=== PATIENT | female | born 1935 | race Caucasian/White ===

== ENCOUNTER → 2017-05-15 | Outpatient (CLI) | payer MEDICARE ==
[~2017-05-15] MED LIST: ALBU8.5H2 IH; AMIT10TA6 PO; ASP325T PO; ATEN-147 PO; CLIN150C2 PO; CLON0.5T3 PO; DOCU100T7 PO; HYDR-3454 PO; IPRA3AMP IH; LOSA100T7 PO; MELO-195 PO; MONT4TAB36 PO; OMEP40CA36 PO; SIMV20TA3 PO; TRAM-21 PO; [UNRECOGNIZED DRUG - OTHER] PO
--- NOTE | 2017-05-15 12:24 | Diagnostic Imaging Report ---
PROCEDURE: US Bilateral lower extremity arterial. TECHNIQUE: Multiple real-time grayscale images are obtained through both lower extremity arterial systems with color Doppler imaging and color Doppler spectral analysis. INDICATION: Leg pain. There are no prior studies available for comparison. FINDINGS: There is fairly good arterial blood flow to both lower extremities. Biphasic waveforms are seen at all levels and there is no abrupt alteration of the velocities to suggest a hemodynamically significant stenosis. IMPRESSION: 1. There is no evidence for a hemodynamically significant stenosis of either arterial system. 2. If clinical concern regarding an underlying abnormality persists and further imaging is desired, then CTA of the aorta with bilateral runoffs will be recommended. Dictated by: Dictated on workstation # [id number]
--- NOTE | 2017-05-15 12:30 | Diagnostic Imaging Report ---
EXAMINATION: Bilateral lower extremity venous Doppler. INDICATION: Difficulty walking, leg pain. FINDINGS: Spectral and color flow imaging of the deep venous system was performed. There are no prior studies available for comparison. There is generally good blood flow and compressibility throughout the deep venous system. There is no evidence for a deep venous thrombosis. IMPRESSION: There is no evidence for a deep venous thrombosis of either lower extremity. Dictated by: Dictated on workstation # [id number]
== END ==
LOC: RAD 08:29
DX: F41.8 Other specified anxiety disorders (principal); G25.0 Essential tremor; J44.9 Chronic obstructive pulmonary disease, unspecified; G14 Postpolio syndrome; R20.8 Other disturbances of skin sensation; R29.6 Repeated falls
CPT/HCPCS: 93925; 93970

== ENCOUNTER → 2017-06-14 | Outpatient (CLI) | payer MEDICARE | LOC: CARD 13:10 | PROVIDERS: ATTEND Internal Medicine Cardiovascular Disease | DX: J44.9 Chronic obstructive pulmonary disease, unspecified (principal); I63.9 Cerebral infarction, unspecified; E78.2 Mixed hyperlipidemia; I10 Essential (primary) hypertension; Z72.0 Tobacco use | CPT/HCPCS: 93306 ==

== ENCOUNTER → 2017-06-18 | Outpatient (CLI) | payer MEDICARE ==
[~2017-06-18] VITALS: Ht 162.6 cm; Wt 71.2 kg
[~2017-06-18] MED LIST changes: +CATHETER FLUSH 10 ML SYR IV PRN; +REGADENOSON 0.4 MG/5 ML SYR (LEXISCAN) IV ONE
[2017-06-18 09:28] VITALS: BP 190/94
[2017-06-18 09:33] VITALS: BP 172/76
--- NOTE | 2017-06-19 08:07 | STRESS TEST ---
DATE OF SERVICE: 06/18/2017 REFERRING PHYSICIAN: Dr. Darien Swain. Baseline heart rate is 56. Baseline blood pressure 190/94. Baseline EKG sinus rhythm with left bundle branch block. In summary, patient was injected with 10.66 mCi of technetium-99 Myoview and the resting images were obtained. Then, the patient received 0.4 mg of Lexiscan followed by 31.7 mCi of technetium-99 Myoview. Throughout the test, there were no EKG changes. The resting and stress images were reviewed and compared in the short axis, horizontal long axis, and vertical long axis views. Review of the images showed breast attenuation, no significant ischemia or infarction was seen, mild apical thinning was noted. SSS is 3. SDS is 3. TID value 1.02. On the gated images, the left ventricle appeared to be normal size with mild hypokinesia at the anteroseptum and true septum, probably due to underlying left bundle branch block. Calculated ejection fraction 56%. CONCLUSION: 1. The patient tolerated Lexiscan well. 2. Baseline left bundle branch block persisted during test. 3. Apical thinning with no significant ischemia or infarction on SPECT images. 4. Normal left ventricular size with mild hypokinesia at the anteroseptum and true septum due to the underlying bundle branch block with calculated ejection fraction 56%. Job ID: [id number] DocumentID: [id number] Dictated Date: 06/19/2017 07:34:44 Human Resources Department Supervisor Date: 06/19/2017 08:06:36 Dictated By: ARASH CAI MD [facility]
== END ==
LOC: CARD 06:32
PROVIDERS: ATTEND Internal Medicine Cardiovascular Disease
DX: I10 Essential (primary) hypertension (principal); E78.2 Mixed hyperlipidemia; J44.9 Chronic obstructive pulmonary disease, unspecified; I63.9 Cerebral infarction, unspecified; Z72.0 Tobacco use
CPT/HCPCS: 78452; 93017

== ENCOUNTER 2018-02-25 05:37 | Outpatient (CLI) | payer MEDICARE ==
[~2018-02-25] VITALS: Ht 162.6 cm; Wt 71.2 kg
[~2018-02-25 05:37] MED LIST changes: -CATHETER FLUSH 10 ML SYR IV PRN; -REGADENOSON 0.4 MG/5 ML SYR (LEXISCAN) IV ONE
[2018-02-25] MEDS ORDERED: AMLO5TAB7 PO (13:55)
[2018-02-25] MEDS ORDERED: MIRT15TA6 PO (13:55)
[2018-02-25] MEDS ORDERED: ASPI-808 PO (13:55)
[2018-02-25] MEDS ORDERED: LOSA100T8 PO (13:55)
[2018-02-25] MEDS ORDERED: ATOR10TA66 PO (13:55)
[2018-02-25] MEDS ORDERED: MONT10TA24 PO (13:55)
[2018-02-25] MEDS ORDERED: PRIM50TA PO (13:55)
[2018-02-25] MEDS ORDERED: CLON0.5T25 PO (13:55)
[2018-02-25] MEDS ORDERED: MELO15TA39 PO (13:55)
[2018-02-25] MEDS ORDERED: OMEP40CA36 PO (13:55)
[2018-02-25] MEDS ORDERED: IPRA3AMP31 IH (13:55)
== END 2018-02-25 13:57 | disposition home or self-care (01) ==
LOC: PREOP 05:37
PROVIDERS: ATTEND Surgery
DX: Z01.818 Encounter for other preprocedural examination (principal)

== ENCOUNTER 2018-03-04 07:28 | Day surgery (SDC) | payer MEDICARE ==
[~2018-03-04] VITALS: Ht 162.6 cm; Wt 71.2 kg
[~2018-03-04 07:28] MED LIST changes: +AMLO5TAB7 PO; +ASPI-808 PO; +ATOR10TA66 PO; +CLON0.5T25 PO; +IPRA3AMP31 IH; +LOSA100T8 PO; +MELO15TA39 PO; +MIRT15TA6 PO; +MONT10TA24 PO; +PRIM50TA PO
[2018-03-04] MEDS ORDERED: NS IV 500 ML 500 ML IV PRN (07:38)
[2018-03-04] MEDS ORDERED: NS IV 500 ML 500 ML ONE (07:41)
[2018-03-04] MEDS ORDERED: fentaNYL INJECTION 100 MCG/2 ML AMP IVP ONE (07:45)
[2018-03-04] MEDS ORDERED: MIDAZOLAM 2 MG/2 ML (VERSED) VIAL IVP ONE (07:45)
[2018-03-04] MEDS ORDERED: HURRICAINE EXT TUBE (BENZOCAINE) XX PRN (07:45)
[2018-03-04 07:51] VITALS: BP 124/70
[2018-03-04] MEDS ORDERED: fentaNYL INJECTION 100 MCG/2 ML AMP ONE (09:50)
[2018-03-04] MEDS ORDERED: MIDAZOLAM 2 MG/2 ML (VERSED) VIAL ONE ×2 (09:50)
[2018-03-04] MEDS ORDERED: HURRICAINE EXT TUBE (BENZOCAINE) ONE (09:50)
--- NOTE | 2018-03-04 10:16 | Conscious Sedation/ASA ---
Conscious Sedation Pre-Proced Time 09:20 ASA Score 3 For ASA 3 and 4: Consider anesthesia and medical clearance. Also, for patients with a history of failed moderate sedation consider anesthesia. Airway Lungs Heart ASA score ASA 1: a normal healthy patient ASA 2: a patient with a mild systemic disease (mid diabetes, controlled hypertension, obesity ASA 3: a patient with a severe systemic disease that limits activity (angina , COPD, prior Myocardial infarction) ASA 4: a patient with an incapacitating disease that is a constant threat to life (CHF, renal failure) ASA 5: a moribund patient not expected to survive 24 hrs. (ruptured aneurysm) ASA 6: a declared brain patient whose organs are being harvested. For emergent operations, add the letter E after the classification Mallampati Classification Grade 2 Sedation Plan Discussed options with patient/fam The patient is an appropriate candidate to undergo the planned procedure, sedation, and anesthesia. The patient immediately re-assessed prior to indication. DONNA SIMMONS MD Mar 04, 2018 10:16
--- NOTE | 2018-03-04 10:19 | Endo Procedure Record ---
Endo Procedure Report Date of Procedure Last Colonoscopy: Yes (1999) Mar 04, 2018 Surgeon (s) DONNA SIMMONS MD Post Procedure/Op Diagnosis EGD: Hiatal hernia with mild esophagitis Colonoscopy: Sigmoid diverticulosis Procedure Performed EGD Colonoscopy to cecum Description of Procedure Anesthesia Type: Conscious Sedation Specimen(s) collected/removed None Description of the Procedure indication for the procedures: This lady came in for an upper endoscopy to evaluate weight loss and colonoscopy on the basis of a personal history of polyps, along with the family history of colon cancer. Informed consent was obtained after reviewing the procedures in detail. Description of the procedures: EGD: She was placed in left lateral decubitus position and her vital signs were monitored. Conscious sedation was achieved using Versed and fentanyl. The flexible gastroscope was introduced down the esophagus, past the stomach, into the proximal duodenum. Findings: Esophagus: A short hiatal hernia with mild esophagitis. Stomach and duodenum were normal. She tolerated the procedure well and was taken turned around in preparation for colonoscopy. Impression: Weight loss. No contributing lesions found in the stomach. Colonoscopy: Examination of the perianal area revealed a posterior skin tach. Digital examination was otherwise unremarkable. The colonoscope was then introduced in the rectum and advanced all the way up to the cecum. It was then withdrawn slowly and the mucosa examined in a systematic fashion. Findings: Sigmoidal diverticulosis. No recurrent polyps were found. She tolerated the procedures well and was taken back to the nursing area in a stable condition. Impression: Surveillance colonoscopy. No polyps found. Recommend repeating in 5 years. DONNA SIMMONS MD Mar 04, 2018 10:19
--- NOTE | 2018-03-04 10:20 | Discharge Inst-Simple/Standard ---
Discharge Inst-Standard Discharge Medications New, Converted or Re-Newed RX: Other Patient Instructions/Follow Up Plan of Care/Instructions/FU: repeat colonoscopy in 5 years Activity as Tolerated: Yes Discharge Diet: No Restrictions DONNA SIMMONS MD Mar 04, 2018 10:20
[2018-03-04 10:30] VITALS: BP 123/57
[2018-03-04 11:00] VITALS: BP 128/74
[2018-03-04 11:30] VITALS: BP 128/74
== END 2018-03-04 11:30 | disposition home or self-care (01) ==
LOC: ENDO 07:28
PROVIDERS: ATTEND Surgery
DX: Z09 Encounter for follow-up examination after completed treatment for conditions other than malignant neoplasm (principal); K57.30 Diverticulosis of large intestine without perforation or abscess without bleeding; K20.9 Esophagitis, unspecified; K44.9 Diaphragmatic hernia without obstruction or gangrene; Z86.010 Personal history of colon polyps; Z80.0 Family history of malignant neoplasm of digestive organs; K64.4 Residual hemorrhoidal skin tags; Z86.73 Personal history of transient ischemic attack (TIA), and cerebral infarction without residual deficits; Z79.82 Long term (current) use of aspirin; I10 Essential (primary) hypertension; E78.2 Mixed hyperlipidemia; M81.0 Age-related osteoporosis without current pathological fracture; J44.9 Chronic obstructive pulmonary disease, unspecified; F17.210 Nicotine dependence, cigarettes, uncomplicated

== ENCOUNTER → 2018-08-12 | Outpatient (CLI) | payer MEDICARE ==
[~2018-08-12] MED LIST changes: -AMLO5TAB7 PO; +AMLO5TAB9 PO; +LOSA100T57 PO; -LOSA100T8 PO
[2018-08-12 10:14] LABS: ALANINE AMINOTRANSFERASE 9 U/L (0-55); ALKALINE PHOSPHATASE 110 U/L (40-136); BILIRUBIN,TOTAL 0.4 MG/DL (0.1-1.0); BUN/CREATININE RATIO 8; CALCIUM 9.4 MG/DL (8.5-10.1); CARBON DIOXIDE 24 MMOL/L (21-32); CHLORIDE 110 MMOL/L (98-107); CHOLESTEROL 166 MG/DL (< 200); CREATININE SERUM 0.84 MG/DL (0.60-1.30); GFR ESTIMATED > 60; GLUCOSE 83 MG/DL (70-105); HDL CHOLESTEROL 46 MG/DL (40-60); POTASSIUM 4.3 MMOL/L (3.6-5.0); SODIUM 142 MMOL/L (135-145); TOTAL PROTEIN 6.3 GM/DL (6.4-8.2); TRIGLYCERIDES 166 MG/DL (<150); VLDL CHOLESTEROL 33 MG/DL (5-40)
== END ==
LOC: LAB 09:35
PROVIDERS: ATTEND Physician Assistant
DX: E78.2 Mixed hyperlipidemia (principal); I10 Essential (primary) hypertension
CPT/HCPCS: 36415; 80053; 80061

== ENCOUNTER → 2018-09-11 | Outpatient (CLI) | payer MEDICARE ==
[2018-09-11 14:03] LABS: BUN/CREATININE RATIO 6; CREATININE SERUM 0.86 MG/DL (0.60-1.30); GFR ESTIMATED > 60
--- NOTE | 2018-09-11 14:30 | Diagnostic Imaging Report ---
PROCEDURE: CT chest with contrast only. TECHNIQUE: Multiple contiguous axial images were obtained through the chest after administration of intravenous contrast. Auto Exposure Controls were utilized during the CT exam to meet ALARA standards for radiation dose reduction. INDICATION: Mid back pain and cough. No prior studies are available for comparison. No axillary lymphadenopathy is identified. There may be some prominent lymph nodes in the AP window. In aggregate these measure 2.7 x 1.9 cm and are indeterminate. No definite hilar lymphadenopathy is identified. No pericardial or pleural fluid is identified. Pulmonary parenchymal evaluation demonstrates interstitial fibrotic changes throughout both lungs. Minimal subpleural air cysts are identified in the right base posteriorly. No discrete mass is identified. Upper abdomen is without evidence of an adrenal or hepatic mass. The bony structures do show some mild hyperkyphotic curvature to the thoracic spine but no acute compression fracture is seen. There is right convexity thoracic scoliotic curvature. Impression: 1. Interstitial fibrotic changes. 2. Mildly enlarged lymph nodes in the mediastinum AP window, indeterminate. No discrete pulmonary parenchymal mass is identified. Followup to confirm stability could be performed. Dictated by: Dictated on workstation # [id number]
== END ==
LOC: RAD 13:24
PROVIDERS: ATTEND Nurse Practitioner Primary Care
DX: J44.9 Chronic obstructive pulmonary disease, unspecified (principal); J18.9 Pneumonia, unspecified organism; J84.10 Pulmonary fibrosis, unspecified; R59.0 Localized enlarged lymph nodes
CPT/HCPCS: 36415; 71260; 82565; 84520

== ENCOUNTER 2018-09-14 20:40 | Emergency (ER) | payer MEDICARE ==
[~2018-09-14] VITALS: Ht 165.1 cm; Wt 67.1 kg
--- NOTE | 2018-09-14 22:50 | NUR ---
Report recieved from SHEFALI Roper to assume care of pt @ this time.
--- NOTE | 2018-09-14 22:58 | ED Cough/URI ---
General Chief Complaint: Cough/Cold/Flu Symptoms Stated Complaint: COUGHING, FEVER, WEAK Nursing Triage Note: PT TO ED W/ C/O COUGH, ELEVATED TEMP ONSET LAST NOC. FAMILY REPORTS PT RECENTLY WAS TREATED FOR PNEUMONIA Sepsis Screen: No Definite Risk Source: patient, family () Exam Limitations: no limitations History of Present Illness Date Seen by Provider: Sep 14, 2018 Time Seen by Provider: 22:30 Initial Comments The patient presents to the ER by private conveyance with her daughter and chief complaint that she just got off Levaquin for pneumonia outpatient treatment 3 days ago and yesterday started coughing again and today she had a fever of 100.6. Patient had no nausea vomiting diarrhea but has had mild shortness of breath. She does not use oxygen. She doesn't history of COPD and uses her albuterol inhaler 4 times a day which is normal for her. She typically would smoke 1/2-2 packs of cigarettes per day for the past for 5 days she's not been smoking any. No chest pain the swelling or edema. She denies a history of CHF. The daughter reports the patient has been referred to see a junior net developer just has not made the appointment yet. Allergies and Home Medications Allergies Coded Allergies: Penicillins (Unverified Allergy, Unknown, 02/25/18) sulfamethoxazole (Unverified Allergy, Unknown, 02/25/18) trimethoprim (Unverified Allergy, Unknown, 02/25/18) Home Medications Amlodipine Besylate 5 Mg Tablet, 5 MG PO DAILY, (Reported) Aspirin 325 Mg Tablet, 325 MG PO DAILY, (Reported) Atorvastatin Calcium 10 Mg Tablet, 10 MG PO HS, (Reported) Clonazepam 0.5 Mg Tab.rapdis, 0.5 MG PO TID, (Reported) Ipratropium/Albuterol Sulfate 3 Ml Ampul.neb, 3 ML IH QID, (Reported) Losartan Potassium 100 Mg Tablet, 100 MG PO DAILY, (Reported) Meloxicam 15 Mg Tablet, 15 MG PO DAILY, (Reported) Mirtazapine 15 Mg Tablet, 15 MG PO HS, (Reported) Montelukast Sodium 10 Mg Tablet, 10 MG PO DAILY, (Reported) Omeprazole 40 Mg Capsule.dr, 40 MG PO DAILY, (Reported) Primidone 50 Mg Tablet, 50 MG PO BID, (Reported) Patient Home Medication List Home Medication List Reviewed: Yes Review of Systems Review of Systems Constitutional: No chills, No diaphoresis EENTM: No ear discharge, No ear pain Respiratory: cough, phlegm, short of breath; No wheezing Cardiovascular: No chest pain, No edema Gastrointestinal: No abdominal pain, No constipation, No diarrhea, No nausea Genitourinary: No discharge, No dysuria Musculoskeletal: back pain (thoracic); No joint pain Skin: No pruritus, No rash Past Lbkjfov-Tuxyzw-Htwwqc Hx Patient Social History Alcohol Use: Denies Use Recreational Drug Use: No Smoking Status: Current Everyday Smoker Type Used: Cigarettes Recent Foreign Travel: No Contact w/Someone Who Travel: No Recent Infectious Disease Expo: No Recent Hopitalizations: No Immunizations Up To Date Date of Pneumonia Vaccine: Feb 25, 2015 Date of Influenza Vaccine: Jan 14, 2018 Seasonal Allergies Seasonal Allergies: Yes Past Medical History Surgeries: Yes (SCREWS IN LEFT ANKLE, LENS SURGERY, LIPOMA REMOVAL, FOOT AKBAR RGERY) Respiratory: Yes (WEARS O2 AT NIGHT) COPD, Emphysema Cardiac: Yes High Cholesterol, Hypertension Neurological: Yes (BENIGN TREMORS) Stroke Reproductive Disorders: No Sexually Transmitted Disease: Yes HIV/AIDS: No Gastrointestinal: Yes Gastroesophageal Reflux, Chronic Constipation, Polyps Musculoskeletal: Yes (OSTEOPOROSIS, HX POLIO) Arthritis Endocrine: No Cataract Loss of Vision: Denies Hearing Impairment: Hard of Hearing Cancer: Yes (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) Skin Psychosocial: No Integumentary: Yes (MULTIPLE SKIN LESIONS, SOME CANCEROUS) Blood Disorders: No Adverse Reaction/Blood Tranf: No (N/A) Family Medical History Colon cancer Physical Exam Vital Signs - First Documented 09/14/18 20:46 Temp 99.9 Pulse 77 Resp 20 B/P (MAP) 174/91 (118) Pulse Ox 97 O2 Delivery Room Air Capillary Refill : Less Than 3 Seconds Height: 5'5.00" Weight: 148lbs. 0.0oz. 67.924909ny; 27.0 BMI Method:Stated General Appearance: WD/WN, no apparent distress Eyes: Bilateral Eye Normal Inspection, Bilateral Eye PERRL, Bilateral Eye EOMI HEENT: PERRL/EOMI, normal ENT inspection, TMs normal, pharynx normal Neck: non-tender, full range of motion, normal inspection Respiratory: chest non-tender, no respiratory distress, no accessory muscle use, decreased breath sounds, crackles (bilateral bases) Cardiovascular: normal peripheral pulses, regular rate, rhythm Gastrointestinal: normal bowel sounds, non tender, soft Neurologic/Psychiatric: alert, normal mood/affect, oriented x 3 Skin: normal color, warm/dry Focused Exam Lactate Level 09/14/18 23:00: Lactic Acid Level 0.88 Lactic Acid Level Laboratory Tests Test 09/14/18 23:00 Lactic Acid Level 0.88 MMOL/L (0.50-2.00) Progress/Results/Core Measures Suspected Sepsis Recent Fever Within 48 Hours: No Infection Criteria Present: None New/Unexplained Altered Menta: No Sepsis Screen: No Definite Risk SIRS Temperature:99.9 Pulse: 77 Respiratory Rate: 20 Laboratory Tests 09/14/18 23:00: White Blood Count 4.4 Blood Pressure 174 /91 Mean: 118 09/14/18 23:00: Lactic Acid Level 0.88 Laboratory Tests 09/14/18 23:00: Creatinine 0.93, Platelet Count 166, Total Bilirubin 0.3 Results/Orders Lab Results Laboratory Tests Test 09/14/18 23:00 Range/Units White Blood Count 4.4 4.3-11.0 10^3/uL Red Blood Count 4.51 4.35-5.85 10^6/uL Hemoglobin 13.6 11.5-16.0 G/DL Hematocrit 40 35-52 % Mean Corpuscular Volume 89 80-99 FL Mean Corpuscular Hemoglobin 30 25-34 PG Mean Corpuscular Hemoglobin Concent 34 32-36 G/DL Red Cell Distribution Width 14.4 10.0-14.5 % Platelet Count 166 130-400 10^3/uL Mean Platelet Volume 11.0 H 7.4-10.4 FL Neutrophils (%) (Auto) 67 42-75 % Lymphocytes (%) (Auto) 18 12-44 % Monocytes (%) (Auto) 11 0-12 % Eosinophils (%) (Auto) 3 0-10 % Basophils (%) (Auto) 1 0-10 % Neutrophils # (Auto) 2.9 1.8-7.8 X 10^3 Lymphocytes # (Auto) 0.8 L 1.0-4.0 X 10^3 Monocytes # (Auto) 0.5 0.0-1.0 X 10^3 Eosinophils # (Auto) 0.1 0.0-0.3 10^3/uL Basophils # (Auto) 0.0 0.0-0.1 10^3/uL Sodium Level 138 135-145 MMOL/L Potassium Level 3.4 L 3.6-5.0 MMOL/L Chloride Level 104 98-107 MMOL/L Carbon Dioxide Level 23 21-32 MMOL/L Anion Gap 11 5-14 MMOL/L Blood Urea Nitrogen 7 7-18 MG/DL Creatinine 0.93 0.60-1.30 MG/DL Estimat Glomerular Filtration Rate 58 BUN/Creatinine Ratio 8 Glucose Level 91 70-105 MG/DL Lactic Acid Level 0.88 0.50-2.00 MMOL/L Calcium Level 8.6 8.5-10.1 MG/DL Corrected Calcium 8.8 8.5-10.1 MG/DL Magnesium Level 2.1 1.8-2.4 MG/DL Total Bilirubin 0.3 0.1-1.0 MG/DL Aspartate Amino Transf (AST/SGOT) 16 5-34 U/L Alanine Aminotransferase (ALT/SGPT) 8 0-55 U/L Alkaline Phosphatase 96 40-136 U/L C-Reactive Protein High Sensitivity 1.94 H 0.00-0.50 MG/DL B-Type Natriuretic Peptide 57.5 <100.0 PG/ML Total Protein 6.2 L 6.4-8.2 GM/DL Albumin 3.7 3.2-4.5 GM/DL My Orders Orders - CHRISTYSHONDA J Chest Pa/Lat (2 View) (09/14/18 22:42) BNP (09/14/18 22:42) Cbc With Automated Diff (09/14/18 22:42) Comprehensive Metabolic Panel (09/14/18 22:42) Hs C Reactive Protein (09/14/18 22:42) Lactic Acid Analyzer (09/14/18 22:42) Magnesium (09/14/18 22:42) Blood Culture (09/14/18 22:42) Sputum Culture (09/14/18 22:42) Vital Signs/I&O 09/14/18 09/14/18 20:46 22:20 Temp 99.9 Pulse 77 Resp 20 B/P (MAP) 174/91 (118) Pulse Ox 97 O2 Delivery Room Air Room Air Capillary Refill : Less Than 3 Seconds Blood Pressure Mean: 118 Progress Note #1: Time: 22:58 Progress Note Blood culture lab work. She is not hypoxic. She is not wheezy. She does have some crackles so we'll obtain a 2 view chest x-ray. Is This the after effects of her pneumonia or is she failing outpatient therapy. We'll also check a BNP. Progress Note #2: Time: 23:45 Progress Note No evidence of infection on labs her chest x-ray. Crackles may be related to bronchitis related to her interstitial lung disease. Apparently these were the same crackles she said that her primary care provider heard when they put her on Levaquin. Patient has a fever so this is more likely to be viral and bacterial. Markers of inflammation are not elevated and she is not on steroid. She is not wheezy and using her baseline level of albuterol. She does not use any oxygen and her vital signs are otherwise normal. She is in no acute distress and we'll let her go and follow-up Sunday with her primary care doctor. Diagnostic Imaging Diagonstic Imaging: Xray Plain Films/CT/US/NM/MRI: chest (2v) Comments Interstitial fibrotic changes but no discrete infiltrate or cardiopulmonary process noted on the 2 view chest x-ray. When compared to the cutter and paster press clippings images from 3 days ago 09/11/18 there is no significant change. Reviewed: Reviewed by Me Departure Impression Primary Impression: Bronchitis Additional Impression: Upper respiratory infection Qualified Codes: J06.9 - Acute upper respiratory infection, unspecified Disposition: HOME, SELF-CARE Condition: Stable Departure-Patient Inst. Decision time for Depature: 23:54 Referrals: [facility] (PCP) Primary Care Physician ALETA CROSS APRN (Family) Primary Care Physician GOPAL SERRANO DO Patient Instructions: Acute Bronchitis, Adult (DC) Add. Discharge Instructions: Drink plenty of fluids and use your albuterol as necessary for wheezing or shortness of breath. Use vapor rubs such as Vicks or Mentholatum. Use Tylenol as necessary for fever or bodyaches such as your backache. Sunday morning call either your primary care doctor or the junior net developer and work on getting an appointment to follow-up. If you have worsening shortness of breath, fever above 102.5 or other worrisome symptoms you may return to the ER for further evaluation. All discharge instructions reviewed with patient and/or family. Voiced understanding. SHONDA HARRISON J Sep 14, 2018 22:57
[2018-09-14 23:11] LABS: BASOPHILS % (AUTO) 1 % (0-10); EOSINOPHILS # (AUTO) 0.1 10^3/uL (0.0-0.3); EOSINOPHILS % (AUTO) 3 % (0-10); HEMATOCRIT 40 % (35-52); HEMOGLOBIN 13.6 G/DL (11.5-16.0); LYMPHOCYTES # (AUTO) 0.8 X 10^3 (1.0-4.0); LYMPHOCYTES % (AUTO) 18 % (12-44); MEAN CORPUSCULAR HEMOGLOBIN 30 PG (25-34); MEAN CORPUSCULAR HGB CONC 34 G/DL (32-36); MEAN CORPUSCULAR VOLUME 89 FL (80-99); MONOCYTES # (AUTO) 0.5 X 10^3 (0.0-1.0); MONOCYTES % (AUTO) 11 % (0-12); NEUTROPHILS # (AUTO) 2.9 X 10^3 (1.8-7.8); NEUTROPHILS % (AUTO) 67 % (42-75); PLATELET COUNT 166 10^3/uL (130-400); RED CELL DISTRIBUTION WIDTH 14.4 % (10.0-14.5); WHITE BLOOD COUNT 4.4 10^3/uL (4.3-11.0)
[2018-09-14 23:38] LABS: ALBUMIN 3.7 GM/DL (3.2-4.5); BILIRUBIN,TOTAL 0.3 MG/DL (0.1-1.0); CALCIUM 8.6 MG/DL (8.5-10.1); CREATININE SERUM 0.93 MG/DL (0.60-1.30); MAGNESIUM 2.1 MG/DL (1.8-2.4); POTASSIUM 3.4 MMOL/L (3.6-5.0); TOTAL PROTEIN 6.2 GM/DL (6.4-8.2)
[2018-09-15 00:13] VITALS: BP 178/97
--- NOTE | 2018-09-15 07:09 | Diagnostic Imaging Report ---
INDICATION: Short of air EXAMINATION: PA and lateral chest are correlated with a prior CT study from 09/11/2018. FINDINGS: Chronic interstitial changes and pulmonary fibrosis are not appreciably changed. There is no new alveolar consolidation or infiltrate. There is some scarring in the mid right lung. There is no pneumothorax. Heart size and mediastinal contours appear appropriate without evidence of failure. IMPRESSION: 1. Chronic interstitial lung disease and pulmonary fibrosis with no perceptible interval change. There is no new consolidation or effusion and pulmonary vascularity appears appropriate. Dictated by: Dictated on workstation # [id number]
== END 2018-09-15 00:14 | disposition home or self-care (01) ==
LOC: EDUNIT# 20:40 → ER 20:42
DX: J06.9 Acute upper respiratory infection, unspecified (principal); J40 Bronchitis, not specified as acute or chronic; E78.00 Pure hypercholesterolemia, unspecified; K21.9 Gastro-esophageal reflux disease without esophagitis; M81.0 Age-related osteoporosis without current pathological fracture; I10 Essential (primary) hypertension; F17.210 Nicotine dependence, cigarettes, uncomplicated; Z88.0 Allergy status to penicillin; Z87.19 Personal history of other diseases of the digestive system; Z86.12 Personal history of poliomyelitis; Z85.828 Personal history of other malignant neoplasm of skin; Z86.010 Personal history of colon polyps; Z88.2 Allergy status to sulfonamides; Z86.73 Personal history of transient ischemic attack (TIA), and cerebral infarction without residual deficits; Z99.81 Dependence on supplemental oxygen; Z88.8 Allergy status to other drugs, medicaments and biological substances; Z79.52 Long term (current) use of systemic steroids
CPT/HCPCS: 36415; 71046; 80053; 83605; 83735; 83880; 85025; 86141; 87040

== ENCOUNTER → 2018-09-30 | Outpatient (CLI) | payer MEDICARE ==
[2018-09-30 09:59] LABS: ABG BASE EXCESS -1.2 MMOL/L (-2.5-2.5); ABG OXYGEN SATURATION 98 % (94-100); ABG PCO2 37 MMHG (35-45); ABG PO2 68 MMHG (79-93); ABG TCO2 24.5 MMOL/L (21.0-31.0); ALLENS TEST YES-POS; INSPIRED O2 ROOM AIR; PATIENT TEMP 95.5; VENTILATOR NO
== END ==
LOC: PULM 09:18
PROVIDERS: ATTEND Nurse Practitioner Family
DX: R05 Cough (principal); R06.00 Dyspnea, unspecified; J30.9 Allergic rhinitis, unspecified; R06.89 Other abnormalities of breathing; J98.4 Other disorders of lung; J44.9 Chronic obstructive pulmonary disease, unspecified; J84.10 Pulmonary fibrosis, unspecified; R91.8 Other nonspecific abnormal finding of lung field; Z72.0 Tobacco use
CPT/HCPCS: 36600; 82805

== ENCOUNTER → 2018-10-01 | Outpatient (CLI) | payer MEDICARE | LOC: PULM 10:16 | PROVIDERS: ATTEND Nurse Practitioner Family | DX: J84.10 Pulmonary fibrosis, unspecified (principal); R05 Cough; R06.00 Dyspnea, unspecified; J30.9 Allergic rhinitis, unspecified; R06.89 Other abnormalities of breathing; J44.9 Chronic obstructive pulmonary disease, unspecified; R91.8 Other nonspecific abnormal finding of lung field; Z72.0 Tobacco use ==

== ENCOUNTER → 2018-11-07 | Outpatient (CLI) | payer MEDICARE ==
[~2018-11-07] MED LIST changes: +RT-ALBUTEROL SULF 2.5 MG/3 ML PRE-MIX VIAL INH ONE
== END ==
LOC: RT 14:27
PROVIDERS: ATTEND Nurse Practitioner Family
DX: J30.9 Allergic rhinitis, unspecified (principal); J44.9 Chronic obstructive pulmonary disease, unspecified; J84.10 Pulmonary fibrosis, unspecified; J98.4 Other disorders of lung; Z72.0 Tobacco use
CPT/HCPCS: 94060; 94640; 94726; 94729

== ENCOUNTER → 2018-12-11 | Outpatient (CLI) | payer MEDICARE ==
[~2018-12-11] MED LIST changes: -RT-ALBUTEROL SULF 2.5 MG/3 ML PRE-MIX VIAL INH ONE
[2018-12-11 11:41] LABS: BUN/CREATININE RATIO 15; CREATININE SERUM 0.81 MG/DL (0.60-1.30); GFR ESTIMATED > 60
--- NOTE | 2018-12-11 12:44 | Diagnostic Imaging Report ---
PROCEDURE: CT chest with contrast only. TECHNIQUE: Multiple contiguous axial images were obtained through the chest after administration of intravenous contrast. Auto Exposure Controls were utilized during the CT exam to meet ALARA standards for radiation dose reduction. INDICATION: Cough, dyspnea, and COPD. COMPARISON: Correlation is made with prior CT chest from 09/11/2018. FINDINGS: No axillary lymphadenopathy is identified. AP window nodes are again noted, in aggregate measuring 2.5 x 1.7 cm compared with 2.6 x 1.9 cm. Paratracheal node demonstrates short axis measurement of 11 mm. Yara are unremarkable. The heart is enlarged. There is no pericardial or pleural fluid identified. Subpleural interstitial fibrotic changes are again noted and similar to prior exam. No discrete parenchymal mass is seen. Upper abdomen appears stable. IMPRESSION: Overall stable CT chest when compared with examination from 09/11/2018. Prominent mediastinal lymph nodes are stable. There are interstitial fibrotic changes in both lungs, stable. Dictated by: Dictated on workstation # [id number]
== END ==
LOC: RAD 09:24
PROVIDERS: ATTEND Nurse Practitioner Family
DX: J84.10 Pulmonary fibrosis, unspecified (principal); J98.4 Other disorders of lung; J44.9 Chronic obstructive pulmonary disease, unspecified; R91.8 Other nonspecific abnormal finding of lung field; Z72.0 Tobacco use
CPT/HCPCS: 36415; 71260; 82565; 84520

== ENCOUNTER 2019-01-07 09:30 | Outpatient (RCR) | payer MEDICARE ==
[2018-10-29 09:30] VITALS: BP 142/67
[2018-10-29 10:45] VITALS: BP 120/60
[2018-10-31 09:30] VITALS: BP 130/70
[2018-10-31 10:30] VITALS: BP 120/60
[2018-11-05 09:30] VITALS: BP 120/60
[2018-11-05 10:45] VITALS: BP 118/70
[2018-11-07 09:30] VITALS: BP 98/60
[2018-11-07 10:45] VITALS: BP 120/70
[2018-11-12 09:25] VITALS: BP 120/60
[2018-11-12 10:27] VITALS: BP 110/60
[2018-11-14 09:30] VITALS: BP 131/60
[2018-11-14 10:19] VITALS: BP 128/62
[2018-11-21 09:30] VITALS: BP 130/60
[2018-11-21 10:45] VITALS: BP 110/70
[2018-11-26 09:30] VITALS: BP 118/64
[2018-11-26 10:25] VITALS: BP 122/68
[2018-11-28 09:10] VITALS: BP 128/62
[2018-11-28 10:12] VITALS: BP 122/58
[2018-12-03 09:25] VITALS: BP 120/82
[2018-12-03 10:17] VITALS: BP 128/70
[2018-12-10 09:30] VITALS: BP 121/58
[2018-12-10 10:39] VITALS: BP 120/70
[2018-12-12 09:00] VITALS: BP 116/70
[2018-12-12 10:00] VITALS: BP 122/70
[2018-12-17 09:30] VITALS: BP 130/60
[2018-12-17 10:30] VITALS: BP 125/59
[2018-12-19 09:30] VITALS: BP 170/60
[2018-12-19 10:31] VITALS: BP 120/62
[2018-12-24 09:30] VITALS: BP 130/70
[2018-12-24 10:26] VITALS: BP 117/60
[2018-12-26 09:30] VITALS: BP 118/50
[2018-12-26 10:45] VITALS: BP 120/60
[2019-01-02 09:30] VITALS: BP 120/50
[2019-01-02 10:45] VITALS: BP 112/50
[2019-01-07 09:30] VITALS: BP 106/58
[2019-01-07 10:30] VITALS: BP 110/62
[2019-01-08] MEDS ORDERED: CEPH-507 PO (15:52)
[2019-01-14 08:03] VITALS: BP 102/70
[2019-01-14 09:02] VITALS: BP 100/70
[2019-01-14 10:30] VITALS: BP 120/80
[2019-01-14 11:00] VITALS: BP 140/60
[2019-01-21 09:30] VITALS: BP 130/64
[2019-01-21 10:08] VITALS: BP 120/60
== END 2019-01-19 | disposition home or self-care (01) ==
LOC: PULM 09:30
PROVIDERS: ATTEND Nurse Practitioner Family
DX: J84.10 Pulmonary fibrosis, unspecified (principal); J44.9 Chronic obstructive pulmonary disease, unspecified
CPT/HCPCS: 99211

== ENCOUNTER 2019-01-08 13:17 | Emergency (ER) | payer MEDICARE ==
[~2019-01-08] VITALS: Ht 162 cm; Wt 64.5 kg
[2019-01-08] MEDS ORDERED: NS IV 500 ML 500 ML IV ONE (14:02)
--- NOTE | 2019-01-08 14:08 | ED Fall/Injury ---
General Chief Complaint: Trauma-Non Activation Stated Complaint: FALL Nursing Triage Note: TO TRIAGE WITH COMPLAINTS OF FALLING AT APPX 1245 HITTING HER HEAD AND LANDING ON HER LEFT HIP AND SHOULDER. PT STATES SHE IS HAVING A HARD TIME STAYING AWAKE SINCE THE FALL AND HER HEAD IS "KILLING HER" PT TAKES A FULL STRENGTH ASA DAILY. Source: patient, family (2 daughters) Exam Limitations: no limitations History of Present Illness Date Seen by Provider: Jan 08, 2019 Time Seen by Provider: 13:52 Initial Comments The patient presents to the ER by private conveyance with chief complaint of a fall. She was leaning forward on some newspapers and they slid out from underneath her hands and so she fell forward striking the left eyebrow against the table and then landing on her left side left shoulder and left hip. She's solomon ving some pain in her hip was able to walk out to the car. She takes aspirin daily. Her daughter says she was acting sleepy. She's not having any nausea and denies loss of consciousness. She's not having any problems with memory. She denies coughing shortness of breath dysuria, nausea, diarrhea or constipation. Allergies and Home Medications Allergies Coded Allergies: Penicillins (Unverified Allergy, Unknown, 02/25/18) sulfamethoxazole (Unverified Allergy, Unknown, 02/25/18) trimethoprim (Unverified Allergy, Unknown, 02/25/18) Home Medications Amlodipine Besylate 5 Mg Tablet, 5 MG PO DAILY, (Reported) Aspirin 325 Mg Tablet, 325 MG PO DAILY, (Reported) Atorvastatin Calcium 10 Mg Tablet, 10 MG PO HS, (Reported) Clonazepam 0.5 Mg Tab.rapdis, 0.5 MG PO TID, (Reported) Ipratropium/Albuterol Sulfate 3 Ml Ampul.neb, 3 ML IH QID, (Reported) Losartan Potassium 100 Mg Tablet, 100 MG PO DAILY, (Reported) Meloxicam 15 Mg Tablet, 15 MG PO DAILY, (Reported) Mirtazapine 15 Mg Tablet, 15 MG PO HS, (Reported) Montelukast Sodium 10 Mg Tablet, 10 MG PO DAILY, (Reported) Omeprazole 40 Mg Capsule.dr, 40 MG PO DAILY, (Reported) Primidone 50 Mg Tablet, 50 MG PO BID, (Reported) Patient Home Medication List Home Medication List Reviewed: Yes Review of Systems Review of Systems Constitutional: No chills, No fever, No malaise Eyes: Denies Blurred Vision, Denies Drainage Ears, Nose, Mouth, Throat: denies ear pain, denies ear discharge Respiratory: No short of breath; other (chronic lung disease) Cardiovascular: No chest pain, No edema Gastrointestinal: No abdominal pain, No constipation, No diarrhea, No nausea Genitourinary: No discharge, No dysuria Past Jaomfbt-Jpndej-Kvzrvu Hx Patient Social History Alcohol Use: Denies Use Recreational Drug Use: No Smoking Status: Current Everyday Smoker Type Used: Cigarettes Recent Foreign Travel: No Contact w/Someone Who Travel: No Recent Infectious Disease Expo: No Recent Hopitalizations: No Immunizations Up To Date Date of Pneumonia Vaccine: Feb 25, 2015 Date of Influenza Vaccine: Jan 14, 2018 Seasonal Allergies Seasonal Allergies: Yes Past Medical History Surgeries: Yes (SCREWS IN LEFT ANKLE, LENS SURGERY, LIPOMA REMOVAL, FOOT SURGERY) Respiratory: Yes (WEARS O2 AT NIGHT) COPD, Emphysema Cardiac: Yes High Cholesterol, Hypertension Neurological: Yes (BENIGN TREMORS) Stroke Reproductive Disorders: No Sexually Transmitted Disease: Yes HIV/AIDS: No Gastrointestinal: Yes Gastroesophageal Reflux, Chronic Constipation, Polyps Musculoskeletal: Yes (OSTEOPOROSIS, HX POLIO) Arthritis Endocrine: No Cataract Loss of Vision: Denies Hearing Impairment: Hard of Hearing Cancer: Yes (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) Skin Psychosocial: No Integumentary: Yes (MULTIPLE SKIN LESIONS, SOME CANCEROUS) Blood Disorders: No Adverse Reaction/Blood Tranf: No (N/A) Family Medical History Colon cancer Physical Exam Vital Signs Vital Signs - First Documented 01/08/19 13:32 Temp 36.7 Pulse 77 Resp 16 B/P (MAP) 146/72 (96) Pulse Ox 97 O2 Delivery Room Air Capillary Refill : Less Than 3 Seconds Height, Weight, BMI Height: 5'5.00" Weight: 142lbs. 8.0oz. 67.936862ow; 24.00 BMI Method:Stated General Appearance: WD/WN, no apparent distress HEENT: PERRL/EOMI, normal ENT inspection, TMs normal, pharynx normal Neck: non-tender, full range of motion, supple, normal inspection Cardiovascular: normal peripheral pulses, regular rate, rhythm, no edema Respiratory: chest non-tender, no respiratory distress, no accessory muscle use, decreased breath sounds, crackles (faint, bilateral bases) Peripheral Pulses: 2+ Radial Pulses (R), 2+ Radial Pulses (L) Gastrointestinal: normal bowel sounds, non tender, soft Back: normal inspection, no vertebral tenderness Extremities: normal range of motion, normal capillary refill, other (tenderness over her left greater trochanter of the hip and left anterior shoulder to palpation. No deformity, ecchymoses, abrasion or loss of range of motion.) Neurologic/Psychiatric: no motor/sensory deficits, alert, normal mood/affect, oriented x 3 Skin: normal color, warm/dry Progress/Results/Core Measures Results/Orders Lab Results Laboratory Tests Test 01/08/19 14:11 01/08/19 14:17 Range/Units White Blood Count 5.7 4.3-11.0 10^3/uL Red Blood Count 4.25 L 4.35-5.85 10^6/uL Hemoglobin 13.3 11.5-16.0 G/DL Hematocrit 39 35-52 % Mean Corpuscular Volume 91 80-99 FL Mean Corpuscular Hemoglobin 31 25-34 PG Mean Corpuscular Hemoglobin Concent 35 32-36 G/DL Red Cell Distribution Width 14.9 H 10.0-14.5 % Platelet Count 222 130-400 10^3/uL Mean Platelet Volume 10.4 7.4-10.4 FL Neutrophils (%) (Auto) 73 42-75 % Lymphocytes (%) (Auto) 19 12-44 % Monocytes (%) (Auto) 6 0-12 % Eosinophils (%) (Auto) 2 0-10 % Basophils (%) (Auto) 0 0-10 % Neutrophils # (Auto) 4.2 1.8-7.8 X 10^3 Lymphocytes # (Auto) 1.1 1.0-4.0 X 10^3 Monocytes # (Auto) 0.4 0.0-1.0 X 10^3 Eosinophils # (Auto) 0.1 0.0-0.3 10^3/uL Basophils # (Auto) 0.0 0.0-0.1 10^3/uL Sodium Level 138 135-145 MMOL/L Potassium Level 3.8 3.6-5.0 MMOL/L Chloride Level 109 H 98-107 MMOL/L Carbon Dioxide Level 19 L 21-32 MMOL/L Anion Gap 10 5-14 MMOL/L Blood Urea Nitrogen 11 7-18 MG/DL Creatinine 0.93 0.60-1.30 MG/DL Estimat Glomerular Filtration Rate 58 BUN/Creatinine Ratio 12 Glucose Level 104 70-105 MG/DL Calcium Level 8.5 8.5-10.1 MG/DL Corrected Calcium 8.6 8.5-10.1 MG/DL Total Bilirubin 0.2 0.1-1.0 MG/DL Aspartate Amino Transf (AST/SGOT) 13 5-34 U/L Alanine Aminotransferase (ALT/SGPT) 10 0-55 U/L Alkaline Phosphatase 115 40-136 U/L C-Reactive Protein High Sensitivity 0.69 H 0.00-0.50 MG/DL B-Type Natriuretic Peptide 33.3 <100.0 PG/ML Total Protein 6.5 6.4-8.2 GM/DL Albumin 3.9 3.2-4.5 GM/DL Urine Color YELLOW Urine Clarity CLEAR Urine pH 6 5-9 Urine Specific [place] 1.010 L 1.016-1.022 Urine Protein NEGATIVE NEGATIVE Urine Glucose (UA) NEGATIVE NEGATIVE Urine Ketones NEGATIVE NEGATIVE Urine Nitrite NEGATIVE NEGATIVE Urine Bilirubin NEGATIVE NEGATIVE Urine Urobilinogen NORMAL NORMAL MG/DL Urine Leukocyte Esterase 2+ H NEGATIVE Urine RBC (Auto) 2+ H NEGATIVE Urine RBC 2-5 H /HPF Urine WBC 25-50 H /HPF Urine Squamous Epithelial Cells 2-5 /HPF Urine Crystals NONE /LPF Urine Bacteria FEW H /HPF Urine Casts NONE /LPF Urine Mucus NEGATIVE /LPF Urine Culture Indicated YES My Orders Orders - SHONDA HARRISON Ct Head/Face/Cervical Wo (01/08/19 14:02) Chest 1 View, Ap/Pa Only (01/08/19 14:02) Shoulder, Left, 3 Views (01/08/19 14:02) Hip, Left, 2 Views (01/08/19 14:02) BNP (01/08/19 14:02) Cbc With Automated Diff (01/08/19 14:02) Comprehensive Metabolic Panel (01/08/19 14:02) Hs C Reactive Protein (01/08/19 14:02) Ua Culture If Indicated (01/08/19 14:02) Ed Iv/Invasive Line Start (01/08/19 14:02) Ns Iv 500 Ml (Sodium Chloride 0.9%) (01/08/19 14:02) Urine Culture (01/08/19 14:17) Ceftriaxone For Iv Use (Rocephin For I (01/08/19 15:00) Medications Given in ED Current Medications Medications Dose Ordered Sig/Chapin Route Start Time Stop Time Status Last Admin Dose Admin Ceftriaxone Sodium 1000 mg/ Sterile Water 10 ml @ 200 mls/hr ONCE ONCE IV 01/08/19 15:00 01/08/19 15:02 DC 01/08/19 14:55 200 MLS/HR Sodium Chloride 500 ml @ 0 mls/hr Q0M ONCE IV 01/08/19 14:02 01/08/19 14:06 DC 01/08/19 14:17 0 MLS/HR Vital Signs/I&O 01/08/19 13:32 Temp 36.7 Pulse 77 Resp 16 B/P (MAP) 146/72 (96) Pulse Ox 97 O2 Delivery Room Air Blood Pressure Mean: 96 Progress Progress Note #1: Time: 15:00 Progress Note x-rays the chest and left shoulder and hip. CT of the head and C-spine. She declined anything for pain. Blood work and urinalysis. Progress Note #2: Time: 15:52 Progress Note History of allergy to penicillin is a rash not anaphylaxis or difficulty breathing. She has tolerated Rocephin in the past so we'll give her that today and put her on Keflex. Conservative management of her pain. She has not required anything from us since she's been here. Diagnostic Imaging Diagonstic Imaging: Xray Plain Films/CT/US/NM/MRI: chest Comments No changes compared to previous chest x-ray two-view. NAME: [facility] REC#: [id number] PT STATUS: REG ER : 1935 PHYSICIAN: SHONDA HARRISON MD ADMIT DATE: 01/08/19/ER Draft Date of Exam:01/08/19 CHEST 1 VIEW, AP/PA ONLY PATIENT HISTORY: Fall. TECHNIQUE: Single frontal view of the chest COMPARISON: Chest radiograph of 09/14/2018. FINDINGS: The lung volumes are low. Chronic fibrotic changes are seen throughout the lungs. No focal consolidation. Stable cardiac silhouette. There is calcified aortic atherosclerotic plaque. No acute osseous abnormalities. IMPRESSION: No focal consolidation or pulmonary mass. Chronic fibrotic changes are again seen throughout the lungs, similar to the prior exam. Dictated on workstation # [id number] Dict: 01/08/19 1508 Trans: 01/08/191510 [id number] Interpreted by: ELOY BURT DO Electronically signed by: Reviewed: Reviewed by Ma Diagonstic Imaging: Xray Plain Films/CT/US/NM/MRI: hip (left) Comments No acute osseous abnormality. NAME: [facility] REC#: [id number] PT STATUS: REG ER : 1935 PHYSICIAN: SHONDA HARRISON MD ADMIT DATE: 01/08/19/ER Draft Date of Exam:01/08/19 HIP, LEFT, 2 VIEWS CLINICAL HISTORY: Fall. COMPARISON: None. TECHNIQUE: Two views of the left hip. FINDINGS: There is no acute displaced fracture or dislocation of the left hip. The alignment is anatomic. The imaged joint spaces are preserved. No joint effusion is seen in the left hip. The surrounding soft tissues are unremarkable. IMPRESSION: No acute displaced fracture or dislocation in the left hip. Dictated on workstation # [id number] Dict: 01/08/19 1511 Trans: 01/08/19 1512 [id number] Interpreted by: ELOY BURT DO Electronically signed by: Reviewed: Reviewed by Ma Diagonstic Imaging: Xray Plain Films/CT/US/NM/MRI: other (left shoulder) Comments No acute osseous abnormality. NAME: [facility] REC#: [id number] PT STATUS: REG ER : 1935 PHYSICIAN: SHONDA HARRISON MD ADMIT DATE: 01/08/19/ER Draft Date of Exam:01/08/19 SHOULDER, LEFT, 3 VIEWS CLINICAL HISTORY: Fall. Left shoulder pain. COMPARISON: None. TECHNIQUE: Three views of the left shoulder. FINDINGS: There is no acute fracture or dislocation of the left shoulder. The alignment is anatomic. Degenerative changes are present in the left shoulder with marginal osteophytes and joint space narrowing. The surrounding soft tissues are unremarkable. IMPRESSION: No acute fracture or dislocation in the left shoulder. Dictated on workstation # [id number] Dict: 01/08/19 1509 Trans: 01/08/19 1511 [id number] Interpreted by: ELOY BURT DO Electronically signed by: Reviewed: Reviewed by Me Diagonstic Imaging: CT (without IV contrast) Plain Films/CT/US/NM/MRI: c-spine, head Comments No acute intracranial bleed, mass effect tumor. There is encephalomalacia noted that is stable. No calvarial, facial or cervical spine fracture. No subluxation or malalignment. NAME: [facility] REC#: [id number] PT STATUS: REG ER : 1935 PHYSICIAN: SHONDA HARRISON MD ADMIT DATE: 01/08/19/ER Signed Date of Exam:01/08/19 CT HEAD/FACE/CERVICAL WO PROCEDURE: CT head, face, and cervical spine without contrast. TECHNIQUE: Multiple contiguous axial images were obtained through the head, neck, and facial bones without the use of intravenous contrast. Sagittal and coronal reformations through the cervical spine and facial bones were also performed. Auto Exposure Controls were utilized during the CT exam to meet ALARA standards for radiation dose reduction. INDICATION: Trauma. Fall. Neck and face pain. Scalp contusion. COMPARISON: None. 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 There is ex vacuo dilation of the posterior horn of the left lateral ventricle. The cortical sulci are unremarkable. There is no midline shift or mass-effect. No acute intracranial hemorrhage is seen. There is no CT evidence of acute territorial ischemia. No focal masses or collections are present. The calvarium is intact. CT face: No acute facial fractures are visualized. The mandible, zygomatic arches, and pterygoid plates are intact. The bilateral TMJ demonstrate normal articulation. No nasal bone fractures. The bony nasal septum is slightly deviated to the right without fracture. The paranasal sinuses and mastoid air cells are well pneumatized. The globes and orbits are symmetric and unremarkable. No evidence of orbital rim fracture. CT cervical spine: No acute fracture or dislocation is seen in the cervical spine. No focal osseous lesions. Vertebral body heights are well-maintained. The craniocervical junction is well-maintained. Soft tissues of the neck are unremarkable. The included lung apices are clear. IMPRESSION: 1. No hemorrhage or focal intra-axial mass. No CT evidence of large acute territorial ischemia. 2. 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 3. No acute fracture or dislocation in the cervical spine. 4. No acute facial fractures. Dictated by: Dictated on workstation # [id number] Dict: 01/08/19 1458 Trans: 01/08/19 1507 PC1 [id number] Interpreted by: ELOY BURT DO Electronically signed by: ELOY BURT DO 01/08/19 1507 Reviewed: Reviewed by Me Departure Impression Primary Impression: Fall Qualified Codes: W19.XXXA - Unspecified fall, initial encounter Additional Impressions: UTI (urinary tract infection) Qualified Codes: N30.01 - Acute cystitis with hematuria Facial hematoma Qualified Codes: S00.83XA - Contusion of other part of head, initial encounter Disposition: HOME, SELF-CARE Condition: Stable Departure-Patient Inst. Decision time for Depature: 15:50 Referrals: [facility][1[facility] (PCP) Primary Care Physician ALETA CROSS APRN (Family) Primary Care Physician Patient Instructions: Urinary Tract Infections in Adults Add. Discharge Instructions: Apply an ice pack to the forehead every 4 hours for 20 minutes as necessary for swelling or pain for the first day or 2. Tylenol 1000 mg every 8 hours as needed for pain. Heating pads, icy hot, Biofreeze etc. for back pain if it occurs. supervisor hard candy the Keflex and take one capsule twice a day for the next 5 days for urinary tract infection. All discharge instructions reviewed with patient and/or family. Voiced understanding. Scripts Cephalexin (Keflex) 500 Mg Capsule 500 MG PO BID for 5 Days, #10 CAP 0 Refills Prov: SHONDA HARRISON 01/08/19 SHONDA HARRISON Jan 08, 2019 14:08
[2019-01-08 14:24] LABS: BILIRUBIN,URINE NEGATIVE (NEGATIVE); CLARITY,URINE CLEAR; COLOR,URINE YELLOW; GLUCOSE, URINE (UA) NEGATIVE (NEGATIVE); KETONES,URINE NEGATIVE (NEGATIVE); LEUKOCYTE ESTERASE ,URINE 2+ (NEGATIVE); NITRITE,URINE NEGATIVE (NEGATIVE); PH,URINE 6 (5-9); PROTEIN,URINE NEGATIVE (NEGATIVE); UROBILINOGEN,URINE NORMAL (NORMAL)
[2019-01-08 14:26] LABS: BASOPHILS % (AUTO) 0 % (0-10); EOSINOPHILS # (AUTO) 0.1 10^3/uL (0.0-0.3); EOSINOPHILS % (AUTO) 2 % (0-10); HEMATOCRIT 39 % (35-52); HEMOGLOBIN 13.3 G/DL (11.5-16.0); LYMPHOCYTES # (AUTO) 1.1 X 10^3 (1.0-4.0); LYMPHOCYTES % (AUTO) 19 % (12-44); MEAN CORPUSCULAR HEMOGLOBIN 31 PG (25-34); MEAN CORPUSCULAR HGB CONC 35 G/DL (32-36); MEAN CORPUSCULAR VOLUME 91 FL (80-99); MEAN PLATELET VOLUME 10.4 FL (7.4-10.4); MONOCYTES # (AUTO) 0.4 X 10^3 (0.0-1.0); MONOCYTES % (AUTO) 6 % (0-12); NEUTROPHILS # (AUTO) 4.2 X 10^3 (1.8-7.8); NEUTROPHILS % (AUTO) 73 % (42-75); PLATELET COUNT 222 10^3/uL (130-400); RED CELL DISTRIBUTION WIDTH 14.9 % (10.0-14.5); WHITE BLOOD COUNT 5.7 10^3/uL (4.3-11.0)
[2019-01-08 14:34] LABS: BACTERIA,URINE FEW /HPF; WBC,URINE 25-50 /HPF
[2019-01-08 14:40] LABS: ALBUMIN 3.9 GM/DL (3.2-4.5); BILIRUBIN,TOTAL 0.2 MG/DL (0.1-1.0); CALCIUM 8.5 MG/DL (8.5-10.1); CREATININE SERUM 0.93 MG/DL (0.60-1.30); POTASSIUM 3.8 MMOL/L (3.6-5.0); TOTAL PROTEIN 6.5 GM/DL (6.4-8.2)
[2019-01-08] MEDS ORDERED: cefTRIAXone FOR IV USE 1,000 MG in WATER (STERILE) FOR INJECTION 10 ML IV ONE (15:00)
--- NOTE | 2019-01-08 15:11 | Diagnostic Imaging Report ---
PROCEDURE: CT head, face, and cervical spine without contrast. TECHNIQUE: Multiple contiguous axial images were obtained through the head, neck, and facial bones without the use of intravenous contrast. Sagittal and coronal reformations through the cervical spine and facial bones were also performed. Auto Exposure Controls were utilized during the CT exam to meet ALARA standards for radiation dose reduction. INDICATION: Trauma. Fall. Neck and face pain. Scalp contusion. COMPARISON: None. 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 There is ex vacuo dilation of the posterior horn of the left lateral ventricle. The cortical sulci are unremarkable. There is no midline shift or mass-effect. No acute intracranial hemorrhage is seen. There is no CT evidence of acute territorial ischemia. No focal masses or collections are present. The calvarium is intact. CT face: No acute facial fractures are visualized. The mandible, zygomatic arches, and pterygoid plates are intact. The bilateral TMJ demonstrate normal articulation. No nasal bone fractures. The bony nasal septum is slightly deviated to the right without fracture. The paranasal sinuses and mastoid air cells are well pneumatized. The globes and orbits are symmetric and unremarkable. No evidence of orbital rim fracture. CT cervical spine: No acute fracture or dislocation is seen in the cervical spine. No focal osseous lesions. Vertebral body heights are well-maintained. The craniocervical junction is well-maintained. Soft tissues of the neck are unremarkable. The included lung apices are clear. IMPRESSION: 1. No hemorrhage or focal intra-axial mass. No CT evidence of large acute territorial ischemia. 2. 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 3. No acute fracture or dislocation in the cervical spine. 4. No acute facial fractures. Dictated by: Dictated on workstation # [id number]
--- NOTE | 2019-01-08 15:13 | Diagnostic Imaging Report ---
PATIENT HISTORY: Fall. TECHNIQUE: Single frontal view of the chest COMPARISON: Chest radiograph of 09/14/2018. FINDINGS: The lung volumes are low. Chronic fibrotic changes are seen throughout the lungs. No focal consolidation. Stable cardiac silhouette. There is calcified aortic atherosclerotic plaque. No acute osseous abnormalities. IMPRESSION: No focal consolidation or pulmonary mass. Chronic fibrotic changes are again seen throughout the lungs, similar to the prior exam. Dictated by: Dictated on workstation # [id number]
--- NOTE | 2019-01-08 15:13 | Diagnostic Imaging Report ---
CLINICAL HISTORY: Fall. Left shoulder pain. COMPARISON: None. TECHNIQUE: Three views of the left shoulder. FINDINGS: There is no acute fracture or dislocation of the left shoulder. The alignment is anatomic. Degenerative changes are present in the left shoulder with marginal osteophytes and joint space narrowing. The surrounding soft tissues are unremarkable. IMPRESSION: No acute fracture or dislocation in the left shoulder. Dictated by: Dictated on workstation # [id number]
--- NOTE | 2019-01-08 15:15 | Diagnostic Imaging Report ---
CLINICAL HISTORY: Fall. COMPARISON: None. TECHNIQUE: Two views of the left hip. FINDINGS: There is no acute displaced fracture or dislocation of the left hip. The alignment is anatomic. The imaged joint spaces are preserved. No joint effusion is seen in the left hip. The surrounding soft tissues are unremarkable. IMPRESSION: No acute displaced fracture or dislocation in the left hip. Dictated by: Dictated on workstation # [id number]
[2019-01-08] MEDS ORDERED: CEPH-507 PO (15:52)
[2019-01-08 16:01] VITALS: BP 140/76
== END 2019-01-08 16:01 | disposition home or self-care (01) ==
LOC: EDUNIT# 13:17 → ER 13:18
DX: S00.83XA Contusion of other part of head, initial encounter (principal); N39.0 Urinary tract infection, site not specified; J43.9 Emphysema, unspecified; K21.9 Gastro-esophageal reflux disease without esophagitis; F17.210 Nicotine dependence, cigarettes, uncomplicated; Z85.828 Personal history of other malignant neoplasm of skin; Z86.73 Personal history of transient ischemic attack (TIA), and cerebral infarction without residual deficits; Z99.81 Dependence on supplemental oxygen; Z79.82 Long term (current) use of aspirin; Z88.0 Allergy status to penicillin; Z88.2 Allergy status to sulfonamides; Z88.1 Allergy status to other antibiotic agents; Z80.0 Family history of malignant neoplasm of digestive organs; W01.190A Fall on same level from slipping, tripping and stumbling with subsequent striking against furniture, initial encounter
CPT/HCPCS: 36415; 70450; 70486; 71045; 72125; 73030; 73502; 80053; 81000; 83880; 85025; 86141; 87077; 87088; 87186

== ENCOUNTER 2019-01-21 08:32 | Outpatient (RCR) | payer MEDICARE ==
[~2019-01-21 08:32] MED LIST changes: +CEPH-507 PO; +OMEP40CA27 PO
== END 2019-04-21 | disposition home or self-care (01) ==
LOC: PULM 08:32
PROVIDERS: ATTEND Nurse Practitioner Family
DX: J44.9 Chronic obstructive pulmonary disease, unspecified (principal); J84.10 Pulmonary fibrosis, unspecified

== ENCOUNTER 2019-05-09 10:11 | Inpatient (IN) | payer MEDICARE ==
[~2019-05-09] VITALS: Ht 165.1 cm; Wt 59.8 kg
[~2019-05-09 10:11] MED LIST changes: -IPRA3AMP31 IH; +IPRA3AMP31 NEB
[2019-05-09] MEDS ORDERED: LACTATED RINGERS 1,000 ML IV ONE (10:43)
[2019-05-09 10:55] LABS: BASOPHILS % (AUTO) 0 % (0-10); EOSINOPHILS # (AUTO) 0.2 10^3/uL (0.0-0.3); EOSINOPHILS % (AUTO) 3 % (0-10); HEMATOCRIT 38 % (35-52); HEMOGLOBIN 12.5 G/DL (11.5-16.0); LYMPHOCYTES # (AUTO) 0.5 X 10^3 (1.0-4.0); LYMPHOCYTES % (AUTO) 6 % (12-44); MEAN CORPUSCULAR HEMOGLOBIN 30 PG (25-34); MEAN CORPUSCULAR HGB CONC 33 G/DL (32-36); MEAN CORPUSCULAR VOLUME 90 FL (80-99); MEAN PLATELET VOLUME 10.6 FL (7.4-10.4); MONOCYTES % (AUTO) 13 % (0-12); NEUTROPHILS # (AUTO) 6.4 X 10^3 (1.8-7.8); NEUTROPHILS % (AUTO) 79 % (42-75); PLATELET COUNT 337 10^3/uL (130-400); RED CELL DISTRIBUTION WIDTH 13.7 % (10.0-14.5); WHITE BLOOD COUNT 8.1 10^3/uL (4.3-11.0)
[2019-05-09 11:06] LABS: INR 1.1 (0.8-1.4); PROTHROMBIN TIME PATIENT 14.6 SEC (12.2-14.7)
--- NOTE | 2019-05-09 11:09 | ED General ---
General Chief Complaint: General Problems/Pain Stated Complaint: LOW BP, FEVER, COUGH, POSS PNEUMONIA Source of Information: Patient Exam Limitations: No Limitations History of Present Illness Date Seen by Provider: May 09, 2019 Time Seen by Provider: 10:37 Initial Comments Here with report of fevers and chills over the last 3-4 days with fever as high as 102. She did take Tylenol this morning for fever that 7 days ago. Question of pneumonia. She's had cough and congestion. Does have history of pneumonia. Complains of low back pain but denies dysuria. She has had urinary tract infections in the past. Denies nausea, vomiting or diarrhea. Timing/Duration: 3-4 Days, Getting Worse Severity: Moderate Associated Systoms: Cough, Fever/Chills; No Headaches; Shortness of Air, Weak ness Allergies and Home Medications Allergies Coded Allergies: Penicillins (Unverified Allergy, Unknown, 02/25/18) sulfamethoxazole (Unverified Allergy, Unknown, 02/25/18) trimethoprim (Unverified Allergy, Unknown, 02/25/18) Home Medications Amlodipine Besylate 5 Mg Tablet, 5 MG PO DAILY, (Reported) Aspirin 325 Mg Tablet, 325 MG PO DAILY, (Reported) Atorvastatin Calcium 10 Mg Tablet, 10 MG PO HS, (Reported) Cephalexin 500 Mg Capsule, 500 MG PO BID Prescribed by: SHONDA HARRISON on 01/08/19 1552 Clonazepam 0.5 Mg Tab.rapdis, 0.5 MG PO TID, (Reported) Ipratropium/Albuterol Sulfate 3 Ml Ampul.neb, 3 ML IH QID, (Reported) Losartan Potassium 100 Mg Tablet, 100 MG PO DAILY, (Reported) Meloxicam 15 Mg Tablet, 15 MG PO DAILY, (Reported) Mirtazapine 15 Mg Tablet, 15 MG PO HS, (Reported) Montelukast Sodium 10 Mg Tablet, 10 MG PO DAILY, (Reported) Omeprazole 40 Mg Capsule.dr, 40 MG PO DAILY, (Reported) Primidone 50 Mg Tablet, 50 MG PO BID, (Reported) Patient Home Medication List Home Medication List Reviewed: Yes Review of Systems Review of Systems Constitutional: see HPI, chills, fever, malaise, weakness EENTM: nose congestion, nose pain, throat pain Respiratory: cough, short of breath Cardiovascular: No chest pain, No edema Gastrointestinal: No abdominal pain, No nausea, No vomiting Genitourinary: see HPI; No dysuria, No frequency Musculoskeletal: back pain, muscle pain Skin: no symptoms reported Psychiatric/Neurological: No Symptoms Reported All Other Systems Reviewed Negative Unless Noted: Yes Past Oqsyzeo-Eyicrp-Khdzyt Hx Past Med/Social Hx: Reviewed Nursing Past Med/Soc Hx Patient Social History Alcohol Use: Denies Use Recreational Drug Use: Yes Smoking Status: Current Everyday Smoker Type Used: Cigarettes Recent Foreign Travel: No Contact w/Someone Who Travel: No Recent Hopitalizations: No Immunizations Up To Date Date of Pneumonia Vaccine: Feb 25, 2015 Date of Influenza Vaccine: Jan 14, 2018 Seasonal Allergies Seasonal Allergies: Yes Past Medical History Surgeries: Yes (SCREWS IN LEFT ANKLE, LENS SURGERY, LIPOMA REMOVAL, FOOT SURGERY) Respiratory: Yes (WEARS O2 AT NIGHT) COPD, Emphysema Cardiac: Yes High Cholesterol, Hypertension Neurological: Yes (BENIGN TREMORS) Stroke Reproductive Disorders: No Sexually Transmitted Disease: Yes HIV/AIDS: No Gastrointestinal: Yes Gastroesophageal Reflux, Chronic Constipation, Polyps Musculoskeletal: Yes (OSTEOPOROSIS, HX POLIO) Arthritis Endocrine: No Cataract Loss of Vision: Denies Hearing Impairment: Hard of Hearing Cancer: Yes (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) Skin Psychosocial: No Integumentary: Yes (MULTIPLE SKIN LESIONS, SOME CANCEROUS) Blood Disorders: No Adverse Reaction/Blood Tranf: No (N/A) Family Medical History Reviewed Nursing Family Hx Colon cancer Physical Exam-Suspected Sepsis Physical Exam Vital Signs Vital Signs - First Documented 05/09/19 10:37 Temp 36.1 Pulse 74 Resp 21 B/P (MAP) 102/60 (74) Pulse Ox 96 O2 Delivery Room Air Capillary Refill : Height, Weight, BMI Height: 5'5.00" Weight: 142lbs. 8.0oz. 67.408785li; 24.00 BMI Method:Stated General Appearance: WD/WN, Other (ill appearing) HEENT: PERRL/EOMI, Pharynx Normal Neck: Non Tender, Supple Respiratory: No Respiratory Distress, Crackles (bilateral bases); No Stridor, No Wheezing Cardiovascular: Regular Rate, Rhythm, No Murmur Gastrointestinal: Non Tender, Soft Back: Normal Inspection, No CVA Tenderness, No Vertebral Tenderness Extremity: Normal Range of Motion, Non Tender Neurologic/Psychiatric: Alert, Oriented x3 Skin: normal color, warm/dry Focused Exam Lactate Level 05/09/19 10:45: Lactic Acid Level 1.42 Lactic Acid Level Laboratory Tests Test 05/09/19 10:45 Lactic Acid Level 1.42 MMOL/L (0.50-2.00) Progress/Results/Core Measures Suspected Sepsis SIRS Temperature: Pulse: Respiratory Rate: Laboratory Tests 05/09/19 10:45: White Blood Count 8.1 Blood Pressure / Mean: 05/09/19 10:45: Lactic Acid Level 1.42 Laboratory Tests 05/09/19 10:45: Creatinine 0.85, INR Comment 1.1, Platelet Count 337, Total Bilirubin 0.3 Results/Orders Lab Results Laboratory Tests Test 05/09/19 10:45 05/09/19 11:37 Range/Units White Blood Count 8.1 4.3-11.0 10^3/uL Red Blood Count 4.18 L 4.35-5.85 10^6/uL Hemoglobin 12.5 11.5-16.0 G/DL Hematocrit 38 35-52 % Mean Corpuscular Volume 90 80-99 FL Mean Corpuscular Hemoglobin 30 25-34 PG Mean Corpuscular Hemoglobin Concent 33 32-36 G/DL Red Cell Distribution Width 13.7 10.0-14.5 % Platelet Count 337 130-400 10^3/uL Mean Platelet Volume 10.6 H 7.4-10.4 FL Neutrophils (%) (Auto) 79 H 42-75 % Lymphocytes (%) (Auto) 6 L 12-44 % Monocytes (%) (Auto) 13 H 0-12 % Eosinophils (%) (Auto) 3 0-10 % Basophils (%) (Auto) 0 0-10 % Neutrophils # (Auto) 6.4 1.8-7.8 X 10^3 Lymphocytes # (Auto) 0.5 L 1.0-4.0 X 10^3 Monocytes # (Auto) 1.0 0.0-1.0 X 10^3 Eosinophils # (Auto) 0.2 0.0-0.3 10^3/uL Basophils # (Auto) 0.0 0.0-0.1 10^3/uL Neutrophils % (Manual) 82 % Lymphocytes % (Manual) 6 % Monocytes % (Manual) 11 % Eosinophils % (Manual) 1 % Blood Morphology Comment NORMAL Prothrombin Time 14.6 12.2-14.7 SEC INR Comment 1.1 0.8-1.4 Activated Partial Thromboplast Time 31 24-35 SEC Sodium Level 140 135-145 MMOL/L Potassium Level 3.5 L 3.6-5.0 MMOL/L Chloride Level 106 98-107 MMOL/L Carbon Dioxide Level 24 21-32 MMOL/L Anion Gap 10 5-14 MMOL/L Blood Urea Nitrogen 10 7-18 MG/DL Creatinine 0.85 0.60-1.30 MG/DL Estimat Glomerular Filtration Rate > 60 BUN/Creatinine Ratio 12 Glucose Level 105 70-105 MG/DL Lactic Acid Level 1.42 0.50-2.00 MMOL/L Calcium Level 8.8 8.5-10.1 MG/DL Corrected Calcium 9.2 8.5-10.1 MG/DL Total Bilirubin 0.3 0.1-1.0 MG/DL Aspartate Amino Transf (AST/SGOT) 17 5-34 U/L Alanine Aminotransferase (ALT/SGPT) 22 0-55 U/L Alkaline Phosphatase 79 40-136 U/L Total Protein 6.2 L 6.4-8.2 GM/DL Albumin 3.5 3.2-4.5 GM/DL Urine Color YELLOW Urine Clarity SL CLOUDY Urine pH 5.5 5-9 Urine Specific [place] 1.020 1.016-1.022 Urine Protein NEGATIVE NEGATIVE Urine Glucose (UA) NEGATIVE NEGATIVE Urine Ketones TRACE H NEGATIVE Urine Nitrite NEGATIVE NEGATIVE Urine Bilirubin 1+ H NEGATIVE Urine Urobilinogen 1.0 < = 1.0 MG/DL Urine Leukocyte Esterase NEGATIVE NEGATIVE Urine RBC (Auto) 1+ H NEGATIVE Urine RBC 2-5 H /HPF Urine WBC 2-5 /HPF Urine Squamous Epithelial Cells 0-2 /HPF Urine Crystals PRESENT H /LPF Urine Amorphous Sediment RARE MATHEUS URATES H /LPF Urine Bacteria TRACE /HPF Urine Casts PRESENT /LPF Urine Hyaline Casts 5-10 H /LPF Urine Mucus NEGATIVE /LPF Urine Culture Indicated CULTURE PENDING My Orders Orders - JOHNATHAN OLSON MD Cbc With Automated Diff (05/09/19 10:43) Comprehensive Metabolic Panel (05/09/19 10:43) Blood Culture (05/09/19 10:43) Sputum Culture (05/09/19 10:43) Urinalysis (05/09/19 10:43) Urine Culture (05/09/19 10:43) Protime With Inr (05/09/19 10:43) Partial Thromboplastin Time (05/09/19 10:43) Chest 1 View, Ap/Pa Only (05/09/19 10:43) Ed Iv/Invasive Line Start (05/09/19 10:43) Ed Iv/Invasive Line Start (05/09/19 10:43) Vital Signs Adult Sepsis Patie Q15M (05/09/19 10:43) O2 (05/09/19 10:43) Remove Rings In Anticipation O (05/09/19 10:43) Lactic Acid Analyzer (05/09/19 10:43) Lactated Ringers (Lr 1000 Ml Iv Solution (05/09/19 10:43) Manual Differential (05/09/19 10:45) Influenza A And B Antigens (05/09/19 12:06) Cefepime 2gm Iv (1x Dose) (05/09/19 12:30) Medications Given in ED Current Medications Medications Dose Ordered Sig/Chapin Route Start Time Stop Time Status Last Admin Dose Admin Lactated Ringer's 1,000 ml @ 0 mls/hr Q0M ONCE IV 05/09/19 10:43 05/09/19 10:46 DC 05/09/19 11:15 1,000 MLS/HR Vital Signs/I&O 05/09/19 10:37 Temp 36.1 Pulse 74 Resp 21 B/P (MAP) 102/60 (74) Pulse Ox 96 O2 Delivery Room Air Capillary Refill : Progress Note : Progress Note Seen and evaluated. IV, labs, UA, blood cultures and lactic acid ordered. LR 1 L bolus. Monitor patient. 1220: Pneumonia noted. I did discuss the case with Dr. Rasheed, on-call for [facility]. He accepts patient for admission, inpatient status for failed outpatient antibiotic therapy. I did discuss the case with Dr. Gallardo, her territory account executive. We will initiate cefepime as well as vancomycin and admit. This was all discussed with the patient and family who agree with the plan. Diagnostic Imaging Diagonstic Imaging: Xray Plain Films/CT/US/NM/MRI: chest Comments [facility], [place] NAME: KY ORTIZ [facility] REC#: [id number] PT STATUS: REG ER : 1935 PHYSICIAN: JOHNATHAN OLSON MD ADMIT DATE: 05/09/19/ER Signed Date of Exam:05/09/19 CHEST 1 VIEW, AP/PA ONLY INDICATION: Feeling sick, pain. FINDINGS: Exam compared to 01/08/2019. While there is a chronic lung disease present, interstitial and septal thickening has substantially increased in the interim; unclear if this is worsened fibrosis or if there is an acute component such as edema superimposed. Heart size is upper limits but stable from prior. No pleural fluid. No pneumothorax. IMPRESSION: Worsened five-lobe largely interstitial disease; unclear if this is progressive chronic fibrosis or an acute abnormality superimposed. Dictated by: Dictated on workstation # [id number] Dict: 05/09/19 1140 Trans: 05/09/19 1154 [id number] Interpreted by: ALESSIO ASCNECIO Electronically signed by: ALESSIO ASCENCIO 05/09/19 1154 Reviewed: Reviewed by Me Departure Communication (Admissions) Time/Spoke to Admitting Phy: 12:17 Impression Primary Impression: Bilateral pneumonia Qualified Codes: J18.9 - Pneumonia, unspecified organism Disposition: ADMITTED INPATIENT Condition: Stable Admissions Decision to Admit Reason: Admit from ER (General) Decision to Admit/Date: May 09, 2019 Time/Decision to Admit Time: 12:20 Departure-Patient Inst. Referrals: [facility] (PCP) Primary Care Physician ALETA CROSS APRN (Family) Primary Care Physician JOHNATHAN OLSON MD May 09, 2019 11:09
[2019-05-09 11:13] LABS: ALANINE AMINOTRANSFERASE 22 U/L (0-55); ALBUMIN 3.5 GM/DL (3.2-4.5); ALKALINE PHOSPHATASE 79 U/L (40-136); BILIRUBIN,TOTAL 0.3 MG/DL (0.1-1.0); BUN/CREATININE RATIO 12; CALCIUM 8.8 MG/DL (8.5-10.1); CARBON DIOXIDE 24 MMOL/L (21-32); CHLORIDE 106 MMOL/L (98-107); CREATININE SERUM 0.85 MG/DL (0.60-1.30); GFR ESTIMATED > 60; GLUCOSE 105 MG/DL (70-105); POTASSIUM 3.5 MMOL/L (3.6-5.0); SODIUM 140 MMOL/L (135-145); TOTAL PROTEIN 6.2 GM/DL (6.4-8.2)
[2019-05-09 11:22] LABS: EOSINOPHILS % (MANUAL) 1 %; LYMPHOCYTES % (MANUAL) 6 %; MONOCYTES % (MANUAL) 11 %; NEUTROPHILS % (MANUAL) 82 %; RBC MORPH NORMAL
[2019-05-09 11:43] LABS: CLARITY,URINE SL CLOUDY; COLOR,URINE YELLOW; GLUCOSE, URINE (UA) NEGATIVE (NEGATIVE); KETONES,URINE TRACE (NEGATIVE); LEUKOCYTE ESTERASE ,URINE NEGATIVE (NEGATIVE); NITRITE,URINE NEGATIVE (NEGATIVE); PH,URINE 5.5 (5-9); PROTEIN,URINE NEGATIVE (NEGATIVE)
--- NOTE | 2019-05-09 11:49 | Diagnostic Imaging Report ---
INDICATION: Feeling sick, pain. FINDINGS: Exam compared to 01/08/2019. While there is a chronic lung disease present, interstitial and septal thickening has substantially increased in the interim; unclear if this is worsened fibrosis or if there is an acute component such as edema superimposed. Heart size is upper limits but stable from prior. No pleural fluid. No pneumothorax. IMPRESSION: Worsened five-lobe largely interstitial disease; unclear if this is progressive chronic fibrosis or an acute abnormality superimposed. Dictated by: Dictated on workstation # [id number]
[2019-05-09 11:50] LABS: BILIRUBIN,URINE 1+ (NEGATIVE)
[2019-05-09 11:51] LABS: BACTERIA,URINE TRACE /HPF; SQUAMOUS EPITHELIAL CELL,UR 0-2 /HPF
[2019-05-09 11:52] LABS: AMORPHOUS SEDIMENT,UR RARE AMOR URATES /LPF
[2019-05-09] MEDS ORDERED: CEFEPIME INJECTION 2,000 MG in WATER (STERILE) FOR INJECTION 20 ML IV ONE (12:30)
[2019-05-09] MEDS ORDERED: ONDANSETRON 4 MG/2 ML (SDV) Z0FRAN IVP PRN (13:30)
[2019-05-09] MEDS ORDERED: ACETAMINOPHEN 325 MG TABLET PO PRN ×2 (13:30→18:00)
[2019-05-09] MEDS ORDERED: MONT4TAB10 PO (13:36)
[2019-05-09] MEDS ORDERED: CEFD300C3 PO (13:36)
[2019-05-09] MEDS ORDERED: PRIM50TA33 PO ×2 (13:36→15:20)
--- NOTE | 2019-05-09 13:48 | NUR ---
CR 0.85; CR CL ~37; WT 60.3 KG; VANCO 1250 MG IV BOLUS THEN 1000 MG IV Q24H X 3 DAYS
[2019-05-09] MEDS ORDERED: VANCOMYCIN 1250 MG/NS 250 ML IVPB IV NR ×2 (14:00)
[2019-05-09] MEDS ORDERED: RT-ALBUTEROL/IPRATROPIUM 3 ML (DUONEB) VIAL INH PRN (14:00)
[2019-05-09 14:01] VITALS: BP 102/60
[2019-05-09 14:32] VITALS: BP 124/77
[2019-05-09] MEDS ORDERED: RT-ALBUINH INH (15:22)
--- NOTE | 2019-05-09 15:22 | NUR ---
PATIENT STATES HER DAUGHTERS HELP HER WITH HER MEDICATIONS AND SHE DOES NOT KNOW THE NAMES OF WHAT SHE TAKES. I CALLED AND SPOKE WITH SONIA HER DAUGHTER, SHE READ TO ME THE LIST OF MEDICATION THE PATIENT TAKES AND I COMPARED IT WITH THE EXT MED HX. HER PRIMIDONE WAS FILLED 50MG #240 FOR A 30 DAY SUPPLY HOWEVER SHE STATES THE PATIENT ONLY TAKES 3AM AND 4 HS. SHE GETS HER NEBULIZER MEDICATION AND EQUIPMENT THROUGH [facility] - THEY VERIFIED SHE USES DUONEB QID AND HAS AN ALBUTEROL INHALER NEEDED. THEY RECENTLY RAN OUT OF THE INHALER BUT PLAN TO GET A REFILL. THEY ALSO REPORT SHE TAKES CLONAZEPAM 0.5MG TID, THIS IS NOT SOMETHING [facility] HAS FILLED RECENTLY AND THERE IS NO RECORD OF IT ON [facility] SINCE APRIL 2018. I HAVE TRIED TO CALL SONIA BACK AND THE NUMBER IS BUSY. I WILL CONTINUE TO TRY AND CONTACT HER FOR CLARIFICATION AND UPDATE LATER. SHE TAKES ASPIRIN 325MG DAILY OTC. Addendum: 05/09/19 at 1536 by MARNI JACK [facility] I GOT A HOLD OF SONIA AGAIN AT THIS TIME AND EXPLAINED [facility] HAD NOT FILLED THE CLONAZEPAM SINCE APRIL 2018 AND SHE SAID "HAS SHE QUIT TAKING THAT AGAIN" SHE SAYS HER LIST MAY BE OUT OF DATE AND IF [facility] HAS NOT FILLED IT THE PATIENT IS NOT TAKING IT BECAUSE THEY DO NOT GO ANYWHERE ELSE. I REMOVED IT FROM THE MED REC AT THIS TIME.
[2019-05-09 16:00] VITALS: BP 123/71
--- NOTE | 2019-05-09 17:58 | History & Physical-Hospitalist ---
History of Present Illness HPI/Chief Complaint Here with report of fevers and chills over the last 3-4 days with fever as high as 102. She did take Tylenol this morning for fever that 7 days ago. Question of pneumonia. She's had cough and congestion. Does have history of pneumonia. Complains of low back pain but denies dysuria. She has had urinary tract infections in the past. Denies nausea, vomiting or diarrhea. She is an extremely poor historian but denies contact with anybody who has been ill. She thinks she's been coughing up some sputum but can't tell me whether or not there is any color or blood associated with it. Date Seen 05/09/19 Time Seen by a Provider: 05:30 Attending Physician James Elizondo MD [facility] Referring Physician Date of Admission May 09, 2019 at 12:20 Home Medications & Allergies Home Medications Reviewed patient Home Medication Reconciliation performed by pharmacy medication reconciliations electromedical equipment technician and/or nursing. Patients Allergies have been reviewed. Allergies Allergies Coded Allergies Penicillins (Unverified Allergy, Unknown, 02/25/18) sulfamethoxazole (Unverified Allergy, Unknown, 02/25/18) trimethoprim (Unverified Allergy, Unknown, 02/25/18) Past Hioauzf-Ucvsnf-Dhqvuo Hx Past Med/Social Hx: Reviewed Nursing Past Med/Soc Hx, Reviewed and Corrections made Patient Social History Alcohol Use: Denies Use Recreational Drug Use: Yes Smoking Status: Current Everyday Smoker Type Used: Cigarettes Physical Abuse Screen: No Sexual Abuse: No Recent Foreign Travel: No Contact w/other who traveled: No Recent Hopitalizations: No Recent Infectious Disease Expo: No Immunizations Up To Date Date of Pneumonia Vaccine: Feb 25, 2015 Date of Influenza Vaccine: Jan 14, 2019 Seasonal Allergies Seasonal Allergies: Yes Past Medical History Cardiac: High Cholesterol, Hypertension Neurological: Stroke Reproductive: No Sexually Transmitted Disease: Yes HIV/AIDS: No Gastrointestinal: Gastroesophageal Reflux, Chronic Constipation, Polyps Musculoskeletal: Arthritis HEENT: Cataract Loss of Vision: Denies Hearing Impairment: Hard of Hearing Cancer: Skin History of Blood Disorders: No Adverse Reaction to Blood Hunter: No (N/A) Family History Reviewed Nursing Family Hx Colon cancer Review of Systems Constitutional: chills, fever Respiratory: cough, dyspnea on exertion Cardiovascular: No no symptoms reported, No see HPI, No chest pain, No edema, No Hx of Intervention, No palpitations, No syncope, No vascular heart diseas Physical Exam Physical Exam Vital Signs Vital Signs - First Documented 05/09/19 05/09/19 10:37 14:01 Temp 36.1 Pulse 74 Resp 21 B/P (MAP) 102/60 (74) Pulse Ox 96 O2 Delivery Room Air FiO2 21 Capillary Refill : Less Than 3 Seconds Height, Weight, BMI Height: 5'5.00" Weight: 142lbs. 8.0oz. 67.583887yq; 21.93 BMI Method:Stated General Appearance: Chronically ill, Mild Distress (Due to loose sounding nonproductive cough), Thin Neck: Full Range of Motion, Normal Inspection, Non Tender Respiratory: Other (Course rales with scattered rhonchi worse in the bases but also present in the upper lung bojorquez and anteriorly no wheezing appreciated) Cardiovascular: Regular Rate, Rhythm, No Edema, No Gallop, No JVD, Other (Soft systolic left lower sternal border murmur noted no diastolic murmurs appreciated) Gastrointestinal: Normal Bowel Sounds, No Organomegaly, No Pulsatile Mass, Non Tender, Soft Extremity: Normal Capillary Refill, Normal Inspection, Normal Range of Motion, Non Tender, No Calf Tenderness, No Pedal Edema Neurologic/Psychiatric: Alert, Normal Mood/Affect Results Results/Procedures Labs Laboratory Tests 05/09/19 10:45 Patient resulted labs reviewed. Assessment/Plan Admission Diagnosis A/P 1. Bibasilar pneumonia possibly viral in etiology in an individual who appears to have interstitial lung disease. Despite heavy smoking history surprisingly pulmonary function tests done as I recall in January of last year r evealed normal spirometry without evidence for restriction or COPD but she did have significant decrease in DLCO 60 percent predicted of normal. Continue broad-spectrum antibiotics pulmonary consultation. 2. Hypertension blood pressures have been well within normal limits will hold amlodipine and continue Cozaar for now. 3. Patient is on meloxicam and aspirin she is at high risk for stress-related ulceration will hold this and continue her chronic proton pump inhibitor therapy. Admission Status: Inpatient Order (span 2 midnights) Reason for Inpatient Admission: See admission diagnosis Clinical Quality Measures DVT/VTE Risk/Contraindication: Risk Factor Score Per Nursin RFS Level Per Nursing on Admit: 4+=Very High JAMES ELIZONDO MD May 09, 2019 17:58
[2019-05-09] MEDS ORDERED: guaiFENesin/DM (ROBITUSSIN DM) 10 ML UDC PO PRN (18:00)
[2019-05-09] MEDS: RT-ALBUTEROL/IPRATROPIUM 3 ML (DUONEB) VIAL INH SCH ×2 (19:58→23:38)
[2019-05-09 20:00] VITALS: BP 152/76
[2019-05-09] MEDS: MIRTAZAPINE 15 MG (REMERON) TAB PO SCH (20:15)
[2019-05-09] MEDS: PRIMIDONE 50 MG TAB (MYSOLINE) PO SCH (20:15)
[2019-05-09] MEDS ORDERED: NON-FORMULARY MEDICATION 1 EA EA (Mirtazapine 15 MG) PO SCH (21:00)
[2019-05-09] MEDS ORDERED: BENZONATATE 100 MG (TESSALON) CAPSULE PO ONE (22:00)
[2019-05-09] MEDS: BENZONATATE 100 MG (TESSALON) CAPSULE PO SCH (22:06)
[2019-05-10] VITALS (7 sets, daily range): BP systolic 100–165; BP diastolic 58–76
[2019-05-10] MEDS: RT-ALBUTEROL/IPRATROPIUM 3 ML (DUONEB) VIAL INH SCH ×6 (02:56→22:25)
[2019-05-10] MEDS: BENZONATATE 100 MG (TESSALON) CAPSULE PO SCH ×3 (06:14→21:10)
[2019-05-10 06:27] LABS: BASOPHILS % (AUTO) 0 % (0-10); EOSINOPHILS # (AUTO) 0.2 10^3/uL (0.0-0.3); EOSINOPHILS % (AUTO) 3 % (0-10); HEMATOCRIT 33 % (35-52); LYMPHOCYTES # (AUTO) 0.4 X 10^3 (1.0-4.0); LYMPHOCYTES % (AUTO) 8 % (12-44); MEAN CORPUSCULAR HEMOGLOBIN 30 PG (25-34); MEAN CORPUSCULAR HGB CONC 33 G/DL (32-36); MEAN CORPUSCULAR VOLUME 91 FL (80-99); MEAN PLATELET VOLUME 10.9 FL (7.4-10.4); MONOCYTES # (AUTO) 0.6 X 10^3 (0.0-1.0); MONOCYTES % (AUTO) 12 % (0-12); NEUTROPHILS # (AUTO) 3.9 X 10^3 (1.8-7.8); NEUTROPHILS % (AUTO) 77 % (42-75); PLATELET COUNT 288 10^3/uL (130-400); RED CELL DISTRIBUTION WIDTH 13.5 % (10.0-14.5); WHITE BLOOD COUNT 5.1 10^3/uL (4.3-11.0)
[2019-05-10 06:47] LABS: ALANINE AMINOTRANSFERASE 21 U/L (0-55); ALBUMIN 3.1 GM/DL (3.2-4.5); ALKALINE PHOSPHATASE 75 U/L (40-136); BILIRUBIN,TOTAL 0.2 MG/DL (0.1-1.0); BUN/CREATININE RATIO 12; CALCIUM 8.3 MG/DL (8.5-10.1); CARBON DIOXIDE 20 MMOL/L (21-32); CHLORIDE 108 MMOL/L (98-107); CREATININE SERUM 0.76 MG/DL (0.60-1.30); GFR ESTIMATED > 60; GLUCOSE 91 MG/DL (70-105); POTASSIUM 3.7 MMOL/L (3.6-5.0); SODIUM 139 MMOL/L (135-145); TOTAL PROTEIN 5.5 GM/DL (6.4-8.2)
--- NOTE | 2019-05-10 07:06 | Pulmonary Consultation ---
History of Present Illness History of Present Illness Date Seen by Provider: May 10, 2019 Time Seen by Provider: 07:01 Date of Admission Allergies and Home Medications Allergies Coded Allergies: Penicillins (Unverified Allergy, Unknown, 02/25/18) sulfamethoxazole (Unverified Allergy, Unknown, 02/25/18) trimethoprim (Unverified Allergy, Unknown, 02/25/18) Home Medications Albuterol Sulfate 1 Puff Puff, 2 PUFF INH QID PRN for SHORTNESS OF BREATH, (Reported) 1 PUFF = 90 MCG Amlodipine Besylate 5 Mg Tablet, 5 MG PO DAILY, (Reported) Aspirin 325 Mg Tablet, 325 MG PO DAILY, (Reported) Atorvastatin Calcium 10 Mg Tablet, 10 MG PO HS, (Reported) Cefdinir 300 Mg Capsule, 300 MG PO BID, (Reported) 10 DAY SUPPLY FILLED 05-07-19 Ipratropium/Albuterol Sulfate 3 Ml Ampul.neb, 3 ML NEB QID, (Reported) Losartan Potassium 100 Mg Tablet, 100 MG PO DAILY, (Reported) Meloxicam 15 Mg Tablet, 15 MG PO DAILY, (Reported) Mirtazapine 15 Mg Tablet, 15 MG PO HS, (Reported) Montelukast Sodium 4 Mg Tab.chew, 4 MG PO HS, (Reported) Omeprazole 40 Mg Capsule.dr, 40 MG PO DAILY, (Reported) Primidone 50 Mg Tablet, 150 MG PO DAILY, (Reported) TAKES 3 (50MG) TABLETS IN AM AND 4 (50MG) TABLETS AT BEDTIME Primidone 50 Mg Tablet, 200 MG PO HS, (Reported) TAKES 3 (50MG) TABLETS IN AM AND 4 (50MG) TABLETS AT BEDTIME Past Joxjpdb-Vvpwjv-Urlcsf Hx Past Med/Social Hx: Reviewed Nursing Past Med/Soc Hx, Reviewed and Corrections made Patient Social History Alcohol Use: Denies Use Recreational Drug Use: Yes Smoking Status: Current Everyday Smoker Type Used: Cigarettes Recent Foreign Travel: No Contact w/Someone Who Travel: No Recent Infectious Disease Expo: No Recent Hopitalizations: No Immunizations Up To Date Date of Pneumonia Vaccine: Feb 25, 2015 Date of Influenza Vaccine: Jan 14, 2019 Seasonal Allergies Seasonal Allergies: Yes Past Medical History Surgeries: Yes (SCREWS IN LEFT ANKLE, LENS SURGERY, LIPOMA REMOVAL, FOOT SURGERY) Respiratory: Yes (WEARS O2 AT NIGHT) COPD, Emphysema Cardiac: Yes High Cholesterol, Hypertension Neurological: Yes (BENIGN TREMORS) Stroke Reproductive Disorders: No Sexually Transmitted Disease: Yes HIV/AIDS: No Gastrointestinal: Yes Gastroesophageal Reflux, Chronic Constipation, Polyps Musculoskeletal: Yes (OSTEOPOROSIS, HX POLIO) Arthritis Endocrine: No Cataract Loss of Vision: Denies Hearing Impairment: Hard of Hearing Cancer: Yes (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) Skin Psychosocial: No Integumentary: Yes (MULTIPLE SKIN LESIONS, SOME CANCEROUS) Blood Disorders: No Adverse Reaction/Blood Tranf: No (N/A) Family Medical History Reviewed Nursing Family Hx Colon cancer Review of Systems Time Seen by Provider: 07:05 Constitutional: Fever, Chills, Sweats, Weakness, Malaise, Other Eyes: No: Pain, Vision change, Conjunctivae inflammation, Eyelid inflammation, Other, Redness ENT: Nose congestion; No: Ear pain, Ear discharge, Nose pain, Nose discharge, Mouth pain, Mouth swelling, Throat pain, Throat swelling, Other Respiratory: Cough, Dry, Shortness of breath, SOB with excertion, Wheezing Cardiovascular: No: Chest Pain, Palpitations, Orthopnea, Paroxysmal Noc. Dyspnea, Edema, Lt Headedness, Other Sepsis Event Evaluation Height, Weight, BMI Height: 5'5.00" Weight: 142lbs. 8.0oz. 67.817227dj; 21.93 BMI Method:Stated Exam Exam Vital Signs Date Time Temp Pulse Resp B/P (MAP) Pulse Ox O2 Delivery O2 Flow Rate FiO2 05/10/19 06:32 36.4 05/10/19 04:24 38.4 96 20 165/70 (101) 97 Room Air 05/10/19 01:15 37.7 05/10/19 00:18 38.4 05/10/19 00:06 38.4 96 20 165/70 (101) 97 Room Air 05/09/19 20:15 Room Air 05/09/19 20:00 37.7 83 20 152/76 (101) 99 Room Air 05/09/19 19:57 94 Room Air 05/09/19 16:00 37.0 74 18 123/71 (88) 94 Room Air 05/09/19 15:01 98 Room Air 05/09/19 15:01 96 Room Air 05/09/19 14:35 96 Room Air 05/09/19 14:32 36.0 69 16 124/77 98 Room Air 05/09/19 14:01 36.1 74 96 21 05/09/19 12:58 66 14 122/62 95 Room Air 05/09/19 10:37 36.1 74 21 102/60 (74) 96 Room Air I & O 05/10/19 07:00 Intake Total 1540 ml Balance 1540 ml Height & Weight Height: 5'5.00" Weight: 142lbs. 8.0oz. 67.277267cm; 21.93 BMI Method:Stated General Appearance: Chronically ill, Mild Distress (Due to loose sounding nonproductive cough), Thin HEENT: PERRL/EOMI, Pharynx Normal Neck: Full Range of Motion, Normal Inspection, Non Tender Respiratory: Other (Course rales with scattered rhonchi worse in the bases but also present in the upper lung bojorquez and anteriorly no wheezing appreciated) Cardiovascular: Regular Rate, Rhythm, No Edema, No Gallop, No JVD, Other (Soft systolic left lower sternal border murmur noted no diastolic murmurs appreciated) Capillary Refill: Less Than 3 Seconds Extremity: Normal Capillary Refill, Normal Inspection, Normal Range of Motion, Non Tender, No Calf Tenderness, No Pedal Edema Neurologic/Psychiatric: Alert, Normal Mood/Affect Results Lab Laboratory Tests 05/09/19 10:45 05/10/19 05:15 05/10/19 05:55 Assessment/Plan Assessment/Plan Pneumonia bilaterally -currently on cefepime and vanco -Check BNP HX of ILD -duoneb -oxygen Hx of tobacco use GOPAL SERRANO DO May 10, 2019 07:06
[2019-05-10] MEDS: PANTOPRAZOLE 40 MG (PROTONIX) TAB PO SCH (08:30)
[2019-05-10] MEDS: PRIMIDONE 50 MG TAB (MYSOLINE) PO SCH ×2 (08:30→19:39)
[2019-05-10] MEDS: LOSARTAN 100 MG (COZAAR) TABLET PO SCH (08:31)
[2019-05-10] MEDS ORDERED: NON-FORMULARY MEDICATION 1 EA EA (Omeprazole 40 MG) PO SCH (09:00)
[2019-05-10] MEDS: CEFEPIME 2,000 MG/SWFI 20 ML IV PUSH IV SCH ×2 (11:05)
--- NOTE | 2019-05-10 11:23 | Progress Note - Hospitalist ---
Subjective HPI/CC On Admission Date Seen by Provider: May 10, 2019 Time Seen by Provider: 11:19 Here with report of fevers and chills over the last 3-4 days with fever as high as 102. She did take Tylenol this morning for fever that 7 days ago. Question of pneumonia. She's had cough and congestion. Does have history of pneumonia. Co mplains of low back pain but denies dysuria. She has had urinary tract infections in the past. Denies nausea, vomiting or diarrhea. She is an extremely poor historian but denies contact with anybody who has been ill. She thinks she's been coughing up some sputum but can't tell me whether or not there is any color or blood associated with it. Subjective/Events-last exam Patient reports feeling fatigued and did not sleep well last night. She denies shortness of breath at rest or chest pain. Cough is nonproductive appetite is been poor and she denies nausea or abdominal pain. She also denies diarrhea. Focused Exam Lactate Level 05/09/19 10:45: Lactic Acid Level 1.42 Objective Exam Vital Signs Vital Signs Date Time Temp Pulse Resp B/P (MAP) Pulse Ox O2 Delivery O2 Flow Rate FiO2 05/10/19 10:43 94 Room Air 05/10/19 08:00 36.7 69 18 100/58 (72) 05/09/19 14:01 21 Capillary Refill : Less Than 3 Seconds General Appearance: No Apparent Distress, Chronically ill Respiratory: Chest Non Tender, Lungs Clear, Normal Breath Sounds, No Accessory Muscle Use, No Respiratory Distress Cardiovascular: No Edema, No Gallop, Normal Peripheral Pulses, Systolic Murmur (1 to 2/6 systolic ejection murmur heard best second intercostal space unchanged no evidence for pulsus parvus or tardus.) Results/Procedures Lab Laboratory Tests 05/10/19 05:15 05/10/19 05:55 Patient resulted labs reviewed. Assessment/Plan Assessment and Plan Assess & Plan/Chief Complaint A/P 1. Bibasilar pneumonia possibly viral in etiology in an individual who appears to have interstitial lung disease. Despite heavy smoking history surprisingly pulmonary function tests done as I recall in January of last year revealed normal spirometry without evidence for restriction or COPD but she did have significant decrease in DLCO 60 percent predicted of normal. Continue broad-spectrum antibiotics pulmonary consultation. Oxygenation status stable prognosis remains guarded 2. Hypertension blood pressure was little low this morning and 100/60 heart rate was also down from little over 100 to the 70 range we will hold antihypertensive medication tomorrow morning until after a chance to evaluate her. She had received medications morning.. 3. Patient is on meloxicam and aspirin she is at high risk for stress-related ulceration will hold this and continue her chronic proton pump inhibitor therapy. Clinical Quality Measures DVT/VTE Risk/Contraindication: Risk Factor Score Per Nursin RFS Level Per Nursing on Admit: 4+=Very High JAMES ELIZONDO MD May 10, 2019 11:23
[2019-05-10] MEDS: ENOXAPARIN 40 MG/0.4 ML (LOVENOX) SYR SC SCH (11:29)
[2019-05-10] MEDS: VANCOMYCIN 1 GM/NS 250 ML IVPB IV SCH ×2 (13:38)
--- NOTE | 2019-05-10 16:09 | NUR ---
Report received from Liliane MEEHAN
[2019-05-10] MEDS: MIRTAZAPINE 15 MG (REMERON) TAB PO SCH (19:39)
[2019-05-11] MEDS: RT-ALBUTEROL/IPRATROPIUM 3 ML (DUONEB) VIAL INH SCH ×6 (02:58→22:43)
[2019-05-11] MEDS: BENZONATATE 100 MG (TESSALON) CAPSULE PO SCH ×4 (05:35→22:29)
[2019-05-11 08:00] VITALS: BP 163/71
[2019-05-11] MEDS: PRIMIDONE 50 MG TAB (MYSOLINE) PO SCH ×2 (09:07→19:19)
[2019-05-11] MEDS: PANTOPRAZOLE 40 MG (PROTONIX) TAB PO SCH (09:07)
[2019-05-11] MEDS: LOSARTAN 100 MG (COZAAR) TABLET PO SCH (09:08)
[2019-05-11] MEDS: CEFEPIME 2,000 MG/SWFI 20 ML IV PUSH IV SCH ×2 (10:19)
[2019-05-11] MEDS: ENOXAPARIN 40 MG/0.4 ML (LOVENOX) SYR SC SCH (10:19)
--- NOTE | 2019-05-11 14:26 | NUR ---
Vanc requested from pharmacy
--- NOTE | 2019-05-11 14:39 | Progress Note - Hospitalist ---
Subjective HPI/CC On Admission Date Seen by Provider: May 11, 2019 Time Seen by Provider: 14:35 Here with report of fevers and chills over the last 3-4 days with fever as high as 102. She did take Tylenol this morning for fever that 7 days ago. Question of pneumonia. She's had cough and congestion. Does have history of pneumonia. Complains of low back pain but denies dysuria. She has had urinary tract infections in the past. Denies nausea, vomiting or diarrhea. She is an extremely poor historian but denies contact with anybody who has been ill. She thinks she's been coughing up some sputum but can't tell me whether or not there is any color or blood associated with it. Subjective/Events-last exam patient feeling better mild nonproductive cough with shortness of breath no chest pain tolerating solids. Focused Exam Lactate Level 05/09/19 10:45: Lactic Acid Level 1.42 Objective Exam Vital Signs Vital Signs Date Time Temp Pulse Resp B/P (MAP) Pulse Ox O2 Delivery O2 Flow Rate FiO2 05/11/19 08:00 Room Air 05/11/19 08:00 37.0 72 18 163/71 (101) 93 05/09/19 14:01 21 Capillary Refill : Less Than 3 SecondsLess Than 3 Seconds General Appearance: No Apparent Distress, Chronically ill Respiratory: No Accessory Muscle Use, No Respiratory Distress, Other (by basilar coarse rales unchanged no wheezing noted anteriorly chest is clear) Cardiovascular: Regular Rate, Rhythm, No Edema, No Gallop, No JVD, No Murmur, Normal Peripheral Pulses Results/Procedures Lab Patient resulted labs reviewed. Assessment/Plan Assessment and Plan Assess & Plan/Chief Complaint A/P 1. Bibasilar pneumonia possibly viral in etiology in an individual who appears to have interstitial lung disease. Despite heavy smoking history surprisingly pulmonary function tests done as I recall in January of last year revealed normal spirometry without evidence for restriction or COPD but she did have significant decrease in DLCO 60 percent predicted of normal. Continue bro ad-spectrum antibiotics pulmonary consultation. overall status improving. 2. Hypertension blood pressure was little low yesterday but is, patient has received losartin today.. 3. Patient is on meloxicam and aspirin she is at high risk for stress-related ulceration will hold this and continue her chronic proton pump inhibitor therapy. Clinical Quality Measures DVT/VTE Risk/Contraindication: Risk Factor Score Per Nursin RFS Level Per Nursing on Admit: 4+=Very High JAMES ELIZONDO MD May 11, 2019 14:39
[2019-05-11] MEDS: VANCOMYCIN 1 GM/NS 250 ML IVPB IV SCH ×2 (15:09)
[2019-05-11 15:41] VITALS: BP 129/65
[2019-05-11] MEDS: MIRTAZAPINE 15 MG (REMERON) TAB PO SCH (19:19)
[2019-05-12] VITALS: BP 160/73
[2019-05-12] MEDS: RT-ALBUTEROL/IPRATROPIUM 3 ML (DUONEB) VIAL INH SCH ×3 (02:16→11:26)
[2019-05-12] MEDS: BENZONATATE 100 MG (TESSALON) CAPSULE PO SCH ×2 (06:09→14:01)
[2019-05-12 08:00] VITALS: BP 128/70
[2019-05-12] MEDS: LOSARTAN 100 MG (COZAAR) TABLET PO SCH (08:38)
[2019-05-12] MEDS: PANTOPRAZOLE 40 MG (PROTONIX) TAB PO SCH (08:38)
[2019-05-12] MEDS: ENOXAPARIN 40 MG/0.4 ML (LOVENOX) SYR SC SCH (08:38)
[2019-05-12] MEDS: PRIMIDONE 50 MG TAB (MYSOLINE) PO SCH (08:44)
[2019-05-12] MEDS: CEFEPIME 2,000 MG/SWFI 20 ML IV PUSH IV SCH ×2 (12:08)
--- NOTE | 2019-05-12 13:44 | Physical Therapy Evaluation ---
PT Evaluation-General Medical Diagnosis Admission Date May 09, 2019 at 12:20 Medical Diagnosis: Pneumonia Onset Date: May 09, 2019 Therapy Diagnosis Therapy Diagnosis: Deconditioning Height/Weight Height (Feet): 5 Height (Inches): 5.00 Weight (Pounds): 142 Weight (Ounces): 8.0 Precautions Precautions/Isolations: Fall Prevention, Standard Precautions Weight Bear Status Right Lower Extremity: Right Weight Bearing/Tolerated Left Lower Extremity: Left Weight Bearing/Tolerated Referral Physician: Hany Reason for Referral: Evaluation/Treatment Medical History Pertinent Medical History: Arthritis, COPD, CVA, GERD, HTN, Smoking Additional Medical History Cataracts, osteoporosis, Emphysema, skin cancer, history of polio. Current History Patient presented to ER with low BP, fever, cough Reviewed History: Yes Social History Home: Single Level Current Living Status: Children Entry Into Home: Ramp Patient lives with two daughters who was present for evaluation and they state they never leave here alone, someone is always with her. Prior Prior Level of Function SCALE: Activities may be completed with or without assistive devices. 0-Rtairyllaq-rdkczyu completes the activity by him/herself with no assistance from a helper. 5-Set-up or Clean-up Assistance-helper sets up or cleans up; patient completes activity. Benedict assists only prior to or following the activity. 4-Supervision or Touching Assistance-helper provides verbal cues and/or touchin g/steadying and/or contact guard assistance as patient completes activity. Assistance may be provided throughout the activity or intermittently. 3-Partial/Moderate Assistance-helper does LESS THAN HALF the effort. Benedict lifts, holds or supports trunk or limbs, but provides less than half the effort. 2-Substantial/Maximal Assistance-helper does MORE THAN HALF the effort. Benedict lifts or holds trunk or limbs and provides more than half the effort. 0-Wgpdulaam-lwiwxf does ALL the effort. Patient does none of the effort to complete the activity. Or, the assistance of 2 or more helpers is required for the patient to complete the activity. If activity was not attempted, code reason: 7-Patient Refused. 9-Not Applicable-not attempted and the patient did not perform the activity before the current illness, exacerbation or injury. 10-Not Attempted due to Environmental Limitations-(lack of equipment, weather restraints, etc.). 88-Not Attempted due to Medical Conditions or Safety Concerns. Bed Mobility: 6 Transfers (B,C,W/C): 6 Gait: 4 Wheelchair Mobility: 4 Indoor Mobility (Ambulation): Needed Some Help (Family walks with her) Prior Devices Use: Manual wheelchair (Patient uses wheelchair in evening), Walker (Family walks with patient using gait belt. ) PT Evaluation-Current Subjective Patient agreeable to therapy at this time. Pain Numeric Pain Scale: 0-No Pain Objective Patient Orientation: Normal For Age ROM/Strength ROM Lower Extremities WFL BLE except L ankle due to being fused. Strength Lower Extremities WFL BLE, LLE weaker than RLE Integumentary/Posture Integumentary See nursing notes. Bowel Incontinence: No Bladder Incontinence: No Sensory Vision: Wears Glasses Hearing: Impaired Sensation Right Lower Extremit: Impaired Sensation Left Lower Extremity: Impaired Transfers Roll Left to Right (QC): 6 Sit to Lying (QC): 6 Lying to Sitting/Side of Bed(Q: 6 Sit to Stand (QC): 6 Chair/Fcz-tu-Fcdmo Xfer(QC): 4 (CGA for safety) Gait Does the Patient Walk?: Yes Mode of Locomotion: Both Anticipated Mode of Locomotion: Both Walk 10 feet (QC): 4 Distance: 30' Gait Assistive Device: FWW Balance Sitting Static: Good Sitting Dynamic: Good Standing Static: Fair Standing Dynamic: Fair Treatment BLE exercises. Assessment/Needs During ambulation patient fatigues quickly but is steady. Patient has a fused L ankle causing patient to not have a normal gait sequence, patient is slow but steady during ambulation. Family reports they walk with her at home because her left leg can cause her problems at times due to the polio that she has that affects that leg. Rehab Potential: Fair PT Electrical Engineering Draftsperson Goals Electrical Engineering Draftsperson Goals PT Retirement Goals Time Frame: May 19, 2019 Roll Left & Right (QC): 6 Sit to Lying (QC): 6 Lying-Sitting on Side/Bed(QC): 6 Sit to Stand (QC): 6 Chair/Pnb-iw-Fqzug Xfer(QC): 6 Does the Patient Walk: Yes Walk 10 feet (QC): 4 Walk 50ft with 2 Turns (QC): 4 Walk 150 ft (QC): 4 PT Plan Problem List Problem List: Activity Tolerance, Balance, Gait, Transfer Treatment/Plan Treatment Plan: Continue Plan of Care Treatment Plan: Education, Functional Activity Norman, Gait, Safety, Therapeutic Exercise, Transfers Treatment Duration: May 19, 2019 Frequency: 6 times per week Estimated Hrs Per Day: .25 hour per day Patient and/or Family Agrees t: Yes Safety Risks/Education Patient Education: Gait Training, Transfer Techniques Teaching Recipient: Patient, Family Teaching Methods: Discussion Discharge Recommendations Therapy Discharge Recommendati: Home & Family Time/GCodes Time In: 1320 Time Out: 1335 Total Billed Treatment Time: 15 Total Billed Treatment 1 visit EVL 15 MARTHA VICKERS PT May 12, 2019 13:44
--- NOTE | 2019-05-12 13:51 | NUR ---
"RD ASSESSMENT PMHx: HTN; hypercholesterolemia; GERD; chronic constipation; CA(skin) PT INTERACTION: Pt was awake and pleasant during nutrition assessment. Note pt is a poor historian per chart review, and that family was present at bedside during assessment. Pt states current appetite is so-so, but family states it is pretty poor. Note avg PO intake of 30% x2d, per chart review. Pt states following a regular diet at home and has no issues with chewing/swallowing food d/t dentures. Pt states no recent issues with n/v/c/d at this time. Note last BM was 2/2 and pt not currently on bowel regimen per chart review. Family states pt has recent 5-10# wt loss x6mon. Note 10# wt loss x4mon, per chart review. ABNORMAL NUTRITION-RELATED LAB VALUES LOW: Ca 8.3; Pro 5.5; alb 3.1 HIGH: Cl 108 Est. kcal needs: 3383-1884 kcal | 25-30 kcal/kg Est. Pro needs: 60-72 g Pro | 1.0-1.2 g Pro/kg PES STATEMENT: Inadequate oral intake (NI-2.1) related to loss of appetite as evidenced by pt (family) interview | avg PO intake 30% x2d INTERVENTION: Continue with current diet order of Regular diet. Add Ensure Enlive (sabas) to meals TID for increased kcal intake. Provides 350 kcal and 13 g Pro per serving. Will continue to follow and reassess as pt needs and status change. MONITOR/EVALUATE: PO Intake; Plan of Care; Hydration Status; Weight Status; Lab Values Adelaide Diop, MS, RD, LD"
[2019-05-12] MEDS ORDERED: LEVO750T39 PO (13:57)
--- NOTE | 2019-05-12 14:00 | Discharge Summary ---
Discharge [facility] Discharge Medications New, Converted or Re-Newed RX: Transmitted to Pharmacy New Medications: Levofloxacin (Levofloxacin) 750 Mg Tablet 750 MG PO DAILY, #4 TAB 0 Refills Continued Medications: Albuterol Sulfate (Ventolin Hfa) 1 Puff Puff 2 PUFF INH QID PRN for SHORTNESS OF BREATH, INHALER 1 PUFF = 90 MCG Amlodipine Besylate (Amlodipine Besylate) 5 Mg Tablet 5 MG PO DAILY, TAB Aspirin (Aspirin) 325 Mg Tablet 325 MG PO DAILY, TAB Atorvastatin Calcium (Atorvastatin Calcium) 10 Mg Tablet 10 MG PO HS, TAB Ipratropium/Albuterol Sulfate (Iprat-Albut 0.5-3(2.5) mg/3 ml) 3 Ml Ampul.neb 3 ML NEB QID, EACH Losartan Potassium (Losartan Potassium) 100 Mg Tablet 100 MG PO DAILY, TAB Meloxicam (Meloxicam) 15 Mg Tablet 15 MG PO DAILY, TAB Mirtazapine (Mirtazapine) 15 Mg Tablet 15 MG PO HS, TAB Montelukast Sodium (Montelukast Sodium) 4 Mg Tab.chew 4 MG PO HS, TAB.CHEW Omeprazole (Omeprazole) 40 Mg Capsule.dr 40 MG PO DAILY, CAP Primidone (Mysoline) 50 Mg Tablet 150 MG PO DAILY, TAB TAKES 3 (50MG) TABLETS IN AM AND 4 (50MG) TABLETS AT BEDTIME Primidone (Mysoline) 50 Mg Tablet 200 MG PO HS, TAB TAKES 3 (50MG) TABLETS IN AM AND 4 (50MG) TABLETS AT BEDTIME Discontinued Medications: Cefdinir (Cefdinir) 300 Mg Capsule 300 MG PO BID for 10 Days, CAP 10 DAY SUPPLY FILLED 05-07-19 Patient Instructions Goal/Follow Up Appt: Follow up with Dr. Gallardo as directed. Follow up with Arti Barriga APRN on 05/15 at 11:40 am. Return to The [facility] For: Fever, inability to keep down medications Activity & Diet Discharge Diet: Regular Diet Activity as Tolerated: Yes LILIANA MAXWELL MD May 12, 2019 14:00
[2019-05-12 14:26] VITALS: BP 128/70
--- NOTE | 2019-05-13 19:23 | Discharge Summary ---
Discharge Summary Hospital Course Hospital Course Date of Admission: May 09, 2019 at 12:20 Admission Diagnosis : Family Physician/Provider: Sandra Barriga Aprn Date of Discharge: 05/13/19 Discharge Diagnosis: 1. Bibasilar pneumonia possibly viral in etiology in an individual who appears to have interstitial lung disease. Pulmonary function tests in last year revealed normal spirometry without evidence for restriction or COPD but she did have significant decrease in DLCO 60 percent predicted of normal. Treated with broad spectrum antibiotics and script to complete course sent on d/c Hospital Course: See discharge diagnosis, patient was afebrile and had no hypoxia, was discharged with oral antibiotic course. Needs to follow up with Pulm for her interstitial disease. Labs and Pending Lab Test: Microbiology 05/09/19 Urine Culture - Final, Complete NO GROWTH 05/09/19 Blood Culture - Preliminary, Resulted No growth 05/09/19 Influenza Types A,B Antigen (LAILA) - Final, Complete Home Meds Active Levofloxacin 750 Mg Tablet 750 Mg PO DAILY Reported Mysoline (Primidone) 50 Mg Tablet 200 Mg PO HS TAKES 3 (50MG) TABLETS IN AM AND 4 (50MG) TABLETS AT BEDTIME Mysoline (Primidone) 50 Mg Tablet 150 Mg PO DAILY TAKES 3 (50MG) TABLETS IN AM AND 4 (50MG) TABLETS AT BEDTIME Montelukast Sodium 4 Mg Tab.chew 4 Mg PO HS Mirtazapine 15 Mg Tablet 15 Mg PO HS Amlodipine Besylate 5 Mg Tablet 5 Mg PO DAILY Omeprazole 40 Mg Capsule.dr 40 Mg PO DAILY Aspirin 325 Mg Tablet 325 Mg PO DAILY Meloxicam 15 Mg Tablet 15 Mg PO DAILY Iprat-Albut 0.5-3(2.5) mg/3 ml (Ipratropium/Albuterol Sulfate) 3 Ml Ampul.neb 3 Ml NEB QID Atorvastatin Calcium 10 Mg Tablet 10 Mg PO HS Losartan Potassium 100 Mg Tablet 100 Mg PO DAILY Assessment/Pt DC Instructions See above Discharge Physical Examination Allergies: Coded Allergies: Penicillins (Unverified Allergy, Unknown, 02/25/18) sulfamethoxazole (Unverified Allergy, Unknown, 02/25/18) trimethoprim (Unverified Allergy, Unknown, 02/25/18) General Appearance: No Apparent Distress, WD/WN Respiratory: Lungs Clear, Normal Breath Sounds Cardiovascular: Regular Rate, Rhythm, No Murmur Skin: Normal Color, Warm/Dry Neurologic/Psychiatric: Alert Copy Copies To 1: Arti Barriga APRN Clinical Quality Measures DVT/VTE Risk/Contraindication: Risk Factor Score Per Nursin RFS Level Per Nursing on Admit: 4+=Very High LILIANA MAXWELL MD May 13, 2019 19:23
--- NOTE | 2019-05-14 13:16 | Physician Query Clarification ---
PQ-Further Specificity Admission/Discharge Admission Date: May 09, 2019 at 12:20 Discharge Date: May 12, 2019 at 14:28 The medical record reflects the following clinical scenario: History/Risk Factors: Emphsema, HTN, smoker, interstitial lung disease Clinical Findings: T102, chills, loose nonproductive cough, course rales, scattered rhonchi, con gestion, CXR - IMPRESSION: Worsened five-lobe largely interstitial disease; unclear if this is progressive chronic fibrosis or an acute abnormality superimposed. Treatment: IV Cefepime, IV Vancomycin, Albuterol Question: Can you further specify if the viral pneumonia and the interstitial lung disease are related or not per the clinical indicators above? Please document a response in the Progress Notes or Discharge Summary. 1. No, the viral pneumonia is not related to the interstitial lung disease 2. Yes, the viral pneumonia is related to the interstitial lung disease 3. Other, with explanation of the clinical findings. 4. Clinically undetermined, no explanation for the clinical findings. PHYSICIAN RESPONSE Can you specify per above: Other, explanation/clinical finding Explanation/Clinical Findings Underlying fibrosis increases susceptibility to viral infection Please remember a lack of response to the above will prompt a phone page by CDI/Coding staff. In responding to this query, please exercise your independent professional judgment. The purpose of this communication is to more accurately reflect the complexity of your patients condition. The fact that a question is asked does not imply that any particular answer is desired or expected. Thank you for your timely response to this clarification. Requestors name: Nahomi THIS PHYSICIAN QUERY FORM IS A PERMANENT PART OF THE MEDICAL RECORD NAHOMI DOBSON May 14, 2019 13:16 LILIANA MAXWELL MD May 15, 2019 13:11
--- NOTE | 2019-05-14 13:30 | Physician Query Clarification ---
PQ-Further Specificity Admission/Discharge Admission Date: May 09, 2019 at 12:20 Discharge Date: May 12, 2019 at 14:28 The medical record reflects the following clinical scenario: History/Risk Factors: Emphysema, HTN, smoker Clinical Findings: CXR - IMPRESSION: Worsened five-lobe largely interstitial disease; unclear if this is progressive chronic fibrosis or an acute abnormality superimposed. Treatment: IV Cefepime, IV Vancomycin, Albuterol Question: Can you further specify the interstitial lung disease per the clinical indicators above? Please document a response in the Progress Notes or Discharge Summary. 1. interstitial lung disease with fibrosis 2. interstitial lung disease not further specified 3. Other, with explanation of the clinical findings. 4. Clinically undetermined, no explanation for the clinical findings. PHYSICIAN RESPONSE Can you specify per above: 2 Please remember a lack of response to the above will prompt a phone page by CDI/Coding staff. In responding to this query, please exercise your independent professional judgment. The purpose of this communication is to more accurately reflect the complexity of your patients condition. The fact that a question is asked does not imply that any particular answer is desired or expected. Thank you for your timely response to this clarification. Requestors name: Nahomi THIS PHYSICIAN QUERY FORM IS A PERMANENT PART OF THE MEDICAL RECORD NAHOMI DOBSON May 14, 2019 13:30 LILIANA MAXWELL MD May 15, 2019 13:12
== END 2019-05-12 14:28 | disposition home or self-care (01) | DRG 194 ==
LOC: EDUNIT# 10:11 → ER 10:13 → 4TH 12:20
PROVIDERS: ADMIT Internal Medicine; ATTEND Family Medicine
DX: J12.9 Viral pneumonia, unspecified (principal); J43.9 Emphysema, unspecified; J84.9 Interstitial pulmonary disease, unspecified; I10 Essential (primary) hypertension; E78.00 Pure hypercholesterolemia, unspecified; F17.210 Nicotine dependence, cigarettes, uncomplicated; K21.9 Gastro-esophageal reflux disease without esophagitis; K59.09 Other constipation; J30.2 Other seasonal allergic rhinitis; M81.0 Age-related osteoporosis without current pathological fracture; M19.91 Primary osteoarthritis, unspecified site; Z86.010 Personal history of colon polyps; Z86.73 Personal history of transient ischemic attack (TIA), and cerebral infarction without residual deficits; Z79.82 Long term (current) use of aspirin; Z79.1 Long term (current) use of non-steroidal anti-inflammatories (NSAID); Z99.81 Dependence on supplemental oxygen; Z85.828 Personal history of other malignant neoplasm of skin; Z86.69 Personal history of other diseases of the nervous system and sense organs
CPT/HCPCS: 36415; 51701; 71045; 80053; 81000; 83605; 83880; 85007; 85025; 85027; 85610; 85730; 87040; 87088; 87804; 94640; 94664; 94760; 96361; 96374

== ENCOUNTER 2019-05-28 17:53 | Inpatient (IN) | payer MEDICARE ==
[~2019-05-28] VITALS: Ht 165.1 cm; Wt 59.0 kg
[~2019-05-28 17:53] MED LIST changes: +CEFD300C3 PO; +LEVO750T39 PO; -MONT10TA24 PO; +MONT10TA26 PO; +MONT4TAB10 PO; +PRIM50TA33 PO; +RT-ALBUINH INH
[2019-05-28] MEDS ORDERED: LACTATED RINGERS 1,000 ML IV ONE (18:26)
[2019-05-28] MEDS ORDERED: VANCOMYCIN INJECTION 1,000 MG in NS (IVPB) 250 ML IV ONE (18:30)
[2019-05-28] MEDS ORDERED: CEFEPIME INJECTION 1,000 MG in WATER (STERILE) FOR INJECTION 10 ML IV ONE ×2 (18:30→20:00)
[2019-05-28] MEDS ORDERED: methylPREDNISolone 125 MG (Solu-MEDROL) VIAL IVP ONE (18:30)
--- NOTE | 2019-05-28 18:36 | ED Respiratory ---
General Chief Complaint: General Problems/Pain Stated Complaint: SOB,CONGESTED Nursing Triage Note: Pt sent to ED from [facility]. Pt c/o constipation, dysuria, and decreased urination, SOB, cough, and fever of 101-102 at night. Pt reports symptoms have persisted since the beginning of May. Source: patient (VERY LIMITED/VERY POOR HISTORIAN), family (2 DAUGHTERS--BOTH LIVE WITH PT) History of Present Illness Date Seen by Provider: May 28, 2019 Time Seen by Provider: 18:20 Initial Comments PT ARRIVES VIA POV FROM HOME, WITH 2 DAUGHTERS, AMBULATING IN ON HER OWN WITH A WALKER PT HAS BEEN SICK FOR A FEW WEEKS--SINCE THE LAST WEEK OF APRIL WAS HOSPITALIZED 05/09/19-05/12/19 FOR PNEUMONIA AND "A TOUCH OF THE FLU" PER DAUGHTERS PT HAS CONTINUED TO HAVE A NON-PRODUCTIVE COUGH AND FEVER UP TO 102, SWEATS AND CHILLS C/O GENERALIZED WEAKNESS, SLEEPING ALOT DURING THE DAY, BUT NOT SLEEPING AT NIGHT--FEVER/SWEATS/CHILLS ARE MOSTLY AT NIGHT HAS HAD DECREASED APPETITE PT HAS BEEN USING ALBUTEROL NEBULIZER TREATMENTS 4 TIMES A DAY--LAST TIME WAS 1600 TODAY HAS ALSO BEEN USING ALBUTEROL INHALER PT HAS HOME O2 AT 2L/NC AT HS, DOES NOT USE IT DURING THE DAY PT CONTINUES TO SMOKE 2 PPD WENT TO [facility], AND WAS SENT HERE. SAW CHRISTIANO CROSS LAST WEEK FOR FOLLOW UP ADDITIONALLY, PT HAS ALSO BEEN CONSTIPATED FOR A WEEK, AND HAS HAD DYSURIA AND DECREASED URINE OUTPUT FOR THE LAST WEEK NO ONE ELSE IN THE HOUSEHOLD IS ILL PCP: [facility] [place], CHRISTIANO CROSS Allergies and Home Medications Allergies Coded Allergies: Penicillins (Unverified Allergy, Unknown, 02/25/18) sulfamethoxazole (Unverified Allergy, Unknown, 02/25/18) trimethoprim (Unverified Allergy, Unknown, 02/25/18) Home Medications Albuterol Sulfate 1 Puff Puff, 2 PUFF INH QID PRN for SHORTNESS OF BREATH, (Reported) 1 PUFF = 90 MCG Amlodipine Besylate 5 Mg Tablet, 5 MG PO DAILY, (Reported) Aspirin 325 Mg Tablet, 325 MG PO DAILY, (Reported) Atorvastatin Calcium 10 Mg Tablet, 10 MG PO HS, (Reported) Ipratropium/Albuterol Sulfate 3 Ml Ampul.neb, 3 ML NEB QID, (Reported) Levofloxacin 750 Mg Tablet, 750 MG PO DAILY Prescribed by: LILIANA MAXWELL on 05/12/19 1357 Losartan Potassium 100 Mg Tablet, 100 MG PO DAILY, (Reported) Meloxicam 15 Mg Tablet, 15 MG PO DAILY, (Reported) Mirtazapine 15 Mg Tablet, 15 MG PO HS, (Reported) Montelukast Sodium 4 Mg Tab.chew, 4 MG PO HS, (Reported) Omeprazole 40 Mg Capsule.dr, 40 MG PO DAILY, (Reported) Primidone 50 Mg Tablet, 150 MG PO DAILY, (Reported) TAKES 3 (50MG) TABLETS IN AM AND 4 (50MG) TABLETS AT BEDTIME Primidone 50 Mg Tablet, 200 MG PO HS, (Reported) TAKES 3 (50MG) TABLETS IN AM AND 4 (50MG) TABLETS AT BEDTIME Patient Home Medication List Home Medication List Reviewed: Yes Review of Systems Review of Systems Constitutional: see HPI, chills, diaphoresis, fever, malaise, weakness EENTM: nose congestion Respiratory: see HPI, cough; No phlegm; short of breath Cardiovascular: no symptoms reported Gastrointestinal: see HPI, constipation, loss of appetite; No nausea, No vomiting Genitourinary: see HPI, decreased output, dysuria Musculoskeletal: no symptoms reported Skin: no symptoms reported Psychiatric/Neurological: No Symptoms Reported Hematologic/Lymphatic: No Symptoms Reported Immunological/Allergic: no symptoms reported Past Hqctswy-Rwozxm-Mlxsvq Hx Past Med/Social Hx: Reviewed and Corrections made Patient Social History Alcohol Use: Denies Use Recreational Drug Use: No Smoking Status: Current Everyday Smoker (2 PPD) Type Used: Cigarettes (2 PPD) 2nd Hand Smoke Exposure: Yes Recent Foreign Travel: No Contact w/Someone Who Travel: No Recent Infectious Disease Expo: No Recent Hopitalizations: No Immunizations Up To Date Date of Pneumonia Vaccine: Feb 25, 2015 Date of Influenza Vaccine: Jan 14, 2019 Seasonal Allergies Seasonal Allergies: Yes Past Medical History Surgeries: Yes (SCREWS IN LEFT ANKLE; CATARACTS; LIPOMA REMOVAL; FOOT SURGERY;EGD/C 02/2018) Eye Surgery, Orthopedic Respiratory: Yes (WEARS O2 AT NIGHT; CONTINUES TO SMOKE) Pneumonia, COPD, Emphysema Cardiac: Yes (LBBB, 1ST DEGREE AV BLOCK) High Cholesterol, Hypertension Neurological: Yes (BENIGN TREMORS; POLIO) Stroke Reproductive Disorders: No Sexually Transmitted Disease: Yes HIV/AIDS: No Gastrointestinal: Yes (EGD/COLONOSCOPY 02/2018--GERD/HIATAL HERNIA/DIVERTICULAR DISEASE) Gastroesophageal Reflux, Chronic Constipation, Diverticulosis, Polyps, Hiatal Hernia Musculoskeletal: Yes (OSTEOPOROSIS, HX POLIO; ORTHOPEDIC SURGERIES) Arthritis Endocrine: No HEENT: Yes Cataract Loss of Vision: Denies Hearing Impairment: Hard of Hearing Cancer: Yes (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) Skin Did You Recieve Any Treatments: Yes What Type of Treatment Did You: Surgical Intervention Psychosocial: No Integumentary: Yes (MULTIPLE SKIN LESIONS, SOME CANCEROUS) Blood Disorders: No Adverse Reaction/Blood Tranf: No (N/A) Family Medical History Colon cancer PSH; -EGD/COLONOSCOPIES--POLYPECTOMIES--LAST SCOPES 02/2018--GERD/HIATAL HERNIA, DIVERTICULAR DISEASE -MULTIPLE SKIN LESIONS REMOVED, SOME CANCEROUS' -FOOT SURGERY -ANKLE SURGERY -TOENAIL SURGERY -LIPOMAS REMOVED -CATARACTS Physical Exam Vital Signs - First Documented 05/28/19 18:05 Temp 36.5 Pulse 95 Resp 18 B/P (MAP) 128/78 (95) Pulse Ox 91 O2 Delivery Room Air Capillary Refill : Less Than 3 Seconds Height: 5'5.00" Weight: 142lbs. 8.0oz. 67.507899vd; 22.00 BMI Method:Stated General Appearance: WD/WN, no apparent distress HEENT: PERRL/EOMI Neck: normal inspection Respiratory: no respiratory distress, no accessory muscle use; No respiratory distress, No accessory muscle use, No wheezing; other (DECREASED AERATION LEFT BASE, WITH COARSE RALES IN LEFT BASE. 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 as tested, no motor/sensory deficits, alert, normal mood/affect, oriented x 3 Skin: normal color, warm/dry Focused Exam Lactate Level 05/28/19 18:26: Lactic Acid Level 2.36*H Lactic Acid Level Laboratory Tests Test 05/28/19 18:26 Lactic Acid Level 2.36 MMOL/L (0.50-2.00) *H Progress/Results/Core Measures Suspected Sepsis Recent Fever Within 48 Hours: Yes Infection Criteria Present: Suspected New Infection New/Unexplained Altered Menta: No Sepsis Screen: Possible Severe Sepsis Risk SIRS Temperature: Pulse: 95 Respiratory Rate: 18 Laboratory Tests 05/28/19 18:26: White Blood Count 9.2 Blood Pressure 128 /78 Mean: 95 05/28/19 18:26: Lactic Acid Level 2.36*H Laboratory Tests 05/28/19 18:26: Creatinine 0.95, INR Comment 1.2, Platelet Count 412H, Total Bilirubin 0.2 Results/Orders Lab Results Laboratory Tests Test 05/28/19 18:26 Range/Units White Blood Count 9.2 4.3-11.0 10^3/uL Red Blood Count 3.79 L 4.35-5.85 10^6/uL Hemoglobin 11.3 L 11.5-16.0 G/DL Hematocrit 34 L 35-52 % Mean Corpuscular Volume 89 80-99 FL Mean Corpuscular Hemoglobin 30 25-34 PG Mean Corpuscular Hemoglobin Concent 33 32-36 G/DL Red Cell Distribution Width 13.8 10.0-14.5 % Platelet Count 412 H 130-400 10^3/uL Mean Platelet Volume 10.3 7.4-10.4 FL Neutrophils (%) (Auto) 79 H 42-75 % Lymphocytes (%) (Auto) 6 L 12-44 % Monocytes (%) (Auto) 11 0-12 % Eosinophils (%) (Auto) 3 0-10 % Basophils (%) (Auto) 0 0-10 % Neutrophils # (Auto) 7.3 1.8-7.8 X 10^3 Lymphocytes # (Auto) 0.6 L 1.0-4.0 X 10^3 Monocytes # (Auto) 1.0 0.0-1.0 X 10^3 Eosinophils # (Auto) 0.3 0.0-0.3 10^3/uL Basophils # (Auto) 0.0 0.0-0.1 10^3/uL Neutrophils % (Manual) 83 % Lymphocytes % (Manual) 6 % Monocytes % (Manual) 10 % Eosinophils % (Manual) 1 % Blood Morphology Comment NORMAL Prothrombin Time 15.3 H 12.2-14.7 SEC INR Comment 1.2 0.8-1.4 Activated Partial Thromboplast Time 40 H 24-35 SEC Sodium Level 140 135-145 MMOL/L Potassium Level 3.5 L 3.6-5.0 MMOL/L Chloride Level 106 98-107 MMOL/L Carbon Dioxide Level 21 21-32 MMOL/L Anion Gap 13 5-14 MMOL/L Blood Urea Nitrogen 17 7-18 MG/DL Creatinine 0.95 0.60-1.30 MG/DL Estimat Glomerular Filtration Rate 56 BUN/Creatinine Ratio 18 Glucose Level 121 H 70-105 MG/DL Lactic Acid Level 2.36 *H 0.50-2.00 MMOL/L Calcium Level 8.5 8.5-10.1 MG/DL Corrected Calcium 9.2 8.5-10.1 MG/DL Magnesium Level 1.7 1.6-2.4 MG/DL Total Bilirubin 0.2 0.1-1.0 MG/DL Aspartate Amino Transf (AST/SGOT) 58 H 5-34 U/L Alanine Aminotransferase (ALT/SGPT) 49 0-55 U/L Alkaline Phosphatase 187 H 40-136 U/L Troponin I < 0.028 <0.028 NG/ML B-Type Natriuretic Peptide 33.1 <100.0 PG/ML Total Protein 5.8 L 6.4-8.2 GM/DL Albumin 3.1 L 3.2-4.5 GM/DL Micro Results Microbiology 05/28/19 Influenza Types A,B Antigen (LAILA) - Final, Complete My Orders Orders - FLORINA BENTLEY DO Cbc With Automated Diff (05/28/19 18:) Comprehensive Metabolic Panel (05/28/19 18:26) Blood Culture (05/28/19 18:) Sputum Culture (05/28/19 18:) Urinalysis (05/28/19 18:) Urine Culture (05/28/19 18:26) Protime With Inr (05/28/19 18:) Partial Thromboplastin Time (05/28/19 18:26) Chest 1 View, Ap/Pa Only (05/28/19 18:) Ed Iv/Invasive Line Start (05/28/19 18:26) Ed Iv/Invasive Line Start (05/28/19 18:26) Ekg Tracing (05/28/19 18:) Troponin I (05/28/19 18:26) Vital Signs Adult Sepsis Patie Q15M (05/28/19 18:26) O2 (05/28/19 18:26) Remove Rings In Anticipation O (05/28/19 18:26) Lactic Acid Analyzer (05/28/19 18:) Influenza A And B Antigens (05/28/19 18:26) Vancomycin Injection (Vancomycin Injecti (05/28/19 18:30) Cefepime Injection (Maxipime Injection) (05/28/19 18:30) Ed Iv/Invasive Line Start (05/28/19 18:26) Ed Iv/Invasive Line Start (05/28/19 18:26) Lactated Ringers (Lr 1000 Ml Iv Solution (05/28/19 18:26) BNP (05/28/19 18:) Magnesium (05/28/19 18:) Methylprednisolone Sod Succ (Solu-Medrol (05/28/19 18:30) Manual Differential (05/28/19 18:26) Ct Angio Chest W (05/28/19 19:43) Medications Given in ED Current Medications Medications Dose Ordered Sig/Chapin Route Start Time Stop Time Status Last Admin Dose Admin Cefepime HCl 1000 mg/Sterile Water 10 ml @ 200 mls/hr ONCE ONCE IV 05/28/19 18:30 05/28/19 18:32 DC 05/28/19 19:31 200 MLS/HR Lactated Ringer's 1,000 ml @ 0 mls/hr Q0M ONCE IV 05/28/19 18:26 05/28/19 18:30 DC 05/28/19 18:36 1,000 MLS/HR Methylprednisolone Sodium Succinate 125 mg ONCE ONCE IVP 05/28/19 18:30 05/28/19 18:31 DC 05/28/19 18:36 125 MG Vancomycin HCl 1000 mg/Sodium Chloride 250 ml @ 250 mls/hr ONCE ONCE IV 05/28/19 18:30 05/28/19 19:29 DC 05/28/19 19:40 250 MLS/HR Vital Signs/I&O 05/28/19 18:05 Temp 36.5 Pulse 95 Resp 18 B/P (MAP) 128/78 (95) Pulse Ox 91 O2 Delivery Room Air 05/29/19 00:00 Intake Total 10 ml Balance 10 ml Capillary Refill : Less Than 3 Seconds Blood Pressure Mean: 95 Progress Note : Progress Note SATS DROP TO 88-92%--UP TO 97-98% ON O2 AT 2L/NC NO DETERIORATION IN PT'S CONDITION DURING ER STAY ECG Initial ECG Impression Date: May 28, 2019 Initial ECG Impression Time: 18:47 Initial ECG Rate: 83 Initial ECG Rhythm: Normal Sinus (LBBB) Initial ECG Comparisson: Unchanged Diagnostic Imaging Comments CXR--EXTENSIVE INTERSTITIAL CHANGES, WORSENING. POSSIBLE SUPERIMPOSED EDEMA OR INFILTRATE. INCREASED INFILTRATE LEFT PERIHILAR REGION. PER RADIOLOGIST REPORT AT 1934 CT CHEST ANGIOGRAM--NO P.E. OR AORTIC DISSECTION OR ANEURYSM. SOME UNDERLYING INTERSTITIAL FIBROTIC CHANGES, BUT HAS BEEN A MARKED PROGRESSION OF INTERSTITIAL INFILTRATE AND AIRSPACE DISEASE COMPARED TO PREVIOUS STUDY--SUPERIMPOSED EDEMA OR PNEUMONIA--PER RADIOLOGIST REPORT AT 2043 Reviewed: Reviewed by Me Departure Communication (Admissions) 1941--SPOKE WITH DR. FOUNTAIN, ACCEPTS PT FOR ADMIT. WILL OBTAIN CT CHEST ANGIOGRAM Impression Primary Impression: PERSISTENT AND WORSENING PNEUMONIA Additional Impressions: Sepsis COPD with hypoxia Disposition: ADMITTED INPATIENT Condition: Stable Admissions Decision to Admit Reason: Admit from ER (General) Decision to Admit/Date: May 28, 2019 Time/Decision to Admit Time: 19:45 Departure-Patient Inst. Referrals: [facility] (PCP) Primary Care Physician ALETA CROSS APRN (Family) Primary Care Physician FLORINA BENTLEY DO May 28, 2019 18:36
[2019-05-28 18:38] LABS: BASOPHILS % (AUTO) 0 % (0-10); EOSINOPHILS # (AUTO) 0.3 10^3/uL (0.0-0.3); EOSINOPHILS % (AUTO) 3 % (0-10); HEMATOCRIT 34 % (35-52); HEMOGLOBIN 11.3 G/DL (11.5-16.0); LYMPHOCYTES # (AUTO) 0.6 X 10^3 (1.0-4.0); LYMPHOCYTES % (AUTO) 6 % (12-44); MEAN CORPUSCULAR HEMOGLOBIN 30 PG (25-34); MEAN CORPUSCULAR HGB CONC 33 G/DL (32-36); MEAN CORPUSCULAR VOLUME 89 FL (80-99); MEAN PLATELET VOLUME 10.3 FL (7.4-10.4); MONOCYTES % (AUTO) 11 % (0-12); NEUTROPHILS # (AUTO) 7.3 X 10^3 (1.8-7.8); NEUTROPHILS % (AUTO) 79 % (42-75); PLATELET COUNT 412 10^3/uL (130-400); RED CELL DISTRIBUTION WIDTH 13.8 % (10.0-14.5); WHITE BLOOD COUNT 9.2 10^3/uL (4.3-11.0)
[2019-05-28 18:50] LABS: INR 1.2 (0.8-1.4); PROTHROMBIN TIME PATIENT 15.3 SEC (12.2-14.7)
--- NOTE | 2019-05-28 18:56 | NUR ---
Received report from SHEFALI Hernandez to assume care of pt.
[2019-05-28 19:03] LABS: ALANINE AMINOTRANSFERASE 49 U/L (0-55); ALBUMIN 3.1 GM/DL (3.2-4.5); ALKALINE PHOSPHATASE 187 U/L (40-136); BILIRUBIN,TOTAL 0.2 MG/DL (0.1-1.0); BUN/CREATININE RATIO 18; CALCIUM 8.5 MG/DL (8.5-10.1); CARBON DIOXIDE 21 MMOL/L (21-32); CHLORIDE 106 MMOL/L (98-107); CREATININE SERUM 0.95 MG/DL (0.60-1.30); GFR ESTIMATED 56; GLUCOSE 121 MG/DL (70-105); MAGNESIUM 1.7 MG/DL (1.6-2.4); POTASSIUM 3.5 MMOL/L (3.6-5.0); SODIUM 140 MMOL/L (135-145); TOTAL PROTEIN 5.8 GM/DL (6.4-8.2)
[2019-05-28 19:07] LABS: EOSINOPHILS % (MANUAL) 1 %; LYMPHOCYTES % (MANUAL) 6 %; MONOCYTES % (MANUAL) 10 %; NEUTROPHILS % (MANUAL) 83 %; RBC MORPH NORMAL
--- NOTE | 2019-05-28 19:11 | Diagnostic Imaging Report ---
INDICATION: Shortness of breath. PA chest obtained at 07:02 p.m. and compared to 05/09/2019. FINDINGS: There is cardiomegaly and central vascular congestion. There is worsening diffuse interstitial infiltrate versus edema when compared to the previous study, especially in the left perihilar region. There is no pneumothorax or pleural fluid. IMPRESSION: Cardiomegaly. Extensive underlying chronic interstitial disease is present, which appears worsened, this may represent superimposed edema or infiltrate. There appears to be increased alveolar infiltrate in the left perihilar region compared to the prior study. There is no pneumothorax or pleural fluid. Dictated by: Dictated on workstation # [id number]
--- NOTE | 2019-05-28 19:30 | NUR ---
Pt O2 sat ranging between 89%-93% on room air at this time. PT states she wears O2 at night, family states pt is supposed to wear O2 throughout the day but usually doesn't. This RN applied 2L O2 via NC. O2 sat now 98%.
[2019-05-28] MEDS ORDERED: NS 100 ML (IVPB) BAG IV ONE (20:00)
[2019-05-28] MEDS ORDERED: IOHEXOL 350 MG/ML 100 ML (OMNIPAQUE 350) VIAL IV ONE (20:00)
[2019-05-28] MEDS ORDERED: HOLD METFORMIN - RECEIVED CONTRAST 20 ML VIAL IV SCH (20:00)
--- NOTE | 2019-05-28 20:35 | Diagnostic Imaging Report ---
INDICATION: Shortness of breath and cough. TECHNIQUE: Multiple contiguous axial images were obtained through the chest after uneventful bolus administration of intravenous contrast. 3D reconstructed CTA MIP acquisitions were also performed. Auto Exposure Controls were utilized during the CT exam to meet ALARA standards for radiation dose reduction. Comparison made to prior study of 12/11/2018. The thoracic aorta shows no evidence of aneurysm or dissection. There is cardiomegaly. There are mild atherosclerotic calcifications of the thoracic aorta. There are mitral valvular calcifications. The pulmonary parenchymal vessels appear well opacified with no CT evidence of pulmonary emboli. There is no pleural or pericardial fluid. Lung windows demonstrate underlying interstitial fibrotic changes with subpleural blebs and bronchiectasis. There is significant worsening in the interstitial infiltrates, however, which may represent superimposed edema or pneumonia, or marked progression of interstitial disease compared to the previous study. Visualized portions of the upper abdomen demonstrate no acute findings. IMPRESSION: No CT evidence of pulmonary emboli or aortic dissection or aneurysm. There is cardiomegaly. There is no significant pleural fluid. While there are some underlying interstitial fibrotic changes and subpleural blebs, there has been marked progression of interstitial infiltrate and airspace disease compared to the previous study, raising the possibility of superimposed edema or pneumonia. Correlate with clinical findings. Dictated by: Dictated on workstation # [id number]
[2019-05-28 21:26] LABS: BILIRUBIN,URINE NEGATIVE (NEGATIVE); CLARITY,URINE SL CLOUDY; COLOR,URINE DARK YELLOW; GLUCOSE, URINE (UA) NEGATIVE (NEGATIVE); KETONES,URINE NEGATIVE (NEGATIVE); LEUKOCYTE ESTERASE ,URINE NEGATIVE (NEGATIVE); NITRITE,URINE NEGATIVE (NEGATIVE); PROTEIN,URINE TRACE (NEGATIVE)
--- NOTE | 2019-05-28 21:30 | NUR ---
KY ORTIZ admitted to room 418-1, with an admitting diagnosis of Persistent Pneumonia with Hypoxia; Sepsis; and COPD on 05/28/19 from ED via wheelchair, accompanied by staff and daughters.KY ORTIZ introduced to surroundings, call light, bed controls, phone, TV, temperature control, lights, meal times, smoking policy, visitor policy, side rail policy, bathrooms and showers. Patient Rights given to patient in the handbook. KY ORTIZ verbalizes understanding that [facility] is not responsible for the loss or damage to any personal effects or valuables that are kept in the patients posession during their hospitalization.
[2019-05-28 21:32] LABS: RBC,URINE 0-2 /HPF
[2019-05-28 21:33] LABS: AMORPHOUS SEDIMENT,UR FEW AMOR URATES /LPF; BACTERIA,URINE TRACE /HPF; HYALINE CASTS, URINE 0-2 /LPF
[2019-05-28 22:01] VITALS: BP 155/80
[2019-05-28] MEDS: D5 1/2 NS W/KCL 20 MEQ/L 1,000 ML IV SCH (22:52)
--- NOTE | 2019-05-28 23:58 | NUR ---
Spoke with family and they told this RN that they want the code status to be DNR / DNI. Family presented DPOA papers. Notified Dr. White. Received approval from Dr. White. Changed code status to DNR / DNI.
[2019-05-29] VITALS (8 sets, daily range): BP systolic 105–148; BP diastolic 64–78
[2019-05-29] MEDS: methylPREDNISolone 125 MG (Solu-MEDROL) VIAL IV SCH ×3 (00:48→13:27)
[2019-05-29 06:10] LABS: BASOPHILS % (AUTO) 0 % (0-10); EOSINOPHILS % (AUTO) 0 % (0-10); HEMATOCRIT 33 % (35-52); HEMOGLOBIN 10.7 G/DL (11.5-16.0); LYMPHOCYTES # (AUTO) 0.3 X 10^3 (1.0-4.0); LYMPHOCYTES % (AUTO) 6 % (12-44); MEAN CORPUSCULAR HEMOGLOBIN 29 PG (25-34); MEAN CORPUSCULAR HGB CONC 33 G/DL (32-36); MEAN CORPUSCULAR VOLUME 90 FL (80-99); MEAN PLATELET VOLUME 10.6 FL (7.4-10.4); MONOCYTES # (AUTO) 0.1 X 10^3 (0.0-1.0); MONOCYTES % (AUTO) 2 % (0-12); NEUTROPHILS # (AUTO) 4.8 X 10^3 (1.8-7.8); NEUTROPHILS % (AUTO) 92 % (42-75); PLATELET COUNT 343 10^3/uL (130-400); RED CELL DISTRIBUTION WIDTH 13.8 % (10.0-14.5); WHITE BLOOD COUNT 5.2 10^3/uL (4.3-11.0)
[2019-05-29 06:48] LABS: BUN/CREATININE RATIO 19; CALCIUM 8.1 MG/DL (8.5-10.1); CARBON DIOXIDE 20 MMOL/L (21-32); CHLORIDE 108 MMOL/L (98-107); CREATININE SERUM 0.79 MG/DL (0.60-1.30); GFR ESTIMATED > 60; GLUCOSE 172 MG/DL (70-105); POTASSIUM 4.6 MMOL/L (3.6-5.0); SODIUM 138 MMOL/L (135-145)
[2019-05-29 06:49] LABS: ALANINE AMINOTRANSFERASE 40 U/L (0-55); ALBUMIN 2.8 GM/DL (3.2-4.5); ALKALINE PHOSPHATASE 157 U/L (40-136); BILIRUBIN,TOTAL 0.2 MG/DL (0.1-1.0); TOTAL PROTEIN 5.2 GM/DL (6.4-8.2)
[2019-05-29] MEDS: D5 1/2 NS W/KCL 20 MEQ/L 1,000 ML IV SCH (07:20)
[2019-05-29] MEDS: RT-ALBUTEROL/IPRATROPIUM 3 ML (DUONEB) VIAL INH SCH ×5 (07:23→22:07)
--- NOTE | 2019-05-29 07:55 | Diagnostic Imaging Report ---
INDICATION: Pneumonia and hypoxia. Comparison is made with prior examination from 05/28/2019. FINDINGS: There is persistent diffuse bilateral airspace disease. There is cardiomegaly. There is no pleural effusion or pneumothorax. Mediastinum is unremarkable. IMPRESSION: Cardiomegaly and unchanged diffuse bilateral airspace disease. Dictated by: Dictated on workstation # [id number]
[2019-05-29] MEDS: ENOXAPARIN 40 MG/0.4 ML (LOVENOX) SYR SC SCH (09:02)
[2019-05-29] MEDS: NICOTINE 21 MG (NICODERM) PATCH TD SCH (09:03)
--- NOTE | 2019-05-29 10:46 | History & Physical ---
MARNI VERGARA MED STUDENT 05/29/19 1046: HPI History of Present Illness: CC: persistent pneumonia symptoms Ms Chavez was previously hospitalized 05/09/19-05/12/19 for PNA. She has continued to have a non-productive cough, fevers, sweats, and chills. She has also continued to be weak and has not been sleeping well at night. Her daugthers felt she was worsening and took her to urgent care where they were advised to bring her to the ED yesterday. Ms. Chavez also says that she has had decreased urine output, but was unable to say for how long. Review of symptoms was positive for weakness and fatigue. ROS negative for shortness of breath, cough, chest pain, palpitations. Subjective Update: Pt reports that her breathing feels about the same to her as it did when she came in. Her only current complaint is that breakfast was very bland; she did r eally enjoy her chocolate Ensure though. She had a BM this morning; it had been several days since her last BM. 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 Patients Allergies have been reviewed. Allergies Coded Allergies: Penicillins (Unverified Allergy, Unknown, 02/25/18) sulfamethoxazole (Unverified Allergy, Unknown, 02/25/18) trimethoprim (Unverified Allergy, Unknown, 02/25/18) [id number]-Vorgvx Hx Patient Social History Alcohol Use: Denies Use Recreational Drug Use: No Smoking Status: Current Everyday Smoker (2 PPD) Type Used: Cigarettes (2 PPD) 2nd Hand Smoke Exposure: Yes Recent Foreign Travel: No Contact w/other who traveled: No Recent Hopitalizations: No Recent Infectious Disease Expo: No Immunizations Up To Date Date of Pneumonia Vaccine: Feb 03, 2019 Date of Influenza Vaccine: Feb 03, 2019 Family Medical History Other Significan Family Hx: PSH; -EGD/COLONOSCOPIES--POLYPECTOMIES--LAST SCOPES 02/2018--GERD/HIATAL HERNIA, DIVERTICULAR DISEASE -MULTIPLE SKIN LESIONS REMOVED, SOME CANCEROUS' -FOOT SURGERY -ANKLE SURGERY -TOENAIL SURGERY -LIPOMAS REMOVED -CATARACTS Family History: Colon cancer Review of Systems (CHC) Constitutional: see HPI Respiratory: No cough; dyspnea on exertion; No short of breath Cardiovascular: No chest pain, No palpitations Gastrointestinal: loss of appetite (Doesn't like the food here) Genitourinary: decreased output Musculoskeletal: no symptoms reported Skin: no symptoms reported Psychiatric/Neurological: Other (Has thoughts that she may soon; denies SI/HI) Physical Exam-([facility]) Physical Exam Vital Signs VS - Last 72 Hours, by Label 05/28/19 05/28/19 05/28/19 05/28/19 18:05 21:22 22:01 22:30 Temp 36.5 36.5 37.0 Pulse 95 98 79 Resp 18 18 20 B/P (MAP) 128/78 (95) 132/72 (95) 155/80 Pulse Ox 91 91 98 98 O2 Delivery Room Air Nasal Cannula Nasal Cannula Nasal Cannula O2 Flow Rate 2.00 2.00 2.00 05/29/19 05/29/19 05/29/19 05/29/19 00:15 00:25 04:05 07:23 Temp 36.4 36.5 36.0 Pulse 68 95 65 Resp 24 20 B/P (MAP) 138/64 (88) 148/70 (96) Pulse Ox 96 91 97 94 O2 Delivery Nasal Cannula Nasal Cannula O2 Flow Rate 2.00 2.00 FiO2 21 05/29/19 08:00 Temp 35.4 Pulse 97 Resp 18 B/P (MAP) 124/72 (89) Pulse Ox 98 Capillary Refill : Less Than 3 Seconds General Appearance: no apparent distress Eyes: Bilateral Eye Normal Inspection HEENT: other (Dentures not in place; some tremor of mouth while conversing) Neck: normal inspection Respiratory: wheezing Cardiovascular: regular rate, rhythm Gastrointestinal: non tender, soft Rectal: deferred Neurologic/Psychiatric: alert, normal mood/affect Skin: warm/dry Assessment/Plan Assessment/Plan Admission Dx Ms Chavez is an 83yo F with PMH of likely COPD, currently smoking, who has had a recent hospitalization for PNA; she has continued to have respiratory symptoms, fevers, chills, weakness, fatigue, and decreased urine output. #Possible Sepsis - Vitals stable this morning - Lactic acid trending down (1.31 from 2.36) - WBC trending down (5.2 from 9.2) - UA completed; follow up pending culture Trace protein, + for crystals, + hyaline casts - Was started on IVF; will decrease rate as patient is tolerating PO fluids - Was started on vancomycin, cefepime #Concern for Pneumonia vs COPD Exacerbation vs Worsening of Underlying Lung Disease - CXR upon arrival: Cardiomegaly. Extensive underlying chronic interstitial disease is present, which appears worsened, this may represent superimposed edema or infiltrate. There appears to be increased alveolar infiltrate in the left perihilar region compared to the prior study. There is no pneumothorax or pleural fluid. - Repeated CXR this morning: Cardiomegaly and unchanged diffuse bilateral airspace disease. - CTA chest completed yesterday: Lung windows demonstrate underlying interstitial fibrotic changes with subpleural blebs and bronchiectasis. There is significant worsening in the interstitial infiltrates, however, which may represent superimposed edema or pneumonia, or marked progression of interstitial disease compared to the previous study. - On broad spectrum antibiotics - Started Duonebs QID - Started methylprednisolone - Started guaifenesin - On 2L oxygen via NC; continue to monitor O2 saturation with goal of 90-93% #Hypokalemia - Replaced; normalized (4.6) this morning - Continue to monitor; replace as needed #Weakness #Fatigue - PT to increase strength #Normocytic Anemia - Most recent Hgb 10.7; previous value 11.3 - Continue to monitor Clinical Quality Measures DVT/VTE Risk/Contraindication: Risk Factor Score Per Nursin RFS Level Per Nursing on Admit: 4+=Very High GISELE WHITE MD 05/29/19 2006: HPI History of Present Illness: Patient is unsure why she is here. Daughter states that she continued to have fevers but could not tell me how high they have been so they may be subjective fevers. Source: patient, family Exam Limitations: clinical condition Home Medications Allergies Coded Allergies: Penicillins (Unverified Allergy, Unknown, 02/25/18) sulfamethoxazole (Unverified Allergy, Unknown, 02/25/18) trimethoprim (Unverified Allergy, Unknown, 02/25/18) VCP-Ygnfmb-Qmxkov Hx Patient Social History Living Status: Lives with daughter as primary caregiver Past Medical History COPD HTN Tobacco Abuse Family Medical History Significant Family History: No Pertinent Family Hx Family History: Colon cancer Review of Systems (CHC) Constitutional: chills, fever EENTM: no symptoms reported Respiratory: cough, dyspnea on exertion; No short of breath Cardiovascular: no symptoms reported; No chest pain, No palpitations Gastrointestinal: No constipation, No diarrhea; loss of appetite (Doesn't like the food here); No nausea, No vomiting Genitourinary: decreased output; No dysuria; frequency; No hematuria Musculoskeletal: no symptoms reported; No back pain, No joint pain, No muscle pain Skin: no symptoms reported; No lesions, No rash Psychiatric/Neurological: Other (Has thoughts that she may soon; denies SI/HI) Reviewed Test Results Reviewed Test Results Lab Laboratory Tests Test 05/28/19 20:20 05/28/19 20:44 05/29/19 00:24 05/29/19 05:20 Range/Units Urine Color DARK YELLOW Urine Clarity SL CLOUDY Urine pH 5.0 5-9 Urine Specific [place] 1.020 1.016-1.022 Urine Protein TRACE H NEGATIVE Urine Glucose (UA) NEGATIVE NEGATIVE Urine Ketones NEGATIVE NEGATIVE Urine Nitrite NEGATIVE NEGATIVE Urine Bilirubin NEGATIVE NEGATIVE Urine Urobilinogen 0.2 < = 1.0 MG/DL Urine Leukocyte Esterase NEGATIVE NEGATIVE Urine RBC (Auto) TRACE-L NEGATIVE Urine RBC 0-2 /HPF Urine WBC 2-5 /HPF Urine Crystals PRESENT H /LPF Urine Amorphous Sediment FEW MATHEUS URATES H /LPF Urine Bacteria TRACE /HPF Urine Casts PRESENT /LPF Urine Hyaline Casts 0-2 H /LPF Urine Mucus SMALL H /LPF Urine Culture Indicated CULTURE PENDING Lactic Acid Level 1.31 0.50-2.00 MMOL/L Glucometer 159 H 70-110 MG/DL White Blood Count 5.2 4.3-11.0 10^3/uL Red Blood Count 3.64 L 4.35-5.85 10^6/uL Hemoglobin 10.7 L 11.5-16.0 G/DL Hematocrit 33 L 35-52 % Mean Corpuscular Volume 90 80-99 FL Mean Corpuscular Hemoglobin 29 25-34 PG Mean Corpuscular Hemoglobin Concent 33 32-36 G/DL Red Cell Distribution Width 13.8 10.0-14.5 % Platelet Count 343 130-400 10^3/uL Mean Platelet Volume 10.6 H 7.4-10.4 FL Neutrophils (%) (Auto) 92 H 42-75 % Lymphocytes (%) (Auto) 6 L 12-44 % Monocytes (%) (Auto) 2 0-12 % Eosinophils (%) (Auto) 0 0-10 % Basophils (%) (Auto) 0 0-10 % Neutrophils # (Auto) 4.8 1.8-7.8 X 10^3 Lymphocytes # (Auto) 0.3 L 1.0-4.0 X 10^3 Monocytes # (Auto) 0.1 0.0-1.0 X 10^3 Eosinophils # (Auto) 0.0 0.0-0.3 10^3/uL Basophils # (Auto) 0.0 0.0-0.1 10^3/uL Sodium Level 138 135-145 MMOL/L Potassium Level 4.6 3.6-5.0 MMOL/L Chloride Level 108 H 98-107 MMOL/L Carbon Dioxide Level 20 L 21-32 MMOL/L Anion Gap 10 5-14 MMOL/L Blood Urea Nitrogen 15 7-18 MG/DL Creatinine 0.79 0.60-1.30 MG/DL Estimat Glomerular Filtration Rate > 60 BUN/Creatinine Ratio 19 Glucose Level 172 H 70-105 MG/DL Calcium Level 8.1 L 8.5-10.1 MG/DL Corrected Calcium 9.1 8.5-10.1 MG/DL Total Bilirubin 0.2 0.1-1.0 MG/DL Aspartate Amino Transf (AST/SGOT) 34 5-34 U/L Alanine Aminotransferase (ALT/SGPT) 40 0-55 U/L Alkaline Phosphatase 157 H 40-136 U/L Total Protein 5.2 L 6.4-8.2 GM/DL Albumin 2.8 L 3.2-4.5 GM/DL Physical Exam-([facility]) Physical Exam General Appearance: WD/WN, no apparent distress HEENT: PERRL/EOMI Neck: non-tender, full range of motion, supple, normal inspection Respiratory: chest non-tender, lungs clear, no accessory muscle use, wheezing Cardiovascular: normal peripheral pulses, regular rate, rhythm, no murmur Gastrointestinal: normal bowel sounds, non tender, soft Back: no CVA tenderness, no vertebral tenderness Extremities: normal range of motion, non-tender, normal inspection, no pedal edema, no calf tenderness, normal capillary refill Neurologic/Psychiatric: calender roll operator II-XII nml as tested, alert, normal mood/affect, oriented x 3 Skin: normal color, warm/dry Lymphatic: no adenopathy Assessment/Plan Assessment/Plan Admission Status: Inpatient Order (span 2 midnights) Reason for Inpatient Admission: New oxygen requirement and needing IV antibioitics (1) Persistent Pneumonia w Hypoxia Status: Acute Assessment & Plan: - IV antibiotics, MAT protocol, steroids (2) COPD with hypoxia Status: Acute (3) HTN (hypertension) Status: Chronic Assessment & Plan: - continue home meds Qualifiers: Qualified Codes: I10 - Essential (primary) hypertension (4) Normocytic anemia Status: Chronic Assessment & Plan: - Stable, no signs of acute bleeding (5) DVT prophylaxis Status: Acute Assessment & Plan: - Lovenox Supervisory-Addendum Brief Verification & Attestation Participated in pt care: history Personally performed: exam Care discussed with: Medical Student Procedures: n/a Verification and Attestation of Medical Student E/M Service A medical student performed and documented this service in my presence. I reviewed and verified all information documented by the medical student and made modifications to such information, when appropriate. I personally performed the physical exam and medical decision making. Gisele White, May 29, 2019,20:20 MARNI VERGARA MED STUDENT May 29, 2019 10:46 GISELE WHITE MD May 29, 2019 20:06
--- NOTE | 2019-05-29 13:49 | NUR ---
"RD ASSESSMENT PMHx: COPD; hypercholesterolemia; HTN; GERD; diverticulosis; chronic constipation; CA(skin) PT INTERACTION: Pt was awake and pleasant during consult for MST score. Pt states current appetite is poor and has been for the past week. Note PO intake of 25% x1meal, per chart review. Pt states following a regular diet at home and has no issues with chewing/swallowing food. Pt states no recent issues with n/v at this time. Pt states issues with constipation for the past week, and that her last BM was 05/29. Note pt not currently on bowel regimen per chart review. Pt states recent 15# wt loss x2mon. Note 8# wt loss x4mon, per chart review. Upon visual exam, pt appears to be adequately nourished with no visible signs of muscle/fat wasting, and a BMI of 22.4 While pt PO intake is poor, given wt hx and visual exam, pt does not meet criteria for malnutrition per ASPEN guidelines. ABNORMAL NUTRITION-RELATED LAB VALUES LOW: Ca 8.1; Pro 5.2; alb 2.8 HIGH: Cl 108; glu 172; alkphos 157 Est. kcal needs: 7093-5712 kcal | 25-30 kcal/kg Est. Pro needs: 61-73 g Pro | 1.0-1.2 g Pro/kg PES STATEMENT: Inadequate oral intake (NI-2.1) related to loss of appetite | constipation x1w as evidenced by pt interview | PO intake 25% x1meal INTERVENTION: Continue with current diet order of 2000mg Na diet. Continue with current supplementation order of Ensure Enlive (vary) with meals TID, for increased kcal intake. Provides 350 kcal and 13 g Pro per serving. Will continue to follow and reassess as pt needs, intake and status change. MONITOR/EVALUATE: PO Intake; Plan of Care; Hydration Status; Weight Status; Lab Values Adelaide Diop, MS, RD, LD"
[2019-05-29] MEDS: CEFEPIME 2,000 MG/SWFI 20 ML IV PUSH IV SCH ×2 (17:30)
[2019-05-29] MEDS: ACETAMINOPHEN 500 MG TAB (TYLENOL) PO PRN (20:12)
[2019-05-29] MEDS: VANCOMYCIN 1 GM/NS 250 ML IVPB IV SCH ×2 (20:14)
[2019-05-29] MEDS: MONTELUKAST CHEW 4 MG (SINGULAIR) TAB PO SCH (21:00)
[2019-05-29] MEDS ORDERED: LORazepam 0.5 MG (ATIVAN) TABLET ONE (22:38)
[2019-05-30 00:09] VITALS: BP 125/59
[2019-05-30] MEDS: RT-ALBUTEROL/IPRATROPIUM 3 ML (DUONEB) VIAL INH SCH ×6 (02:32→21:50)
[2019-05-30 03:38] VITALS: BP 118/58
[2019-05-30 05:03] LABS: BASOPHILS % (AUTO) 0 % (0-10); EOSINOPHILS # (AUTO) 0.1 10^3/uL (0.0-0.3); EOSINOPHILS % (AUTO) 1 % (0-10); HEMATOCRIT 29 % (35-52); HEMOGLOBIN 9.5 G/DL (11.5-16.0); LYMPHOCYTES # (AUTO) 0.6 X 10^3 (1.0-4.0); LYMPHOCYTES % (AUTO) 7 % (12-44); MEAN CORPUSCULAR HEMOGLOBIN 30 PG (25-34); MEAN CORPUSCULAR HGB CONC 33 G/DL (32-36); MEAN CORPUSCULAR VOLUME 91 FL (80-99); MEAN PLATELET VOLUME 10.7 FL (7.4-10.4); MONOCYTES # (AUTO) 0.7 X 10^3 (0.0-1.0); MONOCYTES % (AUTO) 9 % (0-12); NEUTROPHILS % (AUTO) 84 % (42-75); PLATELET COUNT 311 10^3/uL (130-400); RED CELL DISTRIBUTION WIDTH 13.7 % (10.0-14.5); WHITE BLOOD COUNT 8.4 10^3/uL (4.3-11.0)
[2019-05-30 05:24] LABS: ALANINE AMINOTRANSFERASE 48 U/L (0-55); ALBUMIN 2.7 GM/DL (3.2-4.5); ALKALINE PHOSPHATASE 128 U/L (40-136); BILIRUBIN,TOTAL 0.1 MG/DL (0.1-1.0); BUN/CREATININE RATIO 28; CALCIUM 8.6 MG/DL (8.5-10.1); CARBON DIOXIDE 22 MMOL/L (21-32); CHLORIDE 108 MMOL/L (98-107); CREATININE SERUM 0.76 MG/DL (0.60-1.30); GFR ESTIMATED > 60; GLUCOSE 85 MG/DL (70-105); POTASSIUM 3.7 MMOL/L (3.6-5.0); SODIUM 140 MMOL/L (135-145); TOTAL PROTEIN 4.8 GM/DL (6.4-8.2)
[2019-05-30 08:00] VITALS: BP 123/70
[2019-05-30] MEDS: ASPIRIN 325 MG (5 GR) TABLET PO SCH (09:40)
[2019-05-30] MEDS: ENOXAPARIN 40 MG/0.4 ML (LOVENOX) SYR SC SCH (09:40)
[2019-05-30] MEDS: NICOTINE 21 MG (NICODERM) PATCH TD SCH (09:40)
[2019-05-30] MEDS: NICOTINE PATCH REMOVAL TP SCH (09:41)
[2019-05-30] MEDS: LORazepam 0.5 MG (ATIVAN) TABLET PO PRN (11:34)
[2019-05-30 12:00] VITALS: BP 100/61
--- NOTE | 2019-05-30 14:01 | NUR ---
Initial visit with pt and two daughters present. One daughter said the pt was depressed and her physician was going to prescribe antidepressants. They excused themselves and encouraged the pt to visit. She engaged in life review and shared about the deaths of her parents, and her concerns for the decline of her town ([place]) and her sadness at witnessing the self destructive decisions of her family members. She concluded that all she can do is pray from them, and mentioned her life has been filled with enjoyments of fishing, hunting, and working. She states her activities are limited to the house and doctor's visits, and she does not feel any quality in her life. The pt said she shared this with her family and they "did not take it real well. I don't think they knew what to do with that. They aren't ready, I guess." She shared about her years as a member of the [employer] in [place] which is now an [employer] store. She welcomed prayer and expressed deep appreciation for the opportunity to talk. I welcomed her to request a public address announcer at anytime through her nurse.
[2019-05-30] MEDS ORDERED: FLUC150T2 PO (14:32)
--- NOTE | 2019-05-30 14:33 | NUR ---
UNABLE TO SPEAK WITH THE PT BUT WENT THRU THE EXT MED HISTORY TO COMPLETE THE MED REC. THE PT WAS RECENTLY HERE AND MARNI HAD DONE THE MED REC AND READ THRU HER NOTES FOR POSSIBLE DISCREPANCIES WITH THE EXT MED HISTORY. IF NEED BE REFER TO THE NOTE FROM EARLIER ON IN THE MONTH. OTC MEDS: ASPIRIN
--- NOTE | 2019-05-30 15:04 | Physical Therapy Evaluation ---
PT Evaluation-General Medical Diagnosis Admission Date May 28, 2019 at 19:45 Medical Diagnosis: pneumonia, COPD Onset Date: May 28, 2019 Therapy Diagnosis Therapy Diagnosis: impaired moblility, strength, endurance Height/Weight Height (Feet): 5 Height (Inches): 5.00 Weight (Pounds): 142 Weight (Ounces): 8.0 Precautions Precautions/Isolations: Fall Prevention, Standard Precautions Weight Bear Status Right Lower Extremity: Right Weight Bearing/Tolerated Left Lower Extremity: Left Weight Bearing/Tolerated Referral Physician: Adrianne White MD Reason for Referral: Evaluation/Treatment Medical History Pertinent Medical History: Arthritis, COPD, CVA, GERD, HTN, Smoking Additional Medical History PSH; -EGD/COLONOSCOPIES--POLYPECTOMIES--LAST SCOPES 02/2018--GERD/HIATAL HERNIA, DIVERTICULAR DISEASE -MULTIPLE SKIN LESIONS REMOVED, SOME CANCEROUS' -FOOT SURGERY -ANKLE SURGERY -TOENAIL SURGERY -LIPOMAS REMOVED -CATARACTS Reviewed History: Yes Social History Patient is confused and cannot give this info. Prior Prior Level of Function SCALE: Activities may be completed with or without assistive devices. 4-Qevtuyzaow-acdphxy completes the activity by him/herself with no assistance from a helper. 5-Set-up or Clean-up Assistance-helper sets up or cleans up; patient completes a ctivity. [place] assists only prior to or following the activity. 4-Supervision or Touching Assistance-helper provides verbal cues and/or touching/steadying and/or contact guard assistance as patient completes activity. Assistance may be provided throughout the activity or intermittently. 3-Partial/Moderate Assistance-helper does LESS THAN HALF the effort. [place] lifts, holds or supports trunk or limbs, but provides less than half the effort. 2-Substantial/Maximal Assistance-helper does MORE THAN HALF the effort. [place] lifts or holds trunk or limbs and provides more than half the effort. 8-Fnevczzso-rafjlv does ALL the effort. Patient does none of the effort to complete the activity. Or, the assistance of 2 or more helpers is required for the patient to complete the activity. If activity was not attempted, code reason: 7-Patient Refused. 9-Not Applicable-not attempted and the patient did not perform the activity before the current illness, exacerbation or injury. 10-Not Attempted due to Environmental Limitations-(lack of equipment, weather restraints, etc.). 88-Not Attempted due to Medical Conditions or Safety Concerns. unknown, patient at one point did say she had a rolling walker PT Evaluation-Current Subjective Patient in bed pre tx, agrees to PT, has no complaints of pain. Pt/Family Goals none stated Objective Patient Orientation: Person, Confused Attachments: Oxygen ROM/Strength ROM Lower Extremities WNL except for left ankle, has plantarflexion contracture Strength Lower Extremities 4/5 gross BLE except for left ankle 1/5 Sensory Hearing: Functional Sensation Right Lower Extremit: Intact Sensation Left Lower Extremity: Intact Transfers Roll Left to Right (QC): 6 Sit to Lying (QC): 6 Lying to Sitting/Side of Bed(Q: 6 Sit to Stand (QC): 4 Chair/Ega-lc-Jwchk Xfer(QC): 4 Gait Does the Patient Walk?: Yes Mode of Locomotion: Walk Anticipated Mode of Locomotion: Walk Walk 10 feet (QC): 4 Distance: 20' Gait Assistive Device: FWW Comments/Gait Description CGA, SOB, recovers fairly quickly after sitting back down on the bed, uses an AFO in shoe on the left side Balance Sitting Static: Normal Sitting Dynamic: Normal Standing Static: Fair Standing Dynamic: Fair Assessment/Needs Patient has impaired mobility, strength, endurance. Patient is confused but can follow commands but cannot tell therapist about her home or how she was getting around. Rehab Potential: Fair PT Welfare Case Worker Goals Mcc Goals PT Mcc Goals Time Frame: Jun 06, 2019 Roll Left & Right (QC): 6 Sit to Lying (QC): 6 Lying-Sitting on Side/Bed(QC): 6 Sit to Stand (QC): 6 Chair/Hkl-xy-Spqzq Xfer(QC): 6 Walk 10 feet (QC): 6 Walk 50ft with 2 Turns (QC): 6 PT Plan Problem List Problem List: Activity Tolerance, Functional Strength, Safety, Balance, Gait, Transfer Treatment/Plan Treatment Plan: Continue Plan of Care Treatment Plan: Education, Functional Activity [place], Functional Strength, Gait, Safety, Therapeutic Exercise, Transfers Treatment Duration: Jun 06, 2019 Frequency: 6 times per week Estimated Hrs Per Day: .25 hour per day Patient and/or Family Agrees t: Yes Safety Risks/Education Patient Education: Gait Training, Transfer Techniques, Correct Positioning, Safety Issues Teaching Recipient: Patient Teaching Methods: Demonstration, Discussion Response to Teaching: Reinforcement Needed Discharge Recommendations Plan Patient will perform bed mobility and transfer training, balance and endurance training, functional strengthening, stair training, gait training, and education, to improve functional mobility and independence at home. Therapy Discharge Recommendati: Home & Family Time/GCodes Time In: 1440 Time Out: 1452 Total Billed Treatment Time: 12 Total Billed Treatment 1 visit JAYDE 12' KAREEM KEITH PT May 30, 2019 15:04
--- NOTE | 2019-05-30 15:05 | Occupational Therapy Eval ---
OT Evaluation-General/PLF Medical Diagnosis Admission Date May 28, 2019 at 19:45 Medical Diagnosis: Persistent pneumonia with hypoxia, sepsis, COPD Onset Date: May 28, 2019 Therapy Diagnosis Therapy Diagnosis: impaired ADLs/functional mobility Height/Weight Height (Feet): 5 Height (Inches): 5.00 Weight (Pounds): 142 Weight (Ounces): 8.0 Precautions Precautions/Isolations: Fall Prevention, Standard Precautions Safety Interventions: Bed Exit Alarm Referral Physician: Cindy Referral Reason: Evaluation/Treatment Medical History Pertinent Medical History: Arthritis, COPD, CVA, GERD, HTN, Smoking Current History Per H&P: "Ms Chavez was previously hospitalized 05/09/19-05/12/19 for PNA. She has continued to have a non-productive cough, fevers, sweats, and chills. She has also continued to be weak and has not been sleeping well at night. Her daugthers felt she was worsening and took her to urgent care where they were advised to bring her to the ED yesterday. Ms. Chavez also says that she has had decreased urine output, but was unable to say for how long. Review of symptoms was positive for weakness and fatigue. ROS negative for shortness of breath, cough, chest pain, palpitations." Social History Home: Single Level Current Living Status: Children (2 daughters) Entry Into Home: Ramp ADL-Prior Level of Function SCALE: Activities may be completed with or without assistive devices. 4-Qobyejlbhj-qqgvfva completes the activity by him/herself with no assistance from a helper. 5-Set-up or Clean-up Assistance-helper sets up or cleans up; patient completes activity. [place] assists only prior to or following the activity. 4-Supervision or Touching Assistance-helper provides verbal cues and/or touching/steadying and/or contact guard assistance as patient completes activity. Assistance may be provided throughout the activity or intermittently. 3-Partial/Moderate Assistance-helper does LESS THAN HALF the effort. [place] lifts, holds or supports trunk or limbs, but provides less than half the effort. 2-Substantial/Maximal Assistance-helper does MORE THAN HALF the effort. [place] lifts or holds trunk or limbs and provides more than half the effort. 2-Kqzqauagb-lyghrl does ALL the effort. Patient does none of the effort to complete the activity. Or, the assistance of 2 or more helpers is required for the patient to complete the activity. If activity was not attempted, code reason: 7-Patient Refused. 9-Not Applicable-not attempted and the patient did not perform the activity before the current illness, exacerbation or injury. 10-Not Attempted due to Environmental Limitations-(lack of equipment, weather restraints, etc.). 88-Not Attempted due to Medical Conditions or Safety Concerns. ADL PLOF Comments When asked about PLOF, pt reports requiring assistance with ADLs including bathing, dressing, cooking, and cleaning. Later in session, she states she is able to do everything herself and her daughters help as needed. It is unclear how much assistance her daughters provide her. When asked if she uses a cane or walker, pt reported a cane, then said no a walker, then continued to contradict herself. She saw the walker in her room and said she had something like this but a little different. She also indicated her girls help if she needs it, when discussing walking. Pt unable to state if she has a walker or tub/shower. Self Care: Needed Some Help Functional Cognition: Needed Some Help OT Current Status Subjective Pt laying in bed at start of session sleeping, she was easily awoken. She agreed to OT evaluation on this date, denied having any pain. Mental Status/Objective Patient Orientation: Person, Confused, Place When asked what year it was, pt replied "2000" Attachments: Oxygen (2L) Current Glasses/Contacts: Yes Hearing Aids: No Dentures/Partials: Yes Hand Dominance: Right Upper Extremity ROM WFL BUE shoulder flexion to approx 150 degrees, she can reach behind her head Upper Extremity Coordination slight tremor noted during donning/doffing socks. Upper Extremity Sensation pt denied tingling/numbness Upper Extremity Strength grossly 3/5 MMT ADL-Treatment On/Off Footwear (QC): 2 (Pt able to bring left foot over her right leg in figure 4 method in order to don/doff left sock. Pt required assistance with right foot and donning/doffing shoes & left AFO) Other Treatments Pt laying in bed at start of session, provided information about PLOF and home set up. She completed ROM screening. OT educated pt on the purpose and benefits of OT, then pt sat EOB with SBA in order to don/doff BLE socks/shoes. She then returned to supine with SBA. Post OT session, pt laying in bed, call light in reach and all needs met . Education OT Patient Education: Correct positioning, Energy conservation, Modified ADL techniques, Progress toward Goal/Update tx plan, Purpose of tx/functional activities Teaching Recipient: Patient Teaching Methods: Discussion Response to Teaching: Verbalize Understanding, Reinforcement Needed OT Automobile Repossessor Goals Penitentiary Goals Time Frame: Jun 11, 2019 Eating (QC): 6 Oral Hygiene (QC): 5 Toileting Hygiene (QC): 4 Shower/Bathe Self (QC): 3 Upper Body Dressing (QC): 4 Lower Body Dressing (QC): 3 On/Off Footwear (QC): 3 1=Demonstrate adherence to instructed precautions during ADL tasks. 2=Patient will verbalize/demonstrate understanding of assistive de vices/modifications for ADL. 3=Patient will improve strength/tolerance for activity to enable patient to perform ADL's. OT Education/Plan Problem List/Assessment Assessment: Decreased Activ Tolerance, Decreased UE Strength, Impaired I ADL's, Impaired Self-Care Skills Discharge Recommendations Plan/Recommendations: Continue POC Therapy Discharge Recommendati: Home & Family Treatment Plan/Plan of Care Treatment,Training & Education: Yes Patient would benefit from OT for education, treatment and training to promote independence in ADL's, mobility, safety and/or upper extremity function for ADL's. Plan of Care: ADL Retraining, Functional Mobility, UE Funct Exercise/Act Treatment Duration: Jun 11, 2019 Frequency: 5 times per week Estimated Hrs Per Day: .25 hour per day Agreement: Yes Rehab Potential: Fair Time/GCodes Start Time: 14:32 Stop Time: 14:40 Total Time Billed (hr/min): 8 Billed Treatment Time 1, QUINTIN PENA OT May 30, 2019 15:05
[2019-05-30 15:29] VITALS: BP 103/66
--- NOTE | 2019-05-30 15:43 | Progress Note ---
Subjective Subjective/Events-last exam Patient very tearful today. States that she is wanting to just go on. She is having alot of feeling of wanting to but denies thoughts of hurting herself. States that she has lost alot of people close to her recently. Tolerating PO diet. Has not had the energy to get up but did get to the chair. Review of Systems Pulmonary: Dyspnea Cardiovascular: No: Chest Pain, Palpitations Gastrointestinal: No: Nausea, Vomiting, Abdominal Pain Neurological: Other (depressed mood) Focused Exam Lactate Level 05/28/19 18:26: Lactic Acid Level 2.36*H 05/28/19 20:44: Lactic Acid Level 1.31 Objective Exam Last Set of Vital Signs Vital Signs Date Time Temp Pulse Resp B/P (MAP) Pulse Ox O2 Delivery O2 Flow Rate FiO2 05/30/19 15:29 37.0 83 20 103/66 (78) 97 Nasal Cannula 2.00 05/29/19 11:19 28 Capillary Refill : Less Than 3 SecondsLess Than 3 Seconds I&O Intake and Output 05/30/19 00:00 Intake Total 1125 ml Output Total 500 ml Balance 625 ml Intake Oral 1125 ml Output Urine Total 500 ml # Voids 5 # Bowel Movements 3 General: Alert, Oriented X3, Cooperative, No Acute Distress Lungs: Clear to Auscultation, Normal Air Movement Heart: Regular Rate, No Murmurs Abdomen: Normal Bowel Sounds, Soft, No Tenderness, No Masses Extremities: No Edema, No Tenderness/Swelling Skin: No Rashes, No Breakdown Psych/Mental Status: Other (depressed mood, tearful) Results/Procedures Lab Laboratory Tests 05/30/19 04:33: White Blood Count 8.4, Red Blood Count 3.16L, Hemoglobin 9.5L, Hematocrit 29L, Mean Corpuscular Volume 91, Mean Corpuscular Hemoglobin 30, Mean Corpuscular Hemoglobin Concent 33, Red Cell Distribution Width 13.7, Platelet Count 311, Mean Platelet Volume 10.7H, Neutrophils (%) (Auto) 84H, Lymphocytes (%) (Auto) 7L, Monocytes (%) (Auto) 9, Eosinophils (%) (Auto) 1, Basophils (%) (Auto) 0, Neutrophils # (Auto) 7.0, Lymphocytes # (Auto) 0.6L, Monocytes # (Auto) 0.7, Eosinophils # (Auto) 0.1, Basophils # (Auto) 0.0, Sodium Level 140, Potassium Level 3.7, Chloride Level 108H, Carbon Dioxide Level 22, Anion Gap 10, Blood Urea Nitrogen 21H, Creatinine 0.76, Estimat Glomerular Filtration Rate > 60, BUN/Creatinine Ratio 28, Glucose Level 85, Calcium Level 8.6, Corrected Calcium 9.6, Total Bilirubin 0.1, Aspartate Amino Transf (AST/SGOT) 38H, Alanine Aminotransferase (ALT/SGPT) 48, Alkaline Phosphatase 128, Total Protein 4.8L, Albumin 2.7L Microbiology 05/28/19 Urine Culture - Final, Complete NO GROWTH 05/28/19 Blood Culture - Preliminary, Resulted No growth 05/28/19 Influenza Types A,B Antigen (LAILA) - Final, Complete Assessment/Plan Assessment/Plan (1) Persistent Pneumonia w Hypoxia Status: Acute Assessment & Plan: - IV antibiotics, MAT protocol, steroids (2) COPD with hypoxia Status: Acute (3) Depression Assessment & Plan: 05/30: Started Celexa today, discussed with patient and family that it takes 4-6 weeks, encouraged patient to see in clinic upon discharge Qualifiers: Qualified Codes: F32.1 - Major depressive disorder, single episode, moderate (4) HTN (hypertension) Status: Chronic Assessment & Plan: - continue home meds Qualifiers: Qualified Codes: I10 - Essential (primary) hypertension (5) Normocytic anemia Status: Chronic Assessment & Plan: - Stable, no signs of acute bleeding (6) DVT prophylaxis Status: Acute Assessment & Plan: - Lovenox, patient may benefit from SNF vs Home health at discharge Clinical Quality Measures DVT/VTE Risk/Contraindication: Risk Factor Score Per Nursin RFS Level Per Nursing on Admit: 4+=Very High GISELE FOUNTAIN MD May 30, 2019 15:43
[2019-05-30] MEDS: CEFEPIME 2,000 MG/SWFI 20 ML IV PUSH IV SCH ×2 (16:56)
[2019-05-30 19:40] VITALS: BP 128/58
[2019-05-30] MEDS: VANCOMYCIN 1 GM/NS 250 ML IVPB IV SCH ×2 (20:37)
[2019-05-30] MEDS: MONTELUKAST CHEW 4 MG (SINGULAIR) TAB PO SCH (20:37)
[2019-05-31] VITALS: BP 133/72
[2019-05-31] MEDS: RT-ALBUTEROL/IPRATROPIUM 3 ML (DUONEB) VIAL INH SCH ×6 (02:55→22:15)
[2019-05-31 04:00] VITALS: BP 144/61
[2019-05-31] MEDS: LORazepam 0.5 MG (ATIVAN) TABLET PO PRN ×2 (04:27→20:45)
[2019-05-31 05:24] LABS: BASOPHILS % (AUTO) 0 % (0-10); EOSINOPHILS # (AUTO) 0.5 10^3/uL (0.0-0.3); EOSINOPHILS % (AUTO) 5 % (0-10); HEMATOCRIT 30 % (35-52); HEMOGLOBIN 9.9 G/DL (11.5-16.0); LYMPHOCYTES # (AUTO) 0.4 X 10^3 (1.0-4.0); LYMPHOCYTES % (AUTO) 5 % (12-44); MEAN CORPUSCULAR HEMOGLOBIN 30 PG (25-34); MEAN CORPUSCULAR HGB CONC 33 G/DL (32-36); MEAN CORPUSCULAR VOLUME 91 FL (80-99); MEAN PLATELET VOLUME 10.6 FL (7.4-10.4); MONOCYTES # (AUTO) 0.8 X 10^3 (0.0-1.0); MONOCYTES % (AUTO) 10 % (0-12); NEUTROPHILS # (AUTO) 6.9 X 10^3 (1.8-7.8); NEUTROPHILS % (AUTO) 80 % (42-75); PLATELET COUNT 323 10^3/uL (130-400); RED CELL DISTRIBUTION WIDTH 14.2 % (10.0-14.5); WHITE BLOOD COUNT 8.6 10^3/uL (4.3-11.0)
[2019-05-31 05:42] LABS: BUN/CREATININE RATIO 25; CALCIUM 8.4 MG/DL (8.5-10.1); CARBON DIOXIDE 23 MMOL/L (21-32); CHLORIDE 105 MMOL/L (98-107); CREATININE SERUM 0.69 MG/DL (0.60-1.30); GFR ESTIMATED > 60; GLUCOSE 84 MG/DL (70-105); SODIUM 139 MMOL/L (135-145)
--- NOTE | 2019-05-31 08:19 | Physical Therapy Daily Note ---
PT Daily Note-Current Subjective Pt reports she did not sleep well last night. She reports her eyes hurt and she just could not sleep. Agrees to try a short walk. Mental Status Patient Orientation: Confused Attachments: Oxygen Transfers SCALE: Activities may be completed with or without assistive devices. 6-Anezjzpnpe-ugiunug completes the activity by him/herself with no assistance from a helper. 5-Set-up or Clean-up Assistance-helper sets up or cleans up; patient completes activity. [place] assists only prior to or following the activity. 4-Supervision or Touching Assistance-helper provides verbal cues and/or touching/steadying and/or contact guard assistance as patient completes activity. Assistance may be provided throughout the activity or intermittently. 3-Partial/Moderate Assistance-helper does LESS THAN HALF the effort. [place] lifts, holds or supports trunk or limbs, but provides less than half the effort. 2-Substantial/Maximal Assistance-helper does MORE THAN HALF the effort. [place] lifts or holds trunk or limbs and provides more than half the effort. 8-Phptdmqou-easqtl does ALL the effort. Patient does none of the effort to complete the activity. Or, the assistance of 2 or more helpers is required for the patient to complete the activity. If activity was not attempted, code reason: 7-Patient Refused. 9-Not Applicable-not attempted and the patient did not perform the activity before the current illness, exacerbation or injury. 10-Not Attempted due to Environmental Limitations-(lack of equipment, weather restraints, etc.). 88-Not Attempted due to Medical Conditions or Safety Concerns. Weight Bearing Right Lower Extremity: Right Weight Bearing/Tolerated Left Lower Extremity: Left Weight Bearing/Tolerated Gait Training Distance: 50 Gait Persons Needed: 1 Gait Assistive Device: FWW Donned shoes including AFO with Min A. Pt ambulates 50ft with FWW and CGA. Ambulation limited by SOB and generalized fatigue. Treatments Sat EOB x 10 minutes to discuss safety and also practice don/doff Shoes/AFO. PT Director Of Retail Merchandising Goals Retirement Goals PT Retirement Goals Time Frame: Jun 06, 2019 Roll Left & Right (QC): 6 Sit to Lying (QC): 6 Lying-Sitting on Side/Bed(QC): 6 Sit to Stand (QC): 6 Chair/Azh-aj-Lfcop Xfer(QC): 6 Walk 10 feet (QC): 6 Walk 50ft with 2 Turns (QC): 6 PT Plan Problem List Problem List: Activity Tolerance, Gait Treatment/Plan Treatment Plan: Continue Plan of Care Treatment Plan: Education, Functional Activity [place], Functional Strength, Gait, Safety, Therapeutic Exercise, Transfers Treatment Duration: Jun 06, 2019 Frequency: 6 times per week Estimated Hrs Per Day: .25 hour per day Patient and/or Family Agrees t: Yes Time/GCodes Time In: 750 Time Out: 815 Total Billed Treatment Time: 25 Total Billed Treatment visit, FA 10 min, Gait 15 min BEBETO RANKIN PT May 31, 2019 08:19
[2019-05-31] MEDS: NICOTINE 21 MG (NICODERM) PATCH TD SCH (08:31)
[2019-05-31] MEDS: ASPIRIN 325 MG (5 GR) TABLET PO SCH (08:31)
[2019-05-31] MEDS: NICOTINE PATCH REMOVAL TP SCH (08:31)
[2019-05-31] MEDS: ENOXAPARIN 40 MG/0.4 ML (LOVENOX) SYR SC SCH (08:32)
[2019-05-31] MEDS: guaiFENesin (MUCINEX) 600 MG TAB PO PRN ×2 (09:50→20:45)
--- NOTE | 2019-05-31 11:11 | Progress Note - Hospitalist ---
Subjective HPI/CC On Admission Date Seen by Provider: May 31, 2019 Time Seen by Provider: 10:00 Subjective/Events-last exam Patient doesn't think she is doing as well today as yesterday Daughter at bedside who she lives with PT OT ordered Nebs and O2 maintained Uses O2 at home Tremors are at baseline BM today Crackles persist No pain is reported Review of Systems General: Fatigue Pulmonary: Dyspnea, Cough Focused Exam Lactate Level 05/28/19 18:26: Lactic Acid Level 2.36*H 05/28/19 20:44: Lactic Acid Level 1.31 Objective Exam Vital Signs Vital Signs Date Time Temp Pulse Resp B/P (MAP) Pulse Ox O2 Delivery O2 Flow Rate FiO2 05/31/19 14:46 97 Nasal Cannula 2.00 05/31/19 12:00 36.9 86 22 129/52 (77) 05/29/19 11:19 28 Capillary Refill : Less Than 3 SecondsLess Than 3 Seconds General Appearance: No Apparent Distress, WD/WN, Anxious, Chronically ill, Thin Respiratory: No Accessory Muscle Use, No Respiratory Distress, Crackles, Decreased Breath Sounds Cardiovascular: Regular Rate, Rhythm Neurologic/Psychiatric: Alert, Oriented x3, No Motor/Sensory Deficits, Normal Mood/Affect, plastic surgery coordinator II-XII Norm as Tested, Disoriented Results/Procedures Lab Laboratory Tests 05/31/19 05:01 Patient resulted labs reviewed. Assessment/Plan Assessment and Plan Assess & Plan/Chief Complaint Assessment: Persistent PNA RLL Hypoxia Chronic O2 dependence Dementia? Anemia HTN Weakness Plan: O2 Nebs Fall risk Abx Diagnosis/Problems Diagnosis/Problems (1) Persistent Pneumonia w Hypoxia Status: Acute (2) HTN (hypertension) Status: Chronic Qualifiers: Hypertension type: essential hypertension Qualified Codes: I10 - Essential (primary) hypertension (3) Normocytic anemia Status: Chronic (4) COPD with hypoxia Status: Acute Clinical Quality Measures DVT/VTE Risk/Contraindication: Risk Factor Score Per Nursin RFS Level Per Nursing on Admit: 4+=Very High VIANEY BREWSTER DO May 31, 2019 11:11
[2019-05-31 12:00] VITALS: BP 129/52
[2019-05-31] MEDS: BENZONATATE 100 MG (TESSALON) CAPSULE PO SCH ×2 (15:25→20:45)
[2019-05-31 16:00] VITALS: BP 124/65
[2019-05-31 19:25] VITALS: BP 145/76
[2019-05-31] MEDS: MONTELUKAST CHEW 4 MG (SINGULAIR) TAB PO SCH (20:45)
[2019-05-31] MEDS: CEFEPIME 2,000 MG/SWFI 20 ML IV PUSH IV SCH ×2 (20:45)
[2019-05-31] MEDS: ACETAMINOPHEN 500 MG TAB (TYLENOL) PO PRN (20:45)
[2019-05-31 23:55] VITALS: BP 135/55
[2019-06-01] MEDS: RT-ALBUTEROL/IPRATROPIUM 3 ML (DUONEB) VIAL INH SCH ×4 (04:16→19:51)
[2019-06-01 04:20] VITALS: BP 166/76
[2019-06-01 04:48] LABS: BASOPHILS % (AUTO) 0 % (0-10); EOSINOPHILS # (AUTO) 0.7 10^3/uL (0.0-0.3); EOSINOPHILS % (AUTO) 8 % (0-10); HEMATOCRIT 32 % (35-52); HEMOGLOBIN 10.4 G/DL (11.5-16.0); LYMPHOCYTES # (AUTO) 0.4 X 10^3 (1.0-4.0); LYMPHOCYTES % (AUTO) 5 % (12-44); MEAN CORPUSCULAR HEMOGLOBIN 30 PG (25-34); MEAN CORPUSCULAR HGB CONC 33 G/DL (32-36); MEAN CORPUSCULAR VOLUME 91 FL (80-99); MEAN PLATELET VOLUME 10.9 FL (7.4-10.4); MONOCYTES # (AUTO) 0.9 X 10^3 (0.0-1.0); MONOCYTES % (AUTO) 11 % (0-12); NEUTROPHILS # (AUTO) 6.3 X 10^3 (1.8-7.8); NEUTROPHILS % (AUTO) 76 % (42-75); PLATELET COUNT 308 10^3/uL (130-400); RED CELL DISTRIBUTION WIDTH 13.8 % (10.0-14.5); WHITE BLOOD COUNT 8.3 10^3/uL (4.3-11.0)
[2019-06-01 05:06] LABS: ALANINE AMINOTRANSFERASE 38 U/L (0-55); ALBUMIN 2.8 GM/DL (3.2-4.5); ALKALINE PHOSPHATASE 144 U/L (40-136); BILIRUBIN,TOTAL 0.3 MG/DL (0.1-1.0); BUN/CREATININE RATIO 21; CALCIUM 8.3 MG/DL (8.5-10.1); CARBON DIOXIDE 26 MMOL/L (21-32); CHLORIDE 104 MMOL/L (98-107); GFR ESTIMATED > 60; GLUCOSE 83 MG/DL (70-105); POTASSIUM 4.1 MMOL/L (3.6-5.0); SODIUM 139 MMOL/L (135-145); TOTAL PROTEIN 5.1 GM/DL (6.4-8.2)
[2019-06-01] MEDS: LORazepam 0.5 MG (ATIVAN) TABLET PO PRN (06:55)
[2019-06-01] MEDS: ACETAMINOPHEN 500 MG TAB (TYLENOL) PO PRN (06:55)
[2019-06-01] MEDS: RT-ALBUTEROL/IPRATROPIUM 3 ML (DUONEB) VIAL INH PRN ×2 (07:31→15:32)
[2019-06-01 08:00] VITALS: BP 148/63
[2019-06-01] MEDS: NICOTINE PATCH REMOVAL TP SCH (08:39)
[2019-06-01] MEDS: NICOTINE 21 MG (NICODERM) PATCH TD SCH (08:39)
[2019-06-01] MEDS: ENOXAPARIN 40 MG/0.4 ML (LOVENOX) SYR SC SCH (08:39)
[2019-06-01] MEDS: BENZONATATE 100 MG (TESSALON) CAPSULE PO SCH ×3 (08:40→20:02)
[2019-06-01] MEDS: ASPIRIN 325 MG (5 GR) TABLET PO SCH (08:40)
--- NOTE | 2019-06-01 11:44 | Progress Note - Hospitalist ---
Subjective HPI/CC On Admission Date Seen by Provider: Jun 01, 2019 Time Seen by Provider: 10:30 Subjective/Events-last exam Patient doing well Weakness is profound Daughter at bedside Patient always reports she's not feeling well Labs stable Lungs are much improved Checked meds and labs No pain is reported Review of Systems General: Fatigue Pulmonary: Dyspnea, Cough Neurological: Weakness, Confusion Objective Exam Vital Signs Vital Signs Date Time Temp Pulse Resp B/P (MAP) Pulse Ox O2 Delivery O2 Flow Rate FiO2 06/01/19 15:32 96 Nasal Cannula 2.00 06/01/19 11:53 36.5 55 16 175/55 (95) 05/29/19 11:19 28 Capillary Refill : Less Than 3 SecondsLess Than 3 Seconds General Appearance: No Apparent Distress, WD/WN, Chronically ill, Thin Respiratory: Chest Non Tender, No Accessory Muscle Use, No Respiratory Distress, Crackles, Decreased Breath Sounds Cardiovascular: Regular Rate, Rhythm, No Edema, No Gallop, No JVD, No Murmur, Normal Peripheral Pulses Neurologic/Psychiatric: Alert, Oriented x3, No Motor/Sensory Deficits, Normal Mood/Affect Results/Procedures Lab Laboratory Tests 06/01/19 04:32 Patient resulted labs reviewed. Assessment/Plan Assessment and Plan Assess & Plan/Chief Complaint Assessment: Persistent PNA RLL Hypoxia Chronic O2 dependence Dementia? Anemia HTN Weakness Tremor Plan: O2 Nebs Fall risk Abx PT OT IRF? Diagnosis/Problems Diagnosis/Problems (1) Persistent Pneumonia w Hypoxia Status: Acute (2) HTN (hypertension) Status: Chronic Qualifiers: Hypertension type: essential hypertension Qualified Codes: I10 - Essential (primary) hypertension (3) Normocytic anemia Status: Chronic (4) COPD with hypoxia Status: Acute Clinical Quality Measures DVT/VTE Risk/Contraindication: Risk Factor Score Per Nursin RFS Level Per Nursing on Admit: 4+=Very High VIANEY BREWSTER DO Jun 01, 2019 11:44
[2019-06-01 11:53] VITALS: BP 175/55
[2019-06-01 16:00] VITALS: BP 145/56
[2019-06-01] MEDS: CEFEPIME 2,000 MG/SWFI 20 ML IV PUSH IV SCH ×2 (18:47)
[2019-06-01 20:00] VITALS: BP 161/73
[2019-06-01] MEDS: MONTELUKAST CHEW 4 MG (SINGULAIR) TAB PO SCH (20:01)
[2019-06-02] VITALS (7 sets, daily range): BP systolic 120–178; BP diastolic 60–76
[2019-06-02] MEDS: LORazepam 0.5 MG (ATIVAN) TABLET PO PRN ×3 (00:05→20:10)
--- NOTE | 2019-06-02 00:08 | NUR ---
0005-PT SITTING UP IN BED, PT STATES SHE VERY NERVOUS & CAN'T REST. PT STATES "I WANT TO SLEEP" PRN LORAZEPAM GIVEN.
[2019-06-02 06:35] LABS: BASOPHILS % (AUTO) 0 % (0-10); EOSINOPHILS # (AUTO) 0.4 10^3/uL (0.0-0.3); EOSINOPHILS % (AUTO) 6 % (0-10); HEMATOCRIT 31 % (35-52); HEMOGLOBIN 10.1 G/DL (11.5-16.0); LYMPHOCYTES # (AUTO) 0.5 X 10^3 (1.0-4.0); LYMPHOCYTES % (AUTO) 6 % (12-44); MEAN CORPUSCULAR HEMOGLOBIN 30 PG (25-34); MEAN CORPUSCULAR HGB CONC 33 G/DL (32-36); MEAN CORPUSCULAR VOLUME 91 FL (80-99); MEAN PLATELET VOLUME 10.9 FL (7.4-10.4); MONOCYTES # (AUTO) 0.7 X 10^3 (0.0-1.0); MONOCYTES % (AUTO) 9 % (0-12); NEUTROPHILS # (AUTO) 6.1 X 10^3 (1.8-7.8); NEUTROPHILS % (AUTO) 79 % (42-75); PLATELET COUNT 297 10^3/uL (130-400); RED CELL DISTRIBUTION WIDTH 13.8 % (10.0-14.5); WHITE BLOOD COUNT 7.7 10^3/uL (4.3-11.0)
[2019-06-02] MEDS: RT-ALBUTEROL/IPRATROPIUM 3 ML (DUONEB) VIAL INH SCH ×4 (06:49→18:28)
[2019-06-02 06:51] LABS: ALANINE AMINOTRANSFERASE 48 U/L (0-55); ALBUMIN 2.8 GM/DL (3.2-4.5); ALKALINE PHOSPHATASE 152 U/L (40-136); BILIRUBIN,TOTAL 0.3 MG/DL (0.1-1.0); BUN/CREATININE RATIO 17; CALCIUM 8.5 MG/DL (8.5-10.1); CARBON DIOXIDE 26 MMOL/L (21-32); CHLORIDE 103 MMOL/L (98-107); GFR ESTIMATED > 60; GLUCOSE 84 MG/DL (70-105); POTASSIUM 3.8 MMOL/L (3.6-5.0); SODIUM 139 MMOL/L (135-145); TOTAL PROTEIN 5.1 GM/DL (6.4-8.2)
[2019-06-02] MEDS: BENZONATATE 100 MG (TESSALON) CAPSULE PO SCH ×3 (08:33→20:09)
[2019-06-02] MEDS: NICOTINE PATCH REMOVAL TP SCH (08:33)
[2019-06-02] MEDS: NICOTINE 21 MG (NICODERM) PATCH TD SCH (08:33)
[2019-06-02] MEDS: ENOXAPARIN 40 MG/0.4 ML (LOVENOX) SYR SC SCH (08:33)
[2019-06-02] MEDS: ASPIRIN 325 MG (5 GR) TABLET PO SCH (08:33)
--- NOTE | 2019-06-02 10:29 | NUR ---
PALLIATIVE CARE RN in to see patient after discussion with Dr. Quiroz and patient's declaration of being tired. Education to the patient and two daughters on Home Health and Hospice differences. In my visit with the patient she does not appear to be hospice appropriate at this time as I do not see an ES disease process. She seems to be more depressed/anxious/upset about loss of loved ones and her functional ability due to her benign tremors. Gave pamphlets to them regarding the hospice choices. I have spoken with Dr. Quiroz.
--- NOTE | 2019-06-02 11:03 | Progress Note ---
GRAYSON HIGUERA, MEDICAL STUDENT 06/02/19 1103: Subjective Date Seen by a Provider: Jun 02, 2019 Time Seen by a Provider: 10:00 Subjective/Events-last exam Patient appears concerned and anxious Complaining of Nausea Unable to provide adequate history Cough still present Objective Exam Last Set of Vital Signs Vital Signs Date Time Temp Pulse Resp B/P (MAP) Pulse Ox O2 Delivery O2 Flow Rate FiO2 06/02/19 10:00 96 Nasal Cannula 2.00 06/02/19 08:00 36.4 69 20 178/72 (107) 05/29/19 11:19 28 Capillary Refill : Less Than 3 SecondsLess Than 3 Seconds I&O Intake and Output 06/02/19 00:00 Intake Total 570 ml Output Total 550 ml Balance 20 ml Intake Oral 570 ml Output Urine Total 550 ml # Voids 6 # Bowel Movements 1 General: Alert, Mild Distress Neck: Supple, No JVD Lungs: Other Heart: Regular Rate, Normal S1, Normal S2 Abdomen: Normal Bowel Sounds Results Lab Laboratory Tests 06/02/19 05:25: White Blood Count 7.7, Red Blood Count 3.38L, Hemoglobin 10.1L, Hematocrit 31L, Mean Corpuscular Volume 91, Mean Corpuscular Hemoglobin 30, Mean Corpuscular Hemoglobin Concent 33, Red Cell Distribution Width 13.8, Platelet Count 297, Mean Platelet Volume 10.9H, Neutrophils (%) (Auto) 79H, Lymphocytes (%) (Auto) 6L, Monocytes (%) (Auto) 9, Eosinophils (%) (Auto) 6, Basophils (%) (Auto) 0, Neutrophils # (Auto) 6.1, Lymphocytes # (Auto) 0.5L, Monocytes # (Auto) 0.7, Eosinophils # (Auto) 0.4H, Basophils # (Auto) 0.0, Sodium Level 139, Potassium Level 3.8, Chloride Level 103, Carbon Dioxide Level 26, Anion Gap 10, Blood Urea Nitrogen 12, Creatinine 0.70, Estimat Glomerular Filtration Rate > 60, BUN/Creatinine Ratio 17, Glucose Level 84, Calcium Level 8.5, Corrected Calcium 9.5, Total Bilirubin 0.3, Aspartate Amino Transf (AST/SGOT) 37H, Alanine Aminotransferase (ALT/SGPT) 48, Alkaline Phosphatase 152H, Total Protein 5.1L, Albumin 2.8L Microbiology 05/29/19 MRSA Screen - Final, Complete MRSA not isolated 05/28/19 Urine Culture - Final, Complete NO GROWTH 05/28/19 Blood Culture - Preliminary, Resulted No growth Assessment/Plan Assessment/Plan Assess & Plan/Chief Complaint Assess & Plan/Chief Complaint Assessment: Persistent PNA RLL Hypoxia Chronic O2 dependence Dementia? Anemia HTN Weakness Tremor Plan: O2 Nebs Fall risk Abx - completed Start Propanolol 10 mg BID for Essential Tremor Consult Dr. Gallardo Appreciate Recs PT OT Daughter agreeable to plan for hospice Clinical Quality Measures DVT/VTE Risk/Contraindication: Risk Factor Score Per Nursin RFS Level Per Nursing on Admit: 4+=Very High KEYLA QUIROZ DO 06/02/19 1555: Subjective Subjective/Events-last exam Pt wants to go on Hospice. Palliative care nurse thinks that she is just depressed. Dr. Gallardo consult initiated. Essential tremor diagnosed, placed on Propranolol 10 Mg BID. WBC remains stable. Nausea and vomiting today. Overall not feeling well. No pain is reported. Declined psych evaluation for depression Review of Systems Pulmonary: Dyspnea, Cough Gastrointestinal: Nausea, Vomiting Objective Exam General: Alert, Oriented X3, Cooperative, Mild Distress HEENT: Atraumatic, PERRLA Neck: Supple, No JVD, No Thyromegaly Lungs: Clear to Auscultation, Normal Air Movement, Other (Decresed Breath Sounds) Heart: Regular Rate, Normal S1, Normal S2, No Murmurs Abdomen: Normal Bowel Sounds, Soft, No Tenderness, No Hepatosplenomegaly, No Masses Extremities: No Clubbing, No Cyanosis, No Edema, Normal Pulses, No Tenderness/Swelling Skin: No Rashes, No Breakdown, No Significant Lesion Neuro: Normal Speech, Strength at 5/5 X4 Ext, Normal Tone Psych/Mental Status: Mood NL, Other (poor recall) Assessment/Plan Assessment/Plan Assess & Plan/Chief Complaint Propanolol Swing bed Diagnosis/Problems Diagnosis/Problems (1) Persistent Pneumonia w Hypoxia Status: Acute (2) COPD (chronic obstructive pulmonary disease) (3) Sepsis Status: Acute (4) COPD with hypoxia Status: Acute (5) DVT prophylaxis Status: Acute (6) Depression Qualifiers: Qualified Codes: F32.1 - Major depressive disorder, single episode, moderate (7) Normocytic anemia Status: Chronic (8) HTN (hypertension) Status: Chronic Qualifiers: Qualified Codes: I10 - Essential (primary) hypertension (9) Essential tremor Supervisory-Addendum Brief Verification & Attestation Participated in pt care: history, MDM, physical Personally performed: exam, history, MDM, supervision of care Care discussed with: Medical Student Procedures: n/a Results interpretation: Verified all documentation Verification and Attestation of Medical Student E/M Service A medical student performed and documented this service in my presence. I reviewed and verified all information documented by the medical student and made modifications to such information, when appropriate. I personally performed the physical exam and medical decision making. Keyla Quiroz, Jun 02, 2019,20:51 GRAYSON HIGUERA, MEDICAL STUDENT Jun 02, 2019 11:03 KEYLA QUIROZ DO Jun 02, 2019 15:55
--- NOTE | 2019-06-02 12:03 | Pulmonary Consultation ---
History of Present Illness History of Present Illness Date Seen by Provider: Jun 02, 2019 Time Seen by Provider: 11:59 Date of Admission Allergies and Home Medications Allergies Coded Allergies: Penicillins (Unverified Allergy, Unknown, 02/25/18) sulfamethoxazole (Unverified Allergy, Unknown, 02/25/18) trimethoprim (Unverified Allergy, Unknown, 02/25/18) Home Medications Albuterol Sulfate 1 Puff Puff, 2 PUFF INH QID PRN for SHORTNESS OF BREATH, (Reported) 1 PUFF = 90 MCG Amlodipine Besylate 5 Mg Tablet, 5 MG PO DAILY, (Reported) Aspirin 325 Mg Tablet, 325 MG PO DAILY, (Reported) Atorvastatin Calcium 10 Mg Tablet, 10 MG PO HS, (Reported) Benzonatate 100 Mg Capsule, 100 MG PO TID Prescribed by: VIANEY BREWSTER on 06/03/19 1011 Citalopram Hydrobromide 10 Mg Tablet, 10 MG PO DAILY Prescribed by: VIANEY BREWSTER on 06/03/19 1011 Fluconazole 150 Mg Tablet, 150 MG PO Q72H, (Reported) Guaifenesin 600 Mg Tab.er.12h, 600 MG PO BID PRN for COUGH Prescribed by: VIANEY BREWSTER on 06/03/19 1011 Ipratropium/Albuterol Sulfate 3 Ml Ampul.neb, 3 ML NEB QID, (Reported) Losartan Potassium 100 Mg Tablet, 100 MG PO DAILY, (Reported) Meloxicam 15 Mg Tablet, 15 MG PO DAILY, (Reported) Mirtazapine 15 Mg Tablet, 15 MG PO HS, (Reported) Montelukast Sodium 4 Mg Tab.chew, 4 MG PO HS, (Reported) Nicotine 1 Each Patch.td24, 21 MG TD DAILY Prescribed by: VIANEY BREWSTER on 06/03/19 1023 Omeprazole 40 Mg Capsule.dr, 40 MG PO DAILY, (Reported) Primidone 50 Mg Tablet, 150 MG PO DAILY, (Reported) TAKES 3 (50MG) TABLETS IN AM AND 4 (50MG) TABLETS AT BEDTIME Primidone 50 Mg Tablet, 200 MG PO HS, (Reported) TAKES 3 (50MG) TABLETS IN AM AND 4 (50MG) TABLETS AT BEDTIME Propranolol HCl 20 Mg Tablet, 10 MG PO BID Prescribed by: VIANEY BREWSTER on 06/03/19 1011 Past Xvkijqx-Frtnnl-Rgfspl Hx Past Med/Social Hx: Reviewed and Corrections made Patient Social History Alcohol Use: Denies Use Recreational Drug Use: No Smoking Status: Current Everyday Smoker (2 PPD) Type Used: Cigarettes (2 PPD) 2nd Hand Smoke Exposure: Yes Recent Foreign Travel: No Contact w/Someone Who Travel: No Recent Infectious Disease Expo: No Recent Hopitalizations: No Immunizations Up To Date Date of Pneumonia Vaccine: Feb 03, 2019 Date of Influenza Vaccine: Feb 03, 2019 Seasonal Allergies Seasonal Allergies: Yes Past Medical History Surgeries: Yes (SCREWS IN LEFT ANKLE; CATARACTS; LIPOMA REMOVAL; FOOT AKBAR RGERY;EGD/C 02/2018) Eye Surgery, Orthopedic Respiratory: Yes (WEARS O2 AT NIGHT; CONTINUES TO SMOKE) Pneumonia, COPD, Emphysema Cardiac: Yes (LBBB, 1ST DEGREE AV BLOCK) High Cholesterol, Hypertension Neurological: Yes (BENIGN TREMORS; POLIO) Stroke : No Reproductive Disorders: No Sexually Transmitted Disease: Yes HIV/AIDS: No Gastrointestinal: Yes (EGD/COLONOSCOPY 02/2018--GERD/HIATAL HERNIA/DIVERTICULAR DISEASE) Gastroesophageal Reflux, Chronic Constipation, Diverticulosis, Polyps, Hiatal Hernia Musculoskeletal: Yes (OSTEOPOROSIS, HX POLIO; ORTHOPEDIC SURGERIES) Arthritis Endocrine: No HEENT: Yes Cataract Loss of Vision: Denies Hearing Impairment: Hard of Hearing Cancer: Yes (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) Skin Did You Recieve Any Treatments: Yes What Type of Treatment Did You: Surgical Intervention Psychosocial: No Integumentary: Yes (MULTIPLE SKIN LESIONS, SOME CANCEROUS) Blood Disorders: No Adverse Reaction/Blood Tranf: No (N/A) Family Medical History Colon cancer No Pertinent Family Hx PSH; -EGD/COLONOSCOPIES--POLYPECTOMIES--LAST SCOPES 02/2018--GERD/HIATAL HERNIA, DIVERTICULAR DISEASE -MULTIPLE SKIN LESIONS REMOVED, SOME CANCEROUS' -FOOT SURGERY -ANKLE SURGERY -TOENAIL SURGERY -LIPOMAS REMOVED -CATARACTS Sepsis Event Evaluation Height, Weight, BMI Height: 5'5.00" Weight: 142lbs. 8.0oz. 67.928849by; 21.49 BMI Method:Stated Exam Exam Vital Signs Date Time Temp Pulse Resp B/P (MAP) Pulse Ox O2 Delivery O2 Flow Rate FiO2 06/02/19 10:54 36.4 83 96 28 06/02/19 10:00 96 Nasal Cannula 2.00 06/02/19 08:00 36.4 69 20 178/72 (107) 96 Nasal Cannula 2.00 06/02/19 08:00 96 Nasal Cannula 2.00 06/02/19 06:49 96 Nasal Cannula 2.00 06/02/19 04:00 36.4 69 18 152/75 (100) 97 Nasal Cannula 2.00 06/02/19 00:00 36.3 71 18 150/76 (100) 96 Nasal Cannula 2.00 06/01/19 20:00 Nasal Cannula 2.00 06/01/19 20:00 36.3 74 18 161/73 (102) 100 Nasal Cannula 2.00 06/01/19 19:51 96 Nasal Cannula 2.00 06/01/19 16:00 36.9 62 20 145/56 (85) 98 Nasal Cannula 2.00 06/01/19 15:32 96 Nasal Cannula 2.00 I & O 06/02/19 07:00 Intake Total 520 ml Output Total 1050 ml Balance -530 ml Height & Weight Height: 5'5.00" Weight: 142lbs. 8.0oz. 67.755707lq; 21.49 BMI Method:Stated General Appearance: No Apparent Distress, WD/WN, Chronically ill, Thin Respiratory: Chest Non Tender, No Accessory Muscle Use, No Respiratory Distress, Crackles, Decreased Breath Sounds Cardiovascular: Regular Rate, Rhythm, No Edema, No Gallop, No JVD, No Murmur, Normal Peripheral Pulses Capillary Refill: Less Than 3 Seconds Gastrointestinal: normal bowel sounds, non tender, soft Neurologic/Psychiatric: Alert, Oriented x3, No Motor/Sensory Deficits, Normal Mood/Affect Results Lab Laboratory Tests 06/01/19 04:32 06/02/19 05:25 Assessment/Plan Assessment/Plan Bilateral pulmonary infiltrates -Check BNP -Give lasix 40mg daily -Check echo PNA -S/p Abx Chronic lung disease hx GOPAL SERRANO DO Jun 02, 2019 12:03
--- NOTE | 2019-06-02 12:16 | NUR ---
Follow up visit with the pt and two daughters. The pt engaged talking about her dad and their close relationship. She said she does not feel good and does not feel she can enjoy anything. Offered prayer and compassionate presence. The pt states she has been estranged from her zenobia for years but now finds comfort in sharing prayer together. The pt's daughter Mayelin visited with me 1:1. She plans at this time to care for the patient at home with home health. She said her father in a alf home soon after moving there, and she promised her mother she would not do that to her. Mayelin said she is the eldest child and also cares for her sister who cannot drive and has behavioral health needs. Offered empathic listening and non-judgmental presence for processing her grief ; she shared that she does not want to see her mom suffer but also struggles with letting her go.
--- NOTE | 2019-06-02 13:00 | NUR ---
PALLIATIVE CARE RN went in to talk to patient and daughters about the possibility of a placement at [facility] related to her verbalization of "being tired" and ready to go. They will discuss and let me know. Addendum: 06/02/19 at 1522 by TAO OLSON RN Patient is not wanting to got to [facility]. Doctor aware.
--- NOTE | 2019-06-02 13:32 | Physical Therapy Daily Note ---
PT Daily Note-Current Subjective Pt agreeable to PT session with OT Pain Numeric Pain Scale: 0-No Pain Appearance PT in bed upon arrival with 2 visitors/family members present during tx session. At end of session, pt sitting up in recliner with call light, phone and bedside table within reach. Mental Status Patient Orientation: Person, Place, Time, Eyes Open, Situation Attachments: Oxygen LLE AFO Transfers SCALE: Activities may be completed with or without assistive devices. 0-Xzpvtazoje-piiccfz completes the activity by him/herself with no assistance from a helper. 5-Set-up or Clean-up Assistance-helper sets up or cleans up; patient completes activity. [place] assists only prior to or following the activity. 4-Supervision or Touching Assistance-helper provides verbal cues and/or touching/steadying and/or contact guard assistance as patient completes activity. Assistance may be provided throughout the activity or intermittently. 3-Partial/Moderate Assistance-helper does LESS THAN HALF the effort. [place] lifts, holds or supports trunk or limbs, but provides less than half the effort. 2-Substantial/Maximal Assistance-helper does MORE THAN HALF the effort. [place] lifts or holds trunk or limbs and provides more than half the effort. 4-Xigalqnkp-fypcey does ALL the effort. Patient does none of the effort to complete the activity. Or, the assistance of 2 or more helpers is required for the patient to complete the activity. If activity was not attempted, code reason: 7-Patient Refused. 9-Not Applicable-not attempted and the patient did not perform the activity b efore the current illness, exacerbation or injury. 10-Not Attempted due to Environmental Limitations-(lack of equipment, weather restraints, etc.). 88-Not Attempted due to Medical Conditions or Safety Concerns. Roll Left & Right (QC): 3 Lying to Sitting/Side of Bed(Q: 3 Sit to Stand (QC): 4 min skilled verb inst for safety and hand placement Weight Bearing Right Lower Extremity: Right Weight Bearing/Tolerated Left Lower Extremity: Left Weight Bearing/Tolerated Gait Training Does the Patient Walk?: Yes Distance: 25 Walk 10 feet (QC): 4 Gait Persons Needed: 2 (for safety) Gait Assistive Device: FWW unsteady decreased balance but able to maintain, decreased stance time, decreased step length and height, polio affected LLE and pt requiring AFO and shoes to amb Exercises Supine Ex: Heel Slides (5), Straight leg raise (5) Supine Reps: 5 (each LE with fatigue, increased difficulty with LLE but able to complete as AROM with inst) Seated Therapy Exercises: Sit to stand (2) Treatments education, safety, bed mobility, transfers, donning LLE AFO and shoes, gait, functional mobility, activity tolerance, ex Assessment Current Status: Fair Progress PT Alf Goals Provider Network Analyst Goals PT Provider Network Analyst Goals Time Frame: Jun 06, 2019 Roll Left & Right (QC): 6 Sit to Lying (QC): 6 Lying-Sitting on Side/Bed(QC): 6 Sit to Stand (QC): 6 Chair/Gwp-zd-Dvlsa Xfer(QC): 6 Walk 10 feet (QC): 6 Walk 50ft with 2 Turns (QC): 6 PT Plan Treatment/Plan Treatment Plan: Continue Plan of Care Treatment Plan: Education, Functional Activity [place], Functional Strength, Gait, Safety, Therapeutic Exercise, Transfers Treatment Duration: Jun 06, 2019 Frequency: 6 times per week Estimated Hrs Per Day: .25 hour per day Patient and/or Family Agrees t: Yes Safety Risks/Education Patient Education: Gait Training, Transfer Techniques, Safety Issues Teaching Recipient: Patient, Family Teaching Methods: Discussion Response to Teaching: Verbalize Understanding Time/GCodes Time In: 1123 Time Out: 1139 Total Billed Treatment Time: 16 Total Billed Treatment 1 visit, GT x1 unit MIGUEL SHAW PTA Jun 02, 2019 13:32
[2019-06-02] MEDS: guaiFENesin (MUCINEX) 600 MG TAB PO PRN (13:48)
--- NOTE | 2019-06-02 16:00 | Occupational Ther Daily Note ---
OT Current Status-Daily Note Subjective No pain reported. Tremors noted with movement. Appearance Pt. in bed. Agrees to work with therapy with encouragement. Mental Status/Objective Patient Orientation: Person ADL-Treatment Therapy Code Descriptions/Definitions Functional [place] Measure: 0=Not Assessed/NA 4=Minimal Assistance 1=Total Assistance 5=Supervision or Setup 2=Maximal Assistance 6=Modified [place] 3=Moderate Assistance 7=Complete IndependenceSCALE: Activities may be completed with or without assistive devices. 0-Mgljvwuesd-zetinuw completes the activity by him/herself with no assistance from a helper. 5-Set-up or Clean-up Assistance-helper sets up or cleans up; patient completes activity. [place] assists only prior to or following the activity. 4-Supervision or Touching Assistance-helper provides verbal cues and/or touching/steadying and/or contact guard assistance as patient completes activity. Assistance may be provided throughout the activity or intermittently. 3-Partial/Moderate Assistance-helper does LESS THAN HALF the effort. [place] lifts, holds or supports trunk or limbs, but provides less than half the effort. 2-Substantial/Maximal Assistance-helper does MORE THAN HALF the effort. [place] lifts or holds trunk or limbs and provides more than half the effort. 8-Vbreqxhmk-rtnaai does ALL the effort. Patient does none of the effort to complete the activity. Or, the assistance of 2 or more helpers is required for the patient to complete the activity. If activity was not attempted, code reason: 7-Patient Refused. 9-Not Applicable-not attempted and the patient did not perform the activity before the current illness, exacerbation or injury. 10-Not Attempted due to Environmental Limitations-(lack of equipment, weather restraints, etc.). 88-Not Attempted due to Medical Conditions or Safety Concerns. On/Off Footwear: 1 Other Treatment Pt. requires encouragement from therapy and family to participate. Pt. transferred supine-sit with mod assist. Noted tremors and pt. stating that she is unsure that she can participate. PT came in to assist at this time. Required dependent assist to don socks, shoes, and left AFO brace. Mod assist sit-stand, and min assist x 2 for mobility, approximately 20 feet. OT assisted with hand placement on walker while PT focused on weight shifts and foot placement. Pt. ambulated to chair in room. Family in room and states that they do most things for her. They have been feeding her due to her tremors. OT obtained feeding equipment for pt. to try. OT brought in plate guard, sanjeev cup, weighted utensils, foam handles, and hand sponge for strengthening. Family in room and is educated on using equipment. Pt. completed 10 bilateral UE shoulder exercises for shoulder flexion. Pt. encouraged to brush her hair, but family does this for her. All needs met up in chair. Education OT Patient Education: Correct positioning, Modified ADL techniques, Progress toward Goal/Update tx plan, Purpose of tx/functional activities, Reviewed pr ecautions, Rehab process, Transfer techniques Teaching Recipient: Patient, Family Teaching Methods: Demonstration, Discussion Response to Teaching: Verbalize Understanding, Return Demonstration OT Features Reporter Goals Features Reporter Goals Time Frame: Jun 11, 2019 Eating (QC): 6 Oral Hygiene (QC): 5 Toileting Hygiene (QC): 4 Shower/Bathe Self (QC): 3 Upper Body Dressing (QC): 4 Lower Body Dressing (QC): 3 On/Off Footwear (QC): 3 1=Demonstrate adherence to instructed precautions during ADL tasks. 2=Patient will verbalize/demonstrate understanding of assistive devices/modifications for ADL. 3=Patient will improve strength/tolerance for activity to enable patient to perform ADL's. OT Education/Plan Problem List/Assessment Assessment: Decreased Activ Tolerance, Decreased UE Strength, Dependent Transfers, Impaired Bed Mobility, Impaired Cognition, Impaired Coordination, Impaired Funct Balance, Impaired I ADL's, Impaired Self-Care Skills, Restricted Funct UE ROM Discharge Recommendations Plan/Recommendations: Continue POC Therapy Discharge Recommendati: 24 Hour Supervision Treatment Plan/Plan of Care Treatment,Training & Education: Yes Patient would benefit from OT for education, treatment and training to promote independence in ADL's, mobility, safety and/or upper extremity function for ADL's. Plan of Care: ADL Retraining, Functional Mobility, UE Funct Exercise/Act Treatment Duration: Jun 11, 2019 Frequency: 5 times per week Estimated Hrs Per Day: .25 hour per day Agreement: Yes Rehab Potential: Fair Time/GCodes Start Time: 11:25 Stop Time: 11:45 Total Time Billed (hr/min): 20 Billed Treatment Time 1, ADL ALMA ORTA OT Jun 02, 2019 16:00
[2019-06-02] MEDS: MONTELUKAST CHEW 4 MG (SINGULAIR) TAB PO SCH (20:09)
[2019-06-02] MEDS: PROPRANOLOL 20 MG (INDERAL) TABLET PO SCH (20:09)
[2019-06-02] MEDS: ACETAMINOPHEN 500 MG TAB (TYLENOL) PO PRN (20:10)
[2019-06-03 00:23] VITALS: BP 149/66
[2019-06-03 05:39] LABS: BASOPHILS % (AUTO) 0 % (0-10); EOSINOPHILS # (AUTO) 0.4 10^3/uL (0.0-0.3); EOSINOPHILS % (AUTO) 5 % (0-10); HEMATOCRIT 32 % (35-52); HEMOGLOBIN 10.6 G/DL (11.5-16.0); LYMPHOCYTES # (AUTO) 0.6 X 10^3 (1.0-4.0); LYMPHOCYTES % (AUTO) 8 % (12-44); MEAN CORPUSCULAR HEMOGLOBIN 30 PG (25-34); MEAN CORPUSCULAR HGB CONC 33 G/DL (32-36); MEAN CORPUSCULAR VOLUME 91 FL (80-99); MEAN PLATELET VOLUME 10.7 FL (7.4-10.4); MONOCYTES # (AUTO) 0.7 X 10^3 (0.0-1.0); MONOCYTES % (AUTO) 9 % (0-12); NEUTROPHILS # (AUTO) 5.7 X 10^3 (1.8-7.8); NEUTROPHILS % (AUTO) 78 % (42-75); PLATELET COUNT 306 10^3/uL (130-400); RED CELL DISTRIBUTION WIDTH 13.8 % (10.0-14.5); WHITE BLOOD COUNT 7.3 10^3/uL (4.3-11.0)
[2019-06-03 06:00] LABS: ALANINE AMINOTRANSFERASE 44 U/L (0-55); ALKALINE PHOSPHATASE 145 U/L (40-136); BILIRUBIN,TOTAL 0.2 MG/DL (0.1-1.0); BUN/CREATININE RATIO 18; CALCIUM 8.6 MG/DL (8.5-10.1); CARBON DIOXIDE 28 MMOL/L (21-32); CHLORIDE 103 MMOL/L (98-107); CREATININE SERUM 0.72 MG/DL (0.60-1.30); GFR ESTIMATED > 60; GLUCOSE 90 MG/DL (70-105); POTASSIUM 3.8 MMOL/L (3.6-5.0); SODIUM 139 MMOL/L (135-145); TOTAL PROTEIN 5.3 GM/DL (6.4-8.2)
[2019-06-03] MEDS ORDERED: KCL 20 MEQ TAB (K-DUR) PO SCH (07:00)
[2019-06-03] MEDS: RT-ALBUTEROL/IPRATROPIUM 3 ML (DUONEB) VIAL INH SCH ×2 (07:11→11:12)
[2019-06-03 08:00] VITALS: BP 161/62
[2019-06-03] MEDS ORDERED: FUROSEMIDE 40 MG/4 ML INJ (LASIX) IVP SCH (09:00)
--- NOTE | 2019-06-03 09:06 | Occupational Ther Daily Note ---
OT Current Status-Daily Note Subjective Pt laying in bed at start of session, stating she needed to go to the restroom. Mental Status/Objective Attachments: Oxygen ADL-Treatment Therapy Code Descriptions/Definitions Functional [place] Measure: 0=Not Assessed/NA 4=Minimal Assistance 1=Total Assistance 5=Supervision or Setup 2=Maximal Assistance 6=Modified [place] 3=Moderate Assistance 7=Complete IndependenceSCALE: Activities may be completed with or without assistive devices. 9-Fydlfrlmju-snneooz completes the activity by him/herself with no assistance from a helper. 5-Set-up or Clean-up Assistance-helper sets up or cleans up; patient completes activity. [place] assists only prior to or following the activity. 4-Supervision or Touching Assistance-helper provides verbal cues and/or touching/steadying and/or contact guard assistance as patient completes activity. Assistance may be provided throughout the activity or intermittently. 3-Partial/Moderate Assistance-helper does LESS THAN HALF the effort. [place] lifts, holds or supports trunk or limbs, but provides less than half the effort. 2-Substantial/Maximal Assistance-helper does MORE THAN HALF the effort. [place] lifts or holds trunk or limbs and provides more than half the effort. 2-Rvhxgxvog-xlvnyy does ALL the effort. Patient does none of the effort to complete the activity. Or, the assistance of 2 or more helpers is required for the patient to complete the activity. If activity was not attempted, code reason: 7-Patient Refused. 9-Not Applicable-not attempted and the patient did not perform the activity before the current illness, exacerbation or injury. 10-Not Attempted due to Environmental Limitations-(lack of equipment, weather restraints, etc.). 88-Not Attempted due to Medical Conditions or Safety Concerns. Toileting Hygiene (QC): 3 (Min A - Pt able to manage clothing down, complete hygiene with Min A standing balance at FWW, then she managed he clothing up with slight assistance pulling brief all the way over her hips.) Toilet Transfer (QC): 3 (Min A transfer on/off of [facility].) Other Treatment Pt laying in bed at start of session, stating she needed to use the bathroom. Pt transferred supine to sit EOB with SBA, then sit to stand wtih CGA. She transferred from bed to [facility] using FWW with min A. Pt completed toileting (noted tremors with task), then transferred back to EOB using FWW. She transferred sit to supine with SBA, then OT assisted pt with blankets due to pt stating she was very cold multiple times. Post OT session, pt laying in bed, call light in reach and all needs met. Bed alarm on. Education OT Patient Education: Correct positioning, Energy conservation, Modified ADL techniques, Progress toward Goal/Update tx plan, Purpose of tx/functional activities Teaching Recipient: Patient Teaching Methods: Discussion Response to Teaching: Verbalize Understanding OT Retirement Goals Retirement Goals Time Frame: Jun 11, 2019 Eating (QC): 6 Oral Hygiene (QC): 5 Toileting Hygiene (QC): 4 Shower/Bathe Self (QC): 3 Upper Body Dressing (QC): 4 Lower Body Dressing (QC): 3 On/Off Footwear (QC): 3 1=Demonstrate adherence to instructed precautions during ADL tasks. 2=Patient will verbalize/demonstrate understanding of assistive devices/modifications for ADL. 3=Patient will improve strength/tolerance for activity to enable patient to perform ADL's. OT Education/Plan Problem List/Assessment Assessment: Decreased Activ Tolerance, Impaired I ADL's, Impaired Self-Care Skills Discharge Recommendations Plan/Recommendations: Continue POC Treatment Plan/Plan of Care Patient would benefit from OT for education, treatment and training to promote independence in ADL's, mobility, safety and/or upper extremity function for ADL's. Plan of Care: ADL Retraining, Functional Mobility, UE Funct Exercise/Act Treatment Duration: Jun 11, 2019 Frequency: 5 times per week Estimated Hrs Per Day: .25 hour per day Agreement: Yes Rehab Potential: Fair Time/GCodes Start Time: 08:15 Stop Time: 08:27 Total Time Billed (hr/min): 12 Billed Treatment Time 1, ADL QUINTIN LOPES OT Jun 03, 2019 09:06
[2019-06-03] MEDS ORDERED: GUAI600T43 PO (10:11)
[2019-06-03] MEDS ORDERED: BENZ100C18 PO (10:11)
[2019-06-03] MEDS ORDERED: PROP20TA5 PO (10:11)
[2019-06-03] MEDS ORDERED: CITA10TA7 PO (10:11)
--- NOTE | 2019-06-03 10:13 | D/C HH Face to Face Order ---
D/C Face to Face Orders Reconcile Patient Problems Problems Reviewed?: Yes Instructions for Patient Via [facility], Patient Instructions/FollowUp: [facility] 1 week Physician to follow Patient: [facility] Discharge Diet for Home: No Restrictions Patient Problems: Recurrent pneumonia Smoker Essential tremor Patient Data-Allergies,Ht & Wt Patient Allergies: Coded Allergies: Penicillins (Unverified Allergy, Unknown, 02/25/18) sulfamethoxazole (Unverified Allergy, Unknown, 02/25/18) trimethoprim (Unverified Allergy, Unknown, 02/25/18) Height (Feet): 5 Height (Inches): 5.00 Weight (Pounds): 142 Weight (Ounces): 8.0 Home Health Need/Face to Face Date of Face to Face: Jun 03, 2019 Clinical Findings: Generalized weakness and fatigue, Muscle weakness, Shortness of breath, Unsteady gait I have seen Pt stje-vr-[id number]: Yes Discharged To: Home Diagnosis/Conditions: Recurrent pneumonia Smoker Essential tremor Patient is Homebound due to: CognItive deficits, Alexi fall risk due to instabilty, Muscle weakness, Shortness of breath/distress Homebound Status Due to the above stated illness, injury or surgical procedure (medical condition or diagnosis) and associated clinical findings, the patient is homebound because of his/her inability to leave home except with aid of a supportive device and/or person AND leaving the home requires a considerable and taxing effort or is medically contraindicated. Pt req the following assistanc: Walker Home Health Nursing Orders Home Health Services Order: Nursing Services, It Service Continuity Supervisor-Evaluate & Treat, Physical Therapy-Evaluate & Treat Certify Stmt I certify that this patient is under my care and that I, a nurse practitioner or a physician; a physical therapy assistant instructor working with me, had a face to face encounter that - meets the physician face to face encounter requirements with this patient as dated. VIANEY BREWSTER DO Jun 03, 2019 10:13
[2019-06-03] MEDS: PROPRANOLOL 20 MG (INDERAL) TABLET PO SCH (10:18)
[2019-06-03] MEDS: ASPIRIN 325 MG (5 GR) TABLET PO SCH (10:19)
[2019-06-03] MEDS: ENOXAPARIN 40 MG/0.4 ML (LOVENOX) SYR SC SCH (10:19)
[2019-06-03] MEDS: BENZONATATE 100 MG (TESSALON) CAPSULE PO SCH ×2 (10:20→13:36)
[2019-06-03] MEDS: NICOTINE 21 MG (NICODERM) PATCH TD SCH (10:21)
[2019-06-03] MEDS ORDERED: NICO1PAT34 TD (10:23)
--- NOTE | 2019-06-03 10:23 | NUR ---
CM DISCHARGE PLANNING: Patient will likely be discharged to home today. Several discharge options were discussed with the patient et both daughters at bedside (SNF, C, OP PT) Patient has indicated that she would like to do outpatient Physical Therapy at [facility]. Daughter Mayelin reports that her mom follows with Arti Barriga at [facility] under the supervision of Dr. White. She currently has oxygen on continuous but daughter reports that she has only worn this at night at home. Dr. Quiroz has put in for home o2 study. Patient uses [facility] out of [place] for her oxygen needs. Daughter Mayelin has requested a nicoderm patch to continue for her mom at discharge to hopefully help her quit smoking. The above information was relayed to Dr. Quiroz.
[2019-06-03] MEDS: NICOTINE PATCH REMOVAL TP SCH (11:02)
--- NOTE | 2019-06-03 11:11 | Discharge Summary ---
GRAYSON HIGUERA, MEDICAL STUDENT 06/03/19 1111: Diagnosis/Chief Complaint Date of Admission May 28, 2019 at 19:45 Date of Discharge 06/03/19 Discharge Date: Jun 03, 2019 Primary Care Sandra Barriga Aprn Discharge Diagnosis (1) Persistent Pneumonia w Hypoxia Status: Resolved (2) COPD (chronic obstructive pulmonary disease) (3) Sepsis Status: Acute (4) COPD with hypoxia Status: Acute (5) DVT prophylaxis Status: Acute (6) Depression (7) Normocytic anemia Status: Chronic (8) HTN (hypertension) Status: Chronic (9) Essential tremor Discharge Summary Discharge Physical Exam Allergies: Coded Allergies: Penicillins (Unverified Allergy, Unknown, 02/25/18) sulfamethoxazole (Unverified Allergy, Unknown, 02/25/18) trimethoprim (Unverified Allergy, Unknown, 02/25/18) Vitals & I&Os Vital Signs Date Time Temp Pulse Resp B/P (MAP) Pulse Ox O2 Delivery O2 Flow Rate FiO2 06/03/19 08:01 Nasal Cannula 2.00 06/03/19 08:00 36.0 60 22 161/62 (95) 97 06/02/19 10:54 28 General Appearance: Anxious, Chronically ill HEENT: Normal ENT Inspection, Pharynx Normal Respiratory: Normal Breath Sounds, No Accessory Muscle Use Cardiovascular: Regular Rate, Rhythm, No Edema, No Gallop, No JVD, No Murmur Gastrointestinal: Normal Bowel Sounds, No Organomegaly, No Pulsatile Mass, Non Tender Extremity: Normal Capillary Refill, Normal Inspection, Normal Range of Motion, Non Tender Skin: Normal Color, Warm/Dry Neurologic/Psychiatric: Alert, Oriented x3, No Motor/Sensory Deficits, Depressed Affect, Disoriented Hospital Course 83 YO F who was initially admitted for persistent pneumonia following a prior hospitalization from 05/09 - 05/12. She has a PMH of COPD, weakness and O2 dependence. She was treated on a full antibiotic course and is stabilized. Of note after the treatment she continues to remain anxious and is unable to describe her complaints. She is no longer coughing, and not in any pain. Her lungs are clear to auscultation. Labs (last 24 hrs) Laboratory Tests 06/03/19 05:15: White Blood Count 7.3, Red Blood Count 3.53L, Hemoglobin 10.6L, Hematocrit 32L, Mean Corpuscular Volume 91, Mean Corpuscular Hemoglobin 30, Mean Corpuscular Hemoglobin Concent 33, Red Cell Distribution Width 13.8, Platelet Count 306, Mean Platelet Volume 10.7H, Neutrophils (%) (Auto) 78H, Lymphocytes (%) (Auto) 8L, Monocytes (%) (Auto) 9, Eosinophils (%) (Auto) 5, Basophils (%) (Auto) 0, Neutrophils # (Auto) 5.7, Lymphocytes # (Auto) 0.6L, Monocytes # (Auto) 0.7, Eosinophils # (Auto) 0.4H, Basophils # (Auto) 0.0, Sodium Level 139, Potassium Level 3.8, Chloride Level 103, Carbon Dioxide Level 28, Anion Gap 8, Blood Urea Nitrogen 13, Creatinine 0.72, Estimat Glomerular Filtration Rate > 60, BUN/Creatinine Ratio 18, Glucose Level 90, Calcium Level 8.6, Corrected Calcium 9.4, Total Bilirubin 0.2, Aspartate Amino Transf (AST/SGOT) 32, Alanine Aminotransferase (ALT/SGPT) 44, Alkaline Phosphatase 145H, Total Protein 5.3L, Albumin 3.0L Microbiology 05/29/19 MRSA Screen - Final, Complete MRSA not isolated 05/28/19 Urine Culture - Final, Complete NO GROWTH 05/28/19 Blood Culture - Preliminary, Resulted No growth Patient resulted labs reviewed. Pending Labs Laboratory Tests 06/03/19 05:15: White Blood Count 7.3, Red Blood Count 3.53, Hemoglobin 10.6, Hematocrit 32, Mean Corpuscular Volume 91, Mean Corpuscular Hemoglobin 30, Mean Corpuscular Hemoglobin Concent 33, Red Cell Distribution Width 13.8, Platelet Count 306, Mean Platelet Volume 10.7, Neutrophils (%) (Auto) 78, Lymphocytes (%) (Auto) 8, Monocytes (%) (Auto) 9, Eosinophils (%) (Auto) 5, Basophils (%) (Auto) 0, Neutrophils # (Auto) 5.7, Lymphocytes # (Auto) 0.6, Monocytes # (Auto) 0.7, Eosinophils # (Auto) 0.4, Basophils # (Auto) 0.0, Sodium Level 139, Potassium Level 3.8, Chloride Level 103, Carbon Dioxide Level 28, Anion Gap 8, Blood Urea Nitrogen 13, Creatinine 0.72, Estimat Glomerular Filtration Rate > 60, BUN/Creatinine Ratio 18, Glucose Level 90, Calcium Level 8.6, Corrected Calcium 9.4, Total Bilirubin 0.2, Aspartate Amino Transf (AST/SGOT) 32, Alanine Aminotransferase (ALT/SGPT) 44, Alkaline Phosphatase 145, Total Protein 5.3, Albumin 3.0 Discharge Home Medications: Active Scripts Active Nicoderm Cq (Nicotine) 1 Each Patch.td24 21 Mg TD DAILY Mucinex (Guaifenesin) 600 Mg Tab.er.12h 600 Mg PO BID PRN Tessalon Perles (Benzonatate) 100 Mg Capsule 100 Mg PO TID Citalopram HBr (Citalopram Hydrobromide) 10 Mg Tablet 10 Mg PO DAILY Propranolol HCl 20 Mg Tablet 10 Mg PO BID Reported Fluconazole 150 Mg Tablet 150 Mg PO Q72H Ventolin Hfa (Albuterol Sulfate) 1 Puff Puff 2 Puff INH QID PRN 1 PUFF = 90 MCG Mysoline (Primidone) 50 Mg Tablet 200 Mg PO HS TAKES 3 (50MG) TABLETS IN AM AND 4 (50MG) TABLETS AT BEDTIME Mysoline (Primidone) 50 Mg Tablet 150 Mg PO DAILY TAKES 3 (50MG) TABLETS IN AM AND 4 (50MG) TABLETS AT BEDTIME Montelukast Sodium 4 Mg Tab.chew 4 Mg PO HS Mirtazapine 15 Mg Tablet 15 Mg PO HS Amlodipine Besylate 5 Mg Tablet 5 Mg PO DAILY Omeprazole 40 Mg Capsule.dr 40 Mg PO DAILY Aspirin 325 Mg Tablet 325 Mg PO DAILY Meloxicam 15 Mg Tablet 15 Mg PO DAILY Iprat-Albut 0.5-3(2.5) mg/3 ml (Ipratropium/Albuterol Sulfate) 3 Ml Ampul.neb 3 Ml NEB QID Atorvastatin Calcium 10 Mg Tablet 10 Mg PO HS Losartan Potassium 100 Mg Tablet 100 Mg PO DAILY Instructions to patient/family Please see electronic discharge instructions given to patient. Clinical Quality Measures DVT/VTE Risk/Contraindication: Risk Factor Score Per Nursin RFS Level Per Nursing on Admit: 4+=Very High KEYLA BREWSTER DO 06/04/19 0711: Discharge Summary Discharge Physical Exam Allergies: Coded Allergies: Penicillins (Unverified Allergy, Unknown, 02/25/18) sulfamethoxazole (Unverified Allergy, Unknown, 02/25/18) trimethoprim (Unverified Allergy, Unknown, 02/25/18) General Appearance: No Apparent Distress, Chronically ill Respiratory: Lungs Clear, No Accessory Muscle Use, No Respiratory Distress, Decreased Breath Sounds Hospital Course Was the Problem List Reviewed?: Yes Hospital Course: Pt had a lengthy hospital course for 7 days after admitted for pneumonia with hypoxia and sepsis all treatments were maintained in an aggressive manner. Dr. Gallardo was consulted and overall lpt did well although she reports that he didn't feel any better from the time she was admitted to the time he was discharged but dementia does cloud her assessment. Home O2 e valuation was initiated two liters of O2 was placed on discharge and home health was initiated but she declined and wanted outpatient PT with a Nicotine Patch also. Essential tremor was maintained on Primidone in addition to Propranolol 10mg twice daily and her tremor was improved at time of DC. Discussion & Recommendations Discharge Planning: <30 minutes discharge planning Supervisory-Addendum Brief Verification & Attestation Participated in pt care: history, MDM, physical Personally performed: exam, history, MDM, supervision of care Care discussed with: Medical Student Procedures: n/a Results interpretation: Verified all documentation Verification and Attestation of Medical Student E/M Service A medical student performed and documented this service in my presence. I reviewed and verified all information documented by the medical student and made modifications to such information, when appropriate. I personally performed the physical exam and medical decision making. Keyla Brewster, Jun 04, 2019,07:10 Problem Qualifiers (1) Depression: Depression Type: major depressive disorder Major depression recurrence: single episode Active/Remission status: currently active Major depression episode severity: moderate Qualified Codes: F32.1 - Major depressive disorder, single episode, moderate (2) HTN (hypertension): Hypertension type: essential hypertension Qualified Codes: I10 - Essential (primary) hypertension GRAYSON HIGUERA, MEDICAL STUDENT Jun 03, 2019 11:11 KEYLA BREWSTER DO Jun 04, 2019 07:11
--- NOTE | 2019-06-03 12:08 | Physical Therapy Daily Note ---
PT Daily Note-Current Subjective Pt agreeable to PT session with min encouragement. Dtr states Dr said pt can go home today. Pain Numeric Pain Scale: 0-No Pain Appearance Pt in bed before and after PT session, dtrs present at bedside, call light, phone and bedside table within reach. PT demo ability to don and doff shoes and LLE AFO sitting EOB without LOB Mental Status Patient Orientation: Person, Place, Time, Eyes Open, Situation Transfers SCALE: Activities may be completed with or without assistive devices. 8-Urbebocjou-skelems completes the activity by him/herself with no assistance from a helper. 5-Set-up or Clean-up Assistance-helper sets up or cleans up; patient completes activity. Sterling assists only prior to or following the activity. 4-Supervision or Touching Assistance-helper provides verbal cues and/or touching/steadying and/or contact guard assistance as patient completes activity. Assistance may be provided throughout the activity or intermittently. 3-Partial/Moderate Assistance-helper does LESS THAN HALF the effort. Sterling lifts, holds or supports trunk or limbs, but provides less than half the effort. 2-Substantial/Maximal Assistance-helper does MORE THAN HALF the effort. Sterling lifts or holds trunk or limbs and provides more than half the effort. 2-Kvuoxahig-hlnkfu does ALL the effort. Patient does none of the effort to complete the activity. Or, the assistance of 2 or more helpers is required for the patient to complete the activity. If activity was not attempted, code reason: 7-Patient Refused. 9-Not Applicable-not attempted and the patient did not perform the activity before the current illness, exacerbation or injury. 10-Not Attempted due to Environmental Limitations-(lack of equipment, weather restraints, etc.). 88-Not Attempted due to Medical Conditions or Safety Concerns. Roll Left & Right (QC): 4 (use of bedrail) Sit to Lying (QC): 4 Lying to Sitting/Side of Bed(Q: 4 Sit to Stand (QC): 4 Weight Bearing Right Lower Extremity: Right Weight Bearing/Tolerated Left Lower Extremity: Left Weight Bearing/Tolerated Gait Training Does the Patient Walk?: Yes Distance: 90 Walk 10 feet (QC): 4 Walk 50 ft with 2 Turns(QC): 4 Gait Persons Needed: 1 Gait Assistive Device: FWW slow pace, slight path deviation, decreased step length and olesya, AFO LLE occasionally hitting on L leg of walker, no LOB, fatigue with gait distance Treatments education, safety, bed mobility, transfers, gait, balance, functional mobility, activity tolerance Assessment Current Status: Good Progress PT [facility] Goals Construction Equipment Technician Goals PT Construction Equipment Technician Goals Time Frame: Jun 06, 2019 Roll Left & Right (QC): 6 Sit to Lying (QC): 6 Lying-Sitting on Side/Bed(QC): 6 Sit to Stand (QC): 6 Chair/Nea-sp-Yljel Xfer(QC): 6 Walk 10 feet (QC): 6 Walk 50ft with 2 Turns (QC): 6 PT Plan Treatment/Plan Treatment Plan: Continue Plan of Care Treatment Plan: Education, Functional Activity Norman, Functional Strength, Gait, Safety, Therapeutic Exercise, Transfers Treatment Duration: Jun 06, 2019 Frequency: 6 times per week Estimated Hrs Per Day: .25 hour per day Patient and/or Family Agrees t: Yes Safety Risks/Education Patient Education: Gait Training, Transfer Techniques, Safety Issues Teaching Recipient: Patient, Family Teaching Methods: Demonstration, Discussion Response to Teaching: Verbalize Understanding, Return Demonstration Time/GCodes Time In: 1125 Time Out: 1139 Total Billed Treatment Time: 14 Total Billed Treatment 1 visit, GT x14 min MIGUEL SHAW PTA Jun 03, 2019 12:08
--- NOTE | 2019-06-03 12:21 | NUR ---
CM FINALIZED DISCHARGE PLAN: Patient is dismissing to home today with both of her daughters whom she lives with. She will be receiving out patient Physical therapy at [facility]. I spoke with her daughter Mayelin and she will call to make that appointment with them so that she can coordinate appointments for both her mom and her sister. RT has completed the home o2 study et the patient is only requiring room air sating 96% at this time. No further interventions noted.
--- NOTE | 2019-06-03 13:43 | NUR ---
patient oxygen sat on room air was 93% Addendum: 06/03/19 at 1343 by ISABELLA JUAREZ RT Amended: Links added.
[2019-06-03 13:54] VITALS: BP 161/62
== END 2019-06-03 13:54 | disposition home or self-care (01) | DRG 871 ==
LOC: EDUNIT# 17:53 → ER 17:54 → 4TH 19:45
PROVIDERS: ADMIT Family Medicine; ATTEND Family Medicine
DX: A41.9 Sepsis, unspecified organism (principal); J18.9 Pneumonia, unspecified organism; J43.9 Emphysema, unspecified; E87.6 Hypokalemia; D64.9 Anemia, unspecified; R09.02 Hypoxemia; K59.09 Other constipation; Z66 Do not resuscitate; F32.9 Major depressive disorder, single episode, unspecified; F17.210 Nicotine dependence, cigarettes, uncomplicated; J30.2 Other seasonal allergic rhinitis; I10 Essential (primary) hypertension; I44.0 Atrioventricular block, first degree; E78.00 Pure hypercholesterolemia, unspecified; G25.0 Essential tremor; R74.0 Nonspecific elevation of levels of transaminase and lactic acid dehydrogenase [LDH]; K21.9 Gastro-esophageal reflux disease without esophagitis; K44.9 Diaphragmatic hernia without obstruction or gangrene; K57.90 Diverticulosis of intestine, part unspecified, without perforation or abscess without bleeding; M81.0 Age-related osteoporosis without current pathological fracture; M19.91 Primary osteoarthritis, unspecified site; Z99.81 Dependence on supplemental oxygen; Z85.828 Personal history of other malignant neoplasm of skin; Z86.73 Personal history of transient ischemic attack (TIA), and cerebral infarction without residual deficits; Z86.69 Personal history of other diseases of the nervous system and sense organs
CPT/HCPCS: 36415; 71045; 71275; 80048; 80053; 81000; 82962; 83605; 83735; 83880; 84484; 85007; 85025; 85027; 85610; 85730; 87040; 87081; 87088; 87804; 93005; 93306; 94640; 94760; 94761; 96361; 96365; 96375

== ENCOUNTER 2019-07-14 11:36 | Observation (INO) | payer MEDICARE ==
[~2019-07-14] VITALS: Ht 155 cm; Wt 72.6 kg
[~2019-07-14 11:36] MED LIST changes: +BENZ100C18 PO; +CITA10TA7 PO; +FLUC150T2 PO; +GUAI600T43 PO; +NICO1PAT34 TD; +PROP20TA5 PO
[2019-07-14] MEDS ORDERED: ASPIRIN 81 MG CHEW (CHILDREN'S ASA) PO ONE (12:00)
--- NOTE | 2019-07-14 12:02 | ED Cardiac General ---
History of Present Illness General Chief Complaint: Chest Pain Stated Complaint: CHEST PAIN History of Present Illness Date Seen by Provider: Jul 14, 2019 Time Seen by Provider: 11:40 Initial Comments 83 year old Cacasian female, with some cognitive decline and poor historian. Reports chest pain that began this am, no present at time of admission to ED. NO history of recent cardiac problems. Was hospitalized in late May 2019 for Pneumonia and had echo. No risk of exposure to COVID, has not been out of her home in 2 weeks, no travel. Her daughters take care of her. History of COPD and CHF, on multiple MDIs. No SOA, nausea, diarrhea, vomiting or diarrhea. She takes ASA 81 mg daily. Timing/Duration: 1-3 hours Prior CP/Workup: echocardiography (May 2019) NTG SL DIRECTOR OF ARCHIVES: No ASA po DIRECTOR OF ARCHIVES: No Associated Systoms: Chest Pain, Cough (non productive), Malaise (chronic); No Nausea/Vomiting, No Shortness of Air Allergies and Home Medications Allergies Coded Allergies: Penicillins (Unverified Allergy, Unknown, 02/25/18) sulfamethoxazole (Unverified Allergy, Unknown, 02/25/18) trimethoprim (Unverified Allergy, Unknown, 02/25/18) Home Medications Albuterol Sulfate 1 Puff Puff, 2 PUFF INH QID PRN for SHORTNESS OF BREATH, (Reported) Amlodipine Besylate 5 Mg Tablet, 5 MG PO DAILY, (Reported) Aspirin 325 Mg Tablet, 325 MG PO DAILY, (Reported) Atorvastatin Calcium 10 Mg Tablet, 10 MG PO HS, (Reported) Bisacodyl 5 Mg Tablet.dr, 10 MG PO DAILY, (Reported) Clonazepam 0.5 Mg Tablet, 0.5 MG PO TID PRN for ANXIETY, (Reported) Ipratropium/Albuterol Sulfate 3 Ml Ampul.neb, 3 ML NEB QID, (Reported) Losartan Potassium 100 Mg Tablet, 100 MG PO DAILY, (Reported) Meloxicam 15 Mg Tablet, 15 MG PO DAILY PRN for INFLAMMATION, (Reported) Mirtazapine 15 Mg Tablet, 15 MG PO HS, (Reported) Montelukast Sodium 4 Mg Tab.chew, 4 MG PO HS, (Reported) Omeprazole 40 Mg Capsule.dr, 40 MG PO DAILY, (Reported) Primidone 50 Mg Tablet, 200 MG PO BID, (Reported) TAKES 4 (50MG) TABS TWICE DAILY Propranolol HCl 20 Mg Tablet, 10 MG PO BID, (Reported) TAKES OF A 20MG TWICE DAILY Patient Home Medication List Home Medication List Reviewed: Yes Review of Systems Review of Systems Constitutional: no symptoms reported, see HPI; No fever; malaise EENTM: No Symptoms Reported, See HPI Respiratory: No Symptoms Reported, Cough (chronic), SOA With Exertion (chronic); Denies SOA at Rest, Denies Wheezing Cardiovascular: See HPI, Chest Pain (this am, not present at this time) Gastrointestinal: No Symptoms Reported, See HPI Genitourinary: No Symptoms Reported, See HPI Musculoskeletal: no symptoms reported, see HPI Skin: no symptoms reported, see HPI All Other Systems Reviewed Negative Unless Noted: Yes Past Wipxiub-Truheh-Ktmzgx Hx Past Med/Social Hx: Reviewed Nursing Past Med/Soc Hx Patient Social History Alcohol Use: Denies Use Recreational Drug Use: No Type Used: Cigarettes 2nd Hand Smoke Exposure: Yes Recent Hopitalizations: No Immunizations Up To Date Date of Pneumonia Vaccine: Feb 03, 2019 Date of Influenza Vaccine: Feb 03, 2019 Seasonal Allergies Seasonal Allergies: Yes Past Medical History Surgeries: Yes (SCREWS IN LEFT ANKLE; CATARACTS; LIPOMA REMOVAL; FOOT SURGERY;EGD/C 02/2018) Eye Surgery, Orthopedic Respiratory: Yes (WEARS O2 AT NIGHT; CONTINUES TO SMOKE) Pneumonia, COPD, Emphysema Cardiac: Yes (LBBB, 1ST DEGREE AV BLOCK) High Cholesterol, Hypertension Neurological: Yes (BENIGN TREMORS; POLIO) Stroke Reproductive Disorders: No Sexually Transmitted Disease: Yes HIV/AIDS: No Gastrointestinal: Yes (EGD/COLONOSCOPY 02/2018--GERD/HIATAL HERNIA/DIVERTICULAR DISEASE) Gastroesophageal Reflux, Chronic Constipation, Diverticulosis, Polyps, Hiatal Hernia Musculoskeletal: Yes (OSTEOPOROSIS, HX POLIO; ORTHOPEDIC SURGERIES) Arthritis Endocrine: No HEENT: Yes Cataract Loss of Vision: Denies Hearing Impairment: Hard of Hearing Cancer: Yes (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) Skin Did You Recieve Any Treatments: Yes What Type of Treatment Did You: Surgical Intervention Psychosocial: No Integumentary: Yes (MULTIPLE SKIN LESIONS, SOME CANCEROUS) Blood Disorders: No Adverse Reaction/Blood Tranf: No (N/A) Family Medical History Colon cancer No Pertinent Family Hx PSH; -EGD/COLONOSCOPIES--POLYPECTOMIES--LAST SCOPES 02/2018--GERD/HIATAL HERNIA, DIVERTICULAR DISEASE -MULTIPLE SKIN LESIONS REMOVED, SOME CANCEROUS' -FOOT SURGERY -ANKLE SURGERY -TOENAIL SURGERY -LIPOMAS REMOVED -CATARACTS Physical Exam Vital Signs Vital Signs - First Documented Capillary Refill : Height, Weight, BMI Height: 5'5.00" Weight: 142lbs. 8.0oz. 67.972374ps; 21.49 BMI Method:Stated General Appearance: No Apparent Distress, WD/WN HEENT: PERRL/EOMI, TMs Normal, Normal ENT Inspection, Pharynx Normal Neck: Full Range of Motion, Normal Inspection, Non Tender, Supple Respiratory: Chest Non Tender, Lungs Clear, No Accessory Muscle Use, No Respiratory Distress; No Crackles; Decreased Breath Sounds; No Rales, No Rhonci, No Wheezing Cardiovascular: No Edema, No Murmur, Normal Peripheral Pulses, Irregularly Irregular Gastrointestinal: Normal Bowel Sounds, Non Tender, Soft Extremity: Normal Capillary Refill, Normal Inspection, Normal Range of Motion, Non Tender, No Calf Tenderness, No Pedal Edema Neurologic/Psychiatric: Alert (Oriented to person and year, knows her ), No Motor/Sensory Deficits, Normal Mood/Affect Skin: Warm/Dry, Pallor Focused Exam Lactate Level 07/14/19 12:00: Lactic Acid Level 2.03*H 07/14/19 14:20: Lactic Acid Level 1.17 Lactic Acid Level Laboratory Tests Test 07/14/19 12:00 07/14/19 14:20 Lactic Acid Level 2.03 MMOL/L (0.50-2.00) *H 1.17 MMOL/L (0.50-2.00) Progress/Results/Core Measures Results/Orders Lab Results Laboratory Tests Test 07/14/19 12:00 07/14/19 13:12 07/14/19 14:20 Range/Units White Blood Count 8.3 4.3-11.0 10^3/uL Red Blood Count 3.66 L 4.35-5.85 10^6/uL Hemoglobin 11.2 L 11.5-16.0 G/DL Hematocrit 33 L 35-52 % Mean Corpuscular Volume 89 80-99 FL Mean Corpuscular Hemoglobin 31 25-34 PG Mean Corpuscular Hemoglobin Concent 34 32-36 G/DL Red Cell Distribution Width 15.6 H 10.0-14.5 % Platelet Count 315 130-400 10^3/uL Mean Platelet Volume 10.5 H 7.4-10.4 FL Neutrophils (%) (Auto) 75 42-75 % Lymphocytes (%) (Auto) 9 L 12-44 % Monocytes (%) (Auto) 8 0-12 % Eosinophils (%) (Auto) 8 0-10 % Basophils (%) (Auto) 1 0-10 % Neutrophils # (Auto) 6.2 1.8-7.8 X 10^3 Lymphocytes # (Auto) 0.8 L 1.0-4.0 X 10^3 Monocytes # (Auto) 0.6 0.0-1.0 X 10^3 Eosinophils # (Auto) 0.6 H 0.0-0.3 10^3/uL Basophils # (Auto) 0.0 0.0-0.1 10^3/uL Erythrocyte Sedimentation Rate 33 H 0-30 MM/HR Prothrombin Time 14.1 12.2-14.7 SEC INR Comment 1.1 0.8-1.4 Activated Partial Thromboplast Time 35 24-35 SEC D-Dimer 0.52 H 0.00-0.49 UG/ML Sodium Level 140 135-145 MMOL/L Potassium Level 3.2 L 3.6-5.0 MMOL/L Chloride Level 107 98-107 MMOL/L Carbon Dioxide Level 20 L 21-32 MMOL/L Anion Gap 13 5-14 MMOL/L Blood Urea Nitrogen 15 7-18 MG/DL Creatinine 1.45 H 0.60-1.30 MG/DL Estimat Glomerular Filtration Rate 35 BUN/Creatinine Ratio 10 Glucose Level 99 70-105 MG/DL Lactic Acid Level 2.03 *H 1.17 0.50-2.00 MMOL/L Calcium Level 8.6 8.5-10.1 MG/DL Corrected Calcium 9.0 8.5-10.1 MG/DL Total Bilirubin 0.3 0.1-1.0 MG/DL Aspartate Amino Transf (AST/SGOT) 17 5-34 U/L Alanine Aminotransferase (ALT/SGPT) 11 0-55 U/L Alkaline Phosphatase 125 40-136 U/L Lactate Dehydrogenase 297 H 125-220 U/L Myoglobin 139.3 H 10.0-92.0 NG/ML Troponin I 0.109 H <0.028 NG/ML C-Reactive Protein High Sensitivity 2.54 H 0.00-0.50 MG/DL B-Type Natriuretic Peptide 177.0 H <100.0 PG/ML Total Protein 5.9 L 6.4-8.2 GM/DL Albumin 3.5 3.2-4.5 GM/DL Procalcitonin 0.12 H <0.10 NG/ML Group A Streptococcus Screen NEGATIVE NEGATIVE Micro Results Microbiology 07/14/19 Influenza Types A,B Antigen (LAILA) - Final, Complete My Orders Orders - GLENIS AGUIRRE Cbc With Automated Diff (07/14/19 11:43) Comprehensive Metabolic Panel (07/14/19 11:43) Ferritin (07/14/19 11:43) Fibrin Degradation Products (07/14/19 11:43) Procalcitonin (Pct) (07/14/19 11:43) Hs C Reactive Protein (07/14/19 11:43) Erythrocyte Sedimentation Rate (07/14/19 11:43) LDH (07/14/19 11:43) Blood Culture (07/14/19 11:43) Ekg Tracing (07/14/19 11:43) Rapid Strep A Screen (07/14/19 11:43) Troponin I (07/14/19 11:43) Lactic Acid Analyzer (07/14/19 11:43) Chest 1 View, Ap/Pa Only (07/14/19 11:45) Protime With Inr (07/14/19 11:53) Partial Thromboplastin Time (07/14/19 11:53) Monitor-Rhythm Ecg Trace Only (07/14/19 11:53) BNP (07/14/19 11:53) Aspirin Chewable Tablet (Baby Aspirin Ch (07/14/19 12:00) Myoglobin Serum (07/14/19 12:00) Influenza A And B Antigens (07/14/19 13:02) Ed Iv/Invasive Line Start (07/14/19 13:19) Ns Iv 1000 Ml (Sodium Chloride 0.9%) (07/14/19 13:19) Azithromycin Injection (Zithromax Inject (07/14/19 13:45) 2019 Coronavirus Sars-Cov-2 So (07/14/19 13:12) Apixaban Tablet (Eliquis Tablet) (07/14/19 14:15) Metoprolol Succinate (Xl) Tab (Toprol Xl (07/14/19 14:15) Potassium Chloride (Tablet) (Klor Con Ta (07/14/19 14:05) Ondansetron Injection (Zofran Injectio (07/14/19 14:15) Ondansetron Injection (Zofran Injectio (07/14/19 14:09) Medications Given in ED Current Medications Medications Dose Ordered Sig/Chapin Route Start Time Stop Time Status Last Admin Dose Admin Apixaban 2.5 mg ONCE ONCE PO 07/14/19 14:15 07/14/19 14:16 DC 07/14/19 14:35 2.5 MG Aspirin 324 mg ONCE ONCE PO 07/14/19 12:00 07/14/19 12:01 DC 07/14/19 12:10 324 MG Azithromycin 500 mg/Sodium Chloride 250 ml @ 250 mls/hr ONCE ONCE IV 07/14/19 13:45 07/14/19 14:44 DC 07/14/19 14:11 250 MLS/HR Metoprolol Succinate 25 mg ONCE ONCE PO 07/14/19 14:15 07/14/19 14:16 DC 07/14/19 14:35 25 MG Vital Signs/I&O 07/14/19 07/14/19 11:40 11:40 Temp 37.0 Pulse 94 Resp 15 B/P (MAP) 153/88 (109) Pulse Ox 94 O2 Delivery Room Air Room Air Progress Progress Note : Time: 11:40 Progress Note Patient seen and evaluated, no SOA, SaO2 97% or >. Not requiring O2. Will obtain labs, chest x-ray, EKG and influenza/strep swabs. ASA 324 mg orally. 1230 Will give NS 250ml/hour. 1300 Covid Swab to be completed. Azithromycin 500 mg IV. 1330 Daughter's updated on plan to admit. [address] Quiroz, agreed with plan to admit. Patient had Nausa, will give Zofran 8 mg IV. [address] Santos regarding EKG, Labs and assessment. Will start Eliquis 2.5 mg, K+ 40 mEq and Toprol-XL 25 mg orally. [address] Gallardo by phone, agreed with plan for consultation. We'll start cefepime 1 gm IV. 1430 Patient has remained stable. No need for O2, no further Chest Pain. Daughters have been updated by phone and number for nurse's desk have been given. Initial ECG Impression Date: Jul 14, 2019 Initial ECG Impression Time: 11:43 Initial ECG Rate: 107 Initial ECG Rhythm: A Fib/Flutter Initial ECG Intervals QRS D 150, QT 420, QTC 561. [place] QRS -41, T 112. Initial ECG Comparisson: Changed Comment Reviewed EKG from May 2019 which did not show atrial fibrillation that did show the left bundle branch block. Diagnostic Imaging Diagonstic Imaging: Xray Plain Films/CT/US/NM/MRI: chest Comments NAME: [facility] REC#: [id number] PT STATUS: REG ER : 1935 PHYSICIAN: GLENIS AGUIRRE ADMIT DATE: 07/14/19/ER Draft Date of Exam:07/14/19 CHEST 1 VIEW, AP/PA ONLY INDICATION: Chest pain. TIME OF EXAM: 12:09 p.m. COMPARISON: Correlation is made with prior chest from 05/29/2019. FINDINGS: Heart size is stable. There are interstitial changes throughout both lungs which is likely largely chronic. Some mild superimposed airspace infiltrate in the lung bases cannot be entirely excluded. There is no effusion or pneumothorax. IMPRESSION: Interstitial lung disease. There also may be some mild superimposed airspace infiltrate in both lung bases consistent with pneumonia. Dictated on workstation # [id number] Dict: 07/14/19 1232 Trans: 07/14/19 1245 [facility] [id number] Interpreted by: JOSE JHA MD Electronically signed by: Reviewed: Reviewed by Me, Reviewed/Discussed Departure Impression Primary Impression: COPD (chronic obstructive pulmonary disease) Qualified Codes: J44.1 - Chronic obstructive pulmonary disease with (acute) exacerbation Additional Impressions: Pneumonia Qualified Codes: J18.1 - Lobar pneumonia, unspecified organism Chest pain Qualified Codes: R07.9 - Chest pain, unspecified Disposition: ADMITTED INPATIENT Condition: Stable Admissions Decision to Admit Reason: Admit from ER (General) Decision to Admit/Date: Jul 14, 2019 Time/Decision to Admit Time: 13:30 Departure-Patient Inst. Referrals: [facility] [place] (PCP) Primary Care Physician ALETA CROSS APRN (Family) Primary Care Physician GLENIS AGUIRRE Jul 14, 2019 12:02
[2019-07-14 12:22] LABS: BASOPHILS % (AUTO) 1 % (0-10); EOSINOPHILS # (AUTO) 0.6 10^3/uL (0.0-0.3); EOSINOPHILS % (AUTO) 8 % (0-10); HEMATOCRIT 33 % (35-52); HEMOGLOBIN 11.2 G/DL (11.5-16.0); LYMPHOCYTES # (AUTO) 0.8 X 10^3 (1.0-4.0); LYMPHOCYTES % (AUTO) 9 % (12-44); MEAN CORPUSCULAR HEMOGLOBIN 31 PG (25-34); MEAN CORPUSCULAR HGB CONC 34 G/DL (32-36); MEAN CORPUSCULAR VOLUME 89 FL (80-99); MEAN PLATELET VOLUME 10.5 FL (7.4-10.4); MONOCYTES # (AUTO) 0.6 X 10^3 (0.0-1.0); MONOCYTES % (AUTO) 8 % (0-12); NEUTROPHILS # (AUTO) 6.2 X 10^3 (1.8-7.8); NEUTROPHILS % (AUTO) 75 % (42-75); PLATELET COUNT 315 10^3/uL (130-400); RED CELL DISTRIBUTION WIDTH 15.6 % (10.0-14.5); WHITE BLOOD COUNT 8.3 10^3/uL (4.3-11.0)
[2019-07-14 12:35] LABS: INR 1.1 (0.8-1.4); PROTHROMBIN TIME PATIENT 14.1 SEC (12.2-14.7)
[2019-07-14 12:42] LABS: ERYTHROCYTE SEDIMENTATION RATE 33 MM/HR (0-30)
[2019-07-14 12:46] LABS: ALBUMIN 3.5 GM/DL (3.2-4.5); BILIRUBIN,TOTAL 0.3 MG/DL (0.1-1.0); CALCIUM 8.6 MG/DL (8.5-10.1); CREATININE SERUM 1.45 MG/DL (0.60-1.30); POTASSIUM 3.2 MMOL/L (3.6-5.0); TOTAL PROTEIN 5.9 GM/DL (6.4-8.2)
--- NOTE | 2019-07-14 12:46 | Diagnostic Imaging Report ---
INDICATION: Chest pain. TIME OF EXAM: 12:09 p.m. COMPARISON: Correlation is made with prior chest from 05/29/2019. FINDINGS: Heart size is stable. There are interstitial changes throughout both lungs which is likely largely chronic. Some mild superimposed airspace infiltrate in the lung bases cannot be entirely excluded. There is no effusion or pneumothorax. IMPRESSION: Interstitial lung disease. There also may be some mild superimposed airspace infiltrate in both lung bases consistent with pneumonia. Dictated by: Dictated on workstation # [id number]
[2019-07-14] MEDS ORDERED: NS IV 1000 ML 1,000 ML IV STA (13:19)
[2019-07-14] MEDS ORDERED: AZITHROMYCIN INJECTION 500 MG in NS (IVPB) 250 ML IV ONE (13:45)
[2019-07-14] MEDS ORDERED: KCL 10 MEQ TAB (MICRO K) PO STA (14:05)
[2019-07-14] MEDS ORDERED: ONDANSETRON 4 MG/2 ML (SDV) Z0FRAN ONE (14:09)
[2019-07-14] MEDS ORDERED: APIXABAN 2.5 MG (ELIQUIS) TABLET PO ONE (14:15)
[2019-07-14] MEDS ORDERED: ONDANSETRON 4 MG/2 ML (SDV) Z0FRAN IVP STA (14:15)
[2019-07-14] MEDS ORDERED: APIXABAN 5 MG (ELIQUIS) TABLET ONE (14:20)
[2019-07-14] MEDS ORDERED: CEFEPIME INJECTION 1,000 MG in WATER (STERILE) FOR INJECTION 10 ML IV ONE (14:30)
[2019-07-14] MEDS ORDERED: ONDANSETRON 4 MG/2 ML (SDV) Z0FRAN IV PRN (15:30)
[2019-07-14] MEDS ORDERED: CATHETER FLUSH 10 ML SYR IV PRN (15:30)
[2019-07-14] MEDS ORDERED: PRIM50TA33 PO (15:34)
[2019-07-14] MEDS ORDERED: BISA5TAB8 PO (15:34)
[2019-07-14] MEDS ORDERED: PROP20TA5 PO (15:34)
--- OUTSIDE RECORDS SUMMARY | 2019-07-14 15:34 | XMS REPORT ---
Author Author Rachel MEDEROS [facility] Address [address] [place] [address] Care Team Providers Care Manugrapher Name Role Phone JOSE MEDEROS Unavailable PROBLEMS Unknown Problems ALLERGIES No Information ENCOUNTERS Encounter Location Date Diagnosis [facility] [address] [facility] [id number] [place] [address] Feb, IMMUNIZATIONS No Known Immunizations SOCIAL HISTORY Never Assessed REASON FOR VISIT Eye Exam PLAN OF CARE VITAL SIGNS MEDICATIONS Unknown Medications RESULTS No Results PROCEDURES No Known procedures INSTRUCTIONS MEDICATIONS ADMINISTERED No Known Medications
--- OUTSIDE RECORDS SUMMARY | 2019-07-14 15:35 | XMS REPORT | Continuity of Care Document ---
Author Organization Unknown Address Unknown Phone Unavailable Allergies Active Description Code Type Severity Reaction Onset Reported/Identified Relationship to Patient Clinical Status Yes BACTRIM BACTRIM MODERATE Yes PENICILLIN V POTASSIUM PENICILLIN V POTASSI UNKNOWN Yes BACTRIM MODERATE MODERATE Yes BACTRIM MODERATE UNKNOWN Yes PENICILLIN V POTASSIUM UNKNOWN UNKNOWN Yes Penicillins [id number] Drug Aller gy Unknown N/A 02/25/2018 Yes sulfamethoxazole [id number] Drug Allergy Unknown N/A 02/25/2018 Yes trimethoprim [id number] Drug Allergy Unknown N/A 02/25/2018 Medications Medication Packaging Start Date St op Date Route Dosage Sig KETOROLAC VIAL INJ 60 MG/2CC (TORADOL VIAL ) MG 09/06/2017 09/06/2017 ONCE&2009 ALBUTEROL INHALER MDI 8 GM (VENTOLIN HFA) PUFF(S) 09/07/2017 09/17/2017 PRN QID CLONAZEPAM TAB 0.5 MG (KLONOPIN) MG 09/07/2017 09/13/2017 TID&0800,1400,2000 AMLODIPINE TAB 5 MG (NORVASC) MG 09/07/2017 09/13/2017 Daily&0900 MELOXICAM TAB 7.5 MG (MOBIC) MG 09/07/2017 09/14/2017 PRN Daily Docusate sodium 100mg oral capsule (COLACE ) MG 09/07/2017 10/06/2017 Daily&0900 ASPIRIN TAB 325 MG (CHRIS) M G 09/07/2017 09/13/2017 Daily&0900 LOSARTAN TAB 100 MG (COZAAR) MG 09/07/2017 09/13/2017 Daily&0900 PRIMIDONE TAB 250 MG (MYSOLINE) MG 09/07/2017 09/13/2017 Daily&0900 MONTELUKAST TAB 5 MG (SINGULAIR) MG 09/07/2017 09/13/2017 Daily&0900 MIRTAZAPINE TAB 15 MG (REMERON) MG 09/07/2017 09/13/2017 QHS&2100 CEFTRIAXONE INJ 1 GM (ROCEPHIN) GM 05/31/2018 05/31/2018 ONCE&1030 Problems Date Dx Coded Attending Type Code Diagnosis Diagnosed By 12/31/2013 TROY SPENCER, DONNA Rivas Ot 214.1 LIPOMA SKIN NEC 12/31/2013 TROY SPENCER, DONNA Rivas Ot 401.9 HYPERTENSION NOS 12/31/2013 TROY SPENCER, DONNA Rivas Ot 530.81 ESOPHAGEAL REFLUX 06/26/2014 Ot 702.11 INF LAMED SEBORRHEIC KERATOSIS 06/26/2014 Ot 702.19 OTH ER SEBORRHEIC KERATOSIS 06/26/2014 Ot 709.9 09/07/2014 TROY SPENCER, DONNA Rivas Ot 719.41 09/07/2014 TROY SPENCER, DONNA Rivas Ot 780.79 09/07/2014 DONNA SIMMONS MD Ot 782.2 09/07/2014 TROY SPENCER, DONNA Rivas Ot 214.1 09/07/2014 TROY SPENCER, DONNA Rivas Ot V72.83 09/07/2014 TROY SPENCER, DONNA Rivas Ot V74.8 09/07/2014 Ot 709.9 09/07/2014 Ot V72.83 09/07/2014 Ot V74.8 09/14/2014 TIEN DPM, COOPER Q Ot 735. 4 OTHER HAMMER TOE 09/14/2014 TIEN DPM, COOPER Q Ot V58. 68 [facility] (CURRENT) USE OF BISPHOSPHONAT 09/14/2014 TIEN DPM, COOPER Q Ot V74. 8 SCREEN-BACTERIAL DIS NEC 03/19/2015 TROY SPENCER, DONNA Rivas Ot L82.1 OTHER SEBORRHEIC KERATOSIS 05/09/2017 MUMTAZ SPENCER, CYNTHIA Mckeon Ot R20.8 OTHER DISTURBANCES OF SKIN SENSATION 05/09/2017 CYNTHIA PANDYA MD Ot R20.8 OTHER DISTURBANCES OF SKIN SENSATION 05/15/2017 CYNTHIA PANDYA MD Ot R20.8 OTHER DISTURBANCES OF SKIN SENSATION 05/15/2017 DONNA SIMMONS MD Ot 719.41 JOINT PAIN-SHLDER 05/15/2017 DONNA SIMMONS MD Ot 780.79 OT MALAISE FATIGUE 05/15/2017 DONNA SIMMONS MD Ot 782.2 LOCAL SUPRFICIAL SWELLNG 05/15/2017 TROY SPENCER, DONNA Rivas Ot 214.1 LIPOMA SKIN NEC 05/15/2017 TROY SPENCER, DONNA Rivas Ot V72.83 EXAM PRE-OPERATIVE NEC 05/15/2017 TROY SPENCER, DONNA Rivas Ot V74.8 SCREEN-BACTERIAL DIS NEC 05/15/2017 Ot 709.9 SKIN DISORDER NOS 05/15/2017 Ot V72.83 EXA M PRE- OPERATIVE NEC 05/15/2017 Ot V74.8 SCRE EN-BACTERIAL DIS NEC 05/15/2017 TIEN DPM, COOPER Q Ot 735. 4 OTHER HAMMER TOE 05/15/2017 TIEN DPM, COOPER Q Ot V72. 83 EXAM PRE-OPERATIVE NEC 05/15/2017 TIEN DPM, COOPER Q Ot V74. 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 05/16/2017 CYNTHIA PANDYA MD Ot J44.9 CHRONIC OBSTRUCTIVE PULMONARY DISEASE, U 05/16/2017 CYNTHIA PANDYA MD Ot R20.8 OTHER DISTURBANCES OF SKIN SENSATION 05/16/2017 CYNTHIA PANDYA MD Ot R29.6 REPEATED FALLS 05/31/2017 CYNTHIA PANDYA MD Ot F41.8 OTHER SPECIFIED ANXIETY DISORDERS 05/31/2017 CYNTHIA PANDYA MD Ot 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 05/31/2017 CYNTHIA PANDYA MD Ot 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 05/31/2017 CYNTHIA PANDYA MD Ot J44.9 CHRONIC OBSTRUCTIVE PULMONARY DISEASE, U 05/31/2017 CYNTHIA PANDYA MD Ot R20.8 OTHER DISTURBANCES OF SKIN SENSATION 05/31/2017 CYNTHIA PANDYA MD Ot R29.6 REPEATED FALLS 06/05/2017 CYNTHIA PANDYA MD Ot F41.8 OTHER SPECIFIED ANXIETY DISORDERS 06/05/2017 CYNTHIA PANDYA MD Ot 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 06/05/2017 CYNTHIA PANDYA MD Ot 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 06/05/2017 CYNTHIA PANDYA MD Ot J44.9 CHRONIC OBSTRUCTIVE PULMONARY DISEASE, U 06/05/2017 CYNTHIA PANDYA MD Ot M79.605 PAIN IN LEFT LEG 06/05/2017 CYNTHIA PANDYA MD Ot R20.8 OTHER DISTURBANCES OF SKIN SENSATION 06/05/2017 CYNTHIA PANDYA MD Ot R29.6 REPEATED FALLS 06/07/2017 CYNTHIA PANDYA MD Ot F41.8 OTHER SPECIFIED ANXIETY DISORDERS 06/07/2017 CYNTHIA PANDYA MD Ot 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 2 MIXED HYPERLIPIDEMIA 06/15/2017 ARASH CAI MD Ot I10 ESSENTIAL (PRIMARY) HYPERTENSION 06/15/2017 ARASH CAI MD Ot I63. 9 CEREBRAL INFARCTION, UNSPECIFIED 06/15/2017 ARASH CAI MD Ot J44. 9 CHRONIC OBSTRUCTIVE PULMONARY DISEASE, U 06/15/2017 ARASH CAI MD Ot Z72. 0 TOBACCO USE 06/16/2017 TROY SPENCER, DONNA Rivas Ot 719.41 JOINT PAIN-SHLDER 06/16/2017 TROY SPENCER, DONNA Rivas Ot 780.79 OTH MALAISE FATIGUE 06/16/2017 TROY SPENCER, DONNA Rivas Ot 782.2 LOCAL SUPRFICIAL SWELLNG 06/16/2017 TROY SPENCER, DONNA Rivas Ot 214.1 LIPOMA SKIN NEC 06/16/2017 TROY SPENCER, DONNA Rivas Ot V72.83 EXAM PRE-OPERATIVE NEC 06/16/2017 TROY SPENCER, DONNA Rivas Ot V74.8 SCREEN-BACTERIAL DIS NEC 06/16/2017 Ot 709.9 SKIN DISORDER NOS 06/16/2017 Ot V72.83 EXA M PRE- OPERATIVE NEC 06/16/2017 Ot V74.8 SCRE EN-BACTERIAL DIS NEC 06/16/2017 TIEN DPM, COOPER Q Ot 735. 4 OTHER HAMMER TOE 06/16/2017 TIEN DPM, COOPER Q Ot V72. 83 EXAM PRE-OPERATIVE NEC 06/16/2017 TIEN DPM, COOPER Q Ot V74. 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 2 MIXED HYPERLIPIDEMIA 06/16/2017 ARASH CAI MD Ot I10 ESSENTIAL (PRIMARY) HYPERTENSION 06/16/2017 ARASH CAI MD Ot I63. 9 CEREBRAL INFARCTION, UNSPECIFIED 06/16/2017 ARASH CAI MD Ot J44. 9 CHRONIC OBSTRUCTIVE PULMONARY DISEASE, U 06/16/2017 ARASH CAI MD Ot Z72. 0 TOBACCO USE 06/18/2017 TROY SPENCER, DONNA Rivas Ot 719.41 JOINT PAIN-SHLDER 06/18/2017 TROY SPENCER, DONNA Rivas Ot 780.79 OTH MALAISE FATIGUE 06/18/2017 TROY SPENCER, DONNA Rivas Ot 782.2 LOCAL SUPRFICIAL SWELLNG 06/18/2017 TROY SPENCER, DONNA Rivas Ot 214.1 LIPOMA SKIN NEC 06/18/2017 TROY SPENCER, DONNA Rivas Ot V72.83 EXAM PRE-OPERATIVE NEC 06/18/2017 TROY SPENCER, DONNA Rivas Ot V74.8 SCREEN-BACTERIAL DIS NEC 06/18/2017 Ot 709.9 SKIN DISORDER NOS 06/18/2017 Ot V72.83 EXA M PRE- OPERATIVE NEC 06/18/2017 Ot V74.8 SCRE EN-BACTERIAL DIS NEC 06/18/2017 TIEN DPM, COOPER Q Ot 735. 4 OTHER HAMMER TOE 06/18/2017 TIEN DPM, COOPER Q Ot V72. 83 EXAM PRE-OPERATIVE NEC 06/18/2017 TIEN DPM, COOPER Q Ot V74. 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 2 MIXED HYPERLIPIDEMIA 06/18/2017 ARASH CAI MD Ot I10 ESSENTIAL (PRIMARY) HYPERTENSION 06/18/2017 ARASH CAI MD J Ot I63. 9 CEREBRAL INFARCTION, UNSPECIFIED 06/18/2017 ARASH CAI MD Ot J44. 9 CHRONIC OBSTRUCTIVE PULMONARY DISEASE, U 06/18/2017 ARASH CAI MD J Ot Z72. 0 TOBACCO USE 06/19/2017 ARASH CAI MD J Ot E78. 2 MIXED HYPERLIPIDEMIA 06/19/2017 ARASH CAI MD J Ot I10 ESSENTIAL (PRIMARY) HYPERTENSION 06/19/2017 ARASH CAI MD J Ot I63. 9 CEREBRAL INFARCTION, UNSPECIFIED 06/19/2017 ARASH CAI MD J Ot J44. 9 CHRONIC OBSTRUCTIVE PULMONARY DISEASE, U 06/19/2017 ARASH CAI MD J Ot Z72. 0 TOBACCO USE 06/24/2017 ARASH CAI MD Ot E78. 2 MIXED HYPERLIPIDEMIA 06/24/2017 ARASH CAI MD J Ot I10 ESSENTIAL (PRIMARY) HYPERTENSION 06/24/2017 ARASH CAI MD Ot I63. 9 CEREBRAL INFARCTION, UNSPECIFIED 06/24/2017 ARASH CAI MD J Ot J44. 9 CHRONIC OBSTRUCTIVE PULMONARY DISEASE, U 06/24/2017 ARASH CAI MD J Ot Z72. 0 TOBACCO USE 07/10/2017 ARASH CAI MD Ot E78. 2 MIXED HYPERLIPIDEMIA 07/10/2017 ARASH CAI MD J Ot I10 ESSENTIAL (PRIMARY) HYPERTENSION 07/10/2017 ARASH CAI MD Ot I63. 9 CEREBRAL INFARCTION, UNSPECIFIED 07/10/2017 ARASH CAI MD Ot J44. 9 CHRONIC OBSTRUCTIVE PULMONARY DISEASE, U 07/10/2017 ARASH CAI MD J Ot Z72. 0 TOBACCO USE 07/10/2017 ARASH CAI MD Ot E78. 2 MIXED HYPERLIPIDEMIA 07/10/2017 ARASH CAI MD J Ot I10 ESSENTIAL (PRIMARY) HYPERTENSION 07/10/2017 ARASH CAI MD J Ot I63. 9 CEREBRAL INFARCTION, UNSPECIFIED 07/10/2017 ARASH CAI MD J Ot J44. 9 CHRONIC OBSTRUCTIVE PULMONARY DISEASE, U 07/10/2017 ARASH CAI MD J Ot Z72. 0 TOBACCO USE 07/12/2017 ARASH CAI MD J Ot E78. 2 MIXED HYPERLIPIDEMIA 07/12/2017 ARASH CAI MD Ot I10 ESSENTIAL (PRIMARY) HYPERTENSION 07/12/2017 ARASH CAI MD Ot I63. 9 CEREBRAL INFARCTION, UNSPECIFIED 07/12/2017 ARASH CAI MD Ot J44. 9 CHRONIC OBSTRUCTIVE PULMONARY DISEASE, U 07/12/2017 ARASH CAI MD Ot Z72. 0 TOBACCO USE 07/13/2017 ARASH CAI MD Ot E78. 2 MIXED HYPERLIPIDEMIA 07/13/2017 ARASH CAI MD Ot I10 ESSENTIAL (PRIMARY) HYPERTENSION 07/13/2017 ARASH CAI MD Ot I63. 9 CEREBRAL INFARCTION, UNSPECIFIED 07/13/2017 ARASH CAI MD Ot J44. 9 CHRONIC OBSTRUCTIVE PULMONARY DISEASE, U 07/13/2017 ARASH CAI MD Ot Z72. 0 TOBACCO USE 09/06/2017 Zackary Govea 920 CONTUSION OF FACE, SCALP, AND NECK EXCEPT EYE(S) 09/06/2017 Zackary Govea 923.00 CONTUSION OF SHOULDER REGION 09/06/2017 Zackary Govea E885.9 FALL FROM OTHER SLIPPING, TRIPPING, OR STUMBLING 09/06/2017 Zackary Govea S00.432A CONTUSION OF LEFT EAR, INITIAL ENCOUNTER 09/06/2017 Zackary Govea S00.83XA CONTUSION OF OTHER PART OF HEAD, INITIAL ENCOUNTER 09/06/2017 Zackary Govea S40.012A CONTUSION OF LEFT SHOULDER, INITIAL ENCOUNTER 09/06/2017 Zackary Govea W01.0XXA FALL SAME LEV FROM SLIP/TRIP W/O STRIKE AGAINST OBJECT, INIT 12/24/2017 Zackary Govea 496 CHRONIC AIRWAY OBSTRUCTION, NOT ELSEWHERE CLASSIFIED 12/24/2017 Zackary Govea 786.59 OTHER CHEST PAIN 12/24/2017 Zackary Govea J44.9 CHRONIC OBSTRUCTIVE PULMONARY DISEASE, UNSPECIFIED 12/24/2017 Zackary Govea R07.89 OTHER CHEST PAIN 02/25/2018 TROY SPENCER, DONNA Rivas Ot Z01.818 ENCOUNTER FOR OTHER PREPROCEDURAL EXAMIN 02/26/2018 DONNA SIMMONS MD Ot Z01.818 ENCOUNTER FOR OTHER PREPROCEDURAL EXAMIN 02/26/2018 TROY SPENCER, DONNA Rivas Ot Z01.818 ENCOUNTER FOR OTHER PREPROCEDURAL EXAMIN 03/04/2018 TROY SPENCER, DONNA Rivas Ot 719.41 JOINT PAIN-SHLDER 03/04/2018 TORY SPENCER, DONNA Rivas Ot 780.79 OTH MALAISE FATIGUE 03/04/2018 TROY SPENCER, DONNA Rivas Ot 782.2 LOCAL SUPRFICIAL SWELLNG 03/04/2018 TROY SPENCER, DONNA Rivas Ot 214.1 LIPOMA SKIN NEC 03/04/2018 TROY SPENCER, DONNA Rivas Ot V72.83 EXAM PRE-OPERATIVE NEC 03/04/2018 TROY SPENCER, DONNA Rivas Ot V74.8 SCREEN-BACTERIAL DIS NEC 03/04/2018 Ot 709.9 SKIN DISORDER NOS 03/04/2018 Ot V72.83 EXA M PRE- OPERATIVE NEC 03/04/2018 Ot V74.8 SCRE EN-BACTERIAL DIS NEC 03/04/2018 TIEN DPM, COOPER Q Ot 735. 4 OTHER HAMMER TOE 03/04/2018 TIEN DPM, COOPER Q Ot V72. 83 EXAM PRE-OPERATIVE NEC 03/04/2018 TIEN DPM, COOPER Q Ot V74. 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 2 MIXED HYPERLIPIDEMIA 03/04/2018 TRELL SPENCER, ARASH Pettit Ot I10 ESSENTIAL (PRIMARY) HYPERTENSION 03/04/2018 ARASH CAI MD Ot I63. 9 CEREBRAL INFARCTION, UNSPECIFIED 03/04/2018 ARASH CAI MD Ot J44. 9 CHRONIC OBSTRUCTIVE PULMONARY DISEASE, U 03/04/2018 ARASH CAI MD Ot Z72. 0 TOBACCO USE 03/04/2018 ARASH CAI MD Ot E78. 2 MIXED HYPERLIPIDEMIA 03/04/2018 ARASH CAI MD Ot I10 ESSENTIAL (PRIMARY) HYPERTENSION 03/04/2018 ARASH CAI MD Ot I63. 9 CEREBRAL INFARCTION, UNSPECIFIED 03/04/2018 ARASH CAI MD Ot J44. 9 CHRONIC OBSTRUCTIVE PULMONARY DISEASE, U 03/04/2018 ARASH CAI MD Ot Z72. 0 TOBACCO USE 03/04/2018 DONNA SIMMONS MD Ot E78.2 MIXED HYPERLIPIDEMIA 03/04/2018 DONNA SIMMONS MD Ot F17.210 NICOTINE DEPENDENCE, CIGARETTES, UNCOMPL 03/04/2018 DONNA SIMMONS MD Ot I1 0 ESSENTIAL (PRIMARY) HYPERTENSION 03/04/2018 DONNA SIMMONS MD Ot J44.9 CHRONIC OBSTRUCTIVE PULMONARY DISEASE, U 03/04/2018 DONNA SIMMONS MD Ot K20.9 ESOPHAGITIS, UNSPECIFIED 03/04/2018 DONNA SIMMONS MD Ot K44.9 DIAPHRAGMATIC HERNIA WITHOUT OBSTRUCTION 03/04/2018 DONNA SIMMONS MD Ot K57.30 DVRTCLOS OF LG INT W/O PERFORATION OR AB 03/04/2018 DONNA SIMMONS MD Ot K64.4 RESIDUAL HEMORRHOIDAL SKIN TAGS 03/04/2018 DONNA SIMMONS MD Ot M81.0 AGE-RELATED OSTEOPOROSIS W/O CURRENT PAT 03/04/2018 DONNA SIMMONS MD Ot Z0 9 ENCNTR FOR F/U EXAM AFT TRTMT FOR COND O 03/04/2018 DONNA SIMMONS MD Ot Z79.82 [employer] (CURRENT) USE OF ASPIRIN 03/04/2018 DONNA SIMMONS MD Ot Z80.0 FAMILY HISTORY OF MALIGNANT NEOPLASM OF 03/04/2018 DONNA SIMMONS MD, Ot Z86.010 PERSONAL HISTORY OF COLONIC POLYPS 03/04/2018 DONNA SIMMONS MD Ot Z86.73 PRSNL HX OF TIA (TIA), AND CEREB INFRC W 03/06/2018 DONNA SIMMONS MD Ot E78.2 MIXED HYPERLIPIDEMIA 03/06/2018 DONNA SIMMONS MD Ot F17.210 NICOTINE DEPENDENCE, CIGARETTES, UNCOMPL 03/06/2018 DONNA SIMMONS MD Ot I1 0 ESSENTIAL (PRIMARY) HYPERTENSION 03/06/2018 DONNA SIMMONS MD, Ot J44.9 CHRONIC OBSTRUCTIVE PULMONARY DISEASE, U 03/06/2018 DONNA SIMMONS MD, Ot K20.9 ESOPHAGITIS, UNSPECIFIED 03/06/2018 DONNA SIMMONS MD, Ot K44.9 DIAPHRAGMATIC HERNIA WITHOUT OBSTRUCTION 03/06/2018 DONNA SIMMONS MD, Ot K57.30 DVRTCLOS OF LG INT W/O PERFORATION OR AB 03/06/2018 DONNA SIMMONS MD Ot K64.4 RESIDUAL HEMORRHOIDAL SKIN TAGS 03/06/2018 DONNA SIMMONS MD Ot M81.0 AGE-RELATED OSTEOPOROSIS W/O CURRENT PAT 03/06/2018 DONNA SIMMONS MD Ot Z0 9 ENCNTR FOR F/U EXAM AFT TRTMT FOR COND O 03/06/2018 DONNA SIMMONS MD Ot Z79.82 [employer] (CURRENT) USE OF ASPIRIN 03/06/2018 DONNA SIMMONS MD Ot Z80.0 FAMILY HISTORY OF MALIGNANT NEOPLASM OF 03/06/2018 DONNA SIMMONS MD Ot Z86.010 PERSONAL HISTORY OF COLONIC POLYPS 03/06/2018 DONNA SIMMONS MD Ot Z86.73 PRSNL HX OF TIA (TIA), AND CEREB INFRC W 03/11/2018 DONNA SIMMONS MD Ot E78.2 MIXED HYPERLIPIDEMIA 03/11/2018 DONNA SIMMONS MD Ot F17.210 NICOTINE DEPENDENCE, CIGARETTES, UNCOMPL 03/11/2018 DONNA SIMMONS MD Ot I1 0 ESSENTIAL (PRIMARY) HYPERTENSION 03/11/2018 DONNA SIMMONS MD, Ot J44.9 CHRONIC OBSTRUCTIVE PULMONARY DISEASE, U 03/11/2018 DONNA SIMMONS MD Ot K20.9 ESOPHAGITIS, UNSPECIFIED 03/11/2018 DONNA SIMMONS MD Ot K44.9 DIAPHRAGMATIC HERNIA WITHOUT OBSTRUCTION 03/11/2018 DONNA SIMMONS MD Ot K57.30 DVRTCLOS OF LG INT W/O PERFORATION OR AB 03/11/2018 DONNA SIMMONS MD Ot K64.4 RESIDUAL HEMORRHOIDAL SKIN TAGS 03/11/2018 DONNA SIMMONS MD Ot M81.0 AGE-RELATED OSTEOPOROSIS W/O CURRENT PAT 03/11/2018 DONNA SIMMONS MD Ot Z0 9 ENCNTR FOR F/U EXAM AFT TRTMT FOR COND O 03/11/2018 DONNA SIMMONS MD Ot Z79.82 [employer] (CURRENT) USE OF ASPIRIN 03/11/2018 DONNA SIMMONS MD Ot Z80.0 FAMILY HISTORY OF MALIGNANT NEOPLASM OF 03/11/2018 DONNA SIMMONS MD Ot Z86.010 PERSONAL HISTORY OF COLONIC POLYPS 03/11/2018 DONNA SIMMONS MD Ot Z86.73 PRSNL HX OF TIA (TIA), AND CEREB INFRC W 03/11/2018 DONNA SIMMONS MD Ot E78.2 MIXED HYPERLIPIDEMIA 03/11/2018 DONNA SIMMONS MD Ot F17.210 NICOTINE DEPENDENCE, CIGARETTES, UNCOMPL 03/11/2018 DONNA SIMMONS MD Ot I1 0 ESSENTIAL (PRIMARY) HYPERTENSION 03/11/2018 DONNA SIMMONS MD Ot J44.9 CHRONIC OBSTRUCTIVE PULMONARY DISEASE, U 03/11/2018 DONNA SIMMONS MD Ot K20.9 ESOPHAGITIS, UNSPECIFIED 03/11/2018 DONNA SIMMONS MD Ot K44.9 DIAPHRAGMATIC HERNIA WITHOUT OBSTRUCTION 03/11/2018 DONNA SIMMONS MD Ot K57.30 DVRTCLOS OF LG INT W/O PERFORATION OR AB 03/11/2018 DONNA SIMMONS MD Ot K64.4 RESIDUAL HEMORRHOIDAL SKIN TAGS 03/11/2018 DONNA SIMMONS MD Ot M81.0 AGE-RELATED OSTEOPOROSIS W/O CURRENT PAT 03/11/2018 DONNA SIMMONS MD Ot Z0 9 ENCNTR FOR F/U EXAM AFT TRTMT FOR COND O 03/11/2018 DONNA SIMMONS MD Ot Z79.82 [facility] (CURRENT) USE OF ASPIRIN 03/11/2018 DONNA SIMMONS MD Ot Z80.0 FAMILY HISTORY OF MALIGNANT NEOPLASM OF 03/11/2018 TROY SPENCER, DONNA Rivas Ot Z86.010 PERSONAL HISTORY OF COLONIC POLYPS 03/11/2018 TROY SPENCER, DONNA Rivas Ot Z86.73 PRSNL HX OF TIA (TIA), AND CEREB INFRC W 03/19/2018 TROY SPENCER, DONNA Rivas Ot 719.41 JOINT PAIN-SHLDER 03/19/2018 TROY SPENCER, DONNA Rivas Ot 780.79 OTH MALAISE FATIGUE 03/19/2018 TROY SPENCER, DONNA Rivas Ot 782.2 LOCAL SUPRFICIAL SWELLNG 03/19/2018 TROY SPENCER, DONNA Rivas Ot 214.1 LIPOMA SKIN NEC 03/19/2018 TROY SPENCER, DONNA Rivas Ot V72.83 EXAM PRE-OPERATIVE NEC 03/19/2018 TROY SPENCER, DONNA Rivas Ot V74.8 SCREEN-BACTERIAL DIS NEC 03/19/2018 Ot 709.9 SKIN DISORDER NOS 03/19/2018 Ot V72.83 EXA M PRE- OPERATIVE NEC 03/19/2018 Ot V74.8 SCRE EN-BACTERIAL DIS NEC 03/19/2018 TIEN DPM, COOPER Q Ot 735. 4 OTHER HAMMER TOE 03/19/2018 TIEN DPM, COOPER Q Ot V72. 83 EXAM PRE-OPERATIVE NEC 03/19/2018 TIEN DPM, COOPER Q Ot V74. 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 2 MIXED HYPERLIPIDEMIA 03/19/2018 ARASH CAI MD Ot I10 ESSENTIAL (PRIMARY) HYPERTENSION 03/19/2018 ARASH CAI MD Ot I63. 9 CEREBRAL INFARCTION, UNSPECIFIED 03/19/2018 ARASH CAI MD Ot J44. 9 CHRONIC OBSTRUCTIVE PULMONARY DISEASE, U 03/19/2018 ARASH CAI MD Ot Z72. 0 TOBACCO USE 03/19/2018 ARASH CAI MD Ot E78. 2 MIXED HYPERLIPIDEMIA 03/19/2018 ARASH CAI MD Ot I10 ESSENTIAL (PRIMARY) HYPERTENSION 03/19/2018 ARASH CAI MD Ot I63. 9 CEREBRAL INFARCTION, UNSPECIFIED 03/19/2018 ARASH CAI MD Ot J44. 9 CHRONIC OBSTRUCTIVE PULMONARY DISEASE, U 03/19/2018 ARASH CAI MD Ot Z72. 0 TOBACCO USE 05/31/2018 Zackary Govea 682.5 CELLULITIS AND ABSCESS OF BUTTOCK 05/31/2018 Zackary Govea L02.31 CUTANEOUS ABSCESS OF BUTTOCK 08/14/2018 CHERY DUMONT Ot E78.2 MIXED HYPERLIPIDEMIA 08/14/2018 CHERY DUMONT Ot I10 ESSENTIAL (PRIMARY) HYPERTENSION 09/04/2018 CHERY DUMONT Ot E78.2 MIXED HYPERLIPIDEMIA 09/04/2018 CHERY DUMONT Ot I10 ESSENTIAL (PRIMARY) HYPERTENSION 09/15/2018 SHONDA HARRISON MD Ot E78. 00 PURE HYPERCHOLESTEROLEMIA, UNSPECIFIED 09/15/2018 SHONDA HARRISON MD Ot F17.210 NICOTINE DEPENDENCE, CIGARETTES, UNCOMPL 09/15/2018 SHONDA HARRISON MD Ot I10 ESSENTIAL (PRIMARY) HYPERTENSION 09/15/2018 SHONDA HARRISON MD Ot J06. 9 ACUTE UPPER RESPIRATORY INFECTION, UNSPE 09/15/2018 SHONDA HARRISON MD Ot J40 BRONCHITIS, NOT SPECIFIED ACUTE OR CH 09/15/2018 SHONDA HARRISON MD Ot K21. 9 GASTRO-ESOPHAGEAL REFLUX DISEASE WITHOUT 09/15/2018 SHONDA HARRISON MD, Ot M81. 0 AGE-RELATED OSTEOPOROSIS W/O CURRENT PAT 09/15/2018 SHONDA HARRISON MD Ot R05 COUGH 09/15/2018 SHONDA HARRISON MD, Ot Z79. 52 LOAN MANAGER (CURRENT) USE OF SYSTEMIC STER 09/15/2018 SHONDA HARRISON MD, Ot Z85.828 PERSONAL HISTORY OF OTHER MALIGNANT NEOP 09/15/2018 SHONDA HARRISON MD, Ot Z86.010 PERSONAL HISTORY OF COLONIC POLYPS 09/15/2018 SHONDA HARRISON MD, Ot Z86. 12 PERSONAL HISTORY OF POLIOMYELITIS 09/15/2018 SHONDA HARRISON MD, Ot Z86. 73 PRSNL HX OF TIA (TIA), AND CEREB INFRC W 09/15/2018 SHONDA HARRISON MD, Ot Z87. 19 PERSONAL HISTORY OF OTHER DISEASES OF TH 09/15/2018 SHONDA HARRISON MD Ot Z88. 0 ALLERGY STATUS TO PENICILLIN 09/15/2018 SHONDA HARRISON MD, Ot Z88. 2 ALLERGY STATUS TO SULFONAMIDES STATUS 09/15/2018 SHONDA HARRISON MD, Ot Z88. 8 ALLERGY STATUS TO OTH DRUG/MEDS/BIOL SUB 09/15/2018 SHONDA HARRISON MD Ot Z99. 81 DEPENDENCE ON SUPPLEMENTAL OXYGEN 09/16/2018 ALETA CROSS APRN Ot J18.9 PNEUMONIA, UNSPECIFIED ORGANISM 09/16/2018 ALETA CROSS APRN Ot J44.9 CHRONIC OBSTRUCTIVE PULMONARY DISEASE, U 09/16/2018 ALETA CROSS APRN Ot J84.10 PULMONARY FIBROSIS, UNSPECIFIED 09/16/2018 ALETA CROSS APRN Ot R59.0 LOCALIZED ENLARGED LYMPH NODES 09/18/2018 ALETA CROSS APRN Ot J18.9 PNEUMONIA, UNSPECIFIED ORGANISM 09/18/2018 ALETA CROSS APRN Ot J44.9 CHRONIC OBSTRUCTIVE PULMONARY DISEASE, U 09/18/2018 ALETA CROSS APRN Ot J84.10 PULMONARY FIBROSIS, UNSPECIFIED 09/18/2018 ALETA CROSS APRN Ot R59.0 LOCALIZED ENLARGED LYMPH NODES 10/02/2018 [place], ALETA J RUNNING RIGGER Ot J18.9 PNEUMONIA, UNSPECIFIED ORGANISM 10/02/2018 ALETA CROSS RUNNING RIGGER Ot J44.9 CHRONIC OBSTRUCTIVE PULMONARY DISEASE, U 10/02/2018 ALETA CROSS RUNNING RIGGER Ot J84.10 PULMONARY FIBROSIS, UNSPECIFIED 10/02/2018 ALETA CROSS RUNNING RIGGER Ot R59.0 LOCALIZED ENLARGED LYMPH NODES 10/02/2018 HILDA PARTIDA RUNNING RIGGER Ot J30.9 ALLERGIC RHINITIS, UNSPECIFIED 10/02/2018 HILDA PARTIDA RUNNING RIGGER Ot J44.9 CHRONIC OBSTRUCTIVE PULMONARY DISEASE, U 10/02/2018 DANIEL PARTIDAINE Duane RUNNING RIGGER Ot J84.10 PULMONARY FIBROSIS, UNSPECIFIED 10/02/2018 DANIEL PARTIDAINE Duane RUNNING RIGGER Ot R05 COUGH 10/02/2018 DANIEL PARTIDAINE Duane RUNNING RIGGER Ot R06.00 DYSPNEA, UNSPECIFIED 10/02/2018 DANIEL PARTIDAINE Duane RUNNING RIGGER Ot R06.89 OTHER ABNORMALITIES OF BREATHING 10/02/2018 HILDA PARTIDA RUNNING RIGGER Ot R91.8 OTHER NONSPECIFIC ABNORMAL FINDING OF RADHA 10/02/2018 HILDA PARTIDA RUNNING RIGGER Ot Z72.0 TOBACCO USE 10/03/2018 HILDA PARTIDA RUNNING RIGGER Ot J30.9 ALLERGIC RHINITIS, UNSPECIFIED 10/03/2018 HILDA PARTIDA RUNNING RIGGER Ot J44.9 CHRONIC OBSTRUCTIVE PULMONARY DISEASE, U 10/03/2018 HILDA PARTIDA RUNNING RIGGER Ot J84.10 PULMONARY FIBROSIS, UNSPECIFIED 10/03/2018 HILDA PARTIDA RUNNING RIGGER Ot J98.4 OTHER DISORDERS OF LUNG 10/03/2018 HILDA PARTIDA RUNNING RIGGER Ot R05 COUGH 10/03/2018 HILDA PARTIDA RUNNING RIGGER Ot R06.00 DYSPNEA, UNSPECIFIED 10/03/2018 DANIEL PARTIDAINE E RUNNING RIGGER Ot R06.89 OTHER ABNORMALITIES OF BREATHING 10/03/2018 DANIEL PARTIDAINE Duane RUNNING RIGGER Ot R91.8 OTHER NONSPECIFIC ABNORMAL FINDING OF RADHA 10/03/2018 DANIEL PARTIDAINE Duane RUNNING RIGGER Ot Z72.0 TOBACCO USE 10/06/2018 HILDA PARTIDA RUNNING RIGGER Ot J30.9 ALLERGIC RHINITIS, UNSPECIFIED 10/06/2018 HILDA PARTIDA RUNNING RIGGER Ot J44.9 CHRONIC OBSTRUCTIVE PULMONARY DISEASE, U 10/06/2018 HILDA PARTIDA RUNNING RIGGER Ot J84.10 PULMONARY FIBROSIS, UNSPECIFIED 10/06/2018 HILDA PARTIDA RUNNING RIGGER Ot J98.4 OTHER DISORDERS OF LUNG 10/06/2018 HILDA PARTIDA RUNNING RIGGER Ot R05 COUGH 10/06/2018 HILDA PARTIDA RUNNING RIGGER Ot R06.00 DYSPNEA, UNSPECIFIED 10/06/2018 HILDA PARTIDA RUNNING RIGGER Ot R06.89 OTHER ABNORMALITIES OF BREATHING 10/06/2018 HILDA PARTIDA RUNNING RIGGER Ot R91.8 OTHER NONSPECIFIC ABNORMAL FINDING OF RADHA 10/06/2018 HILDA PARTIDA RUNNING RIGGER Ot Z72.0 TOBACCO USE 10/08/2018 ALETA CROSS RUNNING RIGGER Ot J18.9 PNEUMONIA, UNSPECIFIED ORGANISM 10/08/2018 ALETA CROSS RUNNING RIGGER Ot J44.9 CHRONIC OBSTRUCTIVE PULMONARY DISEASE, U 10/08/2018 AMERICAALETA CHAUHAN RUNNING RIGGER Ot J84.10 PULMONARY FIBROSIS, UNSPECIFIED 10/08/2018 AMERICAALETA CHAUHAN RUNNING RIGGER Ot R59.0 LOCALIZED ENLARGED LYMPH NODES 10/29/2018 HILDA PARTIDA RUNNING RIGGER Ot J30.9 ALLERGIC RHINITIS, UNSPECIFIED 10/29/2018 HILDA PARTIDA RUNNING RIGGER Ot J44.9 CHRONIC OBSTRUCTIVE PULMONARY DISEASE, U 10/29/2018 HILDA PARTIDA RUNNING RIGGER Ot J84.10 PULMONARY FIBROSIS, UNSPECIFIED 10/29/2018 HILDA PARTIDA RUNNING RIGGER Ot J98.4 OTHER DISORDERS OF LUNG 10/29/2018 HILDA PARTIDA RUNNING RIGGER Ot R05 COUGH 10/29/2018 HILDA PARTIDA RUNNING RIGGER Ot R06.00 DYSPNEA, UNSPECIFIED 10/29/2018 DANIEL PARTIDAINE Duane RUNNING RIGGER Ot R06.89 OTHER ABNORMALITIES OF BREATHING 10/29/2018 HILDA PARTIDA RUNNING RIGGER Ot R91.8 OTHER NONSPECIFIC ABNORMAL FINDING OF RADHA 10/29/2018 HILDA PARTIDA RUNNING RIGGER Ot Z72.0 TOBACCO USE 10/31/2018 HILDA PARTIDA RUNNING RIGGER Ot J44.9 CHRONIC OBSTRUCTIVE PULMONARY DISEASE, U 10/31/2018 HILDA PARTIDA RUNNING RIGGER Ot J84.10 PULMONARY FIBROSIS, UNSPECIFIED 11/01/2018 HILDA PARTIDA RUNNING RIGGER Ot J30.9 ALLERGIC RHINITIS, UNSPECIFIED 11/01/2018 HILDA PARTIDA RUNNING RIGGER Ot J44.9 CHRONIC OBSTRUCTIVE PULMONARY DISEASE, U 11/01/2018 HILDA PARTIDA RUNNING RIGGER Ot J84.10 PULMONARY FIBROSIS, UNSPECIFIED 11/01/2018 HILDA PARTIDA RUNNING RIGGER Ot J98.4 OTHER DISORDERS OF LUNG 11/01/2018 HILDA PARTIDA RUNNING RIGGER Ot R05 COUGH 11/01/2018 HILDA PARTIDA RUNNING RIGGER Ot R06.00 DYSPNEA, UNSPECIFIED 11/01/2018 HILDA PARTIDA RUNNING RIGGER Ot R06.89 OTHER ABNORMALITIES OF BREATHING 11/01/2018 HILDA PARTIDA RUNNING RIGGER Ot R91.8 OTHER NONSPECIFIC ABNORMAL FINDING OF RADHA 11/01/2018 HILDA PARTIDA RUNNING RIGGER Ot Z72.0 TOBACCO USE 11/05/2018 HILDA PARTIDA RUNNING RIGGER Ot J44.9 CHRONIC OBSTRUCTIVE PULMONARY DISEASE, U 11/05/2018 HILDA PARTIDA RUNNING RIGGER Ot J84.10 PULMONARY FIBROSIS, UNSPECIFIED 11/07/2018 HILDA PARTIDA RUNNING RIGGER Ot J44.9 CHRONIC OBSTRUCTIVE PULMONARY DISEASE, U 11/07/2018 HILDA PARTIDA RUNNING RIGGER Ot J84.10 PULMONARY FIBROSIS, UNSPECIFIED 11/11/2018 HILDA PARTIDA RUNNING RIGGER Ot J30.9 ALLERGIC RHINITIS, UNSPECIFIED 11/11/2018 HILDA PARTIDA RUNNING RIGGER Ot J44.9 CHRONIC OBSTRUCTIVE PULMONARY DISEASE, U 11/11/2018 HILDA PARTIDA RUNNING RIGGER Ot J84.10 PULMONARY FIBROSIS, UNSPECIFIED 11/11/2018 HILDA PARTIDA RUNNING RIGGER Ot J98.4 OTHER DISORDERS OF LUNG 11/11/2018 HILDA PARTIDA RUNNING RIGGER Ot Z72.0 TOBACCO USE 11/12/2018 HILDA PARTIDA RUNNING RIGGER Ot J44.9 CHRONIC OBSTRUCTIVE PULMONARY DISEASE, U 11/12/2018 HILDA PARTIDA RUNNING RIGGER Ot J84.10 PULMONARY FIBROSIS, UNSPECIFIED 11/14/2018 HILDA PARTIDA RUNNING RIGGER Ot J44.9 CHRONIC OBSTRUCTIVE PULMONARY DISEASE, U 11/14/2018 HILDA PARTIDA RUNNING RIGGER Ot J84.10 PULMONARY FIBROSIS, UNSPECIFIED 11/21/2018 DANIEL PARTIDAINE E RUNNING RIGGER Ot J44.9 CHRONIC OBSTRUCTIVE PULMONARY DISEASE, U 11/21/2018 JAQUAN, HILDA E RUNNING RIGGER Ot J84.10 PULMONARY FIBROSIS, UNSPECIFIED 11/26/2018 JAQUAN, HILDA E RUNNING RIGGER Ot J44.9 CHRONIC OBSTRUCTIVE PULMONARY DISEASE, U 11/26/2018 JAQUAN, HILDA E RUNNING RIGGER Ot J84.10 PULMONARY FIBROSIS, UNSPECIFIED 11/26/2018 DANIEL PARTIDAINE E RUNNING RIGGER Ot J44.9 CHRONIC OBSTRUCTIVE PULMONARY DISEASE, U 11/26/2018 JAQUNA, HILDA E RUNNING RIGGER Ot J84.10 PULMONARY FIBROSIS, UNSPECIFIED 11/28/2018 JAQUANDANIEL ACOSTAINE E RUNNING RIGGER Ot J30.9 ALLERGIC RHINITIS, UNSPECIFIED 11/28/2018 JAQUAN, HILDA E RUNNING RIGGER Ot J44.9 CHRONIC OBSTRUCTIVE PULMONARY DISEASE, U 11/28/2018 JAQUAN, HILDA E RUNNING RIGGER Ot J84.10 PULMONARY FIBROSIS, UNSPECIFIED 11/28/2018 DANIEL PARTIDAINE E RUNNING RIGGER Ot J98.4 OTHER DISORDERS OF LUNG 11/28/2018 DANIEL PARTIDAINE E RUNNING RIGGER Ot Z72.0 TOBACCO USE 11/28/2018 DANIEL PARTIDAINE E RUNNING RIGGER Ot J44.9 CHRONIC OBSTRUCTIVE PULMONARY DISEASE, U 11/28/2018 JAQUAN, IHLDA E RUNNING RIGGER Ot J84.10 PULMONARY FIBROSIS, UNSPECIFIED 11/28/2018 HILDA PARTIDA E RUNNING RIGGER Ot J44.9 CHRONIC OBSTRUCTIVE PULMONARY DISEASE, U 11/28/2018 JAQUANDANIEL ACOSTAINE E RUNNING RIGGER Ot J84.10 PULMONARY FIBROSIS, UNSPECIFIED 12/03/2018 DANIEL PARTIDAINE E RUNNING RIGGER Ot J44.9 CHRONIC OBSTRUCTIVE PULMONARY DISEASE, U 12/03/2018 JAQUAN, HILDA E RUNNING RIGGER Ot J84.10 PULMONARY FIBROSIS, UNSPECIFIED 12/04/2018 DANIEL PARTIDAINE E RUNNING RIGGER Ot J30.9 ALLERGIC RHINITIS, UNSPECIFIED 12/04/2018 JAQUAN, HILDA E RUNNING RIGGER Ot J44.9 CHRONIC OBSTRUCTIVE PULMONARY DISEASE, U 12/04/2018 JAQUAN, HILDA E RUNNING RIGGER Ot J84.10 PULMONARY FIBROSIS, UNSPECIFIED 12/04/2018 JAQUAN, HILDA E RUNNING RIGGER Ot J98.4 OTHER DISORDERS OF LUNG 12/04/2018 JAQUAN, HILDA E RUNNING RIGGER Ot Z72.0 TOBACCO USE 12/10/2018 HILDA PARTIDA RUNNING RIGGER Ot J44.9 CHRONIC OBSTRUCTIVE PULMONARY DISEASE, U 12/10/2018 HILDA PARTIDA RUNNING RIGGER Ot J84.10 PULMONARY FIBROSIS, UNSPECIFIED 12/12/2018 HILDA PARTIDA RUNNING RIGGER Ot J44.9 CHRONIC OBSTRUCTIVE PULMONARY DISEASE, U 12/12/2018 HILDA PARTIDA RUNNING RIGGER Ot J84.10 PULMONARY FIBROSIS, UNSPECIFIED 12/16/2018 HILDA PARTIDA RUNNING RIGGER Ot J44.9 CHRONIC OBSTRUCTIVE PULMONARY DISEASE, U 12/16/2018 DANIEL PARTIDAINE Duane RUNNING RIGGER Ot J84.10 PULMONARY FIBROSIS, UNSPECIFIED 12/17/2018 HILDA PARTIDA RUNNING RIGGER Ot J44.9 CHRONIC OBSTRUCTIVE PULMONARY DISEASE, U 12/17/2018 HILDA PARTIDA RUNNING RIGGER Ot J84.10 PULMONARY FIBROSIS, UNSPECIFIED 12/19/2018 HILDA PARTIDA RUNNING RIGGER Ot J44.9 CHRONIC OBSTRUCTIVE PULMONARY DISEASE, U 12/19/2018 HILDA PARTIDA RUNNING RIGGER Ot J84.10 PULMONARY FIBROSIS, UNSPECIFIED 12/24/2018 HILDA PARTIDA RUNNING RIGGER Ot J44.9 CHRONIC OBSTRUCTIVE PULMONARY DISEASE, U 12/24/2018 DANIEL PARTIDAINE Duane RUNNING RIGGER Ot J84.10 PULMONARY FIBROSIS, UNSPECIFIED 12/26/2018 HILDA PARTIDA RUNNING RIGGER Ot J44.9 CHRONIC OBSTRUCTIVE PULMONARY DISEASE, U 12/26/2018 HILDA PARTIDA RUNNING RIGGER Ot J84.10 PULMONARY FIBROSIS, UNSPECIFIED 01/01/2019 HILDA PARTIDA RUNNING RIGGER Ot J44.9 CHRONIC OBSTRUCTIVE PULMONARY DISEASE, U 01/01/2019 HILDA PARTIDA RUNNING RIGGER Ot J84.10 PULMONARY FIBROSIS, UNSPECIFIED 01/02/2019 HILDA PARTIDA RUNNING RIGGER Ot J44.9 CHRONIC OBSTRUCTIVE PULMONARY DISEASE, U 01/02/2019 DANIEL PARTIDAINE Duane RUNNING RIGGER Ot J84.10 PULMONARY FIBROSIS, UNSPECIFIED 01/02/2019 HILDA PARTIDA RUNNING RIGGER Ot J98.4 OTHER DISORDERS OF LUNG 01/02/2019 HILDA PARTIDA RUNNING RIGGER Ot R91.8 OTHER NONSPECIFIC ABNORMAL FINDING OF RADHA 01/02/2019 HILDA PARTIDA RUNNING RIGGER Ot Z72.0 TOBACCO USE 01/02/2019 HILDA PARTIDA APRN Ot J44.9 CHRONIC OBSTRUCTIVE PULMONARY DISEASE, U 01/02/2019 HILDA PARTIDA APRN Ot J84.10 PULMONARY FIBROSIS, UNSPECIFIED 01/07/2019 HILDA PARTIDA APRN Ot J44.9 CHRONIC OBSTRUCTIVE PULMONARY DISEASE, U 01/07/2019 HILDA PARTIDA APRN Ot J84.10 PULMONARY FIBROSIS, UNSPECIFIED 01/08/2019 SHONDA HARRISON MD Ot F17.210 NICOTINE DEPENDENCE, CIGARETTES, UNCOMPL 01/08/2019 SHONDA HARRISON MD Ot J43. 9 EMPHYSEMA, UNSPECIFIED 01/08/2019 SHONDA HARRISON MD Ot K21. 9 GASTRO-ESOPHAGEAL REFLUX DISEASE WITHOUT 01/08/2019 SHONDA HARRISON MD Ot N39. 0 URINARY TRACT INFECTION, SITE NOT SPECIF 01/08/2019 SHONDA HARRISON MD Ot S00.83XA CONTUSION OF OTHER PART OF HEAD, INITIAL 01/08/2019 SHONDA HARRISON MD Ot W01.190A FALL SAME LEV FROM SLIP/TRIP W STRIKE AG 01/08/2019 SHONDA HARRISON MD Ot Z79. 82 [facility] (CURRENT) USE OF ASPIRIN 01/08/2019 SHONDA HARRISON MD Ot Z80. 0 FAMILY HISTORY OF MALIGNANT NEOPLASM OF 01/08/2019 SHONDA HARRISON MD Ot Z85.828 PERSONAL HISTORY OF OTHER MALIGNANT NEOP 01/08/2019 SHONDA HARRISON MD, Ot Z86. 73 PRSNL HX OF TIA (TIA), AND CEREB INFRC W 01/08/2019 SHONDA HARRISON MD Ot Z88. 0 ALLERGY STATUS TO PENICILLIN 01/08/2019 SHONDA HARRISON MD Ot Z88. 1 ALLERGY STATUS TO OTHER ANTIBIOTIC AGENT 01/08/2019 SHONDA HARRISON MD Ot Z88. 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 01/09/2019 HILDA PARTIDA APRN Ot J44.9 CHRONIC OBSTRUCTIVE PULMONARY DISEASE, U 01/09/2019 HILDA PARTIDA APRN Ot J84.10 PULMONARY FIBROSIS, UNSPECIFIED 01/09/2019 HILDA PARTIDA APRN, Ot J44.9 CHRONIC OBSTRUCTIVE PULMONARY DISEASE, U 01/09/2019 HILDA PARTIDA APRN Ot J84.10 PULMONARY FIBROSIS, UNSPECIFIED 01/09/2019 HILDA PARTIDA APRN Ot J98.4 OTHER DISORDERS OF LUNG 01/09/2019 HILDA PARTIDA APRN Ot R91.8 OTHER NONSPECIFIC ABNORMAL FINDING OF RADHA 01/09/2019 HILDA PARTIDA APRN Ot Z72.0 TOBACCO USE 01/10/2019 SHONDA HARRISON MD Ot F17.210 NICOTINE DEPENDENCE, CIGARETTES, UNCOMPL 01/10/2019 SHONDA HARRISON MD, Ot J43. 9 EMPHYSEMA, UNSPECIFIED 01/10/2019 SHONDA HARRISON MD Ot K21. 9 GASTRO-ESOPHAGEAL REFLUX DISEASE WITHOUT 01/10/2019 SHONDA HARRISON MD Ot N39. 0 URINARY TRACT INFECTION, SITE NOT SPECIF 01/10/2019 SHONDA HARRISON MD Ot S00.83XA CONTUSION OF OTHER PART OF HEAD, INITIAL 01/10/2019 SHONDA HARRISON MD Ot W01.190A FALL SAME LEV FROM SLIP/TRIP W STRIKE AG 01/10/2019 SHONDA HARRISON MD Ot Z79. 82 [facility] (CURRENT) USE OF ASPIRIN 01/10/2019 SHONDA HARRISON MD Ot Z80. 0 FAMILY HISTORY OF MALIGNANT NEOPLASM OF 01/10/2019 SHONDA HARRISON MD Ot Z85.828 PERSONAL HISTORY OF OTHER MALIGNANT NEOP 01/10/2019 SHONDA HARRISON MD Ot Z86. 73 PRSNL HX OF TIA (TIA), AND CEREB INFRC W 01/10/2019 SHONDA HARRISON MD Ot Z88. 0 ALLERGY STATUS TO PENICILLIN 01/10/2019 SHONDA HARRISON MD Ot Z88. 1 ALLERGY STATUS TO OTHER ANTIBIOTIC AGENT 01/10/2019 SHONDA HARRISON MD Ot Z88. 2 ALLERGY STATUS TO SULFONAMIDES STATUS 01/10/2019 SHONDA HARRISON MD Ot Z99. 81 DEPENDENCE ON SUPPLEMENTAL OXYGEN 01/14/2019 HILDA PARTIDA APRN Ot J44.9 CHRONIC OBSTRUCTIVE PULMONARY DISEASE, U 01/14/2019 HILDA PARTIDA APRN Ot J84.10 PULMONARY FIBROSIS, UNSPECIFIED 01/14/2019 HILDA PARTIDA APRN Ot J44.9 CHRONIC OBSTRUCTIVE PULMONARY DISEASE, U 01/14/2019 HILDA PARTIDA APRN Ot J84.10 PULMONARY FIBROSIS, UNSPECIFIED 01/14/2019 HILDA PARTIDA APRN Ot J44.9 CHRONIC OBSTRUCTIVE PULMONARY DISEASE, U 01/14/2019 HILDA PARTIDA APRN Ot J84.10 PULMONARY FIBROSIS, UNSPECIFIED 01/16/2019 SHONDA HARRISON MD Ot F17.210 NICOTINE DEPENDENCE, CIGARETTES, UNCOMPL 01/16/2019 SHONDA HARRISON MD, Ot J43. 9 EMPHYSEMA, UNSPECIFIED 01/16/2019 SHONDA HARRISON MD Ot K21. 9 GASTRO-ESOPHAGEAL REFLUX DISEASE WITHOUT 01/16/2019 SHONDA HARRISON MD, Ot N39. 0 URINARY TRACT INFECTION, SITE NOT SPECIF 01/16/2019 SHONDA HARRISON MD Ot S00.83XA CONTUSION OF OTHER PART OF HEAD, INITIAL 01/16/2019 SHONDA HARRISON MD Ot W01.190A FALL SAME LEV FROM SLIP/TRIP W STRIKE AG 01/16/2019 SHONDA HARRISON MD Ot Z79. 82 [facility] (CURRENT) USE OF ASPIRIN 01/16/2019 SHONDA HARRISON MD Ot Z80. 0 FAMILY HISTORY OF MALIGNANT NEOPLASM OF 01/16/2019 SHONDA HARRISON MD, Ot Z85.828 PERSONAL HISTORY OF OTHER MALIGNANT NEOP 01/16/2019 SHONDA HARRISON MD, Ot Z86. 73 PRSNL HX OF TIA (TIA), AND CEREB INFRC W 01/16/2019 SHONDA HARRISON MD Ot Z88. 0 ALLERGY STATUS TO PENICILLIN 01/16/2019 SHONDA HARRISON MD, Ot Z88. 1 ALLERGY STATUS TO OTHER ANTIBIOTIC AGENT 01/16/2019 SHONDA HARRISON MD, Ot Z88. 2 ALLERGY STATUS TO SULFONAMIDES STATUS 01/16/2019 SHONDA HARRISON MD, Ot Z99. 81 DEPENDENCE ON SUPPLEMENTAL OXYGEN 01/19/2019 HILDA PARTIDA APRN Ot J44.9 CHRONIC OBSTRUCTIVE PULMONARY DISEASE, U 01/19/2019 HILDA PARTIDA APRN Ot J84.10 PULMONARY FIBROSIS, UNSPECIFIED 01/20/2019 HILDA PARTIDA APRN Ot J44.9 CHRONIC OBSTRUCTIVE PULMONARY DISEASE, U 01/20/2019 HILDA PARTIDA APRN Ot J84.10 PULMONARY FIBROSIS, UNSPECIFIED 02/06/2019 HILDA PARTIDA RUNNING RIGGER Ot J44.9 CHRONIC OBSTRUCTIVE PULMONARY DISEASE, U 02/06/2019 HILDA PARTIDA RUNNING RIGGER Ot J84.10 PULMONARY FIBROSIS, UNSPECIFIED 03/12/2019 HILDA PARTIDA RUNNING RIGGER Ot J44.9 CHRONIC OBSTRUCTIVE PULMONARY DISEASE, U 03/12/2019 JAQUANDANIEL ACOSTAINE Duane RUNNING RIGGER Ot J84.10 PULMONARY FIBROSIS, UNSPECIFIED 03/17/2019 HILDA PARTIDA RUNNING RIGGER Ot J44.9 CHRONIC OBSTRUCTIVE PULMONARY DISEASE, U 03/17/2019 JAQUAN, HILDA E RUNNING RIGGER Ot J84.10 PULMONARY FIBROSIS, UNSPECIFIED 04/21/2019 HILDA PARTIDA RUNNING RIGGER Ot J44.9 CHRONIC OBSTRUCTIVE PULMONARY DISEASE, U 04/21/2019 HILDA PARTIDA RUNNING RIGGER Ot J84.10 PULMONARY FIBROSIS, UNSPECIFIED 04/22/2019 HILDA PARTIDA RUNNING RIGGER Ot J44.9 CHRONIC OBSTRUCTIVE PULMONARY DISEASE, U 04/22/2019 HILDA PARTIDA RUNNING RIGGER Ot J84.10 PULMONARY FIBROSIS, UNSPECIFIED 05/12/2019 LILIANA MAXWELL MD Ot E78.00 PURE HYPERCHOLESTEROLEMIA, UNSPECIFIED 05/12/2019 LILIANA MAXWELL MD Ot F17.210 NICOTINE DEPENDENCE, CIGARETTES, UNCOMPL 05/12/2019 LILIANA MAXWELL MD Ot I10 ESSENTIAL (PRIMARY) HYPERTENSION 05/12/2019 LILIANA MAXWELL MD Ot J12 .9 VIRAL PNEUMONIA, UNSPECIFIED 05/12/2019 LILIANA MAXWELL MD Ot J30 .2 OTHER SEASONAL ALLERGIC RHINITIS 05/12/2019 LILIANA MAXWELL MD Ot J43 .9 EMPHYSEMA, UNSPECIFIED 05/12/2019 LILIANA MAXWELL MD Ot J84 .9 INTERSTITIAL PULMONARY DISEASE, UNSPECIF 05/12/2019 LILIANA MAXWELL MD Ot K21 .9 GASTRO-ESOPHAGEAL REFLUX DISEASE WITHOUT 05/12/2019 LILIANA MAXWELL MD Ot K59.09 OTHER CONSTIPATION 05/12/2019 LILIANA MAXWELL MD Ot M19.91 PRIMARY OSTEOARTHRITIS, UNSPECIFIED SITE 05/12/2019 LILIANA MAXWELL MD Ot M81 .0 AGE-RELATED OSTEOPOROSIS W/O CURRENT PAT 05/12/2019 LILIANA MAXWELL MD, Ot Z79 .1 LOAN MANA[employer] (CURRENT) USE OF NON-STEROIDAL 05/12/2019 LILIANA MAXWELL MD, Ot Z79.82 [facility] (CURRENT) USE OF ASPIRIN 05/12/2019 LILIANA MAXWELL MD, Ot Z85.828 PERSONAL HISTORY OF OTHER MALIGNANT NEOP 05/12/2019 LILIANA MAXWELL MD, Ot Z86.010 PERSONAL HISTORY OF COLONIC POLYPS 05/12/2019 LILIANA MAXWELL MD, Ot Z86.69 PERSONAL HISTORY OF DIS OF THE NERVOUS S 05/12/2019 LILIANA MAXWELL MD, Ot Z86.73 PRSNL HX OF TIA (TIA), AND CEREB INFRC W 05/12/2019 LILIANA MAXWELL MD, Ot Z99.81 DEPENDENCE ON SUPPLEMENTAL OXYGEN 06/01/2019 GISELE FOUNTAIN MD Ot A41.9 SEPSIS, UNSPECIFIED ORGANISM 06/01/2019 GISELE FOUNTAIN MD Ot D64.9 ANEMIA, UNSPECIFIED 06/01/2019 GISELE FOUNTAIN MD Ot E78.0 0 PURE HYPERCHOLESTEROLEMIA, UNSPECIFIED 06/01/2019 GISELE FOUNTAIN MD Ot E87.6 HYPOKALEMIA 06/01/2019 GISELE FOUNTAIN MD Ot F17.2 10 NICOTINE DEPENDENCE, CIGARETTES, UNCOMPL 06/01/2019 GISELE FOUNTAIN MD Ot 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 06/01/2019 GISELE FOUNTAIN MD Ot I10 ESSENTIAL (PRIMARY) HYPERTENSION 06/01/2019 GISELE FOUNTAIN MD Ot I44.0 ATRIOVENTRICULAR BLOCK, FIRST DEGREE 06/01/2019 GISELE FOUNTAIN MD Ot J18.9 PNEUMONIA, UNSPECIFIED ORGANISM 06/01/2019 GISELE FOUNTAIN MD Ot J30.2 OTHER SEASONAL ALLERGIC RHINITIS 06/01/2019 GISELE FOUNTAIN MD Ot J43.9 EMPHYSEMA, UNSPECIFIED 06/01/2019 GISELE FOUNTAIN MD Ot K21.9 GASTRO-ESOPHAGEAL REFLUX DISEASE WITHOUT 06/01/2019 GISELE FOUNTAIN MD Ot K44.9 DIAPHRAGMATIC HERNIA WITHOUT OBSTRUCTION 06/01/2019 GISELE FOUNTAIN MD Ot 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, PART UNSP, W/O PERF 06/01/2019 GISELE FOUNTAIN MD Ot K59.0 9 OTHER CONSTIPATION 06/01/2019 GISELE FOUNTAIN MD Ot M19.9 1 PRIMARY OSTEOARTHRITIS, UNSPECIFIED SITE 06/01/2019 GISELE FOUNTAIN MD, Ot M81.0 AGE-RELATED OSTEOPOROSIS W/O CURRENT PAT 06/01/2019 GISELE FOUNTAIN MD Ot R09.0 2 HYPOXEMIA 06/01/2019 GISELE FOUNTAIN MD, Ot R74.0 NONSPEC ELEV OF LEVELS OF TRANSAMNS LA 06/01/2019 GISELE FOUNTAIN MD Ot Z66 DO NOT RESUSCITATE 06/01/2019 GISELE FOUNTAIN MD, Ot Z85.8 28 PERSONAL HISTORY OF OTHER MALIGNANT NEOP 06/01/2019 GISELE FOUNTAIN MD, Ot Z86.6 9 PERSONAL HISTORY OF DIS OF THE NERVOUS S 06/01/2019 GISELE FOUNTAIN MD, Ot Z86.7 3 PRSNL HX OF TIA (TIA), AND CEREB INFRC W 06/01/2019 GISELE FOUNTAIN MD Ot Z99.8 1 DEPENDENCE ON SUPPLEMENTAL OXYGEN 06/01/2019 GISELE FOUNTAIN MD Ot A41.9 SEPSIS, UNSPECIFIED ORGANISM 06/01/2019 GISELE FOUNTAIN MD, Ot D64.9 ANEMIA, UNSPECIFIED 06/01/2019 GISELE FOUNTAIN MD, Ot E78.0 0 PURE HYPERCHOLESTEROLEMIA, UNSPECIFIED 06/01/2019 GISELE FOUNTAIN MD, Ot E87.6 HYPOKALEMIA 06/01/2019 GISELE FOUNTAIN MD Ot F17.2 10 NICOTINE DEPENDENCE, CIGARETTES, UNCOMPL 06/01/2019 GISELE FOUNTAIN MD Ot 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 06/01/2019 GISELE FOUNTAIN MD Ot I10 ESSENTIAL (PRIMARY) HYPERTENSION 06/01/2019 GISELE FOUNTAIN MD Ot I44.0 ATRIOVENTRICULAR BLOCK, FIRST DEGREE 06/01/2019 GISELE FOUNTAIN MD Ot J18.9 PNEUMONIA, UNSPECIFIED ORGANISM 06/01/2019 GISELE FOUNTAIN MD, Ot J30.2 OTHER SEASONAL ALLERGIC RHINITIS 06/01/2019 GISELE FOUNTAIN MD, Ot J43.9 EMPHYSEMA, UNSPECIFIED 06/01/2019 GISELE FOUNTAIN MD Ot K21.9 GASTRO-ESOPHAGEAL REFLUX DISEASE WITHOUT 06/01/2019 GISELE FOUNTAIN MD, Ot K44.9 DIAPHRAGMATIC HERNIA WITHOUT OBSTRUCTION 06/01/2019 GISELE FOUNTAIN MD, Ot 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, PART UNSP, W/O PERF 06/01/2019 GISELE FOUNTAIN MD Ot K59.0 9 OTHER CONSTIPATION 06/01/2019 GISELE FOUNTAIN MD, Ot M19.9 1 PRIMARY OSTEOARTHRITIS, UNSPECIFIED SITE 06/01/2019 GISELE FOUNTAIN MD, Ot M81.0 AGE-RELATED OSTEOPOROSIS W/O CURRENT PAT 06/01/2019 GISELE FOUNTAIN MD Ot R09.0 2 HYPOXEMIA 06/01/2019 GISELE FOUNTAIN MD, Ot R74.0 NONSPEC ELEV OF LEVELS OF TRANSAMNS LA 06/01/2019 GISELE FOUNTAIN MD, Ot Z66 DO NOT RESUSCITATE 06/01/2019 GISELE FOUNTAIN MD, Ot Z85.8 28 PERSONAL HISTORY OF OTHER MALIGNANT NEOP 06/01/2019 GISELE FOUNTAIN MD, Ot Z86.6 9 PERSONAL HISTORY OF DIS OF THE NERVOUS S 06/01/2019 GISELE FOUNTAIN MD, Ot Z86.7 3 PRSNL HX OF TIA (TIA), AND CEREB INFRC W 06/01/2019 GISELE FOUNTAIN MD Ot Z99.8 1 DEPENDENCE ON SUPPLEMENTAL OXYGEN 06/02/2019 GISELE FOUNTAIN MD Ot A41.9 SEPSIS, UNSPECIFIED ORGANISM 06/02/2019 GISELE FOUNTAIN MD Ot D64.9 ANEMIA, UNSPECIFIED 06/02/2019 GISELE FOUNTAIN MD Ot E78.0 0 PURE HYPERCHOLESTEROLEMIA, UNSPECIFIED 06/02/2019 GISELE FOUNTAIN MD Ot E87.6 HYPOKALEMIA 06/02/2019 GISELE FOUNTAIN MD Ot F17.2 10 NICOTINE DEPENDENCE, CIGARETTES, UNCOMPL 06/02/2019 GISELE FOUNTAIN MD Ot 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 06/02/2019 GISELE FOUNTAIN MD Ot I10 ESSENTIAL (PRIMARY) HYPERTENSION 06/02/2019 GISELE FOUNTAIN MD Ot I44.0 ATRIOVENTRICULAR BLOCK, FIRST DEGREE 06/02/2019 GISELE FOUNTAIN MD Ot J18.9 PNEUMONIA, UNSPECIFIED ORGANISM 06/02/2019 GISELE FOUNTAIN MD Ot J30.2 OTHER SEASONAL ALLERGIC RHINITIS 06/02/2019 GISELE FOUNTAIN MD, Ot J43.9 EMPHYSEMA, UNSPECIFIED 06/02/2019 GISELE FOUNTAIN MD, Ot K21.9 GASTRO-ESOPHAGEAL REFLUX DISEASE WITHOUT 06/02/2019 GISELE FOUNTAIN MD, Ot K44.9 DIAPHRAGMATIC HERNIA WITHOUT OBSTRUCTION 06/02/2019 GISELE FOUNTAIN MD, Ot 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, PART UNSP, W/O PERF 06/02/2019 GISELE FOUNTAIN MD Ot K59.0 9 OTHER CONSTIPATION 06/02/2019 GISELE FOUNTAIN MD, Ot M19.9 1 PRIMARY OSTEOARTHRITIS, UNSPECIFIED SITE 06/02/2019 GISELE FOUNTAIN MD, Ot M81.0 AGE-RELATED OSTEOPOROSIS W/O CURRENT PAT 06/02/2019 GISELE FOUNTAIN MD, Ot R09.0 2 HYPOXEMIA 06/02/2019 GISELE FOUNTAIN MD, Ot R74.0 NONSPEC ELEV OF LEVELS OF TRANSAMNS LA 06/02/2019 GISELE FOUNTAIN MD, Ot Z66 DO NOT RESUSCITATE 06/02/2019 GISELE FOUNTAIN MD, Ot Z85.8 28 PERSONAL HISTORY OF OTHER MALIGNANT NEOP 06/02/2019 GISELE FOUNTAIN MD, Ot Z86.6 9 PERSONAL HISTORY OF DIS OF THE NERVOUS S 06/02/2019 GISELE FOUNTAIN MD, Ot Z86.7 3 PRSNL HX OF TIA (TIA), AND CEREB INFRC W 06/02/2019 GISELE FOUNTAIN MD Ot Z99.8 1 DEPENDENCE ON SUPPLEMENTAL OXYGEN 06/02/2019 GISELE FOUNTAIN MD, Ot A41.9 SEPSIS, UNSPECIFIED ORGANISM 06/02/2019 GISELE FOUNTAIN MD, Ot D64.9 ANEMIA, UNSPECIFIED 06/02/2019 GISELE FOUNTAIN MD Ot E78.0 0 PURE HYPERCHOLESTEROLEMIA, UNSPECIFIED 06/02/2019 GISELE FOUNTAIN MD, Ot E87.6 HYPOKALEMIA 06/02/2019 GISELE FOUNTAIN MD Ot F17.2 10 NICOTINE DEPENDENCE, CIGARETTES, UNCOMPL 06/02/2019 GISELE FOUNTAIN MD Ot 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 06/02/2019 GISELE FOUNTAIN MD, Ot I10 ESSENTIAL (PRIMARY) HYPERTENSION 06/02/2019 GAGISELE CUETO MD, Ot I44.0 ATRIOVENTRICULAR BLOCK, FIRST DEGREE 06/02/2019 GISELE FOUNTAIN MD Ot J18.9 PNEUMONIA, UNSPECIFIED ORGANISM 06/02/2019 GISELE FOUNTAIN MD, Ot J30.2 OTHER SEASONAL ALLERGIC RHINITIS 06/02/2019 GISELE FOUNTAIN MD, Ot J43.9 EMPHYSEMA, UNSPECIFIED 06/02/2019 GISELE FOUNTAIN MD Ot K21.9 GASTRO-ESOPHAGEAL REFLUX DISEASE WITHOUT 06/02/2019 GISELE FOUNTAIN MD Ot K44.9 DIAPHRAGMATIC HERNIA WITHOUT OBSTRUCTION 06/02/2019 GISELE FOUNTAIN MD, Ot 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, PART UNSP, W/O PERF 06/02/2019 GISELE FOUNTAIN MD Ot K59.0 9 OTHER CONSTIPATION 06/02/2019 GISELE FOUNTAIN MD, Ot M19.9 1 PRIMARY OSTEOARTHRITIS, UNSPECIFIED SITE 06/02/2019 GISELE FOUNTAIN MD Ot M81.0 AGE-RELATED OSTEOPOROSIS W/O CURRENT PAT 06/02/2019 GISELE FOUNTAIN MD Ot R09.0 2 HYPOXEMIA 06/02/2019 GISELE FOUNTAIN MD, Ot R74.0 NONSPEC ELEV OF LEVELS OF TRANSAMNS LA 06/02/2019 GISELE FOUNTAIN MD, Ot Z66 DO NOT RESUSCITATE 06/02/2019 GISELE FOUNTAIN MD, Ot Z85.8 28 PERSONAL HISTORY OF OTHER MALIGNANT NEOP 06/02/2019 GISELE FOUNTAIN MD, Ot Z86.6 9 PERSONAL HISTORY OF DIS OF THE NERVOUS S 06/02/2019 GISELE FOUNTAIN MD, Ot Z86.7 3 PRSNL HX OF TIA (TIA), AND CEREB INFRC W 06/02/2019 GISELE FOUNTAIN MD Ot Z99.8 1 DEPENDENCE ON SUPPLEMENTAL OXYGEN 06/03/2019 GISELE FOUNTAIN MD Ot A41.9 SEPSIS, UNSPECIFIED ORGANISM 06/03/2019 GISELE FOUNTAIN MD Ot D64.9 ANEMIA, UNSPECIFIED 06/03/2019 GISELE FOUNTAIN MD Ot E78.0 0 PURE HYPERCHOLESTEROLEMIA, UNSPECIFIED 06/03/2019 GISELE FOUNTAIN MD Ot E87.6 HYPOKALEMIA 06/03/2019 GISELE FOUNTAIN MD Ot F17.2 10 NICOTINE DEPENDENCE, CIGARETTES, UNCOMPL 06/03/2019 GISELE FOUNTAIN MD Ot 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 06/03/2019 GISELE FOUNTAIN MD, Ot I10 ESSENTIAL (PRIMARY) HYPERTENSION 06/03/2019 GISELE FOUNTAIN MD Ot I44.0 ATRIOVENTRICULAR BLOCK, FIRST DEGREE 06/03/2019 GISELE FOUNTAIN MD, Ot J18.9 PNEUMONIA, UNSPECIFIED ORGANISM 06/03/2019 GISELE FOUNTAIN MD Ot J30.2 OTHER SEASONAL ALLERGIC RHINITIS 06/03/2019 GISELE FOUNTAIN MD Ot J43.9 EMPHYSEMA, UNSPECIFIED 06/03/2019 GISELE FOUNTAIN MD Ot K21.9 GASTRO-ESOPHAGEAL REFLUX DISEASE WITHOUT 06/03/2019 GISELE FOUNTAIN MD Ot K44.9 DIAPHRAGMATIC HERNIA WITHOUT OBSTRUCTION 06/03/2019 GISELE FOUNTAIN MD, Ot 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, PART UNSP, W/O PERF 06/03/2019 GISELE FOUNTAIN MD Ot K59.0 9 OTHER CONSTIPATION 06/03/2019 GISELE FOUNTAIN MD Ot M19.9 1 PRIMARY OSTEOARTHRITIS, UNSPECIFIED SITE 06/03/2019 GISELE FOUNTAIN MD, Ot M81.0 AGE-RELATED OSTEOPOROSIS W/O CURRENT PAT 06/03/2019 GISELE FOUNTAIN MD Ot R09.0 2 HYPOXEMIA 06/03/2019 GISELE FOUNTAIN MD, Ot R74.0 NONSPEC ELEV OF LEVELS OF TRANSAMNS LA 06/03/2019 GISELE FOUNTAIN MD Ot Z66 DO NOT RESUSCITATE 06/03/2019 GISELE FOUNTAIN MD, Ot Z85.8 28 PERSONAL HISTORY OF OTHER MALIGNANT NEOP 06/03/2019 GISELE FOUNTAIN MD, Ot Z86.6 9 PERSONAL HISTORY OF DIS OF THE NERVOUS S 06/03/2019 GISELE FOUNTAIN MD, Ot Z86.7 3 PRSNL HX OF TIA (TIA), AND CEREB INFRC W 06/03/2019 GISELE FOUNTAIN MD Ot Z99.8 1 DEPENDENCE ON SUPPLEMENTAL OXYGEN 06/03/2019 GISELE FOUNTAIN MD Ot A41.9 SEPSIS, UNSPECIFIED ORGANISM 06/03/2019 GISELE FOUNTAIN MD Ot D64.9 ANEMIA, UNSPECIFIED 06/03/2019 GISELE FOUNTAIN MD Ot E78.0 0 PURE HYPERCHOLESTEROLEMIA, UNSPECIFIED 06/03/2019 GISELE FOUNTAIN MD Ot E87.6 HYPOKALEMIA 06/03/2019 GISELE FOUNTAIN MD Ot F17.2 10 NICOTINE DEPENDENCE, CIGARETTES, UNCOMPL 06/03/2019 GISELE FOUNTAIN MD Ot F32.9 MAJOR DEPRESSIVE DISORDER, SINGLE EPISOD 06/03/2019 GISELE FOUNTAIN MD Ot 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 06/03/2019 GISELE FOUNTAIN MD Ot I10 ESSENTIAL (PRIMARY) HYPERTENSION 06/03/2019 GISELE FOUNTAIN MD Ot I44.0 ATRIOVENTRICULAR BLOCK, FIRST DEGREE 06/03/2019 GISELE FOUNTAIN MD, Ot J18.9 PNEUMONIA, UNSPECIFIED ORGANISM 06/03/2019 GISELE FOUNTAIN MD, Ot J30.2 OTHER SEASONAL ALLERGIC RHINITIS 06/03/2019 GISELE FOUNTAIN MD, Ot J43.9 EMPHYSEMA, UNSPECIFIED 06/03/2019 GISELE FOUNTAIN MD Ot K21.9 GASTRO-ESOPHAGEAL REFLUX DISEASE WITHOUT 06/03/2019 GISELE FOUNTAIN MD Ot K44.9 DIAPHRAGMATIC HERNIA WITHOUT OBSTRUCTION 06/03/2019 GISELE FOUNTAIN MD, Ot 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, PART UNSP, W/O PERF 06/03/2019 GISELE FOUNTAIN MD Ot K59.0 9 OTHER CONSTIPATION 06/03/2019 GISELE FOUNTAIN MD Ot M19.9 1 PRIMARY OSTEOARTHRITIS, UNSPECIFIED SITE 06/03/2019 GISELE FOUNTAIN MD, Ot M81.0 AGE-RELATED OSTEOPOROSIS W/O CURRENT PAT 06/03/2019 GISELE FOUNTAIN MD Ot R09.0 2 HYPOXEMIA 06/03/2019 GISELE FOUNTAIN MD, Ot R74.0 NONSPEC ELEV OF LEVELS OF TRANSAMNS LA 06/03/2019 GISELE FOUNTAIN MD Ot Z66 DO NOT RESUSCITATE 06/03/2019 GISELE FOUNTAIN MD, Ot Z85.8 28 PERSONAL HISTORY OF OTHER MALIGNANT NEOP 06/03/2019 GISELE FOUNTAIN MD, Ot Z86.6 9 PERSONAL HISTORY OF DIS OF THE NERVOUS S 06/03/2019 GISELE FOUNTAIN MD, Ot Z86.7 3 PRSNL HX OF TIA (TIA), AND CEREB INFRC W 06/03/2019 ESSIE SPENCER, GISELE Mckeon Ot 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 Results Test Result Range Comprehensive Metabolic Panel - 03/04/16 12:16 Albumin 3.9 g/dL 3.6-5.1 ALP 81 U/L 35-130 ALT 10 U/L 6-45 Anion Gap 11 6-14 AST 10 U/L 2-40 BUN 10 mg/dL 5-25 Calcium 8.9 mg/dL 8.3-10.4 Chloride 109 mmol/L 95-114 CO2 21 mEq/L 22-33 Creat 0.95 mg/dL 0.50-1.50 eGFR 57 mL/min/1.73m2 >59 Globulin 2.0 g/dL 2.3-3.5 Glucose 75 mg/dL 70-110 Osmo 281 280-295 Potassium 4.3 mmol/L 3.5-5.3 Sodium 137 mmol/L 134-148 TBil 0.3 mg/dL 0.2-1.2 TP 5.9 g/dL 6.0-8.3 Lipid Panel - 09/06/16 08:47 C/HDL 3.9 3.7-6.7 Cholesterol 173 mg/dL 100-240 HDL 44 mg/dL 30-85 LDL-Calculated 89 mg/dL 0-100 Trig 199 mg/dL 35-160 VLDL 40 mg/dL 0-42 Comprehensive Metabolic Panel - 09/06/16 08:47 Albumin 4.0 g/dL 3.6-5.1 ALP 93 U/L 35-130 ALT 11 U/L 6-45 Anion Gap 14 6-14 AST 13 U/L 2-40 BUN 10 mg/dL 5-25 Calcium 9.6 mg/dL 8.3-10.4 Chloride 110 mmol/L 95-114 CO2 23 mEq/L 22-33 Creat 1.08 mg/dL 0.50-1.50 eGFR 49 mL/min/1.73m2 >59 Globulin 3.0 g/dL 2.3-3.5 Glucose 83 mg/dL 70-110 Osmo 291 280-295 Potassium 4.5 mmol/L 3.5-5.3 Sodium 142 mmol/L 134-148 TBil 0.4 mg/dL 0.2-1.2 TP 7.0 g/dL 6.0-8.3 CBC with Auto Diff - 02/12/17 11:06 Baso% 0.30 % 0.00-2.50 Eos 0.2 K/uL 0.0-0.7 Eos% 3.4 % 0.0-7.0 Hct 42.1 % 36.0-46.0 Hgb 13.9 g/dL 13.0-15.0 Lym 1.16 K/uL 0.60-3.40 Lym% 19.8 % 10.0-50.0 MCH 30.5 pg 27.0-31.0 MCHC 33.0 g/dL 32.0-36.0 MCV 92.3 fL 80.0-97.0 [place]% 7.7 % 0.0-12.0 MPV 11.3 fL 7.4-10.0 Tahir% 68.8 % 37.0-80.0 Plt 231 K/uL 150-400 RBC 4.56 M/uL 3.60-5.00 RDW 13.1 % 11.6-14.8 WBC 5.86 K/uL 5.00-10.00 Tahir 4.03 K/uL 2.00-6.90 [place] 0.5 K/uL 0.0-0.9 Baso 0.0 K/uL 0.0-0.2 Free T4 - 08/01/17 09:08 Free T4 0.93 ng/dL 0.81-1.61 Reverse T3, Serum - 08/01/17 09:08 REVERSE T3, SERUM 28.5 NG/DL 9.2-24.1 Comprehensive Metabolic Panel - 08/22/17 09:51 Albumin 4.1 g/dL 3.6-5.1 ALP 111 U/L 35-130 ALT 8 U/L 6-45 Anion Gap 15 6-14 AST 14 U/L 2-40 BUN 9 mg/dL 5-25 Calcium 9.7 mg/dL 8.3-10.4 Chloride 109 mmol/L 95-114 CO2 25 mEq/L 22-33 Creat 0.84 mg/dL 0.50-1.50 eGFR 65 mL/min/1.73m2 >59 Globulin 2.4 g/dL 2.3-3.5 Glucose 81 mg/dL 70-110 Osmo 295 280-295 Potassium 4.9 mmol/L 3.5-5.3 Sodium 144 mmol/L 134-148 TBil 0.5 mg/dL 0.2-1.2 TP 6.5 g/dL 6.0-8.3 Free T4 - 11/01/17 09:12 Free T4 1.11 ng/dL 0.81-1.61 Thyroid Peroxidase (TPO) Ab - 11/01/17 0 9:12 THYROID PEROXIDASE (TPO) AB 16 IU/ML 0- 34 Reverse T3, Serum - 11/01/17 09:12 REVERSE T3, SERUM 33.8 NG/DL 9.2-24.1 Urinalysis - 12/24/17 12:59 Icotest N/A Negative Urine Volume Urine Volume Sufficient (10mL) Urine-Appearance Clear Clear Urine-Bacteria Negative Urine-Bilirubin Negative Negative Urine-Blood Negative Negative Urine-Color Yellow Colorless-Lt. [place] ow Urine-Epithelial Cells 0-5/HPF Urine-Glucose Negative Negative Urine-Ketones Negative Negative Urine-Leukocytes Negative Negative Urine-Nitrite Negative Negative Urine-pH 6.0 5-8.5 Urine-Protein Negative Negative Urine-RBC Negative Urine-Specific [place] <=1.005 1.000-1 .030 Urine-WBC Rare/HPF Urobilinogen 0.2 E.U./dL 0.2-1.0 BNP - 12/24/17 13:16 BNP 25.50 pg/ml 0.00-100.00 Cardiac Panel - 12/24/17 13:16 CK 53 U/L 26-174 CK-MB 1.6 ng/ml 0.0-9.2 Myoglobin 71.6 ng/ml 1.6-106.0 Troponin <0.020 ng/mL 0.0-0.4 CBC with Auto Diff - 05/07/18 09:08 Baso% 1.00 % 0.00-2.50 Eos 0.2 K/uL 0.0-0.7 Eos% 3.4 % 0.0-7.0 Hct 41.3 % 36.0-46.0 Hgb 14.0 g/dL 13.0-15.0 Lym 1.27 K/uL 0.60-3.40 Lym% 20.7 % 10.0-50.0 MCH 30.1 pg 27.0-31.0 MCHC 33.9 g/dL 32.0-36.0 MCV 88.8 fL 80.0-97.0 [place]% 6.8 % 0.0-12.0 MPV 10.5 fL 7.4-10.0 Tahir% 68.1 % 37.0-80.0 Plt 245 K/uL 150-400 RBC 4.65 M/uL 3.60-5.00 RDW 12.8 % 11.6-14.8 WBC 6.14 K/uL 5.00-10.00 Tahir 4.18 K/uL 2.00-6.90 [place] 0.4 K/uL 0.0-0.9 Baso 0.1 K/uL 0.0-0.2 [id number] - 09/11/18 13:39 Serum or plasma urea nitrogen measurement (mass/volume ) 5 mg/dL 7-18 Serum or plasma creatinine measurement (mass/volume) 0.86 mg/dL 0.60-1.30 Serum or plasma urea nitrogen/creatinine mass ratio 6 NRG Serum or plasma creatinine measurement w ith calculation of estimated glomerular filtration rate > NRG Bacterial blood culture - 09/14/18 22:50 Bacterial blood culture NG NRG Complete blood count (CBC) with automate d white blood cell (WBC) differential - 09/14/18 23:00 Blood leukocytes automated count (number/volume) 4.4 10*3/uL 4.3-11.0 Blood erythrocytes automated count (number/volume) 4.51 10*6/uL 4.35-5.85 Venous blood hemoglobin measurement (mass/volume) 13.6 g/dL 11.5-16.0 Blood hematocrit (volume fraction) 40 % 35-52 Automated erythrocyte mean corpuscular volume 89 [ foz_us] 80-99 Automated erythrocyte mean corpuscular h emoglobin (mass per erythrocyte) 30 pg 25-34 Automated erythrocyte mean corpuscular h emoglobin concentration measurement (mass/volume) 34 g/dL 32-36 Automated erythrocyte distribution width ratio 14. 4 % 10.0- 14.5 Automated blood platelet count (count/volume) 166 10*3/uL 130-400 Automated blood platelet mean volume measurement 11.0 [foz_us] 7.4-10.4 Automated blood neutrophils/100 leukocytes 67 % 42-75 Automated blood lymphocytes/100 leukocytes 18 % 12-44 Blood monocytes/100 leukocytes 11 % 0-12 Automated blood eosinophils/100 leukocytes 3 % 0-10 Automated blood basophils/100 leukocytes 1 % 0-10 Blood neutrophils automated count (number/volume) 2.9 10*3 1.8-7.8 Blood lymphocytes automated count (number/volume) 0.8 10*3 1.0-4.0 Blood monocytes automated count (number/volume) 0. 5 10*3 0.0-1.0 Automated eosinophil count 0.1 10*3/uL 0 .0-0.3 Automated blood basophil count (count/volume) 0.0 10*3/uL 0.0-0.1 Blood lactic acid measurement (moles/vol ume) - 09/14/18 23:00 Blood lactic acid measurement (moles/volume) 0.88 mmol/L 0.50-2.00 Comprehensive metabolic panel - 09/14/18 23:00 Serum or plasma sodium measurement (moles/volume) 138 mmol/L 135-145 Serum or plasma potassium measurement (moles/volume) 3.4 mmol/L 3.6-5.0 Serum or plasma chloride measurement (moles/volume) 104 mmol/L 98-107 Carbon dioxide 23 mmol/L 21-32 Serum or plasma anion gap determination (moles/volume) 11 mmol/L 5-14 Serum or plasma urea nitrogen measurement (mass/volume ) 7 mg/dL 7-18 Serum or plasma creatinine measurement (mass/volume) 0.93 mg/dL 0.60-1.30 Serum or plasma urea nitrogen/creatinine mass ratio 8 NRG Serum or plasma creatinine measurement w ith calculation of estimated glomerular filtration rate 58 NRG Serum or plasma glucose measurement (mass/volume) 91 mg/dL 70-105 Serum or plasma calcium measurement (mass/volume) 8.6 mg/dL 8.5-10.1 Serum or plasma total bilirubin measurement (mass/volu me) 0.3 mg/dL 0.1-1.0 Serum or plasma alkaline phosphatase julian surement (enzymatic activity/volume) 96 U/L 40-136 Serum or plasma aspartate aminotransfera se measurement (enzymatic activity/volume) 16 U/L 5-34 Serum or plasma alanine aminotransferase measurement (enzymatic activity/volume) 8 U/L 0-55 Serum or plasma protein measurement (mass/volume) 6.2 g/dL 6.4-8.2 Serum or plasma albumin measurement (mass/volume) 3.7 g/dL 3.2-4.5 CALCIUM CORRECTED 8.8 mg/dL 8.5-10.1 Magnesium - 09/14/18 23:00 Magnesium 2.1 mg/dL 1.8-2.4 Serum or plasma C reactive protein measu rement (mass/volume) - 09/14/18 23:00 Serum or plasma C reactive protein measurement (mass/v olume) 1.94 mg/dL 0.00-0.50 Serum or plasma lithium measurement (mol es/volume) - 09/14/18 23:00 BNP level 57.5 pg/mL <100.0 Bacterial blood culture - 09/14/18 23:00 Bacterial blood culture NG NRG [id number] - 12/11/18 11:25 Serum or plasma urea nitrogen measurement (mass/volume ) 12 mg/dL 7-18 Serum or plasma creatinine measurement (mass/volume) 0.81 mg/dL 0.60-1.30 Serum or plasma urea nitrogen/creatinine mass ratio 15 NRG Serum or plasma creatinine measurement w ith calculation of estimated glomerular filtration rate > NRG CMP - 01/06/19 13:46 GLUCOSE 75 mg/dL 65-99 UREA NITROGEN (BUN) 9 mg/dL 7-25 CREATININE 0.74 mg/dL 0.60-0.88 eGFR NON-AFR. STATELESS 75 mL/min/1.73m2 > OR = 60 eGFR 87 mL/min/1.73m2 > OR = 60 BUN/CREATININE RATIO NOT APPLICABLE (calc) 6-22 SODIUM 135 mmol/L 135-146 POTASSIUM 4.6 mmol/L 3.5-5.3 CHLORIDE 105 mmol/L 98-110 CARBON DIOXIDE 23 mmol/L 20-32 CALCIUM 8.7 mg/dL 8.6-10.4 PROTEIN, TOTAL 6.1 g/dL 6.1-8.1 ALBUMIN 4.1 g/dL 3.6-5.1 GLOBULIN 2.0 g/dL (calc) 1.9-3.7 ALBUMIN/GLOBULIN RATIO 2.1 (calc) 1.0-2. 5 BILIRUBIN, TOTAL 0.3 mg/dL 0.2-1.2 ALKALINE PHOSPHATASE 111 U/L 33-130 AST 11 U/L 10-35 ALT 7 U/L 6-29 Complete blood count (CBC) with automate d white blood cell (WBC) differential - 01/08/19 14:11 Blood leukocytes automated count (number/volume) 5.7 10*3/uL 4.3-11.0 Blood erythrocytes automated count (number/volume) 4.25 10*6/uL 4.35-5.85 Venous blood hemoglobin measurement (mass/volume) 13.3 g/dL 11.5-16.0 Blood hematocrit (volume fraction) 39 % 35-52 Automated erythrocyte mean corpuscular volume 91 [ foz_us] 80-99 Automated erythrocyte mean corpuscular h emoglobin (mass per erythrocyte) 31 pg 25-34 Automated erythrocyte mean corpuscular h emoglobin concentration measurement (mass/volume) 35 g/dL 32-36 Automated erythrocyte distribution width ratio 14. 9 % 10.0- 14.5 Automated blood platelet count (count/volume) 222 10*3/uL 130-400 Automated blood platelet mean volume measurement 10.4 [foz_us] 7.4-10.4 Automated blood neutrophils/100 leukocytes 73 % 42-75 Automated blood lymphocytes/100 leukocytes 19 % 12-44 Blood monocytes/100 leukocytes 6 % 0-12 Automated blood eosinophils/100 leukocytes 2 % 0-10 Automated blood basophils/100 leukocytes 0 % 0-10 Blood neutrophils automated count (number/volume) 4.2 10*3 1.8-7.8 Blood lymphocytes automated count (number/volume) 1.1 10*3 1.0-4.0 Blood monocytes automated count (number/volume) 0. 4 10*3 0.0-1.0 Automated eosinophil count 0.1 10*3/uL 0 .0-0.3 Automated blood basophil count (count/volume) 0.0 10*3/uL 0.0-0.1 Comprehensive metabolic panel - 01/08/19 14:11 Serum or plasma sodium measurement (moles/volume) 138 mmol/L 135-145 Serum or plasma potassium measurement (moles/volume) 3.8 mmol/L 3.6-5.0 Serum or plasma chloride measurement (moles/volume) 109 mmol/L 98-107 Carbon dioxide 19 mmol/L 21-32 Serum or plasma anion gap determination (moles/volume) 10 mmol/L 5-14 Serum or plasma urea nitrogen measurement (mass/volume ) 11 mg/dL 7-18 Serum or plasma creatinine measurement (mass/volume) 0.93 mg/dL 0.60-1.30 Serum or plasma urea nitrogen/creatinine mass ratio 12 NRG Serum or plasma creatinine measurement w ith calculation of estimated glomerular filtration rate 58 NRG Serum or plasma glucose measurement (mass/volume) 104 mg/dL 70-105 Serum or plasma calcium measurement (mass/volume) 8.5 mg/dL 8.5-10.1 Serum or plasma total bilirubin measurement (mass/volu me) 0.2 mg/dL 0.1-1.0 Serum or plasma alkaline phosphatase julian surement (enzymatic activity/volume) 115 U/L 40-136 Serum or plasma aspartate aminotransfera se measurement (enzymatic activity/volume) 13 U/L 5-34 Serum or plasma alanine aminotransferase measurement (enzymatic activity/volume) 10 U/L 0-55 Serum or plasma protein measurement (mass/volume) 6.5 g/dL 6.4-8.2 Serum or plasma albumin measurement (mass/volume) 3.9 g/dL 3.2-4.5 CALCIUM CORRECTED 8.6 mg/dL 8.5-10.1 Serum or plasma C reactive protein measu rement (mass/volume) - 01/08/19 14:11 Serum or plasma C reactive protein measurement (mass/v olume) 0.69 mg/dL 0.00-0.50 Serum or plasma lithium measurement (mol es/volume) - 01/08/19 14:11 BNP PT 33.3 pg/mL <100.0 Complete urinalysis with reflex to cultu re - 01/08/19 14:17 Urine color determination YELLOW NRG Urine clarity determination CLEAR NR G Urine pH measurement by test strip 6 5-9 Specific gravity of urine by test strip 1.010 1.016-1.022 Urine protein assay by test strip, semi-quantitative NEGATIVE NEGATIVE Urine glucose detection by automated test strip NE GATIVE NEGATIVE Erythrocytes detection in urine sediment by light micr oscopy 2+ NEGATIVE Urine ketones detection by automated test strip NE GATIVE NEGATIVE Urine nitrite detection by test strip NEGATIVE NEGATIVE Urine total bilirubin detection by test strip NEGA TIVE NEGATIVE Urine urobilinogen measurement by automated test strip (mass/volume) NORMAL NORMAL Urine leukocyte esterase detection by dipstick 2+ NEGATIVE Automated urine sediment erythrocyte cou nt by microscopy (number/high power field) [HPF] NRG Automated urine sediment leukocyte count by microscopy (number/high power field) [HPF] NRG Bacteria detection in urine sediment by light microsco py FEW NRG Squamous epithelial cells detection in u rine sediment by light microscopy 2-5 NRG Crystals detection in urine sediment by light microsco py NONE NRG Casts detection in urine sediment by light microscopy NONE NRG Mucus detection in urine sediment by light microscopy NEGATIVE NRG Complete urinalysis with reflex to culture YES NRG Bacterial urine culture - 01/08/19 14:17 Bacterial urine culture [id number] NRG COLONY COUNT >100,000/ML NRG FTX;REPORTABLE SUSCEPTIBILITY REPORTED 01/10/19 9:4 5 NRG Dirithromycin susceptibility test by dis k diffusion - 01/08/19 14:17 Gentamicin susceptibility test by minimum inhibitory c oncentration > NRG Trimethoprim/sulfamethoxazole susceptibi lity test by minimum inhibitoryconcentration > NRG Levofloxacin susceptibility test by minimum inhibitory concentration > NRG Ampicillin susceptibility test by minimum inhibitory c oncentration > NRG Cefazolin susceptibility test by minimum inhibitory co ncentration 2 NRG Ceftriaxone susceptibility test by minimum inhibitory concentration <= NRG Ciprofloxacin susceptibility test by minimum inhibitor y concentration > NRG Meropenem susceptibility test by minimum inhibitory co ncentration <= NRG Nitrofurantoin susceptibility test by mi nimum inhibitory concentration <= NRG Amoxicillin and clavulanate potassium susc LAILA = NRG Complete blood count (CBC) with automate d white blood cell (WBC) differential - 05/09/19 10:45 Blood leukocytes automated count (number/volume) 8.1 10*3/uL 4.3-11.0 Blood erythrocytes automated count (number/volume) 4.18 10*6/uL 4.35-5.85 Venous blood hemoglobin measurement (mass/volume) 12.5 g/dL 11.5-16.0 Blood hematocrit (volume fraction) 38 % 35-52 Automated erythrocyte mean corpuscular volume 90 [ foz_us] 80-99 Automated erythrocyte mean corpuscular h emoglobin (mass per erythrocyte) 30 pg 25-34 Automated erythrocyte mean corpuscular h emoglobin concentration measurement (mass/volume) 33 g/dL 32-36 Automated erythrocyte distribution width ratio 13. 7 % 10.0- 14.5 Automated blood platelet count (count/volume) 337 10*3/uL 130-400 Automated blood platelet mean volume measurement 10.6 [foz_us] 7.4-10.4 Automated blood neutrophils/100 leukocytes 79 % 42-75 Automated blood lymphocytes/100 leukocytes 6 % 12-44 Blood monocytes/100 leukocytes 13 % 0-12 Automated blood eosinophils/100 leukocytes 3 % 0-10 Automated blood basophils/100 leukocytes 0 % 0-10 Blood neutrophils automated count (number/volume) 6.4 10*3 1.8-7.8 Blood lymphocytes automated count (number/volume) 0.5 10*3 1.0-4.0 Blood monocytes automated count (number/volume) 1. 0 10*3 0.0-1.0 Automated eosinophil count 0.2 10*3/uL 0 .0-0.3 Automated blood basophil count (count/volume) 0.0 10*3/uL 0.0-0.1 Blood lactic acid measurement (moles/vol ume) - 05/09/19 10:45 Blood lactic acid measurement (moles/volume) 1.42 mmol/L 0.50-2.00 PT panel in platelet poor plasma by coag ulation assay - 05/09/19 10:45 Prothrombin time (PT) in platelet poor plasma by coagu lation assay 14.6 s 12.2-14.7 INR in platelet poor plasma or blood by coagulation as say 1.1 0.8-1.4 Activated partial thromboplastin time (a PTT) in platelet poor plasma bycoagulation assay - 05/09/19 10:45 Activated partial thromboplastin time (a PTT) in platelet poor plasma bycoagulation assay 31 s 24-35 Comprehensive metabolic panel - 05/09/19 10:45 Serum or plasma sodium measurement (moles/volume) 140 mmol/L 135-145 Serum or plasma potassium measurement (moles/volume) 3.5 mmol/L 3.6-5.0 Serum or plasma chloride measurement (moles/volume) 106 mmol/L 98-107 Carbon dioxide 24 mmol/L 21-32 Serum or plasma anion gap determination (moles/volume) 10 mmol/L 5-14 Serum or plasma urea nitrogen measurement (mass/volume ) 10 mg/dL 7-18 Serum or plasma creatinine measurement (mass/volume) 0.85 mg/dL 0.60-1.30 Serum or plasma urea nitrogen/creatinine mass ratio 12 NRG Serum or plasma creatinine measurement w ith calculation of estimated glomerular filtration rate > NRG Serum or plasma glucose measurement (mass/volume) 105 mg/dL 70-105 Serum or plasma calcium measurement (mass/volume) 8.8 mg/dL 8.5-10.1 Serum or plasma total bilirubin measurement (mass/volu me) 0.3 mg/dL 0.1-1.0 Serum or plasma alkaline phosphatase julian surement (enzymatic activity/volume) 79 U/L 40-136 Serum or plasma aspartate aminotransfera se measurement (enzymatic activity/volume) 17 U/L 5-34 Serum or plasma alanine aminotransferase measurement (enzymatic activity/volume) 22 U/L 0-55 Serum or plasma protein measurement (mass/volume) 6.2 g/dL 6.4-8.2 Serum or plasma albumin measurement (mass/volume) 3.5 g/dL 3.2-4.5 CALCIUM CORRECTED 9.2 mg/dL 8.5-10.1 Manual absolute plasma cell count - 04/11 04/28 10:45 Blood monocytes/100 leukocytes 11 % NR Manual blood segmented neutrophils/100 leukocytes 82 % NRG Manual blood lymphocytes/100 leukocytes 6 % NRG Manual eosinophils/100 leukocytes in nose 1 % NR Blood erythrocyte morphology finding identification NORMAL NR Influenza virus A and B antigen detectio n - 05/09/19 10:45 FLU RESULT NEGATIVE FOR INFLUENZA A AND B ANTIGENS BY IA BANNER Bacterial blood culture - 05/09/19 10:45 Bacterial blood culture NG NR Bacterial blood culture - 05/09/19 10:54 Bacterial blood culture NG NR Complete urinalysis with reflex to cultu re - 05/09/19 11:37 Urine color determination YELLOW NRG Urine clarity determination SL CLOUDY N RG Urine pH measurement by test strip 5.5 5-9 Specific gravity of urine by test strip 1.020 1.016-1.022 Urine protein assay by test strip, semi-quantitative NEGATIVE NEGATIVE Urine glucose detection by automated test strip NE GATIVE NEGATIVE Erythrocytes detection in urine sediment by light micr oscopy 1+ NEGATIVE Urine ketones detection by automated test strip TR BENITO NEGATIVE Urine nitrite detection by test strip NEGATIVE NEGATIVE Urine total bilirubin detection by test strip 1+ NEGATIVE Urine urobilinogen measurement by automated test strip (mass/volume) 1.0 mg/dL < = 1.0 Urine leukocyte esterase detection by dipstick NEG ATIVE NEGATIVE Automated urine sediment erythrocyte cou nt by microscopy (number/high power field) [HPF] NRG Automated urine sediment leukocyte count by microscopy (number/high power field) [HPF] NRG Bacteria detection in urine sediment by light microsco py TRACE NRG Squamous epithelial cells detection in u rine sediment by light microscopy 0-2 NRG Crystals detection in urine sediment by light microsco py PRESENT NRG Casts detection in urine sediment by light microscopy PRESENT NRG Mucus detection in urine sediment by light microscopy NEGATIVE NRG Complete urinalysis with reflex to culture CULTURE PENDING NRG Amorphous sediment detection in urine sediment by ligh t microscopy RARE MATHEUS URATES NRG Hyaline casts detection in urine sediment by light laila roscopy 5-10 NRG Bacterial urine culture - 05/09/19 11:37 Bacterial urine culture NG NRG Comprehensive metabolic panel - 05/10/19 05:15 Serum or plasma sodium measurement (moles/volume) 139 mmol/L 135-145 Serum or plasma potassium measurement (moles/volume) 3.7 mmol/L 3.6-5.0 Serum or plasma chloride measurement (moles/volume) 108 mmol/L 98-107 Carbon dioxide 20 mmol/L 21-32 Serum or plasma anion gap determination (moles/volume) 11 mmol/L 5-14 Serum or plasma urea nitrogen measurement (mass/volume ) 9 mg/dL 7-18 Serum or plasma creatinine measurement (mass/volume) 0.76 mg/dL 0.60-1.30 Serum or plasma urea nitrogen/creatinine mass ratio 12 NRG Serum or plasma creatinine measurement w ith calculation of estimated glomerular filtration rate > NRG Serum or plasma glucose measurement (mass/volume) 91 mg/dL 70-105 Serum or plasma calcium measurement (mass/volume) 8.3 mg/dL 8.5-10.1 Serum or plasma total bilirubin measurement (mass/volu me) 0.2 mg/dL 0.1-1.0 Serum or plasma alkaline phosphatase julian surement (enzymatic activity/volume) 75 U/L 40-136 Serum or plasma aspartate aminotransfera se measurement (enzymatic activity/volume) 17 U/L 5-34 Serum or plasma alanine aminotransferase measurement (enzymatic activity/volume) 21 U/L 0-55 Serum or plasma protein measurement (mass/volume) 5.5 g/dL 6.4-8.2 Serum or plasma albumin measurement (mass/volume) 3.1 g/dL 3.2-4.5 CALCIUM CORRECTED 9.0 mg/dL 8.5-10.1 Complete blood count (CBC) with automate d white blood cell (WBC) differential - 05/10/19 05:55 Blood leukocytes automated count (number/volume) 5.1 10*3/uL 4.3-11.0 Blood erythrocytes automated count (number/volume) 3.64 10*6/uL 4.35-5.85 Venous blood hemoglobin measurement (mass/volume) 11.0 g/dL 11.5-16.0 Blood hematocrit (volume fraction) 33 % 35-52 Automated erythrocyte mean corpuscular volume 91 [ foz_us] 80-99 Automated erythrocyte mean corpuscular h emoglobin (mass per erythrocyte) 30 pg 25-34 Automated erythrocyte mean corpuscular h emoglobin concentration measurement (mass/volume) 33 g/dL 32-36 Automated erythrocyte distribution width ratio 13. 5 % 10.0- 14.5 Automated blood platelet count (count/volume) 288 10*3/uL 130-400 Automated blood platelet mean volume measurement 10.9 [foz_us] 7.4-10.4 Automated blood neutrophils/100 leukocytes 77 % 42-75 Automated blood lymphocytes/100 leukocytes 8 % 12-44 Blood monocytes/100 leukocytes 12 % 0-12 Automated blood eosinophils/100 leukocytes 3 % 0-10 Automated blood basophils/100 leukocytes 0 % 0-10 Blood neutrophils automated count (number/volume) 3.9 10*3 1.8-7.8 Blood lymphocytes automated count (number/volume) 0.4 10*3 1.0-4.0 Blood monocytes automated count (number/volume) 0. 6 10*3 0.0-1.0 Automated eosinophil count 0.2 10*3/uL 0 .0-0.3 Automated blood basophil count (count/volume) 0.0 10*3/uL 0.0-0.1 Serum or plasma lithium measurement (mol es/volume) - 05/10/19 05:55 BNP PT 46.0 pg/mL <100.0 CULTURE, URINE - 05/22/19 13:32 CULTURE, URINE, ROUTINE SEE NOTE NRG Complete blood count (CBC) with automate d white blood cell (WBC) differential - 05/28/19 18:26 Blood leukocytes automated count (number/volume) 9.2 10*3/uL 4.3-11.0 Blood erythrocytes automated count (number/volume) 3.79 10*6/uL 4.35-5.85 Venous blood hemoglobin measurement (mass/volume) 11.3 g/dL 11.5-16.0 Blood hematocrit (volume fraction) 34 % 35-52 Automated erythrocyte mean corpuscular volume 89 [ foz_us] 80-99 Automated erythrocyte mean corpuscular h emoglobin (mass per erythrocyte) 30 pg 25-34 Automated erythrocyte mean corpuscular h emoglobin concentration measurement (mass/volume) 33 g/dL 32-36 Automated erythrocyte distribution width ratio 13. 8 % 10.0- 14.5 Automated blood platelet count (count/volume) 412 10*3/uL 130-400 Automated blood platelet mean volume measurement 10.3 [foz_us] 7.4-10.4 Automated blood neutrophils/100 leukocytes 79 % 42-75 Automated blood lymphocytes/100 leukocytes 6 % 12-44 Blood monocytes/100 leukocytes 11 % 0-12 Automated blood eosinophils/100 leukocytes 3 % 0-10 Automated blood basophils/100 leukocytes 0 % 0-10 Blood neutrophils automated count (number/volume) 7.3 10*3 1.8-7.8 Blood lymphocytes automated count (number/volume) 0.6 10*3 1.0-4.0 Blood monocytes automated count (number/volume) 1. 0 10*3 0.0-1.0 Automated eosinophil count 0.3 10*3/uL 0 .0-0.3 Automated blood basophil count (count/volume) 0.0 10*3/uL 0.0-0.1 PT panel in platelet poor plasma by coag ulation assay - 05/28/19 18:26 Prothrombin time (PT) in platelet poor plasma by coagu lation assay 15.3 s 12.2-14.7 INR in platelet poor plasma or blood by coagulation as say 1.2 0.8-1.4 Activated partial thromboplastin time (a PTT) in platelet poor plasma bycoagulation assay - 05/28/19 18:26 Activated partial thromboplastin time (a PTT) in platelet poor plasma bycoagulation assay 40 s 24-35 Blood lactic acid measurement (moles/vol ume) - 05/28/19 18:26 Blood lactic acid measurement (moles/volume) 2.36 mmol/L 0.50-2.00 Comprehensive metabolic panel - 05/28/19 18:26 Serum or plasma sodium measurement (moles/volume) 140 mmol/L 135-145 Serum or plasma potassium measurement (moles/volume) 3.5 mmol/L 3.6-5.0 Serum or plasma chloride measurement (moles/volume) 106 mmol/L 98-107 Carbon dioxide 21 mmol/L 21-32 Serum or plasma anion gap determination (moles/volume) 13 mmol/L 5-14 Serum or plasma urea nitrogen measurement (mass/volume ) 17 mg/dL 7-18 Serum or plasma creatinine measurement (mass/volume) 0.95 mg/dL 0.60-1.30 Serum or plasma urea nitrogen/creatinine mass ratio 18 NRG Serum or plasma creatinine measurement w ith calculation of estimated glomerular filtration rate 56 NRG Serum or plasma glucose measurement (mass/volume) 121 mg/dL 70-105 Serum or plasma calcium measurement (mass/volume) 8.5 mg/dL 8.5-10.1 Serum or plasma total bilirubin measurement (mass/volu me) 0.2 mg/dL 0.1-1.0 Serum or plasma alkaline phosphatase julian surement (enzymatic activity/volume) 187 U/L 40-136 Serum or plasma aspartate aminotransfera se measurement (enzymatic activity/volume) 58 U/L 5-34 Serum or plasma alanine aminotransferase measurement (enzymatic activity/volume) 49 U/L 0-55 Serum or plasma protein measurement (mass/volume) 5.8 g/dL 6.4-8.2 Serum or plasma albumin measurement (mass/volume) 3.1 g/dL 3.2-4.5 CALCIUM CORRECTED 9.2 mg/dL 8.5-10.1 Magnesium - 05/28/19 18:26 Magnesium 1.7 mg/dL 1.6-2.4 Serum or plasma troponin i.cardiac measu rement (mass/volume) - 05/28/19 18:26 Serum or plasma troponin i.cardiac measurement (mass/v olume) < ng/mL <0.028 Manual absolute plasma cell count - 05/10 12/27 18:26 Blood monocytes/100 leukocytes 10 % NRG Manual blood segmented neutrophils/100 leukocytes 83 % NRG Manual blood lymphocytes/100 leukocytes 6 % NRG Manual eosinophils/100 leukocytes in nose 1 % NRG Blood erythrocyte morphology finding identification NORMAL NRG Serum or plasma lithium measurement (mol es/volume) - 05/28/19 18:26 BNP PT 33.1 pg/mL <100.0 Bacterial blood culture - 05/28/19 18:26 Bacterial blood culture NG NRG Influenza virus A and B antigen detectio n - 05/28/19 18:30 FLU RESULT NEGATIVE FOR INFLUENZA A AND B ANTIGENS BY IA NRG Bacterial blood culture - 05/28/19 18:45 Bacterial blood culture NG NRG Complete urinalysis with reflex to cultu re - 05/28/19 20:20 Urine color determination DARK YELLOW N RG Urine clarity determination SL CLOUDY N RG Urine pH measurement by test strip 5.0 5-9 Specific gravity of urine by test strip 1.020 1.016-1.022 Urine protein assay by test strip, semi-quantitative TRACE NEGATIVE Urine glucose detection by automated test strip NE GATIVE NEGATIVE Erythrocytes detection in urine sediment by light micr oscopy TRACE-L NEGATIVE Urine ketones detection by automated test strip NE GATIVE NEGATIVE Urine nitrite detection by test strip NEGATIVE NEGATIVE Urine total bilirubin detection by test strip NEGA TIVE NEGATIVE Urine urobilinogen measurement by automated test strip (mass/volume) 0.2 mg/dL < = 1.0 Urine leukocyte esterase detection by dipstick NEG ATIVE NEGATIVE Automated urine sediment erythrocyte cou nt by microscopy (number/high power field) [HPF] NRG Automated urine sediment leukocyte count by microscopy (number/high power field) [HPF] NRG Bacteria detection in urine sediment by light microsco py TRACE NRG Crystals detection in urine sediment by light microsco py PRESENT NRG Casts detection in urine sediment by light microscopy PRESENT NRG Mucus detection in urine sediment by light microscopy SMALL NRG Complete urinalysis with reflex to culture CULTURE PENDING NRG Amorphous sediment detection in urine sediment by ligh t microscopy FEW MATHEUS URATES NRG Hyaline casts detection in urine sediment by light laila roscopy 0-2 NRG Bacterial urine culture - 05/28/19 20:20 Bacterial urine culture NG NRG Serum or plasma lactate measurement (mol es/volume) - 05/28/19 20:44 Serum or plasma lactate measurement (moles/volume) 1.31 mmol/L 0.50-2.00 Capillary blood glucose measurement by g lucometer (mass/volume) - 05/29/19 00:24 Capillary blood glucose measurement by glucometer (mas s/volume) 159 mg/dL 70-110 Complete blood count (CBC) with automate d white blood cell (WBC) differential - 05/29/19 05:20 Blood leukocytes automated count (number/volume) 5.2 10*3/uL 4.3-11.0 Blood erythrocytes automated count (number/volume) 3.64 10*6/uL 4.35-5.85 Venous blood hemoglobin measurement (mass/volume) 10.7 g/dL 11.5-16.0 Blood hematocrit (volume fraction) 33 % 35-52 Automated erythrocyte mean corpuscular volume 90 [ foz_us] 80-99 Automated erythrocyte mean corpuscular h emoglobin (mass per erythrocyte) 29 pg 25-34 Automated erythrocyte mean corpuscular h emoglobin concentration measurement (mass/volume) 33 g/dL 32-36 Automated erythrocyte distribution width ratio 13. 8 % 10.0- 14.5 Automated blood platelet count (count/volume) 343 10*3/uL 130-400 Automated blood platelet mean volume measurement 10.6 [foz_us] 7.4-10.4 Automated blood neutrophils/100 leukocytes 92 % 42-75 Automated blood lymphocytes/100 leukocytes 6 % 12-44 Blood monocytes/100 leukocytes 2 % 0-12 Automated blood eosinophils/100 leukocytes 0 % 0-10 Automated blood basophils/100 leukocytes 0 % 0-10 Blood neutrophils automated count (number/volume) 4.8 10*3 1.8-7.8 Blood lymphocytes automated count (number/volume) 0.3 10*3 1.0-4.0 Blood monocytes automated count (number/volume) 0. 1 10*3 0.0-1.0 Automated eosinophil count 0.0 10*3/uL 0 .0-0.3 Automated blood basophil count (count/volume) 0.0 10*3/uL 0.0-0.1 Comprehensive metabolic panel - 05/29/19 05:20 Serum or plasma sodium measurement (moles/volume) 138 mmol/L 135-145 Serum or plasma potassium measurement (moles/volume) 4.6 mmol/L 3.6-5.0 Serum or plasma chloride measurement (moles/volume) 108 mmol/L 98-107 Carbon dioxide 20 mmol/L 21-32 Serum or plasma anion gap determination (moles/volume) 10 mmol/L 5-14 Serum or plasma urea nitrogen measurement (mass/volume ) 15 mg/dL 7-18 Serum or plasma creatinine measurement (mass/volume) 0.79 mg/dL 0.60-1.30 Serum or plasma urea nitrogen/creatinine mass ratio 19 NRG Serum or plasma creatinine measurement w ith calculation of estimated glomerular filtration rate > NRG Serum or plasma glucose measurement (mass/volume) 172 mg/dL 70-105 Serum or plasma calcium measurement (mass/volume) 8.1 mg/dL 8.5-10.1 Serum or plasma total bilirubin measurement (mass/volu me) 0.2 mg/dL 0.1-1.0 Serum or plasma alkaline phosphatase julian surement (enzymatic activity/volume) 157 U/L 40-136 Serum or plasma aspartate aminotransfera se measurement (enzymatic activity/volume) 34 U/L 5-34 Serum or plasma alanine aminotransferase measurement (enzymatic activity/volume) 40 U/L 0-55 Serum or plasma protein measurement (mass/volume) 5.2 g/dL 6.4-8.2 Serum or plasma albumin measurement (mass/volume) 2.8 g/dL 3.2-4.5 CALCIUM CORRECTED 9.1 mg/dL 8.5-10.1 Methicillin resistant Staphylococcus aur eus (MRSA) screening culture - 05/29/19 16:42 Methicillin resistant Staphylococcus aureus (MRSA) scr eening culture NEG NRG Complete blood count (CBC) with automate d white blood cell (WBC) differential - 05/30/19 04:33 Blood leukocytes automated count (number/volume) 8.4 10*3/uL 4.3-11.0 Blood erythrocytes automated count (number/volume) 3.16 10*6/uL 4.35-5.85 Venous blood hemoglobin measurement (mass/volume) 9.5 g/dL 11.5-16.0 Blood hematocrit (volume fraction) 29 % 35-52 Automated erythrocyte mean corpuscular volume 91 [ foz_us] 80-99 Automated erythrocyte mean corpuscular h emoglobin (mass per erythrocyte) 30 pg 25-34 Automated erythrocyte mean corpuscular h emoglobin concentration measurement (mass/volume) 33 g/dL 32-36 Automated erythrocyte distribution width ratio 13. 7 % 10.0- 14.5 Automated blood platelet count (count/volume) 311 10*3/uL 130-400 Automated blood platelet mean volume measurement 10.7 [foz_us] 7.4-10.4 Automated blood neutrophils/100 leukocytes 84 % 42-75 Automated blood lymphocytes/100 leukocytes 7 % 12-44 Blood monocytes/100 leukocytes 9 % 0-12 Automated blood eosinophils/100 leukocytes 1 % 0-10 Automated blood basophils/100 leukocytes 0 % 0-10 Blood neutrophils automated count (number/volume) 7.0 10*3 1.8-7.8 Blood lymphocytes automated count (number/volume) 0.6 10*3 1.0-4.0 Blood monocytes automated count (number/volume) 0. 7 10*3 0.0-1.0 Automated eosinophil count 0.1 10*3/uL 0 .0-0.3 Automated blood basophil count (count/volume) 0.0 10*3/uL 0.0-0.1 Comprehensive metabolic panel - 05/30/19 04:33 Serum or plasma sodium measurement (moles/volume) 140 mmol/L 135-145 Serum or plasma potassium measurement (moles/volume) 3.7 mmol/L 3.6-5.0 Serum or plasma chloride measurement (moles/volume) 108 mmol/L 98-107 Carbon dioxide 22 mmol/L 21-32 Serum or plasma anion gap determination (moles/volume) 10 mmol/L 5-14 Serum or plasma urea nitrogen measurement (mass/volume ) 21 mg/dL 7-18 Serum or plasma creatinine measurement (mass/volume) 0.76 mg/dL 0.60-1.30 Serum or plasma urea nitrogen/creatinine mass ratio 28 NRG Serum or plasma creatinine measurement w ith calculation of estimated glomerular filtration rate > NRG Serum or plasma glucose measurement (mass/volume) 85 mg/dL 70-105 Serum or plasma calcium measurement (mass/volume) 8.6 mg/dL 8.5-10.1 Serum or plasma total bilirubin measurement (mass/volu me) 0.1 mg/dL 0.1-1.0 Serum or plasma alkaline phosphatase julian surement (enzymatic activity/volume) 128 U/L 40-136 Serum or plasma aspartate aminotransfera se measurement (enzymatic activity/volume) 38 U/L 5-34 Serum or plasma alanine aminotransferase measurement (enzymatic activity/volume) 48 U/L 0-55 Serum or plasma protein measurement (mass/volume) 4.8 g/dL 6.4-8.2 Serum or plasma albumin measurement (mass/volume) 2.7 g/dL 3.2-4.5 CALCIUM CORRECTED 9.6 mg/dL 8.5-10.1 Complete blood count (CBC) with automate d white blood cell (WBC) differential - 05/31/19 05:01 Blood leukocytes automated count (number/volume) 8.6 10*3/uL 4.3-11.0 Blood erythrocytes automated count (number/volume) 3.33 10*6/uL 4.35-5.85 Venous blood hemoglobin measurement (mass/volume) 9.9 g/dL 11.5-16.0 Blood hematocrit (volume fraction) 30 % 35-52 Automated erythrocyte mean corpuscular volume 91 [ foz_us] 80-99 Automated erythrocyte mean corpuscular h emoglobin (mass per erythrocyte) 30 pg 25-34 Automated erythrocyte mean corpuscular h emoglobin concentration measurement (mass/volume) 33 g/dL 32-36 Automated erythrocyte distribution width ratio 14. 2 % 10.0- 14.5 Automated blood platelet count (count/volume) 323 10*3/uL 130-400 Automated blood platelet mean volume measurement 10.6 [foz_us] 7.4-10.4 Automated blood neutrophils/100 leukocytes 80 % 42-75 Automated blood lymphocytes/100 leukocytes 5 % 12-44 Blood monocytes/100 leukocytes 10 % 0-12 Automated blood eosinophils/100 leukocytes 5 % 0-10 Automated blood basophils/100 leukocytes 0 % 0-10 Blood neutrophils automated count (number/volume) 6.9 10*3 1.8-7.8 Blood lymphocytes automated count (number/volume) 0.4 10*3 1.0-4.0 Blood monocytes automated count (number/volume) 0. 8 10*3 0.0-1.0 Automated eosinophil count 0.5 10*3/uL 0 .0-0.3 Automated blood basophil count (count/volume) 0.0 10*3/uL 0.0-0.1 Whole blood basic metabolic panel - 05/11 05/29 05:01 Serum or plasma sodium measurement (moles/volume) 139 mmol/L 135-145 Serum or plasma potassium measurement (moles/volume) 4.0 mmol/L 3.6-5.0 Serum or plasma chloride measurement (moles/volume) 105 mmol/L 98-107 Carbon dioxide 23 mmol/L 21-32 Serum or plasma anion gap determination (moles/volume) 11 mmol/L 5-14 Serum or plasma urea nitrogen measurement (mass/volume ) 17 mg/dL 7-18 Serum or plasma creatinine measurement (mass/volume) 0.69 mg/dL 0.60-1.30 Serum or plasma urea nitrogen/creatinine mass ratio 25 NRG Serum or plasma creatinine measurement w ith calculation of estimated glomerular filtration rate > NRG Serum or plasma glucose measurement (mass/volume) 84 mg/dL 70-105 Serum or plasma calcium measurement (mass/volume) 8.4 mg/dL 8.5-10.1 Complete blood count (CBC) with automate d white blood cell (WBC) differential - 06/01/19 04:32 Blood leukocytes automated count (number/volume) 8.3 10*3/uL 4.3-11.0 Blood erythrocytes automated count (number/volume) 3.49 10*6/uL 4.35-5.85 Venous blood hemoglobin measurement (mass/volume) 10.4 g/dL 11.5-16.0 Blood hematocrit (volume fraction) 32 % 35-52 Automated erythrocyte mean corpuscular volume 91 [ foz_us] 80-99 Automated erythrocyte mean corpuscular h emoglobin (mass per erythrocyte) 30 pg 25-34 Automated erythrocyte mean corpuscular h emoglobin concentration measurement (mass/volume) 33 g/dL 32-36 Automated erythrocyte distribution width ratio 13. 8 % 10.0- 14.5 Automated blood platelet count (count/volume) 308 10*3/uL 130-400 Automated blood platelet mean volume measurement 10.9 [foz_us] 7.4-10.4 Automated blood neutrophils/100 leukocytes 76 % 42-75 Automated blood lymphocytes/100 leukocytes 5 % 12-44 Blood monocytes/100 leukocytes 11 % 0-12 Automated blood eosinophils/100 leukocytes 8 % 0-10 Automated blood basophils/100 leukocytes 0 % 0-10 Blood neutrophils automated count (number/volume) 6.3 10*3 1.8-7.8 Blood lymphocytes automated count (number/volume) 0.4 10*3 1.0-4.0 Blood monocytes automated count (number/volume) 0. 9 10*3 0.0-1.0 Automated eosinophil count 0.7 10*3/uL 0 .0-0.3 Automated blood basophil count (count/volume) 0.0 10*3/uL 0.0-0.1 Comprehensive metabolic panel - 06/01/19 04:32 Serum or plasma sodium measurement (moles/volume) 139 mmol/L 135-145 Serum or plasma potassium measurement (moles/volume) 4.1 mmol/L 3.6-5.0 Serum or plasma chloride measurement (moles/volume) 104 mmol/L 98-107 Carbon dioxide 26 mmol/L 21-32 Serum or plasma anion gap determination (moles/volume) 9 mmol/L 5-14 Serum or plasma urea nitrogen measurement (mass/volume ) 15 mg/dL 7-18 Serum or plasma creatinine measurement (mass/volume) 0.70 mg/dL 0.60-1.30 Serum or plasma urea nitrogen/creatinine mass ratio 21 NRG Serum or plasma creatinine measurement w ith calculation of estimated glomerular filtration rate > NRG Serum or plasma glucose measurement (mass/volume) 83 mg/dL 70-105 Serum or plasma calcium measurement (mass/volume) 8.3 mg/dL 8.5-10.1 Serum or plasma total bilirubin measurement (mass/volu me) 0.3 mg/dL 0.1-1.0 Serum or plasma alkaline phosphatase julian surement (enzymatic activity/volume) 144 U/L 40-136 Serum or plasma aspartate aminotransfera se measurement (enzymatic activity/volume) 34 U/L 5-34 Serum or plasma alanine aminotransferase measurement (enzymatic activity/volume) 38 U/L 0-55 Serum or plasma protein measurement (mass/volume) 5.1 g/dL 6.4-8.2 Serum or plasma albumin measurement (mass/volume) 2.8 g/dL 3.2-4.5 CALCIUM CORRECTED 9.3 mg/dL 8.5-10.1 Complete blood count (CBC) with automate d white blood cell (WBC) differential - 06/02/19 05:25 Blood leukocytes automated count (number/volume) 7.7 10*3/uL 4.3-11.0 Blood erythrocytes automated count (number/volume) 3.38 10*6/uL 4.35-5.85 Venous blood hemoglobin measurement (mass/volume) 10.1 g/dL 11.5-16.0 Blood hematocrit (volume fraction) 31 % 35-52 Automated erythrocyte mean corpuscular volume 91 [ foz_us] 80-99 Automated erythrocyte mean corpuscular h emoglobin (mass per erythrocyte) 30 pg 25-34 Automated erythrocyte mean corpuscular h emoglobin concentration measurement (mass/volume) 33 g/dL 32-36 Automated erythrocyte distribution width ratio 13. 8 % 10.0- 14.5 Automated blood platelet count (count/volume) 297 10*3/uL 130-400 Automated blood platelet mean volume measurement 10.9 [foz_us] 7.4-10.4 Automated blood neutrophils/100 leukocytes 79 % 42-75 Automated blood lymphocytes/100 leukocytes 6 % 12-44 Blood monocytes/100 leukocytes 9 % 0-12 Automated blood eosinophils/100 leukocytes 6 % 0-10 Automated blood basophils/100 leukocytes 0 % 0-10 Blood neutrophils automated count (number/volume) 6.1 10*3 1.8-7.8 Blood lymphocytes automated count (number/volume) 0.5 10*3 1.0-4.0 Blood monocytes automated count (number/volume) 0. 7 10*3 0.0-1.0 Automated eosinophil count 0.4 10*3/uL 0 .0-0.3 Automated blood basophil count (count/volume) 0.0 10*3/uL 0.0-0.1 Comprehensive metabolic panel - 06/02/19 05:25 Serum or plasma sodium measurement (moles/volume) 139 mmol/L 135-145 Serum or plasma potassium measurement (moles/volume) 3.8 mmol/L 3.6-5.0 Serum or plasma chloride measurement (moles/volume) 103 mmol/L 98-107 Carbon dioxide 26 mmol/L 21-32 Serum or plasma anion gap determination (moles/volume) 10 mmol/L 5-14 Serum or plasma urea nitrogen measurement (mass/volume ) 12 mg/dL 7-18 Serum or plasma creatinine measurement (mass/volume) 0.70 mg/dL 0.60-1.30 Serum or plasma urea nitrogen/creatinine mass ratio 17 NRG Serum or plasma creatinine measurement w ith calculation of estimated glomerular filtration rate > NRG Serum or plasma glucose measurement (mass/volume) 84 mg/dL 70-105 Serum or plasma calcium measurement (mass/volume) 8.5 mg/dL 8.5-10.1 Serum or plasma total bilirubin measurement (mass/volu me) 0.3 mg/dL 0.1-1.0 Serum or plasma alkaline phosphatase julian surement (enzymatic activity/volume) 152 U/L 40-136 Serum or plasma aspartate aminotransfera se measurement (enzymatic activity/volume) 37 U/L 5-34 Serum or plasma alanine aminotransferase measurement (enzymatic activity/volume) 48 U/L 0-55 Serum or plasma protein measurement (mass/volume) 5.1 g/dL 6.4-8.2 Serum or plasma albumin measurement (mass/volume) 2.8 g/dL 3.2-4.5 CALCIUM CORRECTED 9.5 mg/dL 8.5-10.1 Serum or plasma lithium measurement (mol es/volume) - 06/02/19 05:25 BNP PT 76.1 pg/mL <100.0 Complete blood count (CBC) with automate d white blood cell (WBC) differential - 06/03/19 05:15 Blood leukocytes automated count (number/volume) 7.3 10*3/uL 4.3-11.0 Blood erythrocytes automated count (number/volume) 3.53 10*6/uL 4.35-5.85 Venous blood hemoglobin measurement (mass/volume) 10.6 g/dL 11.5-16.0 Blood hematocrit (volume fraction) 32 % 35-52 Automated erythrocyte mean corpuscular volume 91 [ foz_us] 80-99 Automated erythrocyte mean corpuscular h emoglobin (mass per erythrocyte) 30 pg 25-34 Automated erythrocyte mean corpuscular h emoglobin concentration measurement (mass/volume) 33 g/dL 32-36 Automated erythrocyte distribution width ratio 13. 8 % 10.0- 14.5 Automated blood platelet count (count/volume) 306 10*3/uL 130-400 Automated blood platelet mean volume measurement 10.7 [foz_us] 7.4-10.4 Automated blood neutrophils/100 leukocytes 78 % 42-75 Automated blood lymphocytes/100 leukocytes 8 % 12-44 Blood monocytes/100 leukocytes 9 % 0-12 Automated blood eosinophils/100 leukocytes 5 % 0-10 Automated blood basophils/100 leukocytes 0 % 0-10 Blood neutrophils automated count (number/volume) 5.7 10*3 1.8-7.8 Blood lymphocytes automated count (number/volume) 0.6 10*3 1.0-4.0 Blood monocytes automated count (number/volume) 0. 7 10*3 0.0-1.0 Automated eosinophil count 0.4 10*3/uL 0 .0-0.3 Automated blood basophil count (count/volume) 0.0 10*3/uL 0.0-0.1 Comprehensive metabolic panel - 06/03/19 05:15 Serum or plasma sodium measurement (moles/volume) 139 mmol/L 135-145 Serum or plasma potassium measurement (moles/volume) 3.8 mmol/L 3.6-5.0 Serum or plasma chloride measurement (moles/volume) 103 mmol/L 98-107 Carbon dioxide 28 mmol/L 21-32 Serum or plasma anion gap determination (moles/volume) 8 mmol/L 5-14 Serum or plasma urea nitrogen measurement (mass/volume ) 13 mg/dL 7-18 Serum or plasma creatinine measurement (mass/volume) 0.72 mg/dL 0.60-1.30 Serum or plasma urea nitrogen/creatinine mass ratio 18 NRG Serum or plasma creatinine measurement w ith calculation of estimated glomerular filtration rate > NRG Serum or plasma glucose measurement (mass/volume) 90 mg/dL 70-105 Serum or plasma calcium measurement (mass/volume) 8.6 mg/dL 8.5-10.1 Serum or plasma total bilirubin measurement (mass/volu me) 0.2 mg/dL 0.1-1.0 Serum or plasma alkaline phosphatase julian surement (enzymatic activity/volume) 145 U/L 40-136 Serum or plasma aspartate aminotransfera se measurement (enzymatic activity/volume) 32 U/L 5-34 Serum or plasma alanine aminotransferase measurement (enzymatic activity/volume) 44 U/L 0-55 Serum or plasma protein measurement (mass/volume) 5.3 g/dL 6.4-8.2 Serum or plasma albumin measurement (mass/volume) 3.0 g/dL 3.2-4.5 CALCIUM CORRECTED 9.4 mg/dL 8.5-10.1 Complete blood count (CBC) with automate d white blood cell (WBC) differential - 07/14/19 12:00 Blood leukocytes automated count (number/volume) 8.3 10*3/uL 4.3-11.0 Blood erythrocytes automated count (number/volume) 3.66 10*6/uL 4.35-5.85 Venous blood hemoglobin measurement (mass/volume) 11.2 g/dL 11.5-16.0 Blood hematocrit (volume fraction) 33 % 35-52 Automated erythrocyte mean corpuscular volume 89 [ foz_us] 80-99 Automated erythrocyte mean corpuscular h emoglobin (mass per erythrocyte) 31 pg 25-34 Automated erythrocyte mean corpuscular h emoglobin concentration measurement (mass/volume) 34 g/dL 32-36 Automated erythrocyte distribution width ratio 15. 6 % 10.0- 14.5 Automated blood platelet count (count/volume) 315 10*3/uL 130-400 Automated blood platelet mean volume measurement 10.5 [foz_us] 7.4-10.4 Automated blood neutrophils/100 leukocytes 75 % 42-75 Automated blood lymphocytes/100 leukocytes 9 % 12-44 Blood monocytes/100 leukocytes 8 % 0-12 Automated blood eosinophils/100 leukocytes 8 % 0-10 Automated blood basophils/100 leukocytes 1 % 0-10 Blood neutrophils automated count (number/volume) 6.2 10*3 1.8-7.8 Blood lymphocytes automated count (number/volume) 0.8 10*3 1.0-4.0 Blood monocytes automated count (number/volume) 0. 6 10*3 0.0-1.0 Automated eosinophil count 0.6 10*3/uL 0 .0-0.3 Automated blood basophil count (count/volume) 0.0 10*3/uL 0.0-0.1 Streptococcus pyogenes antigen detection - 07/14/19 12:00 Streptococcus pyogenes antigen detection NEGATIVE NEGATIVE PT panel in platelet poor plasma by coag ulation assay - 07/14/19 12:00 Prothrombin time (PT) in platelet poor plasma by coagu lation assay 14.1 s 12.2-14.7 INR in platelet poor plasma or blood by coagulation as say 1.1 0.8-1.4 Activated partial thromboplastin time (a PTT) in platelet poor plasma bycoagulation assay - 07/14/19 12:00 Activated partial thromboplastin time (a PTT) in platelet poor plasma bycoagulation assay 35 s 24-35 Fibrin D-dimer FEU measurement in platel et poor plasma (mass/volume) - 07/14/19 12:00 Fibrin D-dimer FEU measurement in platelet poor plasma (mass/volume) 0.52 ug/mL 0.00-0.49 Erythrocyte sedimentation rate by jesse gren method - 07/14/19 12:00 Erythrocyte sedimentation rate by westergren method 33 mm 0- 30 Blood lactic acid measurement (moles/vol ume) - 07/14/19 12:00 Blood lactic acid measurement (moles/volume) 2.03 mmol/L 0.50-2.00 Comprehensive metabolic panel - 07/14/19 12:00 Serum or plasma sodium measurement (moles/volume) 140 mmol/L 135-145 Serum or plasma potassium measurement (moles/volume) 3.2 mmol/L 3.6-5.0 Serum or plasma chloride measurement (moles/volume) 107 mmol/L 98-107 Carbon dioxide 20 mmol/L 21-32 Serum or plasma anion gap determination (moles/volume) 13 mmol/L 5-14 Serum or plasma urea nitrogen measurement (mass/volume ) 15 mg/dL 7-18 Serum or plasma creatinine measurement (mass/volume) 1.45 mg/dL 0.60-1.30 Serum or plasma urea nitrogen/creatinine mass ratio 10 NRG Serum or plasma creatinine measurement w ith calculation of estimated glomerular filtration rate 35 NRG Serum or plasma glucose measurement (mass/volume) 99 mg/dL 70-105 Serum or plasma calcium measurement (mass/volume) 8.6 mg/dL 8.5-10.1 Serum or plasma total bilirubin measurement (mass/volu me) 0.3 mg/dL 0.1-1.0 Serum or plasma alkaline phosphatase julian surement (enzymatic activity/volume) 125 U/L 40-136 Serum or plasma aspartate aminotransfera se measurement (enzymatic activity/volume) 17 U/L 5-34 Serum or plasma alanine aminotransferase measurement (enzymatic activity/volume) 11 U/L 0-55 Serum or plasma protein measurement (mass/volume) 5.9 g/dL 6.4-8.2 Serum or plasma albumin measurement (mass/volume) 3.5 g/dL 3.2-4.5 CALCIUM CORRECTED 9.0 mg/dL 8.5-10.1 Serum ragweed IgE antibody assay - 07/13 12:00 Serum ragweed IgE antibody assay 297 U/L 125-220 PROCALCITONIN (PCT) - 07/14/19 12:00 PROCALCITONIN (PCT) 0.12 ng/mL <0.10 Serum or plasma lithium measurement (mol es/volume) - 07/14/19 12:00 BNP PT 177.0 pg/mL <100.0 Serum or plasma troponin i.cardiac measu rement (mass/volume) - 07/14/19 12:00 Serum or plasma troponin i.cardiac measurement (mass/v olume) 0.109 ng/mL <0.028 Myoglobin, serum - 07/14/19 12:00 Myoglobin, serum 139.3 ng/mL 10.0-92.0 Serum or plasma C reactive protein measu rement (mass/volume) - 07/14/19 12:00 Serum or plasma C reactive protein measurement (mass/v olume) 2.54 mg/dL 0.00-0.50 Influenza virus A and B antigen detectio n - 07/14/19 12:00 FLU RESULT NEGATIVE FOR INFLUENZA A AND B ANTIGENS BY IA NRG Serum or plasma lactate measurement (mol es/volume) - 07/14/19 14:20 Serum or plasma lactate measurement (moles/volume) 1.17 mmol/L 0.50-2.00 Encounters ACCT No. Visit Date/Time Discharge Status Pt. Type Provider Facility Loc./Unit Complaint [id number] 07/03/2019 13:30:00 07/03/2019 23:59: 59 [facility] Outpatient ALETA CROSS [facility] [id number] 05/22/2019 11:40:00 Document Registration [id number] 01/06/2019 13:20:00 Document Registration [id number] 05/28/2019 19:45:00 13:54:00 DIS Inpatient GISELE FOUNTAIN MD [facility] 4TH PERSISTENT PNEUMONIA W/ HYPOXIA, SEPSIS [id number] 05/09/2019 12:20:00 14:28:00 DIS Inpatient LILIANA MAXWELL MD [facility] 4TH BILAT PNEUMONIA [id number] 01/21/2019 08:32:00 00:01:00 DIS Outpatient HILDA PARTIDA APRN [facility] PUL OTHER NONSPECIF IC ABN FINDING OF LUNG FIELD [id number] 01/07/2019 09:30:00 00:01:00 DIS Outpatient HILDA PARTIDA [employer] [facility] PUL OTHER NONSPECIF IC ABN FINDING OF LUNG FIELD [id number] 01/08/2019 13:18:00 16:01:00 DIS Emergency SHONDA HARRISON MD [facility] ER FALL [id number] 12/11/2018 09:24:00 23:59:59 CLS Outpatient HILDA PARTIDA APRN [facility] RAD COUGH, DYSPNEA [id number] 11/07/2018 14:27:00 23:59:59 CLS Outpatient HILDA PARTIDA APRN [facility] RT COUGH, DYSPNEA [id number] 10/01/2018 10:16:00 23:59:59 CLS Outpatient HILDA PARTIDA APRN [facility] PUL PULIMONARY STRE SS TEST [id number] 09/30/2018 09:18:00 23:59:59 CLS Outpatient HILDA PARTIDA APRN [facility] PUL [id number] 09/14/2018 20:42:00 00:14:00 DIS Emergency SHONDA HARRISON MD [facility] ER COUGHING, FEVER, WEAK [id number] 09/11/2018 13:24:00 23:59:59 CLS Outpatient ALETA CROSS [employer] [facility] RAD PNEUMONIA OF DAWNA TH LOWER LOBES DUE TO INFECTIOUS [id number] 08/12/2018 09:35:00 23:59:59 CLS Outpatient ROWENA DUMONT [facility] LAB HYPERTENSIO N [id number] 03/04/2018 07:28:00 11:30:00 DIS Outpatient DONNA SIMMONS MD [facility] ENDO WT LOSS/HX POLYPS/FAMI LY HX COLON CA/ [id number] 02/25/2018 05:37:00 018 13:57:00 DIS Outpatient DONNA SIMMONS MD [facility] PREOP COLONOSCOPY/EGD [id number] 06/18/2017 06:32:00 018 23:59:59 CLS Outpatient ARASH CAI MD [facility] CARD J44.9 [id number] 06/14/2017 13:10:00 018 23:59:59 CLS Outpatient ARASH CAI MD [facility] CARD J44.9 [id number] 05/15/2017 08:29:00 018 23:59:59 CLS Outpatient MUMTAZ SPENCER, CYNTHIA Mckeon [facility] RAD R20.8, R23.8 [id number] 03/19/2015 09:25:00 015 12:50:00 DIS Outpatient DONNA SIMMONS MD [facility] LESION RT.JAW [id number] 03/17/2015 11:39:00 015 23:59:59 CLS Outpatient DONNA SIMMONS MD [facility] PREOP LESION RT.JAW [id number] 09/14/2014 07:24:00 015 13:06:00 DIS Outpatient TIEN DPM, COOPER Q [facility] HAMMERTOE 2ND 5TH TOE S LEFT FOOT [id number] 09/09/2014 13:58:00 015 23:59:59 CLS Outpatient TIEN DPM, COOPER Q [facility] PREOP HAMMERTOE 2ND 5TH TOE S LEFT FOOT [id number] 12/31/2013 08:18:00 014 13:40:00 DIS Outpatient DONNA SIMMONS MD [facility] LIPOMA LEFT DELTOID RE GION [id number] 12/25/2013 10:29:00 014 23:59:59 CLS Outpatient DONNA SIMMONS MD [facility] PREOP LIPOMA LEFT DELTOID RE GION [id number] 12/17/2013 12:43:00 23:59:59 CLS Outpatient DONNA SIMMONS MD [facility] RAD LT SHOULDER MASS [id number] 07/14/2019 14:20:[address] Inpatient VIANEY BREWSTER DO [facility] ICU PNEUMONIA,COPD,A-FIB,CP,COVI D ISOLATION [id number] 06/26/2014 10:13:00 Document Registration [id number] 06/23/2014 11:28:00 Document Registration [id number] 08/25/2018 21:05:00 08/25/2018 23:05: 00 DIS Outpatient JENIFER FREEMAN [id number] 05/31/2018 09:30:00 05/31/2018 11:15: 00 [id number] 05/07/2018 09:00:00 05/07/2018 23:59: 00 DIS Outpatient CYNTHIA PANDYA [id number] 03/28/2018 11:16:00 03/28/2018 23:59: 00 DIS Outpatient CYNTHIA PANDYA [id number] 12/24/2017 12:28:00 12/24/2017 16:00: 00 [facility] [id number] 11/01/2017 09:05:00 11/01/2017 23:59: 00 DIS Outpatient CYNTHIA PANDYA [id number] 09/06/2017 19:36:00 09/06/2017 23:05: 00 [facility] [id number] 08/22/2017 09:38:00 08/22/2017 23:59: 00 DIS Outpatient ARASH CAI [id number] 08/01/2017 09:04:00 08/01/2017 23:59: 00 DIS Outpatient CYNTHIA PANDYA [id number] 2017 10:51:00 2017 23:59: 00 DIS Outpatient CYNTHIA PANDYA [id number] 03/27/2017 12:06:00 03/27/2017 23:59: 00 DIS Outpatient CYNTHIA PANDYA [id number] 02/12/2017 10:58:00 02/12/2017 23:59: 00 DIS Outpatient CYNTHIA PANDYA [id number] 09/06/2016 08:43:00 09/06/2016 23:59: 00 DIS Outpatient Modesto Ba [id number] 2016 10:45:00 2016 23:59: 00 DIS Outpatient CYNTHIA PANDYA [id number] 05/01/2016 10:45:00 05/01/2016 23:59: 00 DIS Outpatient CYNTHIA PANDYA [id number] 03/04/2016 12:03:00 03/04/2016 23:59: 00 DIS Outpatient Chris Borden [id number] 05/31/2018 09:52:55 Document Registration [id number] 09/06/2017 20:11:35 Document Registration [id number] 09/18/2016 15:13:15 Document Registration
[2019-07-14] MEDS ORDERED: CLON0.5T PO (15:41)
--- NOTE | 2019-07-14 15:44 | NUR ---
UNABLE TO SPEAK WITH THE PT AT THIS TIME. USING THE MED LIST IN HER CHART, GOING THRU THE EXT MED HISTORY, CALLED [facility] AND DR HERNANDEZ OFFICE TO COMPLETE THE MED REC ADVAIR 250/50 IS LISTED ON THE PATIENTS HOME MEDS HOWEVER THE PT HAS NOT PICKED THIS UP SINCE 10-16-2018- DUE TO THIS REASON I LEFT IT OFF THE MED REC 05-07-2019 CLONAZEPAM 0.5MG #90(THIS WAS NOT LISTED ON THE EXT MED HISTORY) OTC MEDS: ASPIRIN 325MG BISACODYL Addendum: 07/14/19 at 1548 by WINDY ANDRE CPhT WHEN THE PT WAS HERE IN MAY SHE WAS DISCHARGED WITH CELEXA 10MG- HOWEVER JUAN JOSE CHECKED THEIR RECORDS AND THAT MEDICATION WAS REFUSED BY THE PATIENT.
[2019-07-14 15:45] VITALS: BP 99/89
[2019-07-14] MEDS: NS IV 1000 ML 1,000 ML IV SCH (15:51)
[2019-07-14 16:00] VITALS: BP 128/115
--- NOTE | 2019-07-14 16:59 | History & Physical-Hospitalist ---
History of Present Illness HPI/Chief Complaint CC: Dyspnea with new onset AF w/RVR HPI: This is an 83yoWF clinic patient of [facility] well known to me from monthly hospital admits for recurrent PNA and pulmonary fibrosis and CHF and dementia with severe presbycusis who presents to the ER after 2 days of progressive weakness and dyspnea. ER w/u revealed new onset AF and elevated BNP with pulmonary edema on CXR. Cardiology and Pulmonology have been consulted. Patient admitted to CCU for close monitoring. Elevated troponin and elevated BNP will be managed closely. Patient had dementia and very [place] and in the midst of PPE it is very difficult to carry on a conversation. She is tolerating CLD and I will advance diet to soft since she really can't eat regular diet without receiving her dentures from her family since they were not planning on her being admitted. Source: patient, RN/MD, old records Exam Limitations: clinical condition Date Seen 07/14/19 Time Seen by a Provider: 17:15 Attending Physician Keyla Quiroz DO [facility] Referring Physician Date of Admission Jul 14, 2019 at 14:20 Home Medications & Allergies Home Medications Reviewed patient Home Medication Reconciliation performed by pharmacy medication reconciliations coating technician and/or nursing. Patients Allergies have been reviewed. Allergies Allergies Coded Allergies Penicillins (Unverified Allergy, Unknown, 02/25/18) sulfamethoxazole (Unverified Allergy, Unknown, 02/25/18) trimethoprim (Unverified Allergy, Unknown, 02/25/18) Past Fcrvycy-Ufkcqj-Vhegao Hx Past Med/Social Hx: Reviewed Nursing Past Med/Soc Hx, Reviewed and Corrections made Patient Social History Marrital Status: single Employed/Student: retired Alcohol Use: Denies Use Recreational Drug Use: No Smoking Status: Current Everyday Smoker Type Used: Cigarettes 2nd Hand Smoke Exposure: Yes Recent Foreign Travel: No Contact w/other who traveled: No Recent Hopitalizations: No Recent Infectious Disease Expo: No Immunizations Up To Date Tetanus Booster (TDap): Unknown Pediatric: Yes Date of Pneumonia Vaccine: Feb 03, 2019 Date of Influenza Vaccine: Feb 03, 2019 Seasonal Allergies Seasonal Allergies: Yes Past Medical History Surgeries: Eye Surgery, Orthopedic Cardiac: High Cholesterol, Hypertension Neurological: Stroke Reproductive: No Sexually Transmitted Disease: Yes HIV/AIDS: No Gastrointestinal: Gastroesophageal Reflux, Chronic Constipation, Dive rticulosis, Polyps, Hiatal Hernia Musculoskeletal: Arthritis HEENT: Cataract Loss of Vision: Denies Hearing Impairment: Hard of Hearing Cancer: Skin Did You Recieve Any Treatments: Yes What Type of Treatment Did You: Surgical Intervention History of Blood Disorders: No Adverse Reaction to Blood Hunter: No (N/A) Family History Colon cancer No Pertinent Family Hx PSH; -EGD/COLONOSCOPIES--POLYPECTOMIES--LAST SCOPES 02/2018--GERD/HIATAL HERNIA, DIVERTICULAR DISEASE -MULTIPLE SKIN LESIONS REMOVED, SOME CANCEROUS' -FOOT SURGERY -ANKLE SURGERY -TOENAIL SURGERY -LIPOMAS REMOVED -CATARACTS Review of Systems Constitutional: see HPI Respiratory: cough, short of breath Cardiovascular: chest pain, palpitations Physical Exam Physical Exam Vital Signs Vital Signs - First Documented Capillary Refill : Less Than 3 Seconds Height, Weight, BMI Height: 5'5.00" Weight: 142lbs. 8.0oz. 67.689738zm; 30.00 BMI Method:Stated General Appearance: No Apparent Distress, Chronically ill Eyes: Right Eye Normal Inspection, Right Eye PERRL HEENT: PERRL/EOMI, Normal ENT Inspection, Pharynx Normal, Moist Mucous Membranes Neck: Full Range of Motion, Normal Inspection, Non Tender Respiratory: Chest Non Tender, No Accessory Muscle Use, No Respiratory Distress, Crackles, Decreased Breath Sounds, Rales Cardiovascular: No Edema, No Gallop, No JVD, No Murmur, Normal Peripheral Pulses, Irregularly Irregular, Tachycardia Gastrointestinal: Normal Bowel Sounds, No Organomegaly, No Pulsatile Mass, Non Tender, Soft Back: Normal Inspection, No CVA Tenderness, No Vertebral Tenderness Extremity: Normal Capillary Refill, Normal Inspection, Normal Range of Motion, Non Tender, No Calf Tenderness, No Pedal Edema Neurologic/Psychiatric: Alert, Oriented x3, No Motor/Sensory Deficits, Normal Mood/Affect, Disoriented Skin: Normal Color, Warm/Dry Lymphatic: No Adenopathy Results Results/Procedures Labs Laboratory Tests 07/14/19 12:00 Patient resulted labs reviewed. Assessment/Plan Admission Diagnosis Assessment: Dyspnea Pulmonary fibrosis Elevated troponin Elevated BNP Dementia Presbycusis Frail status Smoker Plan: Cardiology and Pulmonology consultations are appreciated Monitor AF w/RVR Admission Status: Observation Diagnosis/Problems Diagnosis/Problems (1) Dyspnea (2) Pulmonary fibrosis (3) Dementia (4) Presbycusis of both ears (5) Smoker (6) Atrial fibrillation with rapid ventricular response (7) Elevated brain natriuretic peptide (BNP) level Clinical Quality Measures AMI/AHF: ASA po Prior to arrival: KEYLA Martinez DO Jul 14, 2019 16:59
[2019-07-14 17:43] VITALS: BP 128/115
[2019-07-14] MEDS: ALBUTEROL/IPRATROP (COMBIVENT RESPIMAT) 4 GM INHALER IH SCH ×2 (18:13→20:15)
--- NOTE | 2019-07-14 18:59 | Pulmonary Consultation ---
History of Present Illness History of Present Illness Date Seen by Provider: Jul 14, 2019 Time Seen by Provider: 08:25 Date of Admission History of Present Illness 83yo with recent hospitalization she is a poor historian and has hx of COPD, and CHF presented to ED secondary to worsening CP that started the morning prior to arrival. SHe has had no recent travel. Influeza and strep are negative. COVID is pending. Allergies and Home Medications Allergies Coded Allergies: Penicillins (Unverified Allergy, Unknown, 02/25/18) sulfamethoxazole (Unverified Allergy, Unknown, 02/25/18) trimethoprim (Unverified Allergy, Unknown, 02/25/18) Home Medications Albuterol Sulfate 1 Puff Puff, 2 PUFF INH QID PRN for SHORTNESS OF BREATH, (Reported) Apixaban 5 Mg Tablet, 5 MG PO BID Prescribed by: VIANEY BREWSTER on 07/16/191202 Aspirin 81 Mg Tab.chew, 81 MG PO DAILY@0900 Prescribed by: VIANEY BREWSTER on 07/16/19 120 Atorvastatin Calcium 10 Mg Tablet, 10 MG PO HS, (Reported) Azithromycin 250 Mg Tablet, 250 MG PO DAILY@1300 Prescribed by: VIANEY BREWSTER on 07/16/19 1203 Bisacodyl 5 Mg Tablet.dr, 10 MG PO DAILY, (Reported) Cefdinir 300 Mg Capsule, 300 MG PO BID Prescribed by: VIANEY BREWSTER on 07/16/191202 Clonazepam 0.5 Mg Tablet, 0.5 MG PO TID PRN for ANXIETY, (Reported) Diltiazem HCl 180 Mg Cap.er.24h, 180 MG PO DAILY Prescribed by: VIANEY BREWSTER on 07/16/191202 Furosemide 20 Mg Tablet, 20 MG PO DAILY Prescribed by: VIANEY BREWSTER on 07/16/191202 Ipratropium/Albuterol Sulfate 3 Ml Ampul.neb, 3 ML NEB QID, (Reported) Meloxicam 15 Mg Tablet, 15 MG PO DAILY PRN for INFLAMMATION, (Reported) Mirtazapine 15 Mg Tablet, 15 MG PO HS, (Reported) Montelukast Sodium 4 Mg Tab.chew, 4 MG PO HS, (Reported) Omeprazole 40 Mg Capsule.dr, 40 MG PO DAILY, (Reported) Potassium Chloride 10 Meq Tab.er.prt, 10 MEQ PO DAILY Prescribed by: VIANEY BREWSTER on 07/16/19 1203 Primidone 50 Mg Tablet, 200 MG PO BID, (Reported) TAKES 4 (50MG) TABS TWICE DAILY Past Bapmfmd-Ilnivg-Zovcwy Hx Past Med/Social Hx: Reviewed Nursing Past Med/Soc Hx Patient Social History Alcohol Use: Denies Use Recreational Drug Use: No Smoking Status: Current Everyday Smoker Type Used: Cigarettes 2nd Hand Smoke Exposure: Yes Recent Foreign Travel: No Contact w/Someone Who Travel: No Recent Infectious Disease Expo: No Recent Hopitalizations: No Immunizations Up To Date Tetanus Booster (TDap): Unknown PED Vaccines UTD: Yes Date of Pneumonia Vaccine: Feb 03, 2019 Date of Influenza Vaccine: Feb 03, 2019 Seasonal Allergies Seasonal Allergies: Yes Past Medical History Surgeries: Yes (SCREWS IN LEFT ANKLE; CATARACTS; LIPOMA REMOVAL; FOOT SURGERY;EGD/C 02/2018) Eye Surgery, Orthopedic Respiratory: Yes (WEARS O2 AT NIGHT; CONTINUES TO SMOKE) Pneumonia, COPD, Emphysema Cardiac: Yes (LBBB, 1ST DEGREE AV BLOCK) High Cholesterol, Hypertension Neurological: Yes (BENIGN TREMORS; POLIO) Stroke Reproductive Disorders: No Sexually Transmitted Disease: Yes HIV/AIDS: No Gastrointestinal: Yes (EGD/COLONOSCOPY 02/2018--GERD/HIATAL HERNIA/DIVERTICULAR DISEASE) Gastroesophageal Reflux, Chronic Constipation, Diverticulosis, Polyps, Hiatal Hernia Musculoskeletal: Yes (OSTEOPOROSIS, HX POLIO; ORTHOPEDIC SURGERIES) Arthritis Endocrine: No HEENT: Yes Cataract Loss of Vision: Denies Hearing Impairment: Hard of Hearing Cancer: Yes (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) Skin Did You Recieve Any Treatments: Yes What Type of Treatment Did You: Surgical Intervention Psychosocial: No Integumentary: Yes (MULTIPLE SKIN LESIONS, SOME CANCEROUS) Blood Disorders: No Adverse Reaction/Blood Tranf: No (N/A) Family Medical History Colon cancer No Pertinent Family Hx PSH; -EGD/COLONOSCOPIES--POLYPECTOMIES--LAST SCOPES 02/2018--GERD/HIATAL HERNIA, DIVERTICULAR DISEASE -MULTIPLE SKIN LESIONS REMOVED, SOME CANCEROUS' -FOOT SURGERY -ANKLE SURGERY -TOENAIL SURGERY -LIPOMAS REMOVED -CATARACTS Review of Systems Time Seen by Provider: 08:25 Sepsis Event Evaluation Height, Weight, BMI Height: 5'5.00" Weight: 142lbs. 8.0oz. 67.122713gk; 30.21 BMI Method:Stated Exam Exam Vital Signs Date Time Temp Pulse Resp B/P (MAP) Pulse Ox O2 Delivery O2 Flow Rate FiO2 07/14/19 17:43 37.0 99 23 128/115 98 Room Air 07/14/19 16:00 99 23 128/115 (119) 98 Room Air 07/14/19 16:00 98 Room Air 07/14/19 15:45 118 41 99/89 (92) Room Air 07/14/19 15:05 98 20 135/85 93 Room Air 07/14/19 11:40 Room Air 07/14/19 11:40 37.0 94 15 153/88 (109) 94 Room Air Height & Weight Height: 5'5.00" Weight: 142lbs. 8.0oz. 67.812967uw; 30.21 BMI Method:Stated General Appearance: No Apparent Distress, WD/WN HEENT: PERRL/EOMI, TMs Normal, Normal ENT Inspection, Pharynx Normal Neck: Full Range of Motion, Normal Inspection, Non Tender, Supple Respiratory: Chest Non Tender, Lungs Clear, No Accessory Muscle Use, No Respiratory Distress; No Crackles; Decreased Breath Sounds; No Rales, No Rhonci, No Wheezing Cardiovascular: No Edema, No Murmur, Normal Peripheral Pulses, Irregularly Irregular Capillary Refill: Less Than 3 Seconds Extremity: Normal Capillary Refill, Normal Inspection, Normal Range of Motion, Non Tender, No Calf Tenderness, No Pedal Edema Neurologic/Psychiatric: Alert (Oriented to person and year, knows her ), No Motor/Sensory Deficits, Normal Mood/Affect Skin: Warm/Dry, Pallor Results Lab Laboratory Tests 07/14/19 12:00 Assessment/Plan Assessment/Plan PNA -Continue current ABX -chavez culture -INfluenza is negative Strep is negative COPDAE ILD with pulmonary fibrosis GOPAL SERRANO DO Jul 14, 2019 18:59
[2019-07-14 20:00] VITALS: BP 133/73
[2019-07-14] MEDS: APIXABAN 2.5 MG (ELIQUIS) TABLET PO SCH (20:15)
[2019-07-14] MEDS ORDERED: HYDROcodone/APAP 5 MG/325 MG (LORTAB) TAB PO PRN (22:15)
[2019-07-14] MEDS ORDERED: MELATONIN 3 MG TABLET PO PRN (22:15)
[2019-07-14] MEDS ORDERED: diphenhydrAMINE 25 MG TAB (BENADRYL) PO PRN (22:15)
[2019-07-14] MEDS ORDERED: LOPERAMIDE 2 MG (IMODIUM) TABLET PO PRN (22:15)
[2019-07-14] MEDS ORDERED: ONDANSETRON 4 MG/2 ML (SDV) Z0FRAN IVP PRN (22:15)
[2019-07-14] MEDS ORDERED: ONDANSETRON 4 MG (ZOFRAN) ORAL DISSOLVE TAB PO PRN (22:15)
[2019-07-14] MEDS ORDERED: ACETAMINOPHEN 500 MG TAB (TYLENOL) PO PRN (22:15)
[2019-07-14] MEDS ORDERED: CALCIUM CARBONATE 500 MG (TUMS) TAB.CHEW PO PRN (22:15)
[2019-07-14] MEDS ORDERED: DOCUSATE SODIUM 100 MG (COLACE) CAP PO PRN (22:15)
[2019-07-15] VITALS: BP 119/101
[2019-07-15] MEDS: ALBUTEROL/IPRATROP (COMBIVENT RESPIMAT) 4 GM INHALER IH SCH ×7 (00:16→21:18)
[2019-07-15] MEDS: NS IV 1000 ML 1,000 ML IV SCH ×2 (01:35→18:41)
--- NOTE | 2019-07-15 03:32 | Pulmonary Progress Note ---
Subjective Time Seen by a Provider: 03:30 Sepsis Event Evaluation Height, Weight, BMI Height: 5'5.00" Weight: 142lbs. 8.0oz. 67.370179bo; 30.21 BMI Method:Stated Focused Exam Lactate Level 07/14/19 12:00: Lactic Acid Level 2.03*H 07/14/19 14:20: Lactic Acid Level 1.17 Exam Exam Vital Signs Date Time Temp Pulse Resp B/P (MAP) Pulse Ox O2 Delivery O2 Flow Rate FiO2 07/15/19 01:00 84 07/15/19 00:00 36.6 07/15/19 00:00 92 Room Air 07/15/19 00:00 93 24 119/101 (107) 94 Room Air 07/14/19 21:00 96 Room Air 07/14/19 20:19 36.6 07/14/19 20:00 101 15 133/73 (93) 94 Room Air 07/14/19 20:00 96 Room Air 07/14/19 19:00 98 07/14/19 17:43 37.0 99 23 128/115 98 Room Air 07/14/19 16:00 99 23 128/115 (119) 98 Room Air 07/14/19 16:00 98 Room Air 07/14/19 15:45 118 41 99/89 (92) Room Air 07/14/19 15:05 98 20 135/85 93 Room Air 07/14/19 11:40 Room Air 07/14/19 11:40 37.0 94 15 153/88 (109) 94 Room Air I & O 07/15/19 07:00 Intake Total 460 ml Output Total 250 ml Balance 210 ml Height & Weight Height: 5'5.00" Weight: 142lbs. 8.0oz. 67.927512qt; 30.21 BMI Method:Stated General Appearance: No Apparent Distress, Chronically ill HEENT: PERRL/EOMI, Normal ENT Inspection, Pharynx Normal, Moist Mucous Membranes Neck: Full Range of Motion, Normal Inspection, Non Tender Respiratory: Chest Non Tender, No Accessory Muscle Use, No Respiratory Distress, Crackles, Decreased Breath Sounds, Rales Cardiovascular: No Edema, No Gallop, No JVD, No Murmur, Normal Peripheral Pulses, Irregularly Irregular, Tachycardia Capillary Refill: Less Than 3 Seconds Extremity: Normal Capillary Refill, Normal Inspection, Normal Range of Motion, Non Tender, No Calf Tenderness, No Pedal Edema Neurologic/Psychiatric: Alert, Oriented x3, No Motor/Sensory Deficits, Normal Mood/Affect, Disoriented Skin: Normal Color, Warm/Dry Lymphatic: No Adenopathy Results Lab Laboratory Tests 07/14/19 12:00 Assessment/Plan Assessment/Plan PNA -Continue current ABX -chavez culture -INfluenza is negative Strep is negative COPDAE ILD with pulmonary fibrosis GOPAL SERRANO DO Jul 15, 2019 03:32
[2019-07-15 04:00] VITALS: BP 136/82
[2019-07-15] MEDS: CEFEPIME 1,000 MG/SWFI 10 ML IV PUSH IV SCH ×4 (04:08→13:37)
[2019-07-15 04:14] LABS: BASOPHILS % (AUTO) 0 % (0-10); EOSINOPHILS # (AUTO) 0.4 10^3/uL (0.0-0.3); EOSINOPHILS % (AUTO) 6 % (0-10); HEMATOCRIT 29 % (35-52); HEMOGLOBIN 9.9 G/DL (11.5-16.0); LYMPHOCYTES # (AUTO) 0.6 X 10^3 (1.0-4.0); LYMPHOCYTES % (AUTO) 9 % (12-44); MEAN CORPUSCULAR HEMOGLOBIN 31 PG (25-34); MEAN CORPUSCULAR HGB CONC 34 G/DL (32-36); MEAN CORPUSCULAR VOLUME 90 FL (80-99); MONOCYTES # (AUTO) 0.7 X 10^3 (0.0-1.0); MONOCYTES % (AUTO) 10 % (0-12); NEUTROPHILS # (AUTO) 5.3 X 10^3 (1.8-7.8); NEUTROPHILS % (AUTO) 75 % (42-75); PLATELET COUNT 257 10^3/uL (130-400); RED CELL DISTRIBUTION WIDTH 15.6 % (10.0-14.5); WHITE BLOOD COUNT 7.1 10^3/uL (4.3-11.0)
[2019-07-15 04:21] LABS: ALBUMIN 2.9 GM/DL (3.2-4.5); POTASSIUM 3.1 MMOL/L (3.6-5.0)
[2019-07-15 04:22] LABS: CALCIUM 7.6 MG/DL (8.5-10.1)
[2019-07-15 04:23] LABS: TOTAL PROTEIN 5.1 GM/DL (6.4-8.2)
[2019-07-15 04:25] LABS: BILIRUBIN,TOTAL 0.3 MG/DL (0.1-1.0)
[2019-07-15 04:27] LABS: CREATININE SERUM 1.17 MG/DL (0.60-1.30); PHOSPHORUS 2.5 MG/DL (2.3-4.7)
[2019-07-15 04:30] LABS: MAGNESIUM 1.8 MG/DL (1.6-2.4)
[2019-07-15 07:35] VITALS: BP 119/96
[2019-07-15] MEDS: SENNA W/DOCUSATE (SENOKOT S) TABLET PO SCH ×2 (07:39→19:33)
[2019-07-15] MEDS: ASPIRIN 81 MG CHEW (CHILDREN'S ASA) PO SCH (07:39)
[2019-07-15] MEDS: APIXABAN 2.5 MG (ELIQUIS) TABLET PO SCH (07:40)
--- NOTE | 2019-07-15 08:06 | Consultation-Cardiology ---
HPI-Cardiology Cardiology Consultation: Date of Consultation 07/15/19 Time Seen by a Provider: 08:30 Date of Admission Chest pain Attending Physician Keyla Qurioz DO Admitting Physician [facility] Consulting Physician Stevie Santos MD HPI: Chief Complaint: Chest pain Ms. Ortiz is an 83 year old female admitted to ICU 12 from the ED. She reports she lives at home with her two daughters. She states she was sitting down yesterday when she developed a sudden onset of chest pain which was mid- sternal, without radiation, lasted for several hours. She denies any c/o SOB, palpitations, syncope, near syncope with the episode. She denies any diaphoresis. No c/o LE swelling. She reports she was still having chest pain when brought to the ED. She states she does not recall what she received in the ED, but she has had no further c/o CP since. She denies any fever, cough, chills. She states she has had polio at age 5 and her activity is limited. She reports she has not been out of her own home in 2 weeks. No c/o n/v/d. Review of Systems-Cardiology Review of Systems Constitutional: No chills, No fever Eyes: No vision change Ears/Nose/Throat: No epistaxis, No nasal drainage, No recent hearing loss Respiratory: As described under HPI Cardiovascular: As described under HPI Gastrointestinal: No constipation, No diarrhea, No nausea, No vomiting Genitourinary: No dysuria, No hematuria Musculoskeletal: joint pain Skin: No rash on exposed areas, No ulcerations on exposed areas Psychiatric/Neurological: No anxiety, No depression, No seizure, No focal weakness, No syncope Hematologic: No bleeding abnormalities All Other Systems Reviewed Negative Unless Noted: Yes ZHT-Cgqxyx-Ozymqa Hx Patient Social History Marrital Status: single Employed/Student: retired Alcohol Use: Denies Use Recreational Drug Use: No Smoking Status: Current Everyday Smoker Type Used: Cigarettes 2nd Hand Smoke Exposure: Yes Recent Foreign Travel: No Recent Infectious Disease Expo: No Hospitalization with Isolation: Denies Immunizations Up To Date Tetanus Booster (TDap): Unknown Date of Pneumonia Vaccine: Feb 03, 2019 Date of Influenza Vaccine: Feb 03, 2019 Past Medical History PMH As described under Assessment. Family Medical History Family Medical History: She denies any family h/o CAD. Family History: Colon cancer Allergies and Home Medications Allergies Coded Allergies: Penicillins (Unverified Allergy, Unknown, 02/25/18) sulfamethoxazole (Unverified Allergy, Unknown, 02/25/18) trimethoprim (Unverified Allergy, Unknown, 02/25/18) Home Medications Albuterol Sulfate 1 Puff Puff, 2 PUFF INH QID PRN for SHORTNESS OF BREATH, (Reported) Amlodipine Besylate 5 Mg Tablet, 5 MG PO DAILY, (Reported) Atorvastatin Calcium 10 Mg Tablet, 10 MG PO HS, (Reported) Bisacodyl 5 Mg Tablet.dr, 10 MG PO DAILY, (Reported) Clonazepam 0.5 Mg Tablet, 0.5 MG PO TID PRN for ANXIETY, (Reported) Ipratropium/Albuterol Sulfate 3 Ml Ampul.neb, 3 ML NEB QID, (Reported) Losartan Potassium 100 Mg Tablet, 100 MG PO DAILY, (Reported) Meloxicam 15 Mg Tablet, 15 MG PO DAILY PRN for INFLAMMATION, (Reported) Mirtazapine 15 Mg Tablet, 15 MG PO HS, (Reported) Montelukast Sodium 4 Mg Tab.chew, 4 MG PO HS, (Reported) Omeprazole 40 Mg Capsule.dr, 40 MG PO DAILY, (Reported) Primidone 50 Mg Tablet, 200 MG PO BID, (Reported) TAKES 4 (50MG) TABS TWICE DAILY Propranolol HCl 20 Mg Tablet, 10 MG PO BID, (Reported) TAKES OF A 20MG TWICE DAILY Patient Home Medication List Home Medication List Reviewed: Yes Physical Exam-Cardiology Physical Exam Vital Signs/I&O 07/15/19 07/16/19 07/16/19 07/16/19 21:18 00:14 01:00 01:45 Temp 36.9 Pulse 72 69 Resp 20 B/P (MAP) 133/78 (96) Pulse Ox 93 98 91 O2 Delivery Room Air Room Air Room Air 07/16/19 07/16/19 07/16/19 07/16/19 04:01 04:17 04:46 06:40 Temp 37.1 Pulse 123 105 128 Resp 22 B/P (MAP) 141/71 (94) Pulse Ox 93 94 O2 Delivery Room Air Nasal Cannula O2 Flow Rate 2.00 07/16/19 06:41 Pulse Ox 95 O2 Delivery Room Air 07/16/19 00:00 Intake Total 1300 ml Output Total 250 ml Balance 1050 ml Capillary Refill : Less Than 3 Seconds Constitutional: AAO x 3, well-developed, well-nourished HEENT: PERRL, hearing is well preserved Neck: No carotid bruit; carotid pulses are 2 + bilaterally Respiratory: No accessory muscle use, No respiratory distress; chest expansion is symmetric, chest is bilaterally symmetric, other (good air entry) Cardiovascular: regular rate-rhythm; No JVD; S1 and S2, systolic murmur (soft) Gastrointestinal: No tender; soft, round, audible bowel sounds Extremities: no lower extremity edema bilateral Neurologic/Psychiatric: other (moves extremities) Skin: No rash on exposed areas, No ulcerations on exposed areas Data Review Labs Laboratory Tests 07/16/19 04:04: White Blood Count 8.1, Red Blood Count 3.03L, Hemoglobin 9.4L, Hematocrit 27L, Mean Corpuscular Volume 89, Mean Corpuscular Hemoglobin 31, Mean Corpuscular Hemoglobin Concent 35, Red Cell Distribution Width 15.7H, Platelet Count 253, Mean Platelet Volume 11.0H, Neutrophils (%) (Auto) 76H, Lymphocytes (%) (Auto) 8L, Monocytes (%) (Auto) 9, Eosinophils (%) (Auto) 7, Basophils (%) (Auto) 1, Neutrophils # (Auto) 6.2, Lymphocytes # (Auto) 0.6L, Monocytes # (Auto) 0.7, Eosinophils # (Auto) 0.6H, Basophils # (Auto) 0.0, Sodium Level 137, Potassium Level 3.0L, Chloride Level 110H, Carbon Dioxide Level 17L, Anion Gap 10, Blood Urea Nitrogen 13, Creatinine 1.08, Estimat Glomerular Filtration Rate 49, BUN/Creatinine Ratio 12, Glucose Level 87, Calcium Level 7.9L, Corrected Calcium 8.7, Phosphorus Level 2.3, Magnesium Level 1.7, Total Bilirubin 0.4, Aspartate Amino Transf (AST/SGOT) 51H, Alanine Aminotransferase (ALT/SGPT) 11, Alkaline Phosphatase 103, Total Protein 5.2L, Albumin 3.0L Microbiology 07/14/19 Influenza Types A,B Antigen (LAILA) - Final, Complete 07/14/19 Blood Culture - Preliminary, Resulted No growth Radiology NAME: KY ORTIZ [facility] REC#: [id number] PT STATUS: ADM Dontae : 1935 PHYSICIAN: GLENIS AGUIRRE ADMIT DATE: 07/14/19/ICU Signed Date of Exam:07/14/19 CHEST 1 VIEW, AP/PA ONLY INDICATION: Chest pain. TIME OF EXAM: 12:09 p.m. COMPARISON: Correlation is made with prior chest from 05/29/2019. FINDINGS: Heart size is stable. There are interstitial changes throughout both lungs which is likely largely chronic. Some mild superimposed airspace infiltrate in the lung bases cannot be entirely excluded. There is no effusion or pneumothorax. IMPRESSION: Interstitial lung disease. There also may be some mild superimposed airspace infiltrate in both lung bases consistent with pneumonia. Dictated by: Dictated on workstation # [id number] Dict: 07/14/19 1232 Trans: 07/14/19 1558 [facility] [id number] Interpreted by: JOSE JHA MD Electronically signed by: JOSE JHA MD 07/14/19 1558 ECG Impression ECG Initial ECG Impression: Atrial Fibrillation A/P-Cardiology Assessment/Admission Diagnosis P. A-fib/flutter - first diagnosed on EKG of 07-14-2019 Pneumonia - management per medical services Mildly elevated troponin likely secondary to PAF with elevated ventricular response Echocardiogram of Jun 02, [address] Willis showed LVEF 55-60%. No regional wall motion abnormalities. Grade 1 diastolic dysfunction. LA mildly dilated. Mod calcified annulus with mild stenosis. Aortic valve thickening, consistent with sclerosis. RVSP approx 40mmHg. MPI of June 18, [address] Willis showed baseline left bundle branch block persisted during test. Apical thinning with no significant ischemia or infarction on SPECT images. Normal left ventricular size with mild hypokinesia at the anteroseptum and true septum due to the underlying bundle branch block with calculated ejection fraction 56%. 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 Hypertension Hyperlipidemia Cold feet and pain, history of polio, had Doppler done on May 15, 2017 reported as no significant stenosis noted Nonobstructive carotid artery stenosis per carotid duplex done May 2017 Essential tremor, management per PCP COPD, chronic dyspnea. Tobaccoism smoking about 2 packs a day Discussion and Recomendations Newly diagnosed PAF for which she has converted to SR with LBBB (chronic) Continue OAC for stroke prophylaxis with Eliquis, but will increase dose to 5mg BID Management of pneumonia is per medical services Mildly elevated troponin likely secondary to a-fib with somewhat RVR Cr improved today Decrease IVF to 50ml/hr Continue BB Stop Losartan to allow room for BB and most recent LVEF eval showed normal LVEF Monitor lab closely Further recs will be based on her hospital course We would like to thank medical services for this consult Plan of care discussed in detail with Dr. Santos Clinical Quality Measures AMI/AHF: ASA po Prior to arrival: No DVT/VTE Risk/Contraindication: Risk Factor Score Per Nursin RFS Level Per Nursing on Admit: 3=High ARASELI CHAMBERS Jul 15, 2019 08:06
[2019-07-15] MEDS ORDERED: APIXABAN 2.5 MG (ELIQUIS) TABLET PO NR (09:30)
[2019-07-15 12:00] VITALS: BP 133/66
--- NOTE | 2019-07-15 13:21 | Progress Note - Hospitalist ---
Subjective HPI/CC On Admission Date Seen by Provider: Jul 15, 2019 Time Seen by Provider: 11:00 CC: Dyspnea with new onset AF w/RVR HPI: This is an 83yoWF clinic patient of [facility] well known to me from monthly hospital admits for recurrent PNA and pulmonary fibrosis and CHF and dementia with severe presbycusis who presents to the ER after 2 days of progressive weakness and dyspnea. ER w/u revealed new onset AF and elevated BNP with pulmonary edema on CXR. Cardiology and Pulmonology have been consulted. Patient admitted to CCU for close monitoring. Elevated troponin and elevated BNP will be managed closely. Patient had dementia and very [place] and in the midst of PPE it is very difficult to carry on a conversation. She is tolerating CLD and I will advance diet to soft since she really can't eat regular diet without receiving her dentures from her family since they were not planning on her being admitted. Subjective/Events-last exam Patient feels better Transferring to 4th floor COVID was still pending at time of rounds but afterwards it was negative on results Patient denies pain No BM yet Less dyspneic HR improved Appreciate Dr Santos Pulmo consult appreciated for pulmonary fibrosis. Review of Systems General: Fatigue Pulmonary: Dyspnea, Cough Neurological: Confusion Focused Exam Lactate Level 07/14/19 12:00: Lactic Acid Level 2.03*H 07/14/19 14:20: Lactic Acid Level 1.17 Objective Exam Vital Signs Vital Signs Date Time Temp Pulse Resp B/P (MAP) Pulse Ox O2 Delivery O2 Flow Rate FiO2 07/15/19 18:12 95 Room Air 07/15/19 16:00 69 23 122/77 (92) 07/15/19 07:35 36.3 Capillary Refill : Less Than 3 Seconds General Appearance: No Apparent Distress, WD/WN, Chronically ill, Thin Respiratory: No Accessory Muscle Use, No Respiratory Distress, Crackles, D ecreased Breath Sounds Cardiovascular: Irregularly Irregular, Tachycardia Neurologic/Psychiatric: Alert, Oriented x3, No Motor/Sensory Deficits, Normal Mood/Affect, Disoriented Results/Procedures Lab Laboratory Tests 07/15/19 04:05 Patient resulted labs reviewed. Assessment/Plan Assessment and Plan Assess & Plan/Chief Complaint Assessment: Dyspnea Pulmonary fibrosis PNA on CT scan Elevated troponin Elevated BNP Dementia Presbycusis Frail status Smoker Plan: Cardiology and Pulmonology consultations are appreciated Monitor AF w/RVR Transfer to 4th floor COVID - noted IV abx Diagnosis/Problems Diagnosis/Problems (1) Pneumonia Status: Resolved Qualifiers: Pneumonia type: due to unspecified organism Laterality: bilateral Lung location: lower lobe of lung Qualified Codes: J18.1 - Lobar pneumonia, unspecified organism (2) Dyspnea (3) Pulmonary fibrosis (4) Dementia (5) Presbycusis of both ears (6) Smoker (7) Atrial fibrillation with rapid ventricular response (8) Elevated brain natriuretic peptide (BNP) level Clinical Quality Measures AMI/AHF: ASA po Prior to arrival: No DVT/VTE Risk/Contraindication: Risk Factor Score Per Nursin RFS Level Per Nursing on Admit: 3=High VIANEY BREWSTER DO Jul 15, 2019 13:21
[2019-07-15] MEDS: PANTOPRAZOLE 40 MG (PROTONIX) TAB PO SCH (13:36)
[2019-07-15] MEDS ORDERED: AZITHROMYCIN 250 MG/NS 250 ML IVPB IV SCH ×2 (14:00)
[2019-07-15 16:00] VITALS: BP 122/77
--- NOTE | 2019-07-15 18:39 | NUR ---
Report from Krys MEEHAN, patient to room 407, patient oriented to room and call light. Patient denies any pain or discomfort at this time. Will assume care of patient at this time.
[2019-07-15] MEDS: APIXABAN 5 MG (ELIQUIS) TABLET PO SCH (19:33)
[2019-07-15 19:35] VITALS: BP 148/66
[2019-07-15] MEDS: ALPRAZolam 0.25 MG (XANAX) TAB PO PRN (21:09)
--- NOTE | 2019-07-15 21:26 | NUR ---
Received phone call at this time from pt's daughter requesting information on the pt. This RN asked if she had the pt's password but the daughter did not know what it was. I relayed the hospital policy that I could not reveal any information about any patient without the password. She stated that I was not doing my duty as nurse and then continued that we were "drugging her". I had previously spoken to the other daughter earlier in the evening who had told me the password. At that time, I had updated her on the pt's condition, and we had a pleasant discussion. I relayed to the daughter that called me at this time that she could try talking to other family members to see if they had the password and then call me back. She insisted on talking to the cell feed department supervisor, and I said yudith hamilton would call her back. I let yudith Guidry know of the situation. I also assessed the pt, and she was sleeping. Addendum: 07/15/19 at 224 by AMIE VALIENTE RN Wrong pt
[2019-07-16 00:14] VITALS: BP 133/78
[2019-07-16] MEDS: ALBUTEROL/IPRATROP (COMBIVENT RESPIMAT) 4 GM INHALER IH SCH ×4 (01:45→14:19)
[2019-07-16] MEDS ORDERED: WATER (STERILE) FOR INJECTION 10 ML ONE (02:46)
[2019-07-16] MEDS ORDERED: CEFEPIME 1 GM (MAXIPIME) VIAL ONE (02:46)
[2019-07-16] MEDS: CEFEPIME 1,000 MG/SWFI 10 ML IV PUSH IV SCH ×2 (03:05)
[2019-07-16 04:17] VITALS: BP 141/71
[2019-07-16 05:40] LABS: BASOPHILS % (AUTO) 1 % (0-10); EOSINOPHILS # (AUTO) 0.6 10^3/uL (0.0-0.3); EOSINOPHILS % (AUTO) 7 % (0-10); HEMATOCRIT 27 % (35-52); HEMOGLOBIN 9.4 G/DL (11.5-16.0); LYMPHOCYTES # (AUTO) 0.6 X 10^3 (1.0-4.0); LYMPHOCYTES % (AUTO) 8 % (12-44); MEAN CORPUSCULAR HEMOGLOBIN 31 PG (25-34); MEAN CORPUSCULAR HGB CONC 35 G/DL (32-36); MEAN CORPUSCULAR VOLUME 89 FL (80-99); MONOCYTES # (AUTO) 0.7 X 10^3 (0.0-1.0); MONOCYTES % (AUTO) 9 % (0-12); NEUTROPHILS # (AUTO) 6.2 X 10^3 (1.8-7.8); NEUTROPHILS % (AUTO) 76 % (42-75); PLATELET COUNT 253 10^3/uL (130-400); RED CELL DISTRIBUTION WIDTH 15.7 % (10.0-14.5); WHITE BLOOD COUNT 8.1 10^3/uL (4.3-11.0)
[2019-07-16 06:12] LABS: CALCIUM 7.9 MG/DL (8.5-10.1)
[2019-07-16 06:13] LABS: TOTAL PROTEIN 5.2 GM/DL (6.4-8.2)
[2019-07-16 06:15] LABS: BILIRUBIN,TOTAL 0.4 MG/DL (0.1-1.0)
[2019-07-16 06:17] LABS: CREATININE SERUM 1.08 MG/DL (0.60-1.30); PHOSPHORUS 2.3 MG/DL (2.3-4.7)
[2019-07-16 06:20] LABS: MAGNESIUM 1.7 MG/DL (1.6-2.4)
[2019-07-16 07:56] VITALS: BP 139/95
[2019-07-16] MEDS: SENNA W/DOCUSATE (SENOKOT S) TABLET PO SCH (08:26)
[2019-07-16] MEDS: ALPRAZolam 0.25 MG (XANAX) TAB PO PRN (08:26)
[2019-07-16] MEDS: PANTOPRAZOLE 40 MG (PROTONIX) TAB PO SCH (08:26)
[2019-07-16] MEDS: ASPIRIN 81 MG CHEW (CHILDREN'S ASA) PO SCH (08:26)
[2019-07-16] MEDS: APIXABAN 5 MG (ELIQUIS) TABLET PO SCH (08:26)
--- NOTE | 2019-07-16 09:07 | Progress Note - Cardiology ---
Cardiology SOAP Progress Note Subjective: Notes gen malaise and is unable to describe it further No cp or palp or syncope No shortness of breath at rest. Short of breath with mild to mod exertion No n/v/d No focal weakness Gen weakness present Objective: I&O/Vital Signs 07/15/19 07/16/19 07/16/19 07/16/19 21:18 00:14 01:00 01:45 Temp 36.9 Pulse 72 69 Resp 20 B/P (MAP) 133/78 (96) Pulse Ox 93 98 91 O2 Delivery Room Air Room Air Room Air 07/16/19 07/16/19 07/16/19 07/16/19 04:01 04:17 04:46 06:40 Temp 37.1 Pulse 123 105 128 Resp 22 B/P (MAP) 141/71 (94) Pulse Ox 93 94 O2 Delivery Room Air Nasal Cannula O2 Flow Rate 2.00 07/16/19 07/16/19 06:41 07:56 Temp 36.9 Pulse 100 Resp 20 B/P (MAP) 139/95 (110) Pulse Ox 95 97 O2 Delivery Room Air Room Air 07/16/19 00:00 Intake Total 1300 ml Output Total 250 ml Balance 1050 ml Weight (Pounds): 142 Weight (Ounces): 8.0 Weight (Calculated Kilograms): 67.807246 Constitutional: AAO x 3, well-developed, well-nourished Respiratory: No accessory muscle use, No respiratory distress; chest expansion is symmetric, chest is bilaterally symmetric, other (good air entry; basal coarse and fine crackles) Cardiovascular: regular rate-rhythm; No JVD; S1 and S2, systolic murmur (soft) Gastrointestional: No tender; soft, round, audible bowel sounds Extremities: no lower extremity edema bilateral Neurologic/Psychiatric: other (moves extremities) Skin: No rash on exposed areas, No ulcerations on exposed areas Results/Procedures: Labs Laboratory Tests 07/16/19 04:04: White Blood Count 8.1, Red Blood Count 3.03L, Hemoglobin 9.4L, Hematocrit 27L, Mean Corpuscular Volume 89, Mean Corpuscular Hemoglobin 31, Mean Corpuscular Hemoglobin Concent 35, Red Cell Distribution Width 15.7H, Platelet Count 253, Mean Platelet Volume 11.0H, Neutrophils (%) (Auto) 76H, Lymphocytes (%) (Auto) 8L, Monocytes (%) (Auto) 9, Eosinophils (%) (Auto) 7, Basophils (%) (Auto) 1, Neutrophils # (Auto) 6.2, Lymphocytes # (Auto) 0.6L, Monocytes # (Auto) 0.7, Eosinophils # (Auto) 0.6H, Basophils # (Auto) 0.0, Sodium Level 137, Potassium Level 3.0L, Chloride Level 110H, Carbon Dioxide Level 17L, Anion Gap 10, Blood Urea Nitrogen 13, Creatinine 1.08, Estimat Glomerular Filtration Rate 49, BUN/Creatinine Ratio 12, Glucose Level 87, Calcium Level 7.9L, Corrected Calcium 8.7, Phosphorus Level 2.3, Magnesium Level 1.7, Total Bilirubin 0.4, Aspartate Amino Transf (AST/SGOT) 51H, Alanine Aminotransferase (ALT/SGPT) 11, Alkaline Phosphatase 103, Total Protein 5.2L, Albumin 3.0L Microbiology 07/14/19 Influenza Types A,B Antigen (LAILA) - Final, Complete 07/14/19 Blood Culture - Preliminary, Resulted No growth Laboratory Tests 07/14/19 12:00 07/15/19 04:05 07/16/19 04:04 A/P: Assessment: PAF with RVR - first diagnosed on EKG of 07-14-2019 Ac diastolic CHF, mild Pneumonia - management per Medical Services Mildly elevated troponin, likely type-2 MN due to A Fib with RVR and mild CHF and pneumonia Echocardiogram of Jun 02, [address] Willis showed LVEF 55-60%. No regional wall motion abnormalities. Grade 1 diastolic dysfunction. LA mildly dilated. Mod calcified annulus with mild stenosis. Aortic valve thickening, consistent with sclerosis. RVSP approx 40mmHg. MPI of June 18, [address] Willis showed baseline left bundle branch block persisted during test. Apical thinning with no significant ischemia or infarction on SPECT images. Normal left ventricular size with mild hypokinesia at the anteroseptum and true septum due to the underlying bundle branch block with calculated ejection fraction 56%. 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 Hypertension Hyperlipidemia Cold feet and pain, history of polio, had Doppler done on May 15, 2017 reported as no significant stenosis noted Nonobstructive carotid artery stenosis per carotid duplex done May 2017 Essential tremor, management per PCP COPD, chronic dyspnea. Tobaccoism smoking about 2 packs a day Plan: * D/c bb and add long-acting dilt for vent rate control * Low dose diuretics for mildly decomp CHF (per physical exam) * Replenish K * Continue stroke prophylaxis * Advised to quit tobacco use * Monitor labs closely Clinical Quality Measures AMI/AHF: ASA po Prior to arrival: JAIMEE Huizar MD FACP FAC CCDS Jul 16, 2019 09:07
[2019-07-16] MEDS ORDERED: FAMOTIDINE 20 MG (PEPCID) TABLET PO PRN (09:15)
[2019-07-16] MEDS ORDERED: FUROSEMIDE 40 MG/4 ML INJ (LASIX) IVP NR (09:41)
[2019-07-16] MEDS ORDERED: KCL 20 MEQ TAB (K-DUR) PO NR ×2 (09:41→14:00)
--- NOTE | 2019-07-16 11:10 | Physical Therapy Evaluation ---
PT Evaluation-General Medical Diagnosis Admission Date Jul 14, 2019 at 14:20 Medical Diagnosis: COPD, pneumonia Onset Date: Jul 14, 2019 Therapy Diagnosis Therapy Diagnosis: decreased mobility Height/Weight Height (Feet): 5 Height (Inches): 5.00 Weight (Pounds): 142 Weight (Ounces): 8.0 Precautions Precautions/Isolations: Droplet Isolation, Fall Prevention Weight Bear Status Right Lower Extremity: Right Full Weight Bearing Left Lower Extremity: Left Full Weight Bearing Referral Physician: Dr. Quiroz Reason for Referral: Evaluation/Treatment Medical History Pertinent Medical History: Arthritis, COPD, CVA, GERD, HTN, Smoking Additional Medical History dementia, [place], High cholesterol, diverticulosis, cataract Current History Pt. presented to ER after 2 days of progressive weakness and SOB. Reviewed History: Yes Social History Home: Single Level Current Living Status: Children (2 daughters) Entry Into Home: Ramp Prior Prior Level of Function SCALE: Activities may be completed with or without assistive devices. 7-Rovlbvxtpw-vxhnitb completes the activity by him/herself with no assistance from a helper. 5-Set-up or Clean-up Assistance-helper sets up or cleans up; patient completes activity. [place] assists only prior to or following the activity. 4-Supervision or Touching Assistance-helper provides verbal cues and/or touching/steadying and/or contact guard assistance as patient completes activity. Assistance may be provided throughout the activity or intermittently. 3-Partial/Moderate Assistance-helper does LESS THAN HALF the effort. [place] lifts, holds or supports trunk or limbs, but provides less than half the effort. 2-Substantial/Maximal Assistance-helper does MORE THAN HALF the effort. [place] lifts or holds trunk or limbs and provides more than half the effort. 2-Ifpachxci-zbpjmt does ALL the effort. Patient does none of the effort to complete the activity. Or, the assistance of 2 or more helpers is required for the patient to complete the activity. If activity was not attempted, code reason: 7-Patient Refused. 9-Not Applicable-not attempted and the patient did not perform the activity before the current illness, exacerbation or injury. 10-Not Attempted due to Environmental Limitations-(lack of equipment, weather restraints, etc.). 88-Not Attempted due to Medical Conditions or Safety Concerns. Bed Mobility: 6 Transfers (B,C,W/C): 6 Gait: 6 Indoor Mobility (Ambulation): Independent Prior Devices Use: Walker Prior Device Use: 4WW Pt. completed minimal household ambulation only per report. PT Evaluation-Current Subjective Pt. on bedside commode with nurse present upon arrival. Agrees to PT, states she has been tired all day. Pt/Family Goals home with daughters Objective Patient Orientation: Person, Place, Time, Situation Attachments: Oxygen (2L, ambulated with O2 at direction of nurse) ROM/Strength ROM Upper Extremities WFL ROM Lower Extremities WFL Strength Upper Extremities See OT Strength Lower Extremities Grossly 4/5 (B) Integumentary/Posture Integumentary grossly intact Bowel Incontinence: No Bladder Incontinence: No Posture kyphotic Neuromuscular (Tone, Coordination, Reflexes) unremarkable Sensory Vision: Functional Hearing: Impaired Sensation Right Upper Extremit: Intact Sensation Left Upper Extremity: Intact Sensation Right Lower Extremit: Impaired Sensation Left Lower Extremity: Impaired Transfers Sit to Lying (QC): 4 Sit to Stand (QC): 4 Chair/Ktf-pu-Dqzmo Xfer(QC): 4 Toilet Transfer (QC): 4 Gait Does the Patient Walk?: Yes Mode of Locomotion: Walk Anticipated Mode of Locomotion: Walk Walk 10 feet (QC): 4 Distance: 2 x 35 ft Gait Assistive Device: Walker 4 Wheeled Comments/Gait Description Pt. able to don/doff L AFO and shoes prior to ambulation. Pt. has no radha LOB during gait but observable SOB. O2 sats on RA >91% during ambulation, however HR at 132 bpm per telemetry. Balance Sitting Static: Good Sitting Dynamic: Good Standing Static: Good Standing Dynamic: Fair Treatment gait Assessment/Needs Pt. is an 83 y.o. female with decreased mobility following recent hospitalization. Pt. is currently CGA for all transfers and ambulation, however ambulation is limited due to SOB and increased HR. At prior level, patient was only ambulating short distances in the home with 4WW. Pt. would benefit from short-term skilled PT to restore safe mobility for return home with daughters. Rehab Potential: Good PT Short Term Goals Short Term Goals Time Frame: Jul 21, 2019 Roll Left & Right: 6 Sit to lyin Lying to sitting on side of be: 6 Sit to stand: 6 Chair/ulr-kw-amsgl transfer: 6 Toilet transfer: 6 Walk 10 feet: 6 Walk 150 feet: 6 PT Plan Problem List Problem List: Activity Tolerance, Functional Strength, Safety, Balance, Gait, Transfer, Bed Mobility, ROM Treatment/Plan Treatment Plan: Continue Plan of Care Treatment Plan: Bed Mobility, Concurrent Therapy, Education, Functional Activity [place], Functional Strength, Gait, Safety, Therapeutic Exercise, Transfers Treatment Duration: Jul 21, 2019 Frequency: 6 times per week Estimated Hrs Per Day: .25 hour per day Time/GCodes Time In: 1035 Time Out: 1055 Total Billed Treatment Time: 20 Total Billed Treatment 1, EVGeraldo 10', FA 10' WO[facility] PT Jul 16, 2019 11:10
--- NOTE | 2019-07-16 11:24 | Occupational Therapy Eval ---
OT Evaluation-General/PLF Medical Diagnosis Admission Date Jul 14, 2019 at 14:20 Medical Diagnosis: COPD, pneumonia Onset Date: Jul 14, 2019 Therapy Diagnosis Therapy Diagnosis: decreased self care skills Height/Weight Height (Feet): 5 Height (Inches): 5.00 Weight (Pounds): 142 Weight (Ounces): 8.0 Precautions Precautions/Isolations: Droplet Isolation, Fall Prevention Safety Interventions: Bed Exit Alarm Referral Physician: Gabriella Medical History Pertinent Medical History: Arthritis, COPD, CVA, GERD, HTN, Smoking Additional Medical History high cholesterol, diverticulosis, hiatal hernia, dementia, LAC VIEUX Reviewed History: Yes Social History Home: Single Level Current Living Status: Children ADL-Prior Level of Function SCALE: Activities may be completed with or without assistive devices. 8-Lcxkdojeto-wflgqvr completes the activity by him/herself with no assistance from a helper. 5-Set-up or Clean-up Assistance-helper sets up or cleans up; patient completes activity. [place] assists only prior to or following the activity. 4-Supervision or Touching Assistance-helper provides verbal cues and/or touching/steadying and/or contact guard assistance as patient completes acti vity. Assistance may be provided throughout the activity or intermittently. 3-Partial/Moderate Assistance-helper does LESS THAN HALF the effort. [place] lifts, holds or supports trunk or limbs, but provides less than half the effort. 2-Substantial/Maximal Assistance-helper does MORE THAN HALF the effort. [place] lifts or holds trunk or limbs and provides more than half the effort. 9-Khynwzwbm-hgotqz does ALL the effort. Patient does none of the effort to complete the activity. Or, the assistance of 2 or more helpers is required for the patient to complete the activity. If activity was not attempted, code reason: 7-Patient Refused. 9-Not Applicable-not attempted and the patient did not perform the activity before the current illness, exacerbation or injury. 10-Not Attempted due to Environmental Limitations-(lack of equipment, weather restraints, etc.). 88-Not Attempted due to Medical Conditions or Safety Concerns. ADL PLOF Comments Pt reports her children assist with bathing, but states she is able to dress and toilet herself. Minimal activity level Self Care: Needed Some Help DME/Equipment: Bedside Commode OT Current Status Subjective Pt in bed, agrees to therapy. No reports of pain. States she is tired today Mental Status/Objective Patient Orientation: Person Attachments: Oxygen Current Glasses/Contacts: Yes Dentures/Partials: Yes Hand Dominance: Right Upper Extremity ROM Grossly WFL Upper Extremity Coordination Fair Upper Extremity Strength Fair ADL-Treatment ADL-Current Pt participated in UE assessment while in bed. Pt able to wash face with set up. Pt combed hair with SBA, but states her daughters usually assist with this task. OOB activity not completed at this time as pt had just returned to bed after working with PT. All needs met after session. On/Off Footwear (QC): 4 (PT reports pt was able to don AFO and shoes with SBA while seated EOB.) Toileting Hygiene (QC): 4 (PT reports pt was able to complete toileting hygiene.) Education OT Patient Education: Rehab process Teaching Recipient: Patient Teaching Methods: Discussion Response to Teaching: Reinforcement Needed OT Operation Specialist Goals Operation Specialist Goals Time Frame: Jul 23, 2019 Eating (QC): 6 Oral Hygiene (QC): 5 Toileting Hygiene (QC): 5 Upper Body Dressing (QC): 5 Lower Body Dressing (QC): 4 On/Off Footwear (QC): 4 Additional Goals: 2-Verbalize Understanding, 3-ImproveStrength/[place] 1=Demonstrate adherence to instructed precautions during ADL tasks. 2=Patient will verbalize/demonstrate understanding of assistive devic es/modifications for ADL. 3=Patient will improve strength/tolerance for activity to enable patient to perform ADL's. OT Education/Plan Problem List/Assessment Assessment: Decreased Activ Tolerance, Decreased UE Strength, Dependent Transfers, Impaired Self-Care Skills Discharge Recommendations Plan/Recommendations: Continue POC Treatment Plan/Plan of Care Treatment,Training & Education: Yes Patient would benefit from OT for education, treatment and training to promote independence in ADL's, mobility, safety and/or upper extremity function for ADL's. Plan of Care: ADL Retraining, Functional Mobility, UE Funct Exercise/Act Treatment Duration: Jul 23, 2019 Frequency: 5 times per week Estimated Hrs Per Day: .25 hour per day Rehab Potential: Fair Time/GCodes Start Time: 11:00 Stop Time: 11:12 Total Time Billed (hr/min): 12 Billed Treatment Time 1 visit, JAYDE(12minutes) YING JARRETT OT Jul 16, 2019 11:24
[2019-07-16 12:00] VITALS: BP 141/82
[2019-07-16] MEDS ORDERED: POTA10TA36 PO (12:03)
[2019-07-16] MEDS ORDERED: DILT180C85 PO (12:03)
[2019-07-16] MEDS ORDERED: CEFD300C3 PO (12:03)
[2019-07-16] MEDS ORDERED: APIX5TAB PO (12:03)
[2019-07-16] MEDS ORDERED: FURO-125 PO (12:03)
[2019-07-16] MEDS ORDERED: AZIT250T12 PO (12:03)
[2019-07-16] MEDS ORDERED: ASPI-999 PO (12:03)
--- NOTE | 2019-07-16 12:04 | Discharge Summary ---
Discharge Summary Hospital Course Was the Problem List Reviewed?: Yes Problems/Dx: (1) Pneumonia Status: Resolved Qualifiers: Qualified Codes: J18.1 - Lobar pneumonia, unspecified organism (2) Dyspnea (3) Pulmonary fibrosis (4) Dementia (5) Presbycusis of both ears (6) Smoker (7) Atrial fibrillation with rapid ventricular response (8) Elevated brain natriuretic peptide (BNP) level Hospital Course Date of Admission: Jul 14, 2019 at 14:20 Admission Diagnosis : Family Physician/Provider: Sandra Barriga [employer] Retailer Sales Consultant Date of Discharge: 07/16/19 Discharge Diagnosis: bilateral PNA, pulmonary fibrosis, new onset AF w/RVR, dementia, presbycusis Hospital Course: Patient had a standard course after admitted for new onset AF w/RVR with bilateral PNA. Patient was swabbed for COVID-19 which was negative. Patient was placed on broad spectrum abx along with nebs and OAC and rate control per Cardiology. Patient improved enough to DC home although CT recommended family will take care of her. Labs and Pending Lab Test: Laboratory Tests 07/16/19 04:04: White Blood Count 8.1, Red Blood Count 3.03L, Hemoglobin 9.4L, Hematocrit 27L, Mean Corpuscular Volume 89, Mean Corpuscular Hemoglobin 31, Mean Corpuscular Hemoglobin Concent 35, Red Cell Distribution Width 15.7H, Platelet Count 253, Mean Platelet Volume 11.0H, Neutrophils (%) (Auto) 76H, Lymphocytes (%) (Auto) 8L, Monocytes (%) (Auto) 9, Eosinophils (%) (Auto) 7, Basophils (%) (Auto) 1, Neutrophils # (Auto) 6.2, Lymphocytes # (Auto) 0.6L, Monocytes # (Auto) 0.7, Eosinophils # (Auto) 0.6H, Basophils # (Auto) 0.0, Sodium Level 137, Potassium Level 3.0L, Chloride Level 110H, Carbon Dioxide Level 17L, Anion Gap 10, Blood Urea Nitrogen 13, Creatinine 1.08, Estimat Glomerular Filtration Rate 49, BUN/Creatinine Ratio 12, Glucose Level 87, Calcium Level 7.9L, Corrected Calcium 8.7, Phosphorus Level 2.3, Magnesium Level 1.7, Total Bilirubin 0.4, Aspartate Amino Transf (AST/SGOT) 51H, Alanine Aminotransferase (ALT/SGPT) 11, Alkaline Phosphatase 103, Total Protein 5.2L, Albumin 3.0L Microbiology 07/14/19 Influenza Types A,B Antigen (LAILA) - Final, Complete 07/14/19 Blood Culture - Preliminary, Resulted No growth Home Meds Active Cefdinir 300 Mg Capsule 300 Mg PO BID Potassium Chloride 10 Meq Tab.er.prt 10 Meq PO DAILY Lasix (Furosemide) 20 Mg Tablet 20 Mg PO DAILY Aspirin 81 Mg Tab.chew 81 Mg PO DAILY@0900 Diltiazem 24Hr ER (Diltiazem HCl) 180 Mg Cap.er.24h 180 Mg PO DAILY Eliquis (Apixaban) 5 Mg Tablet 5 Mg PO BID Azithromycin 250 Mg Tablet 250 Mg PO DAILY@1300 Reported Klonopin (Clonazepam) 0.5 Mg Tablet 0.5 Mg PO TID PRN Propranolol HCl 20 Mg Tablet 10 Mg PO BID TAKES OF A 20MG TWICE DAILY Mysoline (Primidone) 50 Mg Tablet 200 Mg PO BID TAKES 4 (50MG) TABS TWICE DAILY Bisacodyl 5 Mg Tablet.dr 10 Mg PO DAILY Ventolin Hfa (Albuterol Sulfate) 1 Puff Puff 2 Puff INH QID PRN Montelukast Sodium 4 Mg Tab.chew 4 Mg PO HS Mirtazapine 15 Mg Tablet 15 Mg PO HS Amlodipine Besylate 5 Mg Tablet 5 Mg PO DAILY Omeprazole 40 Mg Capsule.dr 40 Mg PO DAILY Meloxicam 15 Mg Tablet 15 Mg PO DAILY PRN Iprat-Albut 0.5-3(2.5) mg/3 ml (Ipratropium/Albuterol Sulfate) 3 Ml Ampul.neb 3 Ml NEB QID Atorvastatin Calcium 10 Mg Tablet 10 Mg PO HS Losartan Potassium 100 Mg Tablet 100 Mg PO DAILY Assessment/Pt Instructions [facility] 1 week Discharge Planning: <30 minutes discharge planning Discharge Physical Examination Vital Signs Vital Signs Date Time Temp Pulse Resp B/P (MAP) Pulse Ox O2 Delivery O2 Flow Rate FiO2 07/16/19 11:17 95 Room Air 07/16/19 07:56 36.9 100 20 139/95 (110) 07/16/19 04:46 2.00 General Appearance: No Apparent Distress, WD/WN Respiratory: No Accessory Muscle Use, No Respiratory Distress, Crackles Cardiovascular: Irregularly Irregular Allergies: Coded Allergies: Penicillins (Unverified Allergy, Unknown, 02/25/18) sulfamethoxazole (Unverified Allergy, Unknown, 02/25/18) trimethoprim (Unverified Allergy, Unknown, 02/25/18) Discharge Summary Date of Admission Jul 14, 2019 at 14:20 Date of Discharge Discharge Date: Jul 16, 2019 Admission Diagnosis Assessment: Dyspnea Pulmonary fibrosis Elevated troponin Elevated BNP Dementia Presbycusis Frail status Smoker Plan: Cardiology and Pulmonology consultations are appreciated Monitor AF w/RVR Discharge Diagnosis Assessment: Dyspnea Pulmonary fibrosis PNA on CT scan Elevated troponin Elevated BNP Dementia Presbycusis Frail status Smoker Plan: Cardiology and Pulmonology consultations are appreciated Monitor AF w/RVR Transfer to 4th floor COVID - noted IV abx (1) Pneumonia Status: Resolved Qualifiers: Qualified Codes: J18.1 - Lobar pneumonia, unspecified organism (2) Dyspnea (3) Pulmonary fibrosis (4) Dementia (5) Presbycusis of both ears (6) Smoker (7) Atrial fibrillation with rapid ventricular response (8) Elevated brain natriuretic peptide (BNP) level Clinical Quality Measures AMI/AHF: ASA po Prior to arrival: No DVT/VTE Risk/Contraindication: Risk Factor Score Per Nursin RFS Level Per Nursing on Admit: 3=High VIANEY BREWSTER DO Jul 16, 2019 12:04
[2019-07-16] MEDS ORDERED: AZITHROMYCIN 250 MG TAB (ZITHROMAX) PO SCH (13:00)
--- NOTE | 2019-07-16 13:03 | NUR ---
CM/SS: Visited with pt as to plan for discharge Plan: Pt will return home with adult daughters caring for her. Summary: Visited with pt as to her plan to return home. Discussed [facility]. Pt desires to return home with daughters providing for her care. Pt encourages this worker to call her daughter Mayelin about the plan for discharge. Call to cesar Dick [phone] - she is ok for pt to return home and reports that she and her older sister care for the pt. Discussed home care services. She does not feel as if pt will be open to home care, as she normally does not want anyone in the home. She reports taking care of pt for the last several years. She thanks this worker for calling. Dr. Quiroz reports pt is ok to discharge to home today. staff midwife/apprenticeship director notified of the plan to discharge. Pt will return home with daughters providing for her care.
--- NOTE | 2019-07-16 13:45 | NUR ---
"RD ASSESSMENT PMHx: hypercholesterolemia; HTN; GERD; chronic constipation; diverticulosis; hiatal hernia; CA(skin) PT INTERACTION: Pt was awake and pleasant during nutrition assessment. Note pt has dementia, per chart review. Pt states current appetite is poor, but it had been better prior to admit. Note avg PO intake of 56% x1d, per chart review. Pt states following a regular diet at home, and has no difficulty chewing/swallowing food. Pt states she wears dentures, but did not have them when she was admitted. Pt states no recent issues with n/v/c/d at this time, and that she does not know when her last BM was. Note pt currently on bowel regimen of Senna BID, per chart review. Pt states recent wt loss, but unsure of amount/timeframe. Note recent 30# wt gain x6w, per chart review. ABNORMAL NUTRITION-RELATED LAB VALUES LOW: K 3.0; Ca 7.9; Pro 5.2; alb 3.0 HIGH: Cl 110; AST 51 Est. kcal needs: 6946-2018 kcal | 20-25 kcal/kg Est. Pro needs: 58-73 g Pro | 0.8-1.0 g Pro/kg PES STATEMENT: Inadequate oral intake (NI-2.1) related to loss of appetite as evidenced by pt interview | avg PO intake 56% x1d INTERVENTION: Continue with current diet order of DYS2 Mechanically Altered diet, for pt tolerance. Add Ensure Enlive (vary) to meals TID, for increased kcal intake. Provides 350 kcal and 13 g Pro per serving. Will continue to follow and reassess as pt needs, intake, and status change. MONITOR/EVALUATE: PO Intake; Plan of Care; Hydration Status; Weight Status; Lab Values Adelaide Diop, MS, RD, LD"
[2019-07-16] MEDS ORDERED: CEFEPIME 1,000 MG/SWFI 10 ML IV PUSH IV SCH ×2 (14:15)
[2019-07-16 14:40] VITALS: BP 141/82
== END 2019-07-16 14:45 | disposition home or self-care (01) ==
LOC: EDUNIT# 11:36 → ER 11:38 → ICU 14:20 → 4TH 07-15 18:32
PROVIDERS: ADMIT Internal Medicine; ATTEND Internal Medicine
DX: J18.1 Lobar pneumonia, unspecified organism (principal); J84.10 Pulmonary fibrosis, unspecified; F03.90 Unspecified dementia, unspecified severity, without behavioral disturbance, psychotic disturbance, mood disturbance, and anxiety; H91.13 Presbycusis, bilateral; F17.210 Nicotine dependence, cigarettes, uncomplicated; I48.91 Unspecified atrial fibrillation; I11.0 Hypertensive heart disease with heart failure; I50.9 Heart failure, unspecified; E78.00 Pure hypercholesterolemia, unspecified; K21.9 Gastro-esophageal reflux disease without esophagitis; K59.09 Other constipation; M19.90 Unspecified osteoarthritis, unspecified site; Z79.82 Long term (current) use of aspirin; Z79.01 Long term (current) use of anticoagulants; Z79.899 Other long term (current) drug therapy; Z79.891 Long term (current) use of opiate analgesic; Z88.0 Allergy status to penicillin; Z88.2 Allergy status to sulfonamides; Z88.1 Allergy status to other antibiotic agents; Z86.73 Personal history of transient ischemic attack (TIA), and cerebral infarction without residual deficits
CPT/HCPCS: 36415; 71045; 80053; 82728; 83605; 83615; 83735; 83874; 83880; 84100; 84145; 84484; 85025; 85379; 85610; 85652; 85730; 86141; 87040; 87430; 87635; 87804; 93041; 94640; 94760; 96365; 96375; G0378

== ENCOUNTER → 2019-09-17 | Outpatient (CLI) | payer MEDICARE ==
[~2019-09-17] MED LIST changes: +APIX5TAB PO; +ASPI-999 PO; +AZIT250T12 PO; +BISA5TAB8 PO; +CLON0.5T PO; +DILT180C85 PO; +FURO-125 PO; +POTA10TA36 PO
--- NOTE | 2019-09-17 10:20 | Diagnostic Imaging Report ---
INDICATION: Pneumonia, followup. TIME OF EXAM: 10:16 AM. COMPARISON: 07/14/2019. FINDINGS: The heart size is stable. Interstitial changes throughout both lungs are noted, likely chronic scarring. The probable superimposed infiltrates noted on the prior exam appear to have resolved. There has been overall improved aeration of both lungs since the prior exam. No effusion is seen. There is no pneumothorax. IMPRESSION: Chronic interstitial lung disease. There has been improved aeration of both lungs, consistent with resolving infiltrates, when compared with the prior chest from 07/14/2019. Dictated by: Dictated on workstation # [id number]
== END ==
LOC: RAD 09:54
PROVIDERS: ATTEND Nurse Practitioner Family
DX: J18.9 Pneumonia, unspecified organism (principal); J44.9 Chronic obstructive pulmonary disease, unspecified; G47.36 Sleep related hypoventilation in conditions classified elsewhere; F17.211 Nicotine dependence, cigarettes, in remission; R59.0 Localized enlarged lymph nodes
CPT/HCPCS: 71046

== ENCOUNTER → 2020-07-07 | Outpatient (CLI) | payer MEDICARE ==
[~2020-07-07] VITALS: Ht 162 cm; Wt 68.0 kg
[~2020-07-07] MED LIST changes: +AMLO-250 PO; -AMLO5TAB9 PO; -MONT10TA26 PO; +MONT10TA32 PO; -MONT4TAB10 PO; +MONT4TAB17 PO; +REGADENOSON 0.4 MG/5 ML SYR (LEXISCAN) IV ONE
[2020-07-07] MEDS: CATHETER FLUSH 10 ML SYR IV PRN ×2 (11:09→13:08)
[2020-07-07 13:06] VITALS: BP 129/66
--- NOTE | 2020-07-07 14:55 | Cardiology Stress Test Report ---
Stress Test Report Date of Procedure/Referring: Date of Procedure: Jul 07, 2020 PCP Arash Willis MD Admitting Physician Center/[facility] Indications: HTN Baseline Heart Rate: 71 Baseline Blood Pressure: Blood Pressure Systolic: 129 Blood Pressure Diastolic: 66 Baseline Vitals Vital Signs Date Time Temp Pulse Resp B/P (MAP) Pulse Ox O2 Delivery O2 Flow Rate FiO2 07/07/20 13:06 95 16 129/66 (87) 98 Room Air Baseline EKG: Baseline EKG: NSR, LBBB Summary After explaining the procedure to the patient, she signed a consent and then brought to the stress nuclear laboratory. Patient received 0.4 mg Lexiscan for stress test, ECG, heart rate and blood pressure were monitored continuously. Resting and stress dose of radio tracer were injected, imaging was acquired and reviewed in short axis, horizontal long axis and vertical long axis views. TID: 1.03 SSS: 7 SDS: 0 EF: 42 1. Patient tolerated Lexiscan well 2. Baseline left bundle branch block persisted during test 3. Decreased uptake involving the whole inferior wall which is fixed no significant reversibility was noted 4. Prominent left ventricle with hypokinesia of the inferior wall, EF 42% ARASH WILLIS MD Jul 07, 2020 14:55
== END ==
LOC: CARD 09:59
PROVIDERS: ATTEND Internal Medicine Cardiovascular Disease
DX: I11.9 Hypertensive heart disease without heart failure (principal); I08.0 Rheumatic disorders of both mitral and aortic valves
CPT/HCPCS: 78452; 93017; 93306; A9502

== ENCOUNTER 2020-07-16 05:40 | Outpatient (RCR) | payer MEDICARE ==
[~2020-07-16] VITALS: Ht 160.2 cm; Wt 68.1 kg
[~2020-07-16 05:40] MED LIST changes: +FERR325T18 PO; +HYDR-700 PO; +MTP25TSR PO; +OMEG-154 PO; +POLY17PO6 PO; -REGADENOSON 0.4 MG/5 ML SYR (LEXISCAN) IV ONE; +RIVA20TA PO
[2020-07-19] MEDS ORDERED: SUCR1TAB36 PO (12:27)
== END 2020-07-16 09:28 | disposition home or self-care (01) ==
LOC: PREOP 05:40
PROVIDERS: ATTEND Surgery
DX: Z01.812 Encounter for preprocedural laboratory examination (principal); D64.9 Anemia, unspecified; Z20.822 Contact with and (suspected) exposure to COVID-19
CPT/HCPCS: 87635

== ENCOUNTER 2020-07-19 10:59 | Day surgery (SDC) | payer MEDICARE ==
[2020-07-19] VITALS (8 sets, daily range): BP systolic 122–157; BP diastolic 56–88
[~2020-07-19] VITALS: Ht 160 cm; Wt 68.1 kg
[~2020-07-19 10:59] MED LIST changes: +LACTATED RINGERS 1,000 ML IV ONE
[2020-07-19] MEDS ORDERED: LACTATED RINGERS 1,000 ML IV STA (11:02)
[2020-07-19] MEDS ORDERED: HURRICAINE EXT TUBE (BENZOCAINE) XX PRN (11:15)
--- NOTE | 2020-07-19 11:36 | Progress Note-Pre Operative ---
Pre-Operative Progress Note H&P Reviewed The H&P was reviewed, patient examined and no changes noted. Time Seen by Provider: 11:34 Date H&P Reviewed: Jul 19, 2020 Time H&P Reviewed: 11:34 Pre-Operative Diagnosis: anemia ANDREEA PLATA DO Jul 19, 2020 11:36
[2020-07-19] MEDS ORDERED: proPOfol 200 MG/20 ML (DIPRIVAN) VIAL IV ONE ×2 (11:52→12:03)
--- NOTE | 2020-07-19 12:26 | Progress Note-Post Operative ---
Post-Operative Progess Note Surgeon (s)/Soap Press Feeder (s) Surgeon ANDREEA PLATA DO Soap Press Feeder: none Pre-Operative Diagnosis anemia Post-Operative Diagnosis Gastritis Hiatal Hernia Inflammatory Gastric Polyps - with bleeding Procedure & Operative Findings Date of Procedure 07/19/20 Procedure Performed/Findings EGD with bx EGD with polypectomy by hot bx Anesthesia Type IV sedation by anesthesia Estimated Blood Loss Estimated blood loss (mL): scant Specimens/Packing Specimens Removed antral bx GE jxn bx Gastric polyp (4 polyps) 6 pieces ANDREEA PLATA DO Jul 19, 2020 12:26
[2020-07-19] MEDS ORDERED: SUCR1TAB36 PO (12:27)
--- NOTE | 2020-07-19 12:28 | Endoscopy Discharge Instruct ---
Endo Procedure/Findings Findings 1.: Gastritis 2.: Hiatal Hernia 3.: Other Findings (Inflammatory Gastric Polyps) Discharge Instructions - Activity: You might feel a little sleepy until tomorrow. This is due to the medicine you received to relax you. Until tomorrow, you should: NOT drive a car, operate machinery or power tools. NOT drink any alcoholic beverages. NOT make any important decisions or sign importortant papers. Do not return to work until tomorrow, unless otherwise instructed. Resume previous activities tomorrow. Diet: Start by taking liquids. If you tolerate liquids, advance to solid food. 1.: EGD in 6-8 weeks Notify Physician - If you experience excessive bleeding, unusual abdominal pain, fever, or chest pain, contact your doctor immediately. ANDREEA PLATA DO Jul 19, 2020 12:27
--- NOTE | 2020-07-19 12:50 | Anesthesia-General Post-Op ---
MAC Patient Condition Mental Status/LOC: Same as Preop Cardiovascular: Satisfactory Nausea/Vomiting: Absent Respiratory: Satisfactory Pain: Controlled Complications: Absent Post Op Complications Complications None Follow Up Care/Instructions Patient Instructions None needed. Anesthesiology Discharge Order Discharge Order Patient is doing well, no complaints, stable vital signs, no apparent adverse anesthesia problems. No complications reported per nursing. POORNIMA BARRAGAN CRNA Jul 19, 2020 12:50
--- NOTE | 2020-07-20 03:51 | OPERATIVE REPORT ---
DATE OF SERVICE: PREOPERATIVE DIAGNOSIS: Anemia. POSTOPERATIVE DIAGNOSES: Gastritis, hiatal hernia, inflammatory polyp. PROCEDURES: 1. EGD with biopsy. 2. EGD with polypectomy by hot biopsy. SURGEON: Kingsley Vidal DO VP HR DIVERSITY: None. ANESTHESIA: IV sedation by the anesthesiologist. SPECIMEN: Biopsy of the antrum, biopsy from the GE junction and inflammatory polyps x4. BLOOD LOSS: Scant. FLUIDS: Per anesthesia. POSTOPERATIVE CONDITION: Stable. INDICATION FOR PROCEDURE: The patient is an 84-year-old female who has been having some anemia and bleeding, trying to find the source. FINDINGS: The patient had some mild gastritis and hiatal hernia, but she had inflammatory polyps that looked like they had been bleeding recently. PROCEDURE NOTE: After informed consent was obtained, the patient was brought to the endoscopy suite, placed in bed in left lateral decubitus position. She was administered IV sedation by the anesthesiologist who then monitored her vitals the entire time, heart rate, blood pressure and pulse ox and the scope was inserted down the mouth through the esophagus into the stomach. On the way down, the esophagus looked good. Mild changes at the GE junction. In the stomach, saw inflammatory polyps, looked like they have been bleeding recently. Pushing the duodenum. Duodenum looked fine. Pulled back, did a biopsy of the antrum. Retroflexed the scope, saw hiatal hernia and more inflammatory polyps. At this point, then did a hot biopsy to remove 4 inflammatory polyps and cauterize them, did a biopsy of the GE junction and then suctioned all the air out of stomach, pulled the scope up the esophagus and out the mouth. The patient tolerated the procedure, she has recovered in endoscopy suite. Job ID: [id number] DocumentID: [id number] Dictated Date: 07/19/2020 21:23:53 Traffic Observer Date: 07/20/2020 03:49:17 Dictated By: KINGSLEY VIDAL DO
[2020-07-21] MEDS ORDERED: MIRT30TA6 PO (10:09)
[2020-07-21] MEDS ORDERED: FURO20TA4 PO (10:09)
[2020-07-21] MEDS ORDERED: DILT180C85 PO (10:09)
[2020-07-21] MEDS ORDERED: BETA1TAB15 PO (10:09)
[2020-07-21] MEDS ORDERED: SUCR1TAB36 PO (10:09)
[2020-07-21] MEDS ORDERED: ASPI-1238 PO (10:09)
[2020-07-21] MEDS ORDERED: POTA10TA36 PO (10:09)
[2020-07-21] MEDS ORDERED: RIVA20TA PO (10:09)
[2020-07-21] MEDS ORDERED: DILT180C54 PO (10:11)
== END 2020-07-19 13:20 | disposition home or self-care (01) ==
LOC: ENDO 10:59
PROVIDERS: ATTEND Surgery
DX: K29.50 Unspecified chronic gastritis without bleeding (principal); K21.00 Gastro-esophageal reflux disease with esophagitis, without bleeding; K63.89 Other specified diseases of intestine; K44.9 Diaphragmatic hernia without obstruction or gangrene; K31.7 Polyp of stomach and duodenum; D50.9 Iron deficiency anemia, unspecified; I10 Essential (primary) hypertension; I48.91 Unspecified atrial fibrillation; J44.9 Chronic obstructive pulmonary disease, unspecified; M81.0 Age-related osteoporosis without current pathological fracture; E78.5 Hyperlipidemia, unspecified; I44.7 Left bundle-branch block, unspecified; F41.9 Anxiety disorder, unspecified; F32.9 Major depressive disorder, single episode, unspecified; Z88.0 Allergy status to penicillin; Z88.1 Allergy status to other antibiotic agents; Z79.82 Long term (current) use of aspirin; Z88.2 Allergy status to sulfonamides; Z79.899 Other long term (current) drug therapy; Z99.89 Dependence on other enabling machines and devices; Z87.891 Personal history of nicotine dependence; Z79.01 Long term (current) use of anticoagulants

== ENCOUNTER 2020-07-21 11:00 | Day surgery (SDC) | payer MEDICARE ==
[2020-07-21] VITALS (10 sets, daily range): BP systolic 124–151; BP diastolic 66–74
[~2020-07-21] VITALS: Ht 160 cm; Wt 65.0 kg
--- NOTE | 2020-07-21 09:09 | Diagnostic Imaging Report ---
INDICATION: Chest pain. TECHNIQUE/COMPARISON: A frontal chest was obtained at 8:57 AM and compared with 09/17/2019. FINDINGS: The heart is borderline in size. The mediastinal silhouette appears unremarkable. There are diffuse interstitial fibrotic changes which appear similar to the prior study. There is no new infiltrate, pneumothorax, or pleural fluid. IMPRESSION: No change in the diffuse interstitial fibrotic changes compared to the prior study of 09/17/2019. No new abnormality. Dictated by: Dictated on workstation # [id number]
[2020-07-21 09:29] LABS: HEMOGLOBIN 10.1 g/dL (11.5-16.0); MEAN PLATELET VOLUME 10.5 fL (9.0-12.2); WHITE BLOOD COUNT 7.8 10^3/uL (4.3-11.0)
[2020-07-21 09:41] LABS: INR 1.1 (0.8-1.4); PROTHROMBIN TIME PATIENT 14.2 SEC (12.2-14.7)
[2020-07-21 09:51] LABS: BILIRUBIN,TOTAL 0.3 MG/DL (0.1-1.0); CALCIUM 9.2 MG/DL (8.5-10.1); CREATININE SERUM 1.27 MG/DL (0.60-1.30); POTASSIUM 4.2 MMOL/L (3.6-5.0); TOTAL PROTEIN 6.8 GM/DL (6.4-8.2)
[~2020-07-21 11:00] MED LIST changes: +ASPI-1238 PO; +BETA1TAB15 PO; +DILT180C54 PO; +FURO20TA4 PO; +HEParin (CATH LAB) 2,000 ML IV ONE; -LACTATED RINGERS 1,000 ML IV ONE; +LIDOCAINE 1% INJ 20 ML 20 ML VIAL ONE; +MIDAZOLAM 5 MG/5 ML (VERSED) VIAL ONE; +MIRT30TA6 PO; +NS IV 1000 ML 1,000 ML IV SCH; +NS IV 1000 ML 1,000 ML ONE; +SUCR1TAB36 PO; +fentaNYL INJ 100 MCG/2 ML AMP ONE
--- NOTE | 2020-07-21 11:38 | Cardiac Procedure Note-CS/ASA ---
Pre-Procedure Note Pre-Op Procedure Note H&P Reviewed The H&P was reviewed, patient examined and no changes noted. Date H&P Reviewed: Jul 21, 2020 Time H&P Reviewed: 11:00 Conscious Sedation Pre-Proced Time 11:00 ASA Score 3 For ASA 3 and 4: Consider anesthesia and medical clearance. Also, for patients with a history of failed moderate sedation consider anesthesia. Airway Lungs Heart ASA score ASA 1: a normal healthy patient ASA 2: a patient with a mild systemic disease (mid diabetes, controlled hypertension, obesity x ASA 3: a patient with a severe systemic disease that limits activity (angina, COPD, prior Myocardial infarction) ASA 4: a patient with an incapacitating disease that is a constant threat to life (CHF, renal failure) ASA 5: a moribund patient not expected to survive 24 hrs. (ruptured aneurysm) ASA 6: a declared brain- patient whose organs are being harvested. For emergent operations, add the letter E after the classification Mallampati Classification Grade 3 Sedation Plan Analgesia, Amnesia, Plan communicated to team members, Discussed options with patient/fam, Discussed risks with patient/fam The patient is an appropriate candidate to undergo the planned procedure, sedation, and anesthesia. The patient immediately re-assessed prior to indication. ARASH CAI MD Jul 21, 2020 11:38 am
--- NOTE | 2020-07-21 11:40 | Discharge Inst-Post CATH ---
Discharge Inst-CATH/EP Problems Reviewed?: Yes Post Cardiac Cath/EP D/C Inst Follow Up/Plan Appointment with Dr. Willis's office in 2 to 4 weeks <b>CARDIAC CATH/EP PROCEDURE DISCHARGE INSTRUCTIONS</b> ACTIVITY * Go Home directly and rest. * Limit activity of the leg (or wrist if it was used) for 7 days including aer obics, swimming, jogging, bicycling, etc. * Restrict stair-climbing for 7 days if possible, if not, climb up with your non-cath leg, then bring together on the same step. * Avoid lifting, pushing, pulling or excessive movement of the affected extremi ty for 7 days. * Customary sexual activity may be resumed after 2 days-use caution not to use a position that strains or causes pain to the affected extremity. * No driving for 24 hours. * NO SMOKING. * Avoid straining for bowel movements for 7 days. * Gentle walking on level ground is allowed. * Returning to work will depend on the type of procedure and the results. Your doctor will discuss this with you. CALL YOUR DOCTOR FOR ANY OF THE FOLLOWING: *If bleeding from the puncture site occurs- Apply gentle pressure to site with clean cloth and call your doctor or EMS. * If a knot or lump forms under the skin, increases in size, or causes pain. * If bruising appears to be worsening or moving further down your leg instead of disappearing. * Temperature above 101 F. CARE OF YOUR GROIN INCISION; * Bruising or purple discoloration of the skin near the puncture site is common. * You may shower only, no bathtub bathing for 5 days. Be careful to avoid slipping as your leg may feel stiff. * If a closure device was used on your femoral artery, please see the attached guide regarding care of the device and your leg. * Leave dressing on FOR 24 hours. CARE OF YOUR WRIST INCISION; * Bruising or purple discoloration of the skin near the puncture site is common. * You may shower. * DO NOT submerge wrist. * Leave dressing on FOR 24 hours. ARASH WILLIS MD Jul 21, 2020 11:40 am
--- NOTE | 2020-07-21 11:43 | Cardiac Cath Report ---
Cardiac Cath Report Physician (s)/Channel Business Manager (s) Physician ARASH CAI MD Pre-Procedure Diagnosis Pre-Procedure Diagnosis: Coronary artery disease Post-Procedure Note Procedure Start Date: Jul 21, 2020 Name of Procedure: Left heart catheterization Findings/Procedure Note PROCEDURE NOTE: 84-year-old lady with intermittent left bundle branch block, hypertension, hyperlipidemia, had borderline stress test, has been having chest pain, scheduled for cardiac catheterization possible PTCA. After explaining the procedure to the patient, all pros and cons were explained, all questions were answered. The patient signed the consent and then she was placed on the cardiac catheterization laboratory. Groin was prepped SL fashion local anesthesia was used. Sheath placed in the right femoral artery. Pete right and left catheter were used to access the coronary system. Pigtail was used to access the left ventricular cavity. Left ventriculogram was not done, pressure was measured At the end of the procedure the sheath was removed. Closure device was deployed FINDINGS: Hemodynamics LV 102/9, end-diastolic pressure of 9 Aorta 92/47 mean of 60 ANATOMY: Left Main is free of obstructive disease Left Anterior Descending is slightly tortuous with no obstructive disease Left Circumflex has mild disease nonobstructive disease Right Coronory Artery is small nondominant artery with coronary spasm induced by catheter LV Gram was not done, pressure was measured, fluoroscopy showed heavy mitral annular calcification CONCLUSION: 1. Mild to moderate coronary artery disease nonobstructive disease 2. Normal left ventricular end-diastolic pressure 3. Calcified mitral annulus DISCUSSION AND RECOMMENDATION: Medical therapy is recommended no intervention is warranted Anesthesia Type: Conscious Sedation Estimated blood loss (mL): 25 ml Contrast Amount: 14 ml Total Radiation Dose: 192 mGy Post-Procedure Diagnosis Post-operative diagnosis: Chest pain Coronary artery disease Hypertension Hyperlipidemia ARASH CAI MD Jul 21, 2020 11:43 am
[2020-07-21] MEDS ORDERED: PATIENT MAY USE OWN MEDS, ALL PO SCH (11:45)
[2020-07-21] MEDS ORDERED: NS IV 1000 ML 1,000 ML IV SCH (11:45)
== END 2020-07-21 15:35 | disposition home or self-care (01) ==
LOC: CATH 11:00 → SDC 11:55 → CATH 15:35
PROVIDERS: ATTEND Internal Medicine Cardiovascular Disease
DX: I25.10 Atherosclerotic heart disease of native coronary artery without angina pectoris (principal); I44.7 Left bundle-branch block, unspecified; I48.0 Paroxysmal atrial fibrillation; I11.0 Hypertensive heart disease with heart failure; I50.33 Acute on chronic diastolic (congestive) heart failure; I08.0 Rheumatic disorders of both mitral and aortic valves; J44.9 Chronic obstructive pulmonary disease, unspecified; E78.2 Mixed hyperlipidemia; G25.0 Essential tremor; J84.10 Pulmonary fibrosis, unspecified; I65.23 Occlusion and stenosis of bilateral carotid arteries; M79.672 Pain in left foot; M79.671 Pain in right foot; Z86.73 Personal history of transient ischemic attack (TIA), and cerebral infarction without residual deficits; Z79.01 Long term (current) use of anticoagulants; Z86.12 Personal history of poliomyelitis; Z79.899 Other long term (current) drug therapy; Z88.1 Allergy status to other antibiotic agents; Z88.2 Allergy status to sulfonamides; Z88.0 Allergy status to penicillin; Z87.891 Personal history of nicotine dependence; Z80.51 Family history of malignant neoplasm of kidney; Z79.82 Long term (current) use of aspirin
CPT/HCPCS: 71045; 80053; 80061; 85027; 85610; 85730; 87081; 93458; C1760; C1894; 36415

== ENCOUNTER 2020-08-02 21:48 | Emergency (ER) | payer MEDICARE ==
[~2020-08-02] VITALS: Ht 160 cm; Wt 65.7 kg
[~2020-08-02 21:48] MED LIST changes: -HEParin (CATH LAB) 2,000 ML IV ONE; -LIDOCAINE 1% INJ 20 ML 20 ML VIAL ONE; -MIDAZOLAM 5 MG/5 ML (VERSED) VIAL ONE; -NS IV 1000 ML 1,000 ML IV SCH; -NS IV 1000 ML 1,000 ML ONE; -fentaNYL INJ 100 MCG/2 ML AMP ONE
[2020-08-02] MEDS ORDERED: OXYMETAZOLINE (AFRIN) 0.05% NA 30 ML BTL ONE (22:07)
--- NOTE | 2020-08-02 22:13 | ED EENT ---
History of Present Illness General Chief Complaint: Nasal Problems Stated Complaint: NOSE BLEED/ON BLOOD THINNERS Source: patient Exam Limitations: no limitations History of Present Illness Date Seen by Provider: Aug 02, 2020 Time Seen by Provider: 21:57 Initial Comments Patient presents ER by private conveyance with her significant other and chief complaint since about 8:00 she started having a nosebleed. She thinks maybe she scratched her nose. She has been packing it with tissue. She is on Xarelto for atrial fibrillation followed by Dr. Willis and Duane Rollins. She denies chest pain or shortness of air. Allergies and Home Medications Allergies Coded Allergies: Penicillins (Unverified Allergy, Unknown, 02/25/18) sulfamethoxazole (Unverified Allergy, Unknown, 02/25/18) trimethoprim (Unverified Allergy, Unknown, 02/25/18) Home Medications Albuterol Sulfate 1 Puff Puff, 2 PUFF INH QID PRN for SHORTNESS OF BREATH, (Reported) Aspirin 81 Mg Tablet.dr, 81 MG PO DAILY, (Reported) Atorvastatin Calcium 10 Mg Tablet, 10 MG PO DAILY, (Reported) Diltiazem HCl 180 Mg Cap.er.24h, 180 MG PO DAILY, (Reported) Ferrous Sulfate 325 Mg Tablet, 325 MG PO DAILY, (Reported) Furosemide 20 Mg Tablet, 20 MG PO DAILY, (Reported) Hydroxyzine HCl 25 Mg Tablet, 25 MG PO Q6H PRN for ANXIETY, (Reported) Ipratropium/Albuterol Sulfate 3 Ml Ampul.neb, 3 ML NEB QID, (Reported) Metoprolol Succinate 25 Mg Tab.er.24h, 25 MG PO DAILY, (Reported) Mirtazapine 30 Mg Tablet, 30 MG PO HS, (Reported) Montelukast Sodium 4 Mg Tab.chew, 4 MG PO HS, (Reported) [place]-3S/Dha/Epa/Fish Oil 1 Each Capsule.dr, 2,000 EACH PO DAILY, (Reported) Omeprazole 40 Mg Capsule.dr, 40 MG PO DAILY, (Reported) Polyethylene Glycol 3350 17 Gm Powd.pack, 17 GM PO DAILY PRN for CONSTIPATION- 2ND LINE, (Reported) Potassium Chloride 10 Meq Tab.er.prt, 10 MEQ PO DAILY, (Reported) Rivaroxaban 20 Mg Tablet, 20 MG PO 1800, (Reported) Sucralfate 1 Gm Tablet, 1 GM PO ACHS, (Reported) Vit A/Vit C/Vit E/Zinc/Copper 1 Each Tablet, 1 EACH PO BID, (Reported) Patient Home Medication List Home Medication List Reviewed: Yes Review of Systems Review of Systems Constitutional: No chills, No fever Eyes: Denies Blindness, Denies Blurred Vision Ears: Denies Dizziness, Denies Pain Nose: see HPI, clots, epistaxis Mouth: denies clots, denies loose teeth Throat: denies pain, denies swelling Respiratory: No cough, No short of breath Cardiovascular: No chest pain, No edema All Other Systems Reviewed Negative Unless Noted: Yes Past Hvzlzdf-Kubbzu-Aqzzch Hx Patient Social History Alcohol Use: Denies Use Type Used: Cigarettes Former Smoker, Quit: Jul 16, 2019 2nd Hand Smoke Exposure: Yes Recent Hopitalizations: No Immunizations Up To Date Tetanus Booster (TDap): Less than 5yrs PED Vaccines UTD: Yes Date of Pneumonia Vaccine: Feb 04, 2020 Date of Influenza Vaccine: Feb 04, 2020 Seasonal Allergies Seasonal Allergies: No Past Medical History Surgeries: No (LT ANKLE FUSION/LT HAMMER TOE/SKIN CA REMOVAL) Tonsillectomy Respiratory: Yes (OXYGEN AT NIGHT 2L) COPD Currently Using CPAP: No Currently Using BIPAP: Yes Cardiac: Yes High Cholesterol, Hypertension Neurological: Yes (BENIGN TREMORS) Dementia, Stroke Reproductive Disorders: No Sexually Transmitted Disease: Yes HIV/AIDS: No Genitourinary: No Gastrointestinal: No Gastroesophageal Reflux, Chronic Constipation, Diverticulosis, Polyps, Hiatal Hernia Musculoskeletal: Yes Arthritis Endocrine: No Cataract Loss of Vision: Denies Hearing Impairment: Hard of Hearing Cancer: Yes (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) Skin Did You Recieve Any Treatments: Yes What Type of Treatment Did You: Surgical Intervention Psychosocial: Yes Anxiety, Depression Integumentary: Yes (SKIN CANCER MOLES REMOVED) Blood Disorders: Yes (ANEMIC) Adverse Reaction/Blood Tranf: No Family Medical History Colon cancer No Pertinent Family Hx PSH; -EGD/COLONOSCOPIES--POLYPECTOMIES--LAST SCOPES 02/2018--GERD/HIATAL HERNIA, DIVERTICULAR DISEASE -MULTIPLE SKIN LESIONS REMOVED, SOME CANCEROUS' -FOOT SURGERY -ANKLE SURGERY -TOENAIL SURGERY -LIPOMAS REMOVED -CATARACTS Physical Exam Vital Signs Vital Signs - First Documented 08/02/20 22:00 Temp 36.8 Pulse 60 Resp 18 B/P (MAP) 148/67 (94) Pulse Ox 98 O2 Delivery Room Air Height, Weight, BMI Height: 5'5.00" Weight: 142lbs. 8.0oz. 67.751200tr; 25.39 BMI Method:Stated General Appearance: WD/WN, no apparent distress Eyes: bilateral eye normal inspection, bilateral eye PERRL, bilateral eye EOMI Ears: bilateral ear auricle normal, bilateral ear canal normal, bilateral ear TM normal Nose: No active bleeding; other (Kleenex stuffed in the left nostril) Mouth/Throat: No dental tenderness, No excessive drooling, No foreign body; other (We will dried blood in the retropharynx) Neck: non-tender, full range of motion, supple Cardiovascular: normal peripheral pulses, regular rate, rhythm Respiratory: no respiratory distress, no accessory muscle use Neurologic/Psychiatric: alert, oriented x 3 Progress/Results/Core Measures Results/Orders Lab Results Laboratory Tests Test 08/02/20 22:20 Range/Units White Blood Count 9.2 4.3-11.0 10^3/uL Red Blood Count 4.14 3.80-5.11 10^6/uL Hemoglobin 10.0 L 11.5-16.0 g/dL Hematocrit 33 L 35-52 % Mean Corpuscular Volume 80 80-99 fL Mean Corpuscular Hemoglobin 24 L 25-34 pg Mean Corpuscular Hemoglobin Concent 30 L 32-36 g/dL Red Cell Distribution Width 23.3 H 10.0-14.5 % Platelet Count 322 130-400 10^3/uL Mean Platelet Volume 10.0 9.0-12.2 fL Immature Granulocyte % (Auto) 0 % Neutrophils (%) (Auto) 70 42-75 % Lymphocytes (%) (Auto) 17 12-44 % Monocytes (%) (Auto) 8 0-12 % Eosinophils (%) (Auto) 4 0-10 % Basophils (%) (Auto) 1 0-10 % Neutrophils # (Auto) 6.4 1.8-7.8 10^3/uL Lymphocytes # (Auto) 1.5 1.0-4.0 10^3/uL Monocytes # (Auto) 0.8 0.0-1.0 10^3/uL Eosinophils # (Auto) 0.3 0.0-0.3 10^3/uL Basophils # (Auto) 0.1 0.0-0.1 10^3/uL Immature Granulocyte # (Auto) 0.0 0.0-0.1 10^3/uL Sodium Level 136 135-145 MMOL/L Potassium Level 3.6 3.6-5.0 MMOL/L Chloride Level 105 98-107 MMOL/L Carbon Dioxide Level 19 L 21-32 MMOL/L Anion Gap 12 5-14 MMOL/L Blood Urea Nitrogen 21 H 7-18 MG/DL Creatinine 1.35 H 0.60-1.30 MG/DL Estimat Glomerular Filtration Rate 37 BUN/Creatinine Ratio 16 Glucose Level 98 70-105 MG/DL Calcium Level 8.9 8.5-10.1 MG/DL Corrected Calcium 9.1 8.5-10.1 MG/DL Total Bilirubin 0.2 0.1-1.0 MG/DL Aspartate Amino Transf (AST/SGOT) 10 5-34 U/L Alanine Aminotransferase (ALT/SGPT) < 6 0-55 U/L Alkaline Phosphatase 89 40-136 U/L Total Protein 6.2 L 6.4-8.2 GM/DL Albumin 3.8 3.2-4.5 GM/DL My Orders Orders - SHONDA HARRISON Oxymetazoline 0.05% Nasal [place] (Afrin 0. (08/03/20 09:00) Cbc With Automated Diff (08/02/20 22:07) Comprehensive Metabolic Panel (08/02/20 22:07) Oxymetazoline 0.05% Nasal [place] (Afrin 0. (08/02/20 22:07) Vital Signs/I&O 08/02/20 22:00 Temp 36.8 Pulse 60 Resp 18 B/P (MAP) 148/67 (94) Pulse Ox 98 O2 Delivery Room Air Progress Progress Note #1: Time: 22:12 Progress Note She has a history of anemia so we will check a CBC, CMP get a dose of Afrin up each nostril and clamp her nose for 20 to 40 minutes. Aseptic vital signs per Progress Note #2: Time: 23:22 Progress Note After removing the nasal clamp she still not having any bleeding so we will send her home with the Afrin and instructions for follow-up and return precautions. Departure Impression Primary Impression: Epistaxis Disposition: 01 HOME, SELF-CARE Condition: Improved Departure-Patient Inst. Decision time for Depature: 23:22 Referrals: [facility] (PCP) Primary Care Physician DUANE ROLLINS (Family) Primary Care Physician Patient Instructions: Nosebleeds (DC) Add. Discharge Instructions: For the next 3 days: Do not blow your nose or put anything in your nose. Do not clear your nose. Drink plenty of fluids and continue to take your medications as prescribed. If you do have a repeat bleed put 2 sprays of Afrin up to each nostril and then clamp your nose down with the provided clamp for 40 minutes while sitting up. Do not swallow the bloody secretions as this will cause nausea. If your nosebleeds continue then you may stop taking the Eliquis and follow-up with your primary care doctor. If you cannot get the nosebleeds to stop after 40 minutes of clamping and Afrin then you may return to the nearest ER and we will happily help you. All discharge instructions reviewed with patient and/or family. Voiced u nderstanding. SHONDA HARRISON Aug 02, 2020 22:13
[2020-08-02 22:28] LABS: BASOPHILS # (AUTO) 0.1 10^3/uL (0.0-0.1); BASOPHILS % (AUTO) 1 % (0-10); EOSINOPHILS # (AUTO) 0.3 10^3/uL (0.0-0.3); EOSINOPHILS % (AUTO) 4 % (0-10); HEMATOCRIT 33 % (35-52); LYMPHOCYTES # (AUTO) 1.5 10^3/uL (1.0-4.0); LYMPHOCYTES % (AUTO) 17 % (12-44); MEAN CORPUSCULAR HEMOGLOBIN 24 pg (25-34); MEAN CORPUSCULAR HGB CONC 30 g/dL (32-36); MEAN CORPUSCULAR VOLUME 80 fL (80-99); MONOCYTES # (AUTO) 0.8 10^3/uL (0.0-1.0); MONOCYTES % (AUTO) 8 % (0-12); NEUTROPHILS # (AUTO) 6.4 10^3/uL (1.8-7.8); NEUTROPHILS % (AUTO) 70 % (42-75); PLATELET COUNT 322 10^3/uL (130-400); WHITE BLOOD COUNT 9.2 10^3/uL (4.3-11.0)
[2020-08-02 22:47] LABS: ALANINE AMINOTRANSFERASE < 6 U/L (0-55); ALBUMIN 3.8 GM/DL (3.2-4.5); ALKALINE PHOSPHATASE 89 U/L (40-136); BILIRUBIN,TOTAL 0.2 MG/DL (0.1-1.0); BUN/CREATININE RATIO 16; CALCIUM 8.9 MG/DL (8.5-10.1); CARBON DIOXIDE 19 MMOL/L (21-32); CHLORIDE 105 MMOL/L (98-107); CREATININE SERUM 1.35 MG/DL (0.60-1.30); GFR ESTIMATED 37; GLUCOSE 98 MG/DL (70-105); POTASSIUM 3.6 MMOL/L (3.6-5.0); SODIUM 136 MMOL/L (135-145); TOTAL PROTEIN 6.2 GM/DL (6.4-8.2)
[2020-08-02 23:30] VITALS: BP 131/87
[2020-08-03] MEDS ORDERED: OXYMETAZOLINE (AFRIN) 0.05% NA 30 ML BTL SCH (09:00)
== END 2020-08-02 23:31 | disposition home or self-care (01) ==
LOC: EDUNIT# 21:48 → ER 21:49
DX: R04.0 Epistaxis (principal); J44.9 Chronic obstructive pulmonary disease, unspecified; I10 Essential (primary) hypertension; K21.9 Gastro-esophageal reflux disease without esophagitis; E78.00 Pure hypercholesterolemia, unspecified; F41.9 Anxiety disorder, unspecified; F32.9 Major depressive disorder, single episode, unspecified; Z88.0 Allergy status to penicillin; Z88.1 Allergy status to other antibiotic agents; Z88.2 Allergy status to sulfonamides; Z86.73 Personal history of transient ischemic attack (TIA), and cerebral infarction without residual deficits; Z87.891 Personal history of nicotine dependence; Z79.82 Long term (current) use of aspirin; Z79.01 Long term (current) use of anticoagulants
CPT/HCPCS: 36415; 80053; 85025; 99284

== ENCOUNTER 2021-01-02 08:39 | Emergency (ER) | payer MEDICARE ==
[~2021-01-02] VITALS: Ht 162.5 cm; Wt 69.4 kg
[~2021-01-02 08:39] MED LIST changes: +MIRT-68 PO; +MIRT-69 PO; -MIRT15TA6 PO; -MIRT30TA6 PO; -OMEP40CA27 PO; +OMEP40CA6 PO
[2021-01-02] MEDS ORDERED: OXYMETAZOLINE (AFRIN) 0.05% NA 30 ML BTL ONE (09:02)
--- NOTE | 2021-01-02 09:19 | ED EENT ---
History of Present Illness General Stated Complaint: BLOODY NOSE Source: patient Exam Limitations: no limitations History of Present Illness Date Seen by Provider: Jan 02, 2021 Time Seen by Provider: 08:55 Initial Comments Here with report of nosebleed on the right side. States she may have scratched the inside of her nose. She does have tremors and states that she was scratching a little bit and had the tremor and thinks that she scratched the inside a little deeper. She initiated treatment with stuffing tissue in her nose. That did not stop the bleeding and ultimately she presented here. Patient is on Xarelto for atrial fibrillation and still takes that as directed. She is also on aspirin. She had similar episode in July of this year that resolved after nose clamp and Afrin nasal spray. Timing/Duration: abrupt, this morning Severity: moderate Location: nose Prearrival Treatment: nasal packing Associated Symptoms: No cough Allergies and Home Medications Allergies Coded Allergies: Penicillins (Unverified Allergy, Unknown, 02/25/18) sulfamethoxazole (Unverified Allergy, Unknown, 02/25/18) trimethoprim (Unverified Allergy, Unknown, 02/25/18) Patient Home Medication List Home Medication List Reviewed: Yes Albuterol Sulfate (Ventolin Hfa) 1 Puff Puff, 2 PUFF INH QID PRN for SHORTNESS OF BREATH, (Reported) Entered as Reported by: MARNI JACK on 05/09/19 1522 Aspirin (Aspirin EC) 81 Mg Tablet.dr, 81 MG PO DAILY, (Reported) Entered as Reported by: WINDY ANDRE on 07/21/20 1009 Atorvastatin Calcium (Atorvastatin Calcium) 10 Mg Tablet, 10 MG PO DAILY, (Reported) Entered as Reported by: ALETA DE LEON on 02/25/18 1355 Diltiazem HCl (Cartia Xt) 180 Mg Cap.er.24h, 180 MG PO DAILY, (Reported) Entered as Reported by: WINDY ANDRE on 07/21/20 1011 Ferrous Sulfate (Ferrous Sulfate) 325 Mg Tablet, 325 MG PO DAILY, (Reported) Entered as Reported by: CLEVELAND RODRIGUEZ on 07/15/20 1234 Furosemide (Furosemide) 20 Mg Tablet, 20 MG PO DAILY, (Reported) Entered as Reported by: WINDY ANDRE on 07/21/20 1009 Hydroxyzine HCl (Hydroxyzine HCl) 25 Mg Tablet, 25 MG PO Q6H PRN for ANXIETY, (Reported) Entered as Reported by: CLEVELAND RODRIGUEZ on 07/15/20 1234 Ipratropium/Albuterol Sulfate (Iprat-Albut 0.5-3(2.5) mg/3 ml) 3 Ml Ampul.neb, 3 ML NEB QID, (Reported) Entered as Reported by: ALETA DE LEON on 02/25/18 1355 Metoprolol Succinate (Metoprolol Succinate) 25 Mg Tab.er.24h, 25 MG PO DAILY, (Reported) Entered as Reported by: CLEVELAND RODRIGUEZ on 07/15/20 1234 Mirtazapine (Mirtazapine) 30 Mg Tablet, 30 MG PO HS, (Reported) Entered as Reported by: WINDY ANDRE on 07/21/20 1009 Montelukast Sodium (Montelukast Sodium) 4 Mg Tab.chew, 4 MG PO HS, (Reported) Entered as Reported by: MARNI JACK on 05/09/19 1336 [place]-3S/Dha/Epa/Fish Oil (Fish Oil [place]-3 Softgel) 1 Each Capsule.dr, 2,000 EACH PO DAILY, (Reported) Entered as Reported by: CLEVELAND RODRIGUEZ on 07/15/20 1234 Omeprazole (Omeprazole) 40 Mg Capsule.dr, 40 MG PO DAILY, (Reported) Entered as Reported by: ALETA DE LEON on 02/25/18 1355 Polyethylene Glycol 3350 (Miralax) 17 Gm Powd.pack, 17 GM PO DAILY PRN for CONSTIPATION-2ND LINE, (Reported) Entered as Reported by: CLEVELAND RODRIGUEZ on 07/15/20 1234 Potassium Chloride (Potassium Chloride) 10 Meq Tab.er.prt, 10 MEQ PO DAILY, (Reported) Entered as Reported by: WINDY ANDRE on 07/21/20 1009 Rivaroxaban (Xarelto) 20 Mg Tablet, 20 MG PO 1800, (Reported) Entered as Reported by: WINDY NADRE on 07/21/20 1009 Sucralfate (Carafate) 1 Gm Tablet, 1 GM PO ACHS, (Reported) Entered as Reported by: WINDY ANDRE on 07/21/20 1009 Vit A/Vit C/Vit E/Zinc/Copper (Preservision Areds Tablet) 1 Each Tablet, 1 EACH PO BID, (Reported) Entered as Reported by: WINDY ANDRE on 07/21/20 1009 Review of Systems Review of Systems Constitutional: No chills, No fever Eyes: No Symptoms Reported Nose: see HPI, epistaxis; denies pain Mouth: denies pain, denies swelling Throat: denies pain, denies swelling Respiratory: No cough, No short of breath Neurological: No Symptoms Reported, Tremors; Denies Weakness Past Pcxilgh-Nivvzn-Szvhxh Hx Patient Social History Tobacco Use?: No Use of E-Cig and/or Vaping dev: No Substance use?: No Alcohol Use?: No Immunizations Up To Date Tetanus Booster (TDap): Less than 5yrs PED Vaccines UTD: Yes Seasonal Allergies Seasonal Allergies: No Past Medical History Surgeries: Yes Orthopedic, Tonsillectomy Respiratory: Yes (OXYGEN AT NIGHT 2L) COPD Currently Using CPAP: No Currently Using BIPAP: Yes Cardiac: Yes High Cholesterol, Hypertension Neurological: Yes (BENIGN TREMORS) Dementia, Stroke Reproductive Disorders: No Sexually Transmitted Disease: Yes HIV/AIDS: No Genitourinary: No Gastrointestinal: No Gastroesophageal Reflux, Chronic Constipation, Diverticulosis, Polyps, Hiatal Hernia Musculoskeletal: Yes Arthritis Endocrine: No Cataract Loss of Vision: Denies Hearing Impairment: Hard of Hearing Cancer: Yes (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) Skin Did You Recieve Any Treatments: Yes What Type of Treatment Did You: Surgical Intervention Psychosocial: Yes Anxiety, Depression Integumentary: Yes (SKIN CANCER MOLES REMOVED) Blood Disorders: Yes (ANEMIC) Adverse Reaction/Blood Tranf: No Family Medical History Reviewed and Corrections made Colon cancer No Pertinent Family Hx PSH; -EGD/COLONOSCOPIES--POLYPECTOMIES--LAST SCOPES 02/2018--GERD/HIATAL HERNIA, DIVERTICULAR DISEASE -MULTIPLE SKIN LESIONS REMOVED, SOME CANCEROUS' -FOOT SURGERY -ANKLE SURGERY -TOENAIL SURGERY -LIPOMAS REMOVED -CATARACTS Physical Exam Vital Signs Vital Signs - First Documented 01/02/21 08:55 Pulse 70 Resp 16 B/P (MAP) 145/71 (95) Pulse Ox 97 O2 Delivery Room Air Height, Weight, BMI Height: 5'5.00" Weight: 142lbs. 8.0oz. 67.639952bn; 25.00 BMI Method:Stated General Appearance: WD/WN, no apparent distress Nose: active bleeding (Trace ooze to the right nare after removing tissues. No blood noted posterior pharynx. Left nare normal.) Mouth/Throat: normal mouth inspection, pharynx normal; No pharynx tenderness Neck: full range of motion, supple Cardiovascular: regular rate, rhythm, no murmur Respiratory: lungs clear, normal breath sounds Neurologic/Psychiatric: alert, oriented x 3 Skin: normal color, warm/dry Progress/Results/Core Measures Results/Orders My Orders Orders - JOHNATHAN OLSON MD Oxymetazoline 0.05% Nasal [place] (Afrin 0. (01/02/21 09:02) Medications Given in ED Current Medications Medications Dose Ordered Sig/[place] Route Start Time Stop Time Status Last Admin Dose Admin Oxymetazoline HCl 30 ml STK-MED ONCE .ROUTE 01/02/21 09:02 01/02/21 09:05 DC 01/02/21 09:10 30 ML Vital Signs/I&O 01/02/21 08:55 Pulse 70 Resp 16 B/P (MAP) 145/71 (95) Pulse Ox 97 O2 Delivery Room Air Progress Progress Note : Progress Note Seen and evaluated. Afrin nasal spray 3 sprays to each nostril and clamp placed. We will monitor that for 20 to 40 minutes and see how she does. No p osterior oozing noted after clamp placed. 1050: Clamp was removed and bleeding has stopped and has not restarted after about 20 minutes. Discharged home with return precautions. Patient and family verbalized understanding instructions and agreement with plan. Departure Impression Primary Impression: Epistaxis Disposition: 01 HOME, SELF-CARE Condition: Improved Departure-Patient Inst. Decision time for Depature: 10:52 Referrals: [facility] [place] (PCP) Primary Care Physician CHRISTINA HOOK (Family) Primary Care Physician Patient Instructions: Nosebleeds (DC) Add. Discharge Instructions: Use the Afrin nasal spray 2 sprays to each nostril tonight before bedtime and then stop. If you have rebleeding of your nose in the future, use 3 sprays of the Afrin nasal spray to each nostril and then place nasal clamp. Maintain that for 20 to 40 minutes. If bleeding continues after that then return to the emergency department. Otherwise you may follow-up with your primary care physician and or Dr. Mei as needed for nosebleed problems. Return for p ersistent bleeding, weakness, pain or other concerns as needed. JOHNATHAN OLSON MD Jan 02, 2021 09:19
[2021-01-02 11:02] VITALS: BP 152/88
== END 2021-01-02 11:02 | disposition home or self-care (01) ==
LOC: EDUNIT# 08:39 → ER 08:41
DX: R04.0 Epistaxis (principal); J44.9 Chronic obstructive pulmonary disease, unspecified; I10 Essential (primary) hypertension; F03.90 Unspecified dementia, unspecified severity, without behavioral disturbance, psychotic disturbance, mood disturbance, and anxiety; K21.9 Gastro-esophageal reflux disease without esophagitis; E78.00 Pure hypercholesterolemia, unspecified; F41.9 Anxiety disorder, unspecified; F32.9 Major depressive disorder, single episode, unspecified; I48.91 Unspecified atrial fibrillation; Z86.73 Personal history of transient ischemic attack (TIA), and cerebral infarction without residual deficits; Z79.01 Long term (current) use of anticoagulants; Z79.82 Long term (current) use of aspirin; Z79.899 Other long term (current) drug therapy
CPT/HCPCS: 30901

== ENCOUNTER 2021-02-20 08:36 | Emergency (ER) | payer MEDICARE ==
[~2021-02-20] VITALS: Ht 165 cm; Wt 71.0 kg
--- NOTE | 2021-02-20 08:49 | ED General ---
General Chief Complaint: General Problems/Pain Stated Complaint: CHOKING Source of Information: Patient, EMS Exam Limitations: No Limitations History of Present Illness Date Seen by Provider: Feb 20, 2021 Time Seen by Provider: 08:30 Initial Comments Patient is an 85-year-old female who presents to the emergency department by ambulance this morning after choking episode. Patient was taking her daily medications when some of them got stuck. She went into her daughter and motioned that she was choking. Daughter states that the patient couldn't breathe. She was able to perform the Heimlich maneuver a couple of times and dislodge the pills. Patient is complaining of a mild sore throat. She denies any chest pain, sh ortness of breath, nausea vomiting. She was drinking water when EMS arrived. Has not had progressive difficulty with swallowing in recent weeks. All other review of systems reviewed and negative except as stated. Timing/Duration: 1/2 Hour Severity: Severe Associated Systoms: Other (sore throat) Allergies and Home Medications Allergies Coded Allergies: Penicillins (Unverified Allergy, Unknown, 02/25/18) sulfamethoxazole (Unverified Allergy, Unknown, 02/25/18) trimethoprim (Unverified Allergy, Unknown, 02/25/18) Patient Home Medication List Home Medication List Reviewed: Yes Albuterol Sulfate (Ventolin Hfa) 1 Puff Puff, 2 PUFF INH QID PRN for SHORTNESS OF BREATH, (Reported) Entered as Reported by: MARNI JACK on 05/09/19 1522 Aspirin (Aspirin EC) 81 Mg Tablet.dr, 81 MG PO DAILY, (Reported) Entered as Reported by: WINDY ANDRE on 07/21/20 1009 Atorvastatin Calcium (Atorvastatin Calcium) 10 Mg Tablet, 10 MG PO DAILY, (Reported) Entered as Reported by: ALETA DE LEON on 02/25/18 1355 Diltiazem HCl (Cartia Xt) 180 Mg Cap.er.24h, 180 MG PO DAILY, (Reported) Entered as Reported by: WINDY ANDRE on 07/21/20 1011 Ferrous Sulfate (Ferrous Sulfate) 325 Mg Tablet, 325 MG PO DAILY, (Reported) Entered as Reported by: CLEVELAND RODRIGUEZ on 07/15/20 1234 Furosemide (Furosemide) 20 Mg Tablet, 20 MG PO DAILY, (Reported) Entered as Reported by: WINDY ANDRE on 07/21/20 1009 Hydroxyzine HCl (Hydroxyzine HCl) 25 Mg Tablet, 25 MG PO Q6H PRN for ANXIETY, (Reported) Entered as Reported by: CLEVELAND RODRIGUEZ on 07/15/20 1234 Ipratropium/Albuterol Sulfate (Iprat-Albut 0.5-3(2.5) mg/3 ml) 3 Ml Ampul.neb, 3 ML NEB QID, (Reported) Entered as Reported by: ALETA DE LEON on 02/25/18 1355 Metoprolol Succinate (Metoprolol Succinate) 25 Mg Tab.er.24h, 25 MG PO DAILY, (Reported) Entered as Reported by: CLEVELAND RODRIGUEZ on 07/15/20 1234 Mirtazapine (Mirtazapine) 30 Mg Tablet, 30 MG PO HS, (Reported) Entered as Reported by: WINDY ANDRE on 07/21/20 1009 Montelukast Sodium (Montelukast Sodium) 4 Mg Tab.chew, 4 MG PO HS, (Reported) Entered as Reported by: MARNI JACK on 05/09/19 1336 Geraldine-3S/Dha/Epa/Fish Oil (Fish Oil Geraldine-3 Softgel) 1 Each Capsule.dr, 2,000 EACH PO DAILY, (Reported) Entered as Reported by: CLEVELAND RODRIGUEZ on 07/15/20 1234 Omeprazole (Omeprazole) 40 Mg Capsule.dr, 40 MG PO DAILY, (Reported) Entered as Reported by: ALETA DE LEON on 02/25/18 1355 Polyethylene Glycol 3350 (Miralax) 17 Gm Powd.pack, 17 GM PO DAILY PRN for CONSTIPATION-2ND LINE, (Reported) Entered as Reported by: CLEVELAND RODRIGUEZ on 07/15/20 1234 Potassium Chloride (Potassium Chloride) 10 Meq Tab.er.prt, 10 MEQ PO DAILY, (Reported) Entered as Reported by: WINDY ANDRE on 07/21/20 1009 Rivaroxaban (Xarelto) 20 Mg Tablet, 20 MG PO 1800, (Reported) Entered as Reported by: WINDY ANDRE on 07/21/20 1009 Sucralfate (Carafate) 1 Gm Tablet, 1 GM PO ACHS, (Reported) Entered as Reported by: WINDY ANDRE on 07/21/20 1009 Vit A/Vit C/Vit E/Zinc/Copper (Preservision Areds Tablet) 1 Each Tablet, 1 EACH PO BID, (Reported) Entered as Reported by: WINDY ANDRE on 07/21/20 1009 Review of Systems Review of Systems Constitutional: see HPI EENTM: throat pain Respiratory: no symptoms reported Cardiovascular: no symptoms reported Gastrointestinal: no symptoms reported Genitourinary: no symptoms reported Musculoskeletal: no symptoms reported Skin: no symptoms reported All Other Systems Reviewed Negative Unless Noted: Yes Past Hufmfbp-Cuwlvi-Xwnfzd Hx Immunizations Up To Date Tetanus Booster (TDap): Less than 5yrs PED Vaccines UTD: Yes First/Initial COVID19 Vaccinat: 06/14/20 Second COVID19 Vaccination Lance: 07/16/20 Third COVID19 Vaccination Date: 06/14/20 Seasonal Allergies Seasonal Allergies: No Past Medical History Surgeries: Yes Orthopedic, Tonsillectomy Respiratory: Yes (OXYGEN AT NIGHT 2L) COPD Currently Using CPAP: No Currently Using BIPAP: Yes Cardiac: Yes High Cholesterol, Hypertension Neurological: Yes (BENIGN TREMORS) Dementia, Stroke Reproductive Disorders: No Sexually Transmitted Disease: Yes HIV/AIDS: No Genitourinary: No Gastrointestinal: No Gastroesophageal Reflux, Chronic Constipation, Diverticulosis, Polyps, Hiatal Hernia Musculoskeletal: Yes Arthritis Endocrine: No Cataract Loss of Vision: Denies Hearing Impairment: Hard of Hearing Cancer: Yes (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) Skin Did You Recieve Any Treatments: Yes What Type of Treatment Did You: Surgical Intervention Psychosocial: Yes Anxiety, Depression Integumentary: Yes (SKIN CANCER MOLES REMOVED) Blood Disorders: Yes (ANEMIC) Adverse Reaction/Blood Tranf: No Family Medical History Colon cancer No Pertinent Family Hx PSH; -EGD/COLONOSCOPIES--POLYPECTOMIES--LAST SCOPES 02/2018--GERD/HIATAL HERNIA, DIVERTICULAR DISEASE -MULTIPLE SKIN LESIONS REMOVED, SOME CANCEROUS' -FOOT SURGERY -ANKLE SURGERY -TOENAIL SURGERY -LIPOMAS REMOVED -CATARACTS Physical Exam Vital Signs Vital Signs - First Documented 02/20/21 08:36 Temp 36.2 Pulse 75 Resp 20 B/P (MAP) 110/52 (71) Capillary Refill : Height, Weight, BMI Height: 5'5.00" Weight: 142lbs. 8.0oz. 67.645115ez; 26.00 BMI Method:Stated General Appearance: No Apparent Distress, WD/WN Eyes: Bilateral Eye Normal Inspection, Bilateral Eye PERRL, Bilateral Eye EOMI HEENT: Pharyngeal Erythema Neck: Normal Inspection Respiratory: Lungs Clear, Normal Breath Sounds, No Accessory Muscle Use, No Respiratory Distress Cardiovascular: Regular Rate, Rhythm Gastrointestinal: Non Tender, Soft Extremity: Normal Inspection, Normal Range of Motion Neurologic/Psychiatric: Alert, Oriented x3, No Motor/Sensory Deficits, Normal Mood/Affect Skin: Normal Color, Warm/Dry Progress/Results/Core Measures Suspected Sepsis SIRS Temperature: Pulse: Respiratory Rate: Blood Pressure / Mean: Results/Orders My Orders Orders - RAMIN HOBSON MD Chest 1 View, Ap/Pa Only (02/20/21 08:41) Vital Signs/I&O 02/20/21 08:36 Temp 36.2 Pulse 75 Resp 20 B/P (MAP) 110/52 (71) Capillary Refill : Progress Note : Time: 09:12 Progress Note Patient looks well, tolerating oral intake/swallowing fine post choking episode. Will D/c to home to follow up with PCP as needed. VSS. Diagnostic Imaging Diagonstic Imaging: Xray Plain Films/CT/US/NM/MRI: chest Comments CXR (interpreted by me) no infiltrate/effusion; diffuse fibrotic change (similar to previous) Departure Impression Primary Impression: Choking episode Disposition: 01 HOME, SELF-CARE Condition: Stable Departure-Patient Inst. Decision time for Depature: 08:46 Referrals: [facility] [place] (PCP) Primary Care Physician CHRISTINA HOOK (Family) Primary Care Physician Patient Instructions: Choking Add. Discharge Instructions: Follow-up with your primary care physician as needed. You can take a little [id number] Tylenol as needed for throat discomfort. Return to the emergency department for any new, concerning or emergent complaints. All discharge instructions reviewed with patient and/or family. Voiced understanding. RAMIN HOBSON MD Feb 20, 2021 08:49
--- NOTE | 2021-02-20 09:12 | Diagnostic Imaging Report ---
INDICATION: Choked on pills. TIME OF EXAM: 9:01 AM Correlation is made with prior chest 07/21/2020. Heart is enlarged. There are interstitial changes in both lungs which appear to be chronic. No parenchymal consolidation is seen. There is no effusion or pneumothorax. IMPRESSION: Chronic interstitial changes. No other significant abnormality is seen. Dictated by: Dictated on workstation # [id number]
[2021-02-20 09:25] VITALS: BP 106/67
== END 2021-02-20 09:25 | disposition home or self-care (01) ==
LOC: EDUNIT# 08:36 → ER 08:37
DX: R09.89 Other specified symptoms and signs involving the circulatory and respiratory systems (principal); J44.9 Chronic obstructive pulmonary disease, unspecified; I10 Essential (primary) hypertension; F03.90 Unspecified dementia, unspecified severity, without behavioral disturbance, psychotic disturbance, mood disturbance, and anxiety; E78.00 Pure hypercholesterolemia, unspecified; K21.9 Gastro-esophageal reflux disease without esophagitis; F41.9 Anxiety disorder, unspecified; F32.9 Major depressive disorder, single episode, unspecified; Z86.73 Personal history of transient ischemic attack (TIA), and cerebral infarction without residual deficits; Z79.82 Long term (current) use of aspirin; Z79.899 Other long term (current) drug therapy; Z79.01 Long term (current) use of anticoagulants
CPT/HCPCS: 71045

== ENCOUNTER 2021-03-18 08:15 | Emergency (ER) | payer MEDICARE ==
[~2021-03-18] VITALS: Ht 162.5 cm; Wt 68.9 kg
[~2021-03-18 08:15] MED LIST changes: -CITA10TA7 PO; +CITA10TA9 PO; +MONT-40 PO; -MONT10TA32 PO; -POTA10TA36 PO; +POTA10TA37 PO
--- NOTE | 2021-03-18 09:03 | ED General ---
General Chief Complaint: General Problems/Pain Stated Complaint: TROUBLE SWALLOWING Nursing Triage Note: PT AMB TO [facility] 5 WITH DAUGHTER WITH COMPLAINT OF FEELING LIKE SOMETHING IS CAUGHT IN THROAT. DAUGHTER STATES PT HAD PILL CAUGHT IN THROAT A FEW WEEKS AGO AND SHE PERFORMED THE HEIMLICH AND PILL CAME OUT. STATES PT HAS BEEN ANXIOUS WHEN TAKING PILLS SINCE. Source of Information: Patient, Family Exam Limitations: No Limitations History of Present Illness Date Seen by Provider: Mar 18, 2021 Time Seen by Provider: 08:48 Initial Comments Patient is an 85-year-old female who presents to the emergency department with her daughter with a chief complaint of feeling like something is caught in her throat, painful/difficulty swallowing with taking her morning medications this morning. Patient was seen about a month ago after choking spell taking medications. Her daughter had to perform the Heimlich. Per review of the medical record she had an EGD earlier in the spring that did not show any acute pathology. Patient states for the last month she has had pain to the anterior and left lateral side of her neck. She is very apprehensive about swallowing large pills. She does feel like something is "stuck". She has been able to eat and drink normally although she states she has to be careful with what she eats. No reported vomiting. Normal urine output. She states she has been constipated for the last several days. She does have a history of chronic kidney disease, she has been anemic in the past. She does look quite pale at presentation today. Her daughter states it has been several months since she is had medications checked. She is also been having "cold symptoms" for the last few days. No shortness of breath or chest pain. No fevers or chills. She is Covid vaccinated. All other review of systems reviewed and negative except as stated Timing/Duration: 1-3 Hours Severity: Moderate Associated Systoms: Other ("cold symptoms") Allergies and Home Medications Allergies Coded Allergies: Penicillins (Unverified Allergy, Unknown, 02/25/18) sulfamethoxazole (Unverified Allergy, Unknown, 02/25/18) trimethoprim (Unverified Allergy, Unknown, 02/25/18) Patient Home Medication List Home Medication List Reviewed: Yes Albuterol Sulfate (Ventolin Hfa) 1 Puff Puff, 2 PUFF INH QID PRN for SHORTNESS OF BREATH, (Reported) Entered as Reported by: MARNI JACK on 05/09/19 1522 Aspirin (Aspirin EC) 81 Mg Tablet.dr, 81 MG PO DAILY, (Reported) Entered as Reported by: WINDY ANDRE on 07/21/20 1009 Atorvastatin Calcium (Atorvastatin Calcium) 10 Mg Tablet, 10 MG PO DAILY, (Reported) Entered as Reported by: ALETA DE LEON on 02/25/18 1355 Diltiazem HCl (Cartia Xt) 180 Mg Cap.er.24h, 180 MG PO DAILY, (Reported) Entered as Reported by: WINDY ANDRE on 07/21/20 1011 Ferrous Sulfate (Ferrous Sulfate) 325 Mg Tablet, 325 MG PO DAILY, (Reported) Entered as Reported by: CLEVELAND RODRIGUEZ on 07/15/20 1234 Furosemide (Furosemide) 20 Mg Tablet, 20 MG PO DAILY, (Reported) Entered as Reported by: WINDY ANDRE on 07/21/20 1009 Hydroxyzine HCl (Hydroxyzine HCl) 25 Mg Tablet, 25 MG PO Q6H PRN for ANXIETY, (Reported) Entered as Reported by: CLEVELAND RODRIGUEZ on 07/15/20 1234 Ipratropium/Albuterol Sulfate (Iprat-Albut 0.5-3(2.5) mg/3 ml) 3 Ml Ampul.neb, 3 ML NEB QID, (Reported) Entered as Reported by: ALETA DE LEON on 02/25/18 1355 Metoprolol Succinate (Metoprolol Succinate) 25 Mg Tab.er.24h, 25 MG PO DAILY, (Reported) Entered as Reported by: CLEVELAND RODRIGUEZ on 07/15/20 1234 Mirtazapine (Mirtazapine) 30 Mg Tablet, 30 MG PO HS, (Reported) Entered as Reported by: WINDY ANDRE on 07/21/20 1009 Montelukast Sodium (Montelukast Sodium) 4 Mg Tab.chew, 4 MG PO HS, (Reported) Entered as Reported by: MARNI JACK on 05/09/19 1336 Muncy-3S/Dha/Epa/Fish Oil (Fish Oil Muncy-3 Softgel) 1 Each Capsule.dr, 2,000 EACH PO DAILY, (Reported) Entered as Reported by: CLEVELAND RODRIGUEZ on 07/15/20 1234 Omeprazole (Omeprazole) 40 Mg Capsule.dr, 40 MG PO DAILY, (Reported) Entered as Reported by: ALETA DE LEON on 02/25/18 1355 Polyethylene Glycol 3350 (Miralax) 17 Gm Powd.pack, 17 GM PO DAILY PRN for CONSTIPATION-2ND LINE, (Reported) Entered as Reported by: CLEVELAND RODRIGUEZ on 07/15/20 1234 Potassium Chloride (Potassium Chloride) 10 Meq Tab.er.prt, 10 MEQ PO DAILY, (Reported) Entered as Reported by: WINDY ANDRE on 07/21/20 1009 Rivaroxaban (Xarelto) 20 Mg Tablet, 20 MG PO 1800, (Reported) Entered as Reported by: WINDY ANDRE on 07/21/20 1009 Sucralfate (Carafate) 1 Gm Tablet, 1 GM PO ACHS, (Reported) Entered as Reported by: WINDY ANDRE on 07/21/20 1009 Vit A/Vit C/Vit E/Zinc/Copper (Preservision Areds Tablet) 1 Each Tablet, 1 EACH PO BID, (Reported) Entered as Reported by: WINDY ANDRE on 07/21/20 1009 Review of Systems Review of Systems Constitutional: see HPI EENTM: throat pain, other (congestion) Respiratory: no symptoms reported Cardiovascular: no symptoms reported Gastrointestinal: constipation Genitourinary: no symptoms reported Musculoskeletal: no symptoms reported, other ((post polio syndome left LE)) Skin: no symptoms reported Psychiatric/Neurological: Anxiety All Other Systems Reviewed Negative Unless Noted: Yes Past Nzgzwuh-Apzukk-Fstmfq Hx Patient Social History Tobacco Use?: No Smoking Status: Former Smoker Use of E-Cig and/or Vaping dev: No Substance use?: No Alcohol Use?: No Immunizations Up To Date Tetanus Booster (TDap): Less than 5yrs PED Vaccines UTD: Yes Influenza Vaccine Up-to-Date: Yes; Up-to-Date First/Initial COVID19 Vaccinat: July COVID19 Vaccination Lance: July COVID19 Vaccination Date: JULY COVID19 Vaccine Welder 2Nd Shift: SUE Seasonal Allergies Seasonal Allergies: No Past Medical History Surgeries: Yes Orthopedic, Tonsillectomy Respiratory: Yes (OXYGEN AT NIGHT 2L) COPD Currently Using CPAP: No Currently Using BIPAP: Yes Cardiac: Yes High Cholesterol, Hypertension Neurological: Yes (BENIGN TREMORS) Dementia, Stroke Reproductive Disorders: No Sexually Transmitted Disease: Yes HIV/AIDS: No Genitourinary: No Gastrointestinal: No Gastroesophageal Reflux, Chronic Constipation, Diverticulosis, Polyps, Hiatal Hernia Musculoskeletal: Yes Arthritis Endocrine: No Cataract Loss of Vision: Denies Hearing Impairment: Hard of Hearing Cancer: Yes (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) Skin Did You Recieve Any Treatments: Yes What Type of Treatment Did You: Surgical Intervention Psychosocial: Yes Anxiety, Depression Integumentary: Yes (SKIN CANCER MOLES REMOVED) Blood Disorders: Yes (ANEMIC) Adverse Reaction/Blood Tranf: No Family Medical History Colon cancer No Pertinent Family Hx PSH; -EGD/COLONOSCOPIES--POLYPECTOMIES--LAST SCOPES 02/2018--GERD/HIATAL HERNIA, DIVERTICULAR DISEASE -MULTIPLE SKIN LESIONS REMOVED, SOME CANCEROUS' -FOOT SURGERY -ANKLE SURGERY -TOENAIL SURGERY -LIPOMAS REMOVED -CATARACTS Physical Exam Vital Signs Vital Signs - First Documented 03/18/21 08:33 Pulse 74 Resp 16 B/P (MAP) 142/64 (90) Pulse Ox 98 O2 Delivery Room Air Capillary Refill : Less Than 3 Seconds Height, Weight, BMI Height: 5'5.00" Weight: 142lbs. 8.0oz. 67.658332cs; 26.00 BMI Method:Stated General Appearance: WD/WN, Anxious Eyes: Bilateral Eye Normal Inspection, Bilateral Eye PERRL, Bilateral Eye EOMI HEENT: Other (pale oropharynx; oral mucosa a little dry) Neck: Full Range of Motion, Normal Inspection, Non Tender, Supple, Other (no reproducible tenderness to the left neck; no masses/LAD) Respiratory: Lungs Clear, Normal Breath Sounds, No Accessory Muscle Use, No Respiratory Distress Cardiovascular: Regular Rate, Rhythm (60's), Normal Peripheral Pulses Gastrointestinal: Normal Bowel Sounds, Non Tender, Soft Extremity: Normal Inspection Neurologic/Psychiatric: Alert, Oriented x3, No Motor/Sensory Deficits, Other (anxious) Skin: Warm/Dry, Pallor Progress/Results/Core Measures Suspected Sepsis SIRS Temperature: Pulse: 74 Respiratory Rate: 16 Laboratory Tests 03/18/21 09:13: White Blood Count 7.6 Blood Pressure 142 /64 Mean: 90 Laboratory Tests 03/18/21 09:13: Creatinine 1.10, Platelet Count 335 Results/Orders Lab Results Laboratory Tests Test 03/18/21 09:13 Range/Units White Blood Count 7.6 4.3-11.0 10^3/uL Red Blood Count 3.00 L 3.80-5.11 10^6/uL Hemoglobin 8.2 L 11.5-16.0 g/dL Hematocrit 26 L 35-52 % Mean Corpuscular Volume 87 80-99 fL Mean Corpuscular Hemoglobin 27 25-34 pg Mean Corpuscular Hemoglobin Concent 31 L 32-36 g/dL Red Cell Distribution Width 14.3 10.0-14.5 % Platelet Count 335 130-400 10^3/uL Mean Platelet Volume 9.9 9.0-12.2 fL Immature Granulocyte % (Auto) 1 % Neutrophils (%) (Auto) 80 H 42-75 % Lymphocytes (%) (Auto) 9 L 12-44 % Monocytes (%) (Auto) 6 0-12 % Eosinophils (%) (Auto) 4 0-10 % Basophils (%) (Auto) 1 0-10 % Neutrophils # (Auto) 6.1 1.8-7.8 10^3/uL Lymphocytes # (Auto) 0.7 L 1.0-4.0 10^3/uL Monocytes # (Auto) 0.5 0.0-1.0 10^3/uL Eosinophils # (Auto) 0.3 0.0-0.3 10^3/uL Basophils # (Auto) 0.1 0.0-0.1 10^3/uL Immature Granulocyte # (Auto) 0.0 0.0-0.1 10^3/uL Sodium Level 136 135-145 MMOL/L Potassium Level 3.7 3.6-5.0 MMOL/L Chloride Level 106 98-107 MMOL/L Carbon Dioxide Level 19 L 21-32 MMOL/L Anion Gap 11 5-14 MMOL/L Blood Urea Nitrogen 9 7-18 MG/DL Creatinine 1.10 0.60-1.30 MG/DL Estimat Glomerular Filtration Rate 47 BUN/Creatinine Ratio 8 Glucose Level 95 70-105 MG/DL Calcium Level 8.6 8.5-10.1 MG/DL My Orders Orders - RAMIN HOBSON MD Ed Iv/Invasive Line Start (03/18/21 08:58) Cbc With Automated Diff (03/18/21 08:58) Basic Metabolic Panel (03/18/21 08:58) Soft Tissue Neck (03/18/21 08:58) Vital Signs/I&O 03/18/21 08:33 Pulse 74 Resp 16 B/P (MAP) 142/64 (90) Pulse Ox 98 O2 Delivery Room Air Capillary Refill : Less Than 3 Seconds Blood Pressure Mean: 90 Progress Note : Time: 10:06 Progress Note Patient's laboratory studies reviewed, she is mildly anemic with a hemoglobin of 8, her chemistry is normal except for chronically depressed renal function. Her soft tissue neck x-ray does show some prevertebral soft tissue swelling at the level of C4-C5. Seems to impress quite a bit on the trachea. I suspect this is the etiology of her discomfort with swallowing. Best thing to visualize this would be a CT soft tissue neck with IV contrast however secondary to her chronic kidney disease I do not believe this is in her best interest at this visit. I have suggested to her daughter and to the patient that they follow-up with Dr. Mei whom the patient has seen in the past. I think that she would benefit from direct visualization by endoscopy. Also follow-up with [facility] for her talking to them about options for her medications to be in potentially liquid form. At this time the patient's airway is patent, she is having no struggling with breathing or swallowing currently. She does have ongoing discomfort with swallowing. Vital signs are stable. She and her daughter are comfortable with this plan of care. I will send a copy of this note to Dr. Mei's office as well as to [facility]. They are encouraged to call Dr. Mei's office this morning for a follow-up appointment early next week. Return precautions have been given all questions are sought and answered. Patient is stable for discharge. Diagnostic Imaging Diagonstic Imaging: Xray Comments [facility] [place], [place] NAME: KY ORTIZ [facility] REC#: [id number] PT STATUS: REG ER : 1935 PHYSICIAN: RAMIN HOBSON MD ADMIT DATE: 03/18/21/ER Draft Date of Exam:03/18/21 SOFT TISSUE NECK EXAM: SOFT TISSUE NECK INDICATION: Difficulty swallowing. COMPARISON: CT cervical spine without contrast 01/08/2019. FINDINGS: No radiopaque foreign body. Thickening of the prevertebral soft tissues at the levels of C4 and C5 has increased compared to the 2019 CT. No soft tissue gas is identified. Moderate spondylotic changes in the cervical spine. IMPRESSION: Indeterminate prevertebral soft tissue thickening at the level of C4 and C5 is new compared to a 01/08/[address] Recommend direct visualization. CT of the neck with IV contrast would also likely be helpful for further evaluation. Dictated on workstation # [id number] Dict: 03/18/21923 Trans: 03/18/21929 [facility] [id number] Interpreted by: MARK CORMIER MD Electronically signed by: Departure Impression Primary Impression: Dysphagia Qualified Codes: R13.10 - Dysphagia, unspecified Disposition: 01 HOME, SELF-CARE Condition: Stable Departure-Patient Inst. Decision time for Depature: 10:08 Referrals: [facility] [place] Primary Care Physician CHRISTINA HOOK (Family) Primary Care Physician CYNTHIA MEI MD Patient Instructions: Dysphagia (DC) Add. Discharge Instructions: Please call Dr. Mei's office this morning for a follow-up appointment next week, I suspect she would benefit from a scope to look at her airway. Please come back to the emergency room for any worsening discomfort with swallowing, inability to swallow or other emergent concerns. You should also follow-up with [facility] to discuss options regarding her medications being put into liquid form. Copy Copies To 1: CYNTHIA MEI MD; JOSE MEDEROS KATHRYN M MD Mar 18, 2021 09:03
[2021-03-18 09:19] LABS: BASOPHILS # (AUTO) 0.1 10^3/uL (0.0-0.1); BASOPHILS % (AUTO) 1 % (0-10); EOSINOPHILS # (AUTO) 0.3 10^3/uL (0.0-0.3); EOSINOPHILS % (AUTO) 4 % (0-10); HEMATOCRIT 26 % (35-52); HEMOGLOBIN 8.2 g/dL (11.5-16.0); LYMPHOCYTES # (AUTO) 0.7 10^3/uL (1.0-4.0); LYMPHOCYTES % (AUTO) 9 % (12-44); MEAN CORPUSCULAR HEMOGLOBIN 27 pg (25-34); MEAN CORPUSCULAR HGB CONC 31 g/dL (32-36); MEAN CORPUSCULAR VOLUME 87 fL (80-99); MEAN PLATELET VOLUME 9.9 fL (9.0-12.2); MONOCYTES # (AUTO) 0.5 10^3/uL (0.0-1.0); MONOCYTES % (AUTO) 6 % (0-12); NEUTROPHILS # (AUTO) 6.1 10^3/uL (1.8-7.8); NEUTROPHILS % (AUTO) 80 % (42-75); PLATELET COUNT 335 10^3/uL (130-400); WHITE BLOOD COUNT 7.6 10^3/uL (4.3-11.0)
[2021-03-18 09:30] LABS: POTASSIUM 3.7 MMOL/L (3.6-5.0)
--- NOTE | 2021-03-18 09:30 | Diagnostic Imaging Report ---
EXAM: SOFT TISSUE NECK INDICATION: Difficulty swallowing. COMPARISON: CT cervical spine without contrast 01/08/2019. FINDINGS: No radiopaque foreign body. Thickening of the prevertebral soft tissues at the levels of C4 and C5 has increased compared to the 2019 CT. No soft tissue gas is identified. Moderate spondylotic changes in the cervical spine. IMPRESSION: Indeterminate prevertebral soft tissue thickening at the level of C4 and C5 is new compared to a 01/08/[address] Recommend direct visualization. CT of the neck with IV contrast would also likely be helpful for further evaluation. Dictated by: Dictated on workstation # [id number]
[2021-03-18 09:31] LABS: CALCIUM 8.6 MG/DL (8.5-10.1)
[2021-03-18 09:36] LABS: CREATININE SERUM 1.1 MG/DL (0.60-1.30)
[2021-03-18 10:47] VITALS: BP 135/86
== END 2021-03-18 10:46 | disposition home or self-care (01) ==
LOC: EDUNIT# 08:15 → ER 08:16
DX: R13.10 Dysphagia, unspecified (principal); J44.9 Chronic obstructive pulmonary disease, unspecified; I10 Essential (primary) hypertension; F03.90 Unspecified dementia, unspecified severity, without behavioral disturbance, psychotic disturbance, mood disturbance, and anxiety; K21.9 Gastro-esophageal reflux disease without esophagitis; E78.00 Pure hypercholesterolemia, unspecified; F41.9 Anxiety disorder, unspecified; F32.9 Major depressive disorder, single episode, unspecified; Z86.73 Personal history of transient ischemic attack (TIA), and cerebral infarction without residual deficits; Z87.891 Personal history of nicotine dependence; Z79.01 Long term (current) use of anticoagulants; Z79.82 Long term (current) use of aspirin; Z79.899 Other long term (current) drug therapy
CPT/HCPCS: 36415; 70360; 80048; 85025

== ENCOUNTER 2021-03-20 08:19 | Emergency (ER) | payer MEDICARE ==
[~2021-03-20] VITALS: Ht 162 cm; Wt 71.0 kg
--- NOTE | 2021-03-20 08:59 | ED General ---
General Chief Complaint: General Problems/Pain Stated Complaint: PROBLEMS SWALLOWING Nursing Triage Note: ARRIVED VIA AMB TO ROOM 07. STATES SHE WAS HERE X2 DAYS AGO AND HAS SWELLING BEHIND THE TRACHEA. HAS AN APPT WITH DR MEI TOMORROW BUT STATES TODAY SHE CAN NOT SWALLOW ANYTHING Source of Information: Patient, Family (daughter) Exam Limitations: No Limitations History of Present Illness Date Seen by Provider: Mar 20, 2021 Time Seen by Provider: 08:45 Initial Comments Patient returns to the ER after being seen by me 2 days ago with a chief complaint of difficulty swallowing. Patient has had this complaint ongoing for at least the last month. She specifically had problems swallowing pills when I saw her several weeks ago. This has progressed to when I saw her on Sunday, she describes discomfort with swallowing and states to me since being in the emergency room on Sunday that she has not been able to take any of her pills. She is only able to tolerate liquids. She did call Dr. Mei as requested and has an appointment scheduled for tomorrow. The patient has what appears to be chronic kidney disease with a GFR less than 60 since May 2019. Last creatinine was 1.1 on Sunday with a GFR of 47. I only did soft tissue x-rays of the neck on Sunday. This did show concerning area of mass versus swelling at about the level of C4-C5. She has had previous EGD which was unremarkable. No other complaints of illness or injury just discomfort in the anterior neck especially with swallowing. All other review of systems reviewed and negative except as stated Timing/Duration: Constant, Getting Worse Severity: Severe Associated Systoms: Weakness Allergies and Home Medications Allergies Coded Allergies: Penicillins (Unverified Allergy, Unknown, 02/25/18) sulfamethoxazole (Unverified Allergy, Unknown, 02/25/18) trimethoprim (Unverified Allergy, Unknown, 02/25/18) Patient Home Medication List Home Medication List Reviewed: Yes Albuterol Sulfate (Ventolin Hfa) 1 Puff Puff, 2 PUFF INH QID PRN for SHORTNESS OF BREATH, (Reported) Entered as Reported by: MARNI JACK on 05/09/19 1522 Aspirin (Aspirin EC) 81 Mg Tablet.dr, 81 MG PO DAILY, (Reported) Entered as Reported by: WINDY ANDRE on 07/21/20 1009 Atorvastatin Calcium (Atorvastatin Calcium) 10 Mg Tablet, 10 MG PO DAILY, (Reported) Entered as Reported by: ALETA DE LEON on 02/25/18 1355 Diltiazem HCl (Cartia Xt) 180 Mg Cap.er.24h, 180 MG PO DAILY, (Reported) Entered as Reported by: WINDY ANDRE on 07/21/20 1011 Ferrous Sulfate (Ferrous Sulfate) 325 Mg Tablet, 325 MG PO DAILY, (Reported) Entered as Reported by: CLEVELAND RODRIGUEZ on 07/15/20 1234 Furosemide (Furosemide) 20 Mg Tablet, 20 MG PO DAILY, (Reported) Entered as Reported by: WINDY ANDRE on 07/21/20 1009 Hydroxyzine HCl (Hydroxyzine HCl) 25 Mg Tablet, 25 MG PO Q6H PRN for ANXIETY, (Reported) Entered as Reported by: CLEVELAND RODRIGUEZ on 07/15/20 1234 Ipratropium/Albuterol Sulfate (Iprat-Albut 0.5-3(2.5) mg/3 ml) 3 Ml Ampul.neb, 3 ML NEB QID, (Reported) Entered as Reported by: ALETA DE LEON on 02/25/18 1355 Lidocaine HCl (Lidocaine HCl Viscous) 15 Ml Solution, 5 ML PO Q8H PRN for throat pain Prescribed by: RAMIN HOBSON on 03/20/21 1133 Metoprolol Succinate (Metoprolol Succinate) 25 Mg Tab.er.24h, 25 MG PO DAILY, (Reported) Entered as Reported by: CLEVELAND RODRIGUEZ on 07/15/20 1234 Mirtazapine (Mirtazapine) 30 Mg Tablet, 30 MG PO HS, (Reported) Entered as Reported by: WINDY ANDRE on 07/21/20 1009 Montelukast Sodium (Montelukast Sodium) 4 Mg Tab.chew, 4 MG PO HS, (Reported) Entered as Reported by: MARNI JACK on 05/09/19 1336 [place]-3S/Dha/Epa/Fish Oil (Fish Oil [place]-3 Softgel) 1 Each Capsule.dr, 2,000 EACH PO DAILY, (Reported) Entered as Reported by: CLEVELAND RODRIGUEZ on 07/15/20 1234 Omeprazole (Omeprazole) 40 Mg Capsule.dr, 40 MG PO DAILY, (Reported) Entered as Reported by: ALETA DE LEON on 02/25/18 1355 Polyethylene Glycol 3350 (Miralax) 17 Gm Powd.pack, 17 GM PO DAILY PRN for CONSTIPATION-2ND LINE, (Reported) Entered as Reported by: CLEVELAND RODRIGUEZ on 07/15/20 1234 Potassium Chloride (Potassium Chloride) 10 Meq Tab.er.prt, 10 MEQ PO DAILY, (Reported) Entered as Reported by: WINDY ANDRE on 07/21/20 1009 Rivaroxaban (Xarelto) 20 Mg Tablet, 20 MG PO 1800, (Reported) Entered as Reported by: WINDY ANDRE on 07/21/20 1009 Sucralfate (Carafate) 1 Gm Tablet, 1 GM PO ACHS, (Reported) Entered as Reported by: WINDY ANDRE on 07/21/20 1009 Vit A/Vit C/Vit E/Zinc/Copper (Preservision Areds Tablet) 1 Each Tablet, 1 EACH PO BID, (Reported) Entered as Reported by: WINDY ANDRE on 07/21/20 1009 Review of Systems Review of Systems Constitutional: see HPI EENTM: throat pain, throat swelling Respiratory: no symptoms reported Cardiovascular: no symptoms reported Genitourinary: no symptoms reported : No Musculoskeletal: no symptoms reported Skin: no symptoms reported Psychiatric/Neurological: Anxiety, Weakness (generalizeed) All Other Systems Reviewed Negative Unless Noted: Yes Past Rmxxytr-Lfvboa-Dwbbuv Hx Patient Social History Smoking Status: Never a Smoker Substance use?: No Alcohol Use?: No Immunizations Up To Date Tetanus Booster (TDap): Less than 5yrs PED Vaccines UTD: Yes First/Initial COVID19 Vaccinat: JULY Second COVID19 Vaccination Lance: 07/28 Third COVID19 Vaccination Date: JULY COVID19 Vaccine Veterans Contact Representative: MODERNCarline Seasonal Allergies Seasonal Allergies: No Past Medical History Surgeries: Yes Orthopedic, Tonsillectomy Respiratory: Yes (OXYGEN AT NIGHT 2L) COPD Currently Using CPAP: No Currently Using BIPAP: Yes Cardiac: Yes High Cholesterol, Hypertension Neurological: Yes (BENIGN TREMORS) Dementia, Stroke Reproductive Disorders: No Sexually Transmitted Disease: Yes HIV/AIDS: No Genitourinary: No Gastrointestinal: No Gastroesophageal Reflux, Chronic Constipation, Diverticulosis, Polyps, Hiatal Hernia Musculoskeletal: Yes Arthritis Endocrine: No Cataract Loss of Vision: Denies Hearing Impairment: Hard of Hearing Cancer: Yes (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) Skin Did You Recieve Any Treatments: Yes What Type of Treatment Did You: Surgical Intervention Psychosocial: Yes Anxiety, Depression Integumentary: Yes (SKIN CANCER MOLES REMOVED) Blood Disorders: Yes (ANEMIC) Adverse Reaction/Blood Tranf: No Family Medical History Colon cancer No Pertinent Family Hx PSH; -EGD/COLONOSCOPIES--POLYPECTOMIES--LAST SCOPES 02/2018--GERD/HIATAL HERNIA, DIVERTICULAR DISEASE -MULTIPLE SKIN LESIONS REMOVED, SOME CANCEROUS' -FOOT SURGERY -ANKLE SURGERY -TOENAIL SURGERY -LIPOMAS REMOVED -CATARACTS Physical Exam Vital Signs Vital Signs - First Documented 03/20/21 08:31 Temp 36.5 Pulse 91 Resp 16 B/P (MAP) 128/79 (95) Pulse Ox 97 O2 Delivery Room Air Capillary Refill : Less Than 3 Seconds Height, Weight, BMI Height: 5'5.00" Weight: 142lbs. 8.0oz. [id number]; 27.00 BMI Method:Stated General Appearance: No Apparent Distress, WD/WN Eyes: Bilateral Eye Normal Inspection, Bilateral Eye PERRL, Bilateral Eye EOMI HEENT: PERRL/EOMI, Pharynx Normal Neck: Full Range of Motion, Normal Inspection, Non Tender, Supple Respiratory: Lungs Clear, Normal Breath Sounds, No Accessory Muscle Use, No Respiratory Distress Cardiovascular: Regular Rate, Rhythm, Normal Peripheral Pulses Gastrointestinal: Normal Bowel Sounds, Non Tender, Soft Extremity: Normal Inspection Neurologic/Psychiatric: Alert, Oriented x3, No Motor/Sensory Deficits, Other (anxious) Skin: Normal Color, Warm/Dry Progress/Results/Core Measures Suspected Sepsis SIRS Temperature: Pulse: 91 Respiratory Rate: 16 Blood Pressure 128 /79 Mean: 95 Laboratory Tests 03/20/21 08:54: Creatinine 1.15 Results/Orders Lab Results Laboratory Tests Test 03/20/21 08:54 Range/Units Sodium Level 140 135-145 MMOL/L Potassium Level 4.3 3.6-5.0 MMOL/L Chloride Level 111 H 98-107 MMOL/L Carbon Dioxide Level 18 L 21-32 MMOL/L Anion Gap 11 5-14 MMOL/L Blood Urea Nitrogen 8 7-18 MG/DL Creatinine 1.15 0.60-1.30 MG/DL Estimat Glomerular Filtration Rate 45 BUN/Creatinine Ratio 7 Glucose Level 92 70-105 MG/DL Calcium Level 8.9 8.5-10.1 MG/DL My Orders Orders - RAMIN HOBSON MD Ed Iv/Invasive Line Start (03/20/21 08:50) Basic Metabolic Panel (03/20/21 08:50) Ct Neck (Soft Tissue) W (03/20/21 09:27) Ns Iv 500 Ml (Sodium Chloride 0.9%) (03/20/21 09:30) Iohexol Injection (Omnipaque 350 Mg/Ml 1 (03/20/21 09:30) Received Contrast (Hold Metformin- Contr (03/20/21 09:30) Sodium Chloride Flush (Catheter Flush Sy (03/20/21 09:30) Ns (Ivpb) (Sodium Chloride 0.9% Ivpb Bag (03/20/21 09:30) Lorazepam Injection (Ativan Injection) (03/20/21 10:32) Lidocaine 2% Viscous 15 Ml (Xylocaine Vi (03/20/21 11:30) Medications Given in ED Current Medications Medications Dose Ordered Sig/Chapin Route Start Time Stop Time Status Last Admin Dose Admin Iohexol 60 ml ONCE ONCE IV 03/20/21 09:30 03/20/21 09:33 DC 03/20/21 09:53 50 ML Lidocaine HCl 5 ml ONCE ONCE PO 03/20/21 11:30 03/20/21 11:31 DC 03/20/21 11:36 5 ML Sodium Chloride 10 ml NEEDED PRN IV 03/20/21 09:30 03/20/21 09:53 10 ML Sodium Chloride 100 ml ONCE ONCE IV 03/20/21 09:30 03/20/21 09:33 DC 03/20/21 09:53 80 ML Vital Signs/I&O 03/20/21 08:31 Temp 36.5 Pulse 91 Resp 16 B/P (MAP) 128/79 (95) Pulse Ox 97 O2 Delivery Room Air Capillary Refill : Less Than 3 Seconds Blood Pressure Mean: 95 Progress Note : Time: 11:39 Progress Note Patient got quite a bit of relief from her anxiety with the half milligram A tivan. Followed this up with 5 mL of viscous lidocaine, the patient was able to swallow this without difficulty. This was followed by a sip of water which she tolerated very well without choking. I think that we will be able to temporize her discomfort with the viscous lidocaine by prescription. I have sent some of this over to [facility]. Patient's appointment with Dr. Mei is tomorrow around 3:00 in the afternoon. Daughter is comfortable with the plan of care. Patient is handling her own secretions well without choking. Appears to be swallowing fairly normally. All questions are sought and answered. Diagnostic Imaging Diagonstic Imaging: CT Comments [facility], [place] NAME: KY ORTIZ [facility] REC#: [id number] PT STATUS: REG ER : 1935 PHYSICIAN: RAMIN HOBSON MD ADMIT DATE: 03/20/21/ER Draft Date of Exam:03/20/21 CT NECK (SOFT TISSUE) W PROCEDURE: CT neck soft tissue with contrast. TECHNIQUE: Multiple contiguous axial images were obtained through the neck after the administration of contrast. Auto Exposure Controls were utilized during the CT exam to meet ALARA standards for radiation dose reduction. INDICATION: Dysphagia. Neck mass. COMPARISON: Soft tissue neck radiographs 03/18/2021. FINDINGS: Examination is limited by motion. The floor of the mouth, tongue base and epiglottis are unremarkable. No retropharyngeal fluid. Nonspecific soft tissue prominence of the vocal cords which are closed. Subcentimeter nodule in the posterior right thyroid should not require further evaluation. Left thyroid nodule measuring up 1.8 cm. No cervical lymphadenopathy. Calcified atherosclerotic disease in the carotid bifurcations appears to result in less than 50% narrowing bilaterally. Major salivary glands are grossly unremarkable. The visualized intracranial contents demonstrate no acute findings. The orbits are unremarkable. The visualized paranasal sinuses and mastoids are clear. No acute osseous findings. Advanced emphysematous changes in the lung apices. IMPRESSION: 1. Examination is limited by motion. 2. Nonspecific soft tissue prominence about the vocal cords. Evaluation is limited by both motion and the cords being closed. This could be better evaluated with direct visualization. No cervical lymphadenopathy. 3. Indeterminate left thyroid nodule measuring up 1.8 cm. Recommend nonemergent evaluation with dedicated ultrasound. Dictated on workstation # [id number] Dict: 03/20/21 [id number] Trans: 03/20/[address] [place] [address] [id number] Interpreted by: MARK CORMIER MD Electronically signed by: Departure Impression Primary Impression: Dysphagia Qualified Codes: R13.10 - Dysphagia, unspecified Additional Impression: Anxiety Disposition: 01 HOME, SELF-CARE Condition: Stable Departure-Patient Inst. Decision time for Depature: 11:31 Referrals: [facility]/ (PCP) Primary Care Physician CHRISTINA HOOK (Family) Primary Care Physician CYNTHIA MEI MD Patient Instructions: Dysphagia Add. Discharge Instructions: Use the viscous lidocaine every 8-10 hours as needed to help swallow. You can crush some of your medications, please talk to the pharmacist about this. Please keep your follow-up appointment with your primary care doctor tomorrow. Come back to the emergency room for any fevers, shortness of breath, productive cough or any other emergent concerning symptoms. Scripts Lidocaine HCl (Lidocaine HCl Viscous) 15 Ml Solution 5 ML PO Q8H PRN for throat pain, #60 ML Prov: RAMIN HBOSON MD 03/20/21 Copy Copies To 1: CYNTHIA MEI MD, KATHRYN M MD Mar 20, 2021 08:59
[2021-03-20 09:10] LABS: POTASSIUM 4.3 MMOL/L (3.6-5.0)
[2021-03-20 09:11] LABS: CALCIUM 8.9 MG/DL (8.5-10.1)
[2021-03-20 09:15] LABS: CREATININE SERUM 1.15 MG/DL (0.60-1.30)
[2021-03-20] MEDS ORDERED: CATHETER FLUSH 10 ML SYR IV PRN (09:30)
[2021-03-20] MEDS ORDERED: NS IV 500 ML 500 ML IV SCH (09:30)
[2021-03-20] MEDS ORDERED: HOLD METFORMIN - RECEIVED CONTRAST 20 ML VIAL IV SCH (09:30)
[2021-03-20] MEDS ORDERED: IOHEXOL 350 MG/ML 100 ML (OMNIPAQUE 350) VIAL IV ONE (09:30)
[2021-03-20] MEDS ORDERED: NS 100 ML (IVPB) BAG IV ONE (09:30)
--- NOTE | 2021-03-20 10:17 | Diagnostic Imaging Report ---
PROCEDURE: CT neck soft tissue with contrast. TECHNIQUE: Multiple contiguous axial images were obtained through the neck after the administration of contrast. Auto Exposure Controls were utilized during the CT exam to meet ALARA standards for radiation dose reduction. INDICATION: Dysphagia. Neck mass. COMPARISON: Soft tissue neck radiographs 03/18/2021. FINDINGS: Examination is limited by motion. The floor of the mouth, tongue base and epiglottis are unremarkable. No retropharyngeal fluid. Nonspecific soft tissue prominence of the vocal cords which are closed. Subcentimeter nodule in the posterior right thyroid should not require further evaluation. Left thyroid nodule measuring up 1.8 cm. No cervical lymphadenopathy. Calcified atherosclerotic disease in the carotid bifurcations appears to result in less than 50% narrowing bilaterally. Major salivary glands are grossly unremarkable. The visualized intracranial contents demonstrate no acute findings. The orbits are unremarkable. The visualized paranasal sinuses and mastoids are clear. No acute osseous findings. Advanced emphysematous changes in the lung apices. IMPRESSION: 1. Examination is limited by motion. 2. Nonspecific soft tissue prominence about the vocal cords. Evaluation is limited by both motion and the cords being closed. This could be better evaluated with direct visualization. No cervical lymphadenopathy. 3. Indeterminate left thyroid nodule measuring up 1.8 cm. Recommend nonemergent evaluation with dedicated ultrasound. Dictated by: Dictated on workstation # [id number]
[2021-03-20] MEDS ORDERED: LORazepam INJ 2 MG/ML (ATIVAN) VIAL IVP STA (10:32)
[2021-03-20] MEDS ORDERED: LIDOCAINE 2% VISCOUS 15 ML UDC PO ONE (11:30)
[2021-03-20] MEDS ORDERED: LIDO20SO23 PO (11:33)
[2021-03-20 11:46] VITALS: BP 128/99
== END 2021-03-20 11:42 | disposition home or self-care (01) ==
LOC: EDUNIT# 08:19 → ER 08:21
DX: R13.10 Dysphagia, unspecified (principal); F41.9 Anxiety disorder, unspecified; J44.9 Chronic obstructive pulmonary disease, unspecified; I10 Essential (primary) hypertension; F03.90 Unspecified dementia, unspecified severity, without behavioral disturbance, psychotic disturbance, mood disturbance, and anxiety; K21.9 Gastro-esophageal reflux disease without esophagitis; E78.00 Pure hypercholesterolemia, unspecified; F32.9 Major depressive disorder, single episode, unspecified; Z86.73 Personal history of transient ischemic attack (TIA), and cerebral infarction without residual deficits; Z79.01 Long term (current) use of anticoagulants; Z79.899 Other long term (current) drug therapy; Z79.82 Long term (current) use of aspirin
CPT/HCPCS: 36415; 70491; 80048; 96361; 96374

== ENCOUNTER → 2021-03-25 | Outpatient (CLI) | payer MEDICARE ==
[~2021-03-25] MED LIST changes: +LIDO20SO23 PO
--- NOTE | 2021-03-25 11:47 | Diagnostic Imaging Report ---
Indication: Dysphagia. Study was performed in conjunction with speech pathology. Video fluoroscopy was performed during swallowing of barium with multiple consistencies. Patient ingested thin liquid with a teaspoon and with a straw. Patient also ingested applesauce and cracker consistency as well as ingested a barium tablet. Total 39 seconds of fluoroscopy time was utilized. The patient did have significant oral tremors. Patient did initiate the swallow normal caliber. There is normal epiglottic tilt and laryngeal elevation. All consistencies appear to pass normally without penetration or aspiration. Barium tablet passed without difficulty. IMPRESSION: Normal modified barium swallow, as described. No laryngeal penetration or aspiration was observed. Dictated by: Dictated on workstation # [id number]
== END ==
LOC: RAD 10:30
PROVIDERS: ATTEND Otolaryngology Otolaryngology/Facial Plastic Surgery
DX: R13.12 Dysphagia, oropharyngeal phase (principal)
CPT/HCPCS: 74230

== ENCOUNTER 2021-03-26 07:26 | Emergency (ER) | payer MEDICARE ==
[2021-03-26] MEDS ORDERED: ASPIRIN 81 MG CHEW (CHILDREN'S ASA) PO ONE (07:30)
[2021-03-26] MEDS ORDERED: LORazepam INJ 2 MG/ML (ATIVAN) VIAL IVP ONE (07:45)
[2021-03-26 07:50] LABS: BASOPHILS # (AUTO) 0.1 10^3/uL (0.0-0.1); BASOPHILS % (AUTO) 1 % (0-10); EOSINOPHILS # (AUTO) 0.3 10^3/uL (0.0-0.3); EOSINOPHILS % (AUTO) 4 % (0-10); HEMATOCRIT 38 % (35-52); HEMOGLOBIN 11.3 g/dL (11.5-16.0); LYMPHOCYTES # (AUTO) 1.8 10^3/uL (1.0-4.0); LYMPHOCYTES % (AUTO) 23 % (12-44); MEAN CORPUSCULAR HEMOGLOBIN 26 pg (25-34); MEAN CORPUSCULAR HGB CONC 30 g/dL (32-36); MEAN CORPUSCULAR VOLUME 87 fL (80-99); MEAN PLATELET VOLUME 10.3 fL (9.0-12.2); MONOCYTES # (AUTO) 0.8 10^3/uL (0.0-1.0); MONOCYTES % (AUTO) 11 % (0-12); NEUTROPHILS # (AUTO) 4.9 10^3/uL (1.8-7.8); NEUTROPHILS % (AUTO) 62 % (42-75); PLATELET COUNT 465 10^3/uL (130-400); WHITE BLOOD COUNT 7.8 10^3/uL (4.3-11.0)
--- NOTE | 2021-03-26 07:50 | ED Chest Pain ---
General Chief Complaint: Chest Pain Stated Complaint: CHEST PAIN Nursing Triage Note: PT AMB TO [facility] 5 WITH COMPLAINT OF CP THAT STARTED WHEN SHE WOKE UP THIS MORNING. PER DAUGHTER, STATES PT HAS BEEN NON COMPLIANT WHEN TAKING HER MEDICATIONS DUE TO FEAR OF PILLS GETTING CAUGHT IN HER THROAT. Source: patient Exam Limitations: no limitations History of Present Illness Date Seen by Provider: Mar 26, 2021 Time Seen by Provider: 07:31 Initial Comments Here with report of chest pain that started at about 6 AM that woke her up. She got her daughter. Ultimately came here for the chest pain. Apparently she has had several episodes over this over the last several weeks after an episode of choking on a pill. She is very concerned about taking her medicines after that because she is afraid that she is going to have the same problem again. Due to this, she is not taking her meds well over the last several days. She has had previous visit for the same had rather significant anxiousness that was controlled with Ativan apparently. She did have swallow study that was reassu ring. Patient states pain is in the center of her chest and goes all over. She is quite anxious. She does have history of tremor and that is currently worse with anxiousness. No report of vomiting or diarrhea. Denies other complaints. Timing/Duration: 1-3 hours Severity/Quality: moderate, pressure Location: central Radiation: other (Throughout the chest) Activities at Onset: sleep Prior CP/Workup: cardiac cath, echocardiography, stress test ASA po SITE MONITOR: No NTG SL SITE MONITOR: No Associated Symptoms: No abdominal pain, No back pain, No nausea/vomiting, No shortness of breath; weakness Allergies and Home Medications Allergies Coded Allergies: Penicillins (Unverified Allergy, Unknown, 02/25/18) sulfamethoxazole (Unverified Allergy, Unknown, 02/25/18) trimethoprim (Unverified Allergy, Unknown, 02/25/18) Patient Home Medication List Home Medication List Reviewed: Yes Albuterol Sulfate (Ventolin Hfa) 1 Puff Puff, 2 PUFF INH QID PRN for SHORTNESS OF BREATH, (Reported) Entered as Reported by: MARNI JACK on 05/09/19 1522 Aspirin (Aspirin EC) 81 Mg Tablet.dr, 81 MG PO DAILY, (Reported) Entered as Reported by: WINDY ANDRE on 07/21/20 1009 Atorvastatin Calcium (Atorvastatin Calcium) 10 Mg Tablet, 10 MG PO DAILY, (Reported) Entered as Reported by: ALETA DE LEON on 02/25/18 1355 Diltiazem HCl (Cartia Xt) 180 Mg Cap.er.24h, 180 MG PO DAILY, (Reported) Entered as Reported by: WINDY ANDRE on 07/21/20 1011 Ferrous Sulfate (Ferrous Sulfate) 325 Mg Tablet, 325 MG PO DAILY, (Reported) Entered as Reported by: CLEVELAND RODRIGUEZ on 07/15/20 1234 Furosemide (Furosemide) 20 Mg Tablet, 20 MG PO DAILY, (Reported) Entered as Reported by: WINDY ANDRE on 07/21/20 1009 Hydroxyzine HCl (Hydroxyzine HCl) 25 Mg Tablet, 25 MG PO Q6H PRN for ANXIETY, (Reported) Entered as Reported by: CLEVELAND RODRIGUEZ on 07/15/20 1234 Ipratropium/Albuterol Sulfate (Iprat-Albut 0.5-3(2.5) mg/3 ml) 3 Ml Ampul.neb, 3 ML NEB QID, (Reported) Entered as Reported by: ALETA DE LEON on 02/25/18 1355 Lidocaine HCl (Lidocaine HCl Viscous) 15 Ml Solution, 5 ML PO Q8H PRN for throat pain Prescribed by: RAMIN HOBSON on 03/20/21 1133 Metoprolol Succinate (Metoprolol Succinate) 25 Mg Tab.er.24h, 25 MG PO DAILY, (Reported) Entered as Reported by: CLEVELAND RODRIGUEZ on 07/15/20 1234 Mirtazapine (Mirtazapine) 30 Mg Tablet, 30 MG PO HS, (Reported) Entered as Reported by: WINDY ANDRE on 07/21/20 1009 Montelukast Sodium (Montelukast Sodium) 4 Mg Tab.chew, 4 MG PO HS, (Reported) Entered as Reported by: MARNI JACK on 05/09/19 1336 Redby-3S/Dha/Epa/Fish Oil (Fish Oil Redby-3 Softgel) 1 Each Capsule.dr, 2,000 EACH PO DAILY, (Reported) Entered as Reported by: CLEVELAND RODRIGUEZ on 07/15/20 1234 Omeprazole (Omeprazole) 40 Mg Capsule.dr, 40 MG PO DAILY, (Reported) Entered as Reported by: ALETA DE LEON on 02/25/18 1355 Polyethylene Glycol 3350 (Miralax) 17 Gm Powd.pack, 17 GM PO DAILY PRN for CONSTIPATION-2ND LINE, (Reported) Entered as Reported by: CLEVELAND RODRIGUEZ on 07/15/20 1234 Potassium Chloride (Potassium Chloride) 10 Meq Tab.er.prt, 10 MEQ PO DAILY, (Reported) Entered as Reported by: WINDY ANDRE on 07/21/20 1009 Rivaroxaban (Xarelto) 20 Mg Tablet, 20 MG PO 1800, (Reported) Entered as Reported by: WINDY ANDRE on 07/21/20 1009 Sucralfate (Carafate) 1 Gm Tablet, 1 GM PO ACHS, (Reported) Entered as Reported by: WINDY ANDRE on 07/21/20 1009 Vit A/Vit C/Vit E/Zinc/Copper (Preservision Areds Tablet) 1 Each Tablet, 1 EACH PO BID, (Reported) Entered as Reported by: WINDY ANDRE on 07/21/20 1009 Review of Systems Review of Systems Constitutional: see HPI; No chills, No fever EENTM: No Nose Congestion, No Throat Pain Respiratory: Denies Cough, Denies Shortness of Air Cardiovascular: Chest Pain, Irregular Heart Rate Gastrointestinal: Denies Nausea, Denies Vomiting Genitourinary: No Symptoms Reported Psychiatric/Neurological: Anxiety, Emotional Problems, Tremors All Other Systems Reviewed Negative Unless Noted: Yes Past Zvdhxmm-Dltijb-Bmoteu Hx Patient Social History Tobacco Use?: No Immunizations Up To Date Tetanus Booster (TDap): Less than 5yrs PED Vaccines UTD: Yes First/Initial COVID19 Vaccinat: JULY Second COVID19 Vaccination Lance: 07/28 Third COVID19 Vaccination Date: JULY Seasonal Allergies Seasonal Allergies: No Past Medical History Surgeries: Yes Orthopedic, Tonsillectomy Respiratory: Yes (OXYGEN AT NIGHT 2L) COPD Currently Using CPAP: No Currently Using BIPAP: Yes Cardiac: Yes High Cholesterol, Hypertension Neurological: Yes (BENIGN TREMORS) Dementia, Stroke Reproductive Disorders: No Sexually Transmitted Disease: Yes HIV/AIDS: No Genitourinary: No Gastrointestinal: No Gastroesophageal Reflux, Chronic Constipation, Diverticulosis, Polyps, Hiatal Hernia Musculoskeletal: Yes Arthritis Endocrine: No Cataract Loss of Vision: Denies Hearing Impairment: Hard of Hearing Cancer: Yes (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) Skin Did You Recieve Any Treatments: Yes What Type of Treatment Did You: Surgical Intervention Psychosocial: Yes Anxiety, Depression Integumentary: Yes (SKIN CANCER MOLES REMOVED) Blood Disorders: Yes (ANEMIC) Adverse Reaction/Blood Tranf: No Family Medical History Reviewed Nursing Family Hx Colon cancer No Pertinent Family Hx PSH; -EGD/COLONOSCOPIES--POLYPECTOMIES--LAST SCOPES 02/2018--GERD/HIATAL HERNIA, DIVERTICULAR DISEASE -MULTIPLE SKIN LESIONS REMOVED, SOME CANCEROUS' -FOOT SURGERY -ANKLE SURGERY -TOENAIL SURGERY -LIPOMAS REMOVED -CATARACTS Physical Exam Vital Signs Vital Signs - First Documented 03/26/21 07:27 Pulse 101 Resp 18 B/P (MAP) 121/68 (85) Pulse Ox 99 O2 Delivery Room Air Capillary Refill : Less Than 3 Seconds Height, Weight, BMI Height: 5'5.00" Weight: 142lbs. 8.0oz. 67.067579cg; 27.00 BMI Method:Stated General Appearance: WD/WN, Anxious HEENT: PERRL/EOMI, Pharynx Normal Neck: Non Tender, Supple Respiratory: Lungs Clear, Normal Breath Sounds Cardiovascular: Irregularly Irregular, Tachycardia Gastrointestinal: Non Tender, Soft Extremity: Normal Range of Motion, Non Tender Neurologic/Psychiatric: Alert, Oriented x3 Skin: Normal Color, Warm/Dry Progress/Results/Core Measures Results/Orders Lab Results Laboratory Tests Test 03/26/21 07:33 03/26/21 09:40 03/26/21 12:40 Range/Units White Blood Count 7.8 4.3-11.0 10^3/uL Red Blood Count 4.30 3.80-5.11 10^6/uL Hemoglobin 11.3 L 11.5-16.0 g/dL Hematocrit 38 35-52 % Mean Corpuscular Volume 87 80-99 fL Mean Corpuscular Hemoglobin 26 25-34 pg Mean Corpuscular Hemoglobin Concent 30 L 32-36 g/dL Red Cell Distribution Width 13.6 10.0-14.5 % Platelet Count 465 H 130-400 10^3/uL Mean Platelet Volume 10.3 9.0-12.2 fL Immature Granulocyte % (Auto) 0 % Neutrophils (%) (Auto) 62 42-75 % Lymphocytes (%) (Auto) 23 12-44 % Monocytes (%) (Auto) 11 0-12 % Eosinophils (%) (Auto) 4 0-10 % Basophils (%) (Auto) 1 0-10 % Neutrophils # (Auto) 4.9 1.8-7.8 10^3/uL Lymphocytes # (Auto) 1.8 1.0-4.0 10^3/uL Monocytes # (Auto) 0.8 0.0-1.0 10^3/uL Eosinophils # (Auto) 0.3 0.0-0.3 10^3/uL Basophils # (Auto) 0.1 0.0-0.1 10^3/uL Immature Granulocyte # (Auto) 0.0 0.0-0.1 10^3/uL Prothrombin Time 17.6 H 12.2-14.7 SEC INR Comment 1.4 0.8-1.4 Activated Partial Thromboplast Time 36 H 24-35 SEC D-Dimer 0.46 0.00-0.49 UG/ML Sodium Level 138 135-145 MMOL/L Potassium Level 4.2 3.6-5.0 MMOL/L Chloride Level 108 H 98-107 MMOL/L Carbon Dioxide Level 15 L 21-32 MMOL/L Anion Gap 15 H 5-14 MMOL/L Blood Urea Nitrogen 9 7-18 MG/DL Creatinine 1.37 H 0.60-1.30 MG/DL Estimat Glomerular Filtration Rate 37 BUN/Creatinine Ratio 7 Glucose Level 121 H 70-105 MG/DL Calcium Level 9.4 8.5-10.1 MG/DL Corrected Calcium 9.3 8.5-10.1 MG/DL Magnesium Level 2.4 1.6-2.4 MG/DL Total Bilirubin 0.3 0.1-1.0 MG/DL Aspartate Amino Transf (AST/SGOT) 16 5-34 U/L Alanine Aminotransferase (ALT/SGPT) 13 0-55 U/L Alkaline Phosphatase 103 40-136 U/L Myoglobin 121.3 H 168.6 H 10.0-92.0 NG/ML Troponin I 0.063 H 0.067 H 0.061 H <0.028 NG/ML Total Protein 7.1 6.4-8.2 GM/DL Albumin 4.1 3.2-4.5 GM/DL My Orders Orders - WESLEY,JOHNATHAN D MD Cbc With Automated Diff (03/26/21 07:30) Magnesium (03/26/21 07:30) Chest 1 View, Ap/Pa Only (03/26/21 07:30) Ekg Tracing (03/26/21 07:30) Comprehensive Metabolic Panel (03/26/21 07:30) Myoglobin Serum (03/26/21 07:30) Protime With Inr (03/26/21 07:30) Partial Thromboplastin Time (03/26/21 07:30) O2 (03/26/21 07:30) Monitor-Rhythm Ecg Trace Only (03/26/21 07:30) Lipid Panel (03/27/21 06:00) Ed Iv/Invasive Line Start (03/26/21 07:30) Troponin I Gita (03/26/21 07:30) Aspirin Chewable Tablet (Baby Aspirin Ch (03/26/21 07:30) Lorazepam Injection (Ativan Injection) (03/26/21 07:45) Lidocaine 2% Viscous 15 Ml (Xylocaine Vi (03/26/21 08:00) Antacid Suspension (Mylanta Suspension (03/26/21 08:00) Ns Iv 1000 Ml (Sodium Chloride 0.9%) (03/26/21 08:37) Fibrin Degradation Products (03/26/21 08:37) Troponin I [place] (03/26/21 09:35) Myoglobin Serum (03/26/21 09:35) Troponin I Gita (03/26/21 12:00) Medications Given in ED Current Medications Medications Dose Ordered Sig/Chapin Route Start Time Stop Time Status Last Admin Dose Admin Al Hydrox/Mg Hydrox/Simethicone 30 ml ONCE ONCE PO 03/26/21 08:00 03/26/21 08:01 DC 03/26/21 08:14 30 ML Aspirin 324 mg ONCE ONCE PO 03/26/21 07:30 03/26/21 07:32 DC 03/26/21 07:36 324 MG Lidocaine HCl 15 ml ONCE ONCE PO 03/26/21 08:00 03/26/21 08:01 DC 03/26/21 08:14 15 ML Lorazepam 0.5 mg ONCE ONCE IVP 03/26/21 07:45 03/26/21 07:46 DC 03/26/21 07:43 0.5 MG Vital Signs/I&O 03/26/21 07:27 Pulse 101 Resp 18 B/P (MAP) 121/68 (85) Pulse Ox 99 O2 Delivery Room Air Blood Pressure Mean: 85 Progress Progress Note : Progress Note Seen and evaluated. IV, labs, EKG and chest x-ray ordered. ASA 324 mg p.o. Ativan 0.5 mg IV for anxiety. I have reviewed recent history including heart cath results and recent ED visit. She had similar presentation did well with Ativan and viscous lidocaine. I will give GI cocktail while evaluating for heart findings. Heart cath results below. These are reassuring. Monitor patient. 0839: Labs reviewed. Slight bump in troponin although seems to be bumped on previous visits as well. I will add D-dimer and normal saline 500 mL bolus with anticipation of repeat troponin. Doing better now. Monitor patient. 1108: Repeat troponin done at 0940 is 0.004 greater than the one done earlier. I did discuss the case with Dr. Santos, on-call for cardiology. We will repeat the troponin at the 6-hour ward from initial chest pain and if there is no dramatic rise then patient likely has chronic elevation and this would not be a concern especially in the setting of a negative heart cath from July of this year. Patient is currently pain-free and resting comfortably. We will repeat troponin at noon and evaluate at that point. Monitor patient. Patient and family informed and agree. 1315: Repeat troponin has improved. Patient pain- free. She does walk to the bathroom without difficulty. I did discuss with her the importance of taking her meds and she agreed. Discharged home with return precautions. Patient verbalized understanding instructions and agreement with plan. ANATOMY: Left Main is free of obstructive disease Left Anterior Descending is slightly tortuous with no obstructive disease Left Circumflex has mild disease nonobstructive disease Right Coronory Artery is small nondominant artery with coronary spasm induced by catheter LV Gram was not done, pressure was measured, fluoroscopy showed heavy mitral annular calcification CONCLUSION: 1. Mild to moderate coronary artery disease nonobstructive disease 2. Normal left ventricular end-diastolic pressure 3. Calcified mitral annulus Initial ECG Impression Date: Mar 26, 2021 Initial ECG Impression Time: 07:31 Initial ECG Rate: 89 Initial ECG Rhythm: A Fib/Flutter Initial ECG Impression: Atrial Fibrillation Comment Atrial fibrillation with left bundle branch block. Left axis deviation. No evidence of ST elevation [place]. Similar to previous of 07/14/2019. Interpreted by me. Diagnostic Imaging Diagonstic Imaging: Xray Plain Films/CT/US/NM/MRI: chest Comments [facility], [place] NAME: [place] ORTIZ [facility] REC#: [id number] PT STATUS: REG ER : 1935 PHYSICIAN: JOHNATHAN OLSON MD ADMIT DATE: 03/26/21/ER Draft Date of Exam:03/26/21 CHEST 1 VIEW, AP/PA ONLY Indication: Dyspnea. Chest pain. Comparison: 02/20/2021. Discussion: Single portable upright view of the chest was obtained. Mild cardiomegaly is stable. Eventration of the right hemidiaphragm is stable. Changes of chronic lung disease are again noted diffusely and bilaterally. No new consolidation. No pleural fluid or pneumothorax. No osseous abnormality. Impression: 1. No acute cardiopulmonary process. Dictated on workstation # [id number] Dict: 03/26/21 0816 Trans: 03/26/21 0821 [facility] [id number] Interpreted by: CHRISTINA ZAMORANO MD Electronically signed by: Departure Impression Primary Impression: Chest pain Qualified Codes: R07.9 - Chest pain, unspecified Additional Impressions: Anxiety Dysphagia Qualified Codes: R13.12 - Dysphagia, oropharyngeal phase Disposition: 01 HOME, SELF-CARE Condition: Improved Departure-Patient Inst. Decision time for Depature: 13:18 Referrals: [facility] [place] (PCP) Primary Care Physician CHRISTINA HOOK (Family) Primary Care Physician ARASH CAI MD Patient Instructions: Chest Pain (DC) Add. Discharge Instructions: All discharge instructions reviewed with patient and/or family. Voiced understanding. Continue to take your medications as prescribed. Follow-up with your doctor in a few days for recheck. Follow-up with your heart doctor next week for recheck and further evaluation. Return for worse pain, fever, vomiting, weakness, breathing problems or other concerns as needed. JOHNATHAN OLSON MD Mar 26, 2021 07:49
[2021-03-26] MEDS ORDERED: ANTACID SUSP 30 ML UDC (MYLANTA) PO ONE (08:00)
[2021-03-26] MEDS ORDERED: LIDOCAINE 2% VISCOUS 15 ML UDC PO ONE (08:00)
[2021-03-26 08:01] LABS: INR 1.4 (0.8-1.4); PROTHROMBIN TIME PATIENT 17.6 SEC (12.2-14.7)
[2021-03-26 08:03] LABS: ALBUMIN 4.1 GM/DL (3.2-4.5); POTASSIUM 4.2 MMOL/L (3.6-5.0)
[2021-03-26 08:05] LABS: CALCIUM 9.4 MG/DL (8.5-10.1)
[2021-03-26 08:06] LABS: TOTAL PROTEIN 7.1 GM/DL (6.4-8.2)
[2021-03-26 08:07] LABS: BILIRUBIN,TOTAL 0.3 MG/DL (0.1-1.0)
[2021-03-26 08:09] LABS: CREATININE SERUM 1.37 MG/DL (0.60-1.30)
[2021-03-26 08:12] LABS: MAGNESIUM 2.4 MG/DL (1.6-2.4)
--- NOTE | 2021-03-26 08:21 | Diagnostic Imaging Report ---
Indication: Dyspnea. Chest pain. Comparison: 02/20/2021. Discussion: Single portable upright view of the chest was obtained. Mild cardiomegaly is stable. Eventration of the right hemidiaphragm is stable. Changes of chronic lung disease are again noted diffusely and bilaterally. No new consolidation. No pleural fluid or pneumothorax. No osseous abnormality. Impression: 1. No acute cardiopulmonary process. Dictated by: Dictated on workstation # [id number]
[2021-03-26] MEDS ORDERED: NS IV 1000 ML 1,000 ML IV STA (08:37)
[2021-03-26 13:34] VITALS: BP 121/73
== END 2021-03-26 13:34 | disposition home or self-care (01) ==
LOC: EDUNIT# 07:26 → ER 07:27
DX: R07.9 Chest pain, unspecified (principal); F41.9 Anxiety disorder, unspecified; R13.10 Dysphagia, unspecified; R00.0 Tachycardia, unspecified; J44.9 Chronic obstructive pulmonary disease, unspecified; I10 Essential (primary) hypertension; F03.90 Unspecified dementia, unspecified severity, without behavioral disturbance, psychotic disturbance, mood disturbance, and anxiety; K21.9 Gastro-esophageal reflux disease without esophagitis; F32.9 Major depressive disorder, single episode, unspecified; E78.00 Pure hypercholesterolemia, unspecified; Z86.73 Personal history of transient ischemic attack (TIA), and cerebral infarction without residual deficits; Z79.01 Long term (current) use of anticoagulants; Z79.899 Other long term (current) drug therapy; Z79.82 Long term (current) use of aspirin
CPT/HCPCS: 36415; 71045; 80053; 83735; 83874; 84484; 85025; 85379; 85610; 85730; 93005; 93041

== ENCOUNTER → 2021-05-04 | Outpatient (CLI) | payer MEDICARE | LOC: CARD 13:00 | PROVIDERS: ATTEND Internal Medicine Cardiovascular Disease | DX: I08.0 Rheumatic disorders of both mitral and aortic valves (principal); I11.9 Hypertensive heart disease without heart failure | CPT/HCPCS: 93306 ==

== ENCOUNTER → 2021-06-30 | Outpatient (CLI) | payer MEDICARE ==
[~2021-06-30] MED LIST changes: -FLUC150T2 PO; +FLUC150T41 PO; +RT-ALBUTEROL SULF 2.5 MG/3 ML PRE-MIX VIAL INH ONE
== END ==
LOC: RT 10:45
PROVIDERS: ATTEND Nurse Practitioner Family
DX: J84.9 Interstitial pulmonary disease, unspecified (principal); J45.40 Moderate persistent asthma, uncomplicated; J84.10 Pulmonary fibrosis, unspecified
CPT/HCPCS: 94060; 94726; 94729

== ENCOUNTER → 2021-09-12 | Outpatient (CLI) | payer MEDICARE ==
[~2021-09-12] MED LIST changes: -RT-ALBUTEROL SULF 2.5 MG/3 ML PRE-MIX VIAL INH ONE
--- NOTE | 2021-09-12 13:49 | Diagnostic Imaging Report ---
PROCEDURE: US Thyroid. TECHNIQUE: Multiple real-time grayscale images were obtained of the thyroid in various projections. INDICATION: Goiter. FINDINGS: The right lobe measures 5.6 x 2 x 1.3 cm. There are three very hypoechoic oval nodules with smooth margins and no calcification in the inferior portions of right lobe. The largest measures 1.1 x 0.7 x 0.8 cm. This does show moderate vascularity. The left lobe measures 5.6 x 2.3 x 1.9 cm. There are multiple nodules, largest is present inferiorly measuring 2 x 1.6 x 1.9 cm with smooth margin. This is hypoechoic with a few very anechoic areas. There does appear to be some punctate calcifications. The next largest nodule is in the upper pole and measures 1.8 x 1.2 cm. It is also hypoechoic without definite calcification. Two subcentimeter nodules are present as well. IMPRESSION: 1. Dominant nodule inferiorly in the left lobe of the thyroid, oval, hypoechoic measuring 2.1 cm with punctate calcification. This is considered moderately suspicious. Ultrasound-guided biopsy recommended. TI-RADS 4. 2. Nodules within the right lobe, largest measuring 1.2 cm, hypoechoic with no calcifications, mildly suspicious. TI-RADS 3. Dictated by: Dictated on workstation # [id number]
== END ==
LOC: RAD 12:00
PROVIDERS: ATTEND Otolaryngology Otolaryngology/Facial Plastic Surgery
DX: E04.2 Nontoxic multinodular goiter (principal)
CPT/HCPCS: 76536

== ENCOUNTER → 2021-10-03 | Outpatient (CLI) | payer MEDICARE ==
[~2021-10-03] VITALS: Ht 165.1 cm; Wt 69.5 kg
[~2021-10-03] MED LIST changes: +LIDOCAINE 1% INJ 20 ML VIAL INJ ONE
--- NOTE | 2021-10-03 12:00 | Diagnostic Imaging Report ---
INDICATION: Left lobe thyroid nodule. Patient presents for ultrasound guided fine needle aspiration and biopsy. Patient was brought to the procedure room and placed on the table in the supine position. Ultrasound imaging of the left neck was performed to evaluate appropriate entry site. Left neck was then prepped and draped in usual sterile fashion. Small amount 1% lidocaine was utilized for local anesthesia. A total of 4 passes were made into the dominant solid nodule left lobe of thyroid utilizing 25-gauge needles and fine-needle aspiration technique. A single pass was made with a Rotex needle and Rotex biopsy was performed. Hemostasis was obtained. Patient tolerated the procedure well and left the department in stable condition. IMPRESSION: Successful ultrasound guided left thyroid nodule fine-needle aspiration and Rotex biopsy. Pathology results are currently pending. Dictated by: Dictated on workstation # [id number]
== END ==
LOC: RAD 10:56
PROVIDERS: ATTEND Otolaryngology Otolaryngology/Facial Plastic Surgery
DX: E04.1 Nontoxic single thyroid nodule (principal)
CPT/HCPCS: 10005

== ENCOUNTER 2022-01-28 08:47 | Inpatient (IN) | payer MEDICARE ==
[~2022-01-28] VITALS: Ht 160 cm; Wt 77.0 kg
[~2022-01-28 08:47] MED LIST changes: +LEVO750T PO; -LEVO750T39 PO; -LIDOCAINE 1% INJ 20 ML VIAL INJ ONE; -MONT4TAB17 PO; +MONT4TAB19 PO; +POTA-177 PO; -POTA10TA37 PO
[2022-01-28] MEDS ORDERED: NS IV 1000 ML 1,000 ML IV STA (09:24)
[2022-01-28 09:32] LABS: BASOPHILS # (AUTO) 0.1 10^3/uL (0.0-0.1); BASOPHILS % (AUTO) 1 % (0-10); EOSINOPHILS # (AUTO) 0.2 10^3/uL (0.0-0.3); EOSINOPHILS % (AUTO) 2 % (0-10); HEMATOCRIT 35 % (35-52); HEMOGLOBIN 11.6 g/dL (11.5-16.0); LYMPHOCYTES # (AUTO) 0.8 10^3/uL (1.0-4.0); LYMPHOCYTES % (AUTO) 8 % (12-44); MEAN CORPUSCULAR HEMOGLOBIN 27 pg (25-34); MEAN CORPUSCULAR HGB CONC 33 g/dL (32-36); MEAN CORPUSCULAR VOLUME 82 fL (80-99); MEAN PLATELET VOLUME 10.4 fL (9.0-12.2); MONOCYTES # (AUTO) 1.1 10^3/uL (0.0-1.0); MONOCYTES % (AUTO) 10 % (0-12); NEUTROPHILS # (AUTO) 8.8 10^3/uL (1.8-7.8); NEUTROPHILS % (AUTO) 80 % (42-75); PLATELET COUNT 288 10^3/uL (130-400)
[2022-01-28 09:36] LABS: ALBUMIN 3.4 GM/DL (3.2-4.5); POTASSIUM 3.4 MMOL/L (3.6-5.0)
[2022-01-28 09:37] LABS: CALCIUM 8.7 MG/DL (8.5-10.1)
[2022-01-28 09:38] LABS: INR 1.9 (0.8-1.4); PROTHROMBIN TIME PATIENT 22.6 SEC (12.2-14.7)
[2022-01-28 09:39] LABS: TOTAL PROTEIN 6.5 GM/DL (6.4-8.2)
[2022-01-28 09:41] LABS: BILIRUBIN,TOTAL 0.9 MG/DL (0.1-1.0)
[2022-01-28 09:42] LABS: CREATININE SERUM 1.37 MG/DL (0.60-1.30)
--- NOTE | 2022-01-28 09:46 | Diagnostic Imaging Report ---
Indication: Cough and shortness of breath. Time of Exam: 9:43 AM Correlation is made with prior chest from 03/26/2021. The heart is enlarged. There are extensive bilateral infiltrates, mixed interstitial and airspace throughout both lungs. This is greatest in the right upper lobe. No effusion is identified. No pneumothorax. Impression: Development of extensive bilateral pulmonary infiltrates and central congestive changes since exam from 03/26/2021. Dictated by: Dictated on workstation # [id number]
[2022-01-28 10:10] LABS: BILIRUBIN,URINE NEGATIVE (NEGATIVE); CLARITY,URINE SL CLOUDY; COLOR,URINE YELLOW; GLUCOSE, URINE (UA) NEGATIVE (NEGATIVE); KETONES,URINE NEGATIVE (NEGATIVE); LEUKOCYTE ESTERASE ,URINE TRACE (NEGATIVE); NITRITE,URINE NEGATIVE (NEGATIVE); PH,URINE 5.5 (5-9); PROTEIN,URINE TRACE (NEGATIVE)
[2022-01-28 10:26] LABS: BACTERIA,URINE FEW /HPF
[2022-01-28 10:27] LABS: ANISOCYTOSIS SLIGHT; BASOPHILS % (MANUAL) 1 %; EOSINOPHILS % (MANUAL) 2 %; LYMPHOCYTES % (MANUAL) 4 %; MICROCYTOSIS SLIGHT; MONOCYTES % (MANUAL) 7 %; NEUTROPHILS % (MANUAL) 86 %; POLYCHROMASIA SLIGHT
--- NOTE | 2022-01-28 10:40 | ED General ---
General Chief Complaint: Respiratory Problems Stated Complaint: SOA/SPITTING UP BLOOD/UPPER ABD PAIN Nursing Triage Note: PT AMBULATE TO ROOM 03 WITH PERSONAL WALKER WITH C/O SOB, COUGHING UP BLOOD, AND UPPER ABD PAIN X2 DAYS. PT C/O LOWER BACK PAIN X1 WEEK. Source of Information: Patient Exam Limitations: No Limitations History of Present Illness Date Seen by Provider: Jan 28, 2022 Time Seen by Provider: 09:25 Initial Comments Here with report of shortness of breath and coughing up blood as well as upper abdominal pain for the last 2 days and lower abdominal pain for the last 3 to 7 days. No reported fall or injury. No reported fever or vomiting. She does admit to weakness. She is quite short of breath with any activity. Denies nausea or vomiting. She has been eating and drinking okay. She is on Xarelto a nd takes that as directed for atrial fibrillation and previous stroke. Her main concern is the shortness of breath and coughing up blood. Timing/Duration: 3-4 Days Severity: Moderate, Severe Associated Systoms: No Chest Pain; Cough; No Nausea/Vomiting; Shortness of Air Allergies and Home Medications Allergies Coded Allergies: Penicillins (Unverified Allergy, Unknown, 02/25/18) sulfamethoxazole (Unverified Allergy, Unknown, 02/25/18) trimethoprim (Unverified Allergy, Unknown, 02/25/18) Patient Home Medication List Home Medication List Reviewed: Yes Albuterol Sulfate (Ventolin Hfa) 1 Puff Puff, 2 PUFF INH QID PRN for SHORTNESS OF BREATH, (Reported) Entered as Reported by: MARNI JACK on 05/09/19 1522 Aspirin (Aspirin EC) 81 Mg Tablet.dr, 81 MG PO DAILY, (Reported) Entered as Reported by: WINDY ANDRE on 07/21/20 1009 Atorvastatin Calcium (Atorvastatin Calcium) 10 Mg Tablet, 10 MG PO DAILY, (Reported) Entered as Reported by: ALETA DE LEON on 02/25/18 1355 Diltiazem HCl (Cartia Xt) 180 Mg Cap.er.24h, 180 MG PO DAILY, (Reported) Entered as Reported by: WINDY ANDRE on 07/21/20 1011 Ferrous Sulfate (Ferrous Sulfate) 325 Mg Tablet, 325 MG PO DAILY, (Reported) Entered as Reported by: CLEVELAND RODRIGUEZ on 07/15/20 1234 Furosemide (Furosemide) 20 Mg Tablet, 20 MG PO DAILY, (Reported) Entered as Reported by: WINDY ANDRE on 07/21/20 1009 Hydroxyzine HCl (Hydroxyzine HCl) 25 Mg Tablet, 25 MG PO Q6H PRN for ANXIETY, (Reported) Entered as Reported by: CLEVELAND RODRIGUEZ on 07/15/20 1234 Ipratropium/Albuterol Sulfate (Iprat-Albut 0.5-3(2.5) mg/3 ml) 3 Ml Ampul.neb, 3 ML NEB QID, (Reported) Entered as Reported by: ALETA DE LEON on 02/25/18 1355 Lidocaine HCl (Lidocaine HCl Viscous) 15 Ml Solution, 5 ML PO Q8H PRN for throat pain Prescribed by: RAMIN HOBSON on 03/20/21 1133 Metoprolol Succinate (Metoprolol Succinate) 25 Mg Tab.er.24h, 25 MG PO DAILY, (Reported) Entered as Reported by: CLEVELAND RODRIGUEZ on 07/15/20 1234 Mirtazapine (Mirtazapine) 30 Mg Tablet, 30 MG PO HS, (Reported) Entered as Reported by: WINDY ANDRE on 07/21/20 1009 Montelukast Sodium (Montelukast Sodium) 4 Mg Tab.chew, 4 MG PO HS, (Reported) Entered as Reported by: MARNI JACK on 05/09/19 1336 [place]-3S/Dha/Epa/Fish Oil (Fish Oil [place]-3 Softgel) 1 Each Capsule.dr, 2,000 EACH PO DAILY, (Reported) Entered as Reported by: CLEVELAND RODRIGUEZ on 07/15/20 1234 Omeprazole (Omeprazole) 40 Mg Capsule.dr, 40 MG PO DAILY, (Reported) Entered as Reported by: ALETA DE LEON on 02/25/18 1355 Polyethylene Glycol 3350 (Miralax) 17 Gm Powd.pack, 17 GM PO DAILY PRN for CONSTIPATION-2ND LINE, (Reported) Entered as Reported by: CLEVELAND RODRIGUEZ on 07/15/20 1234 Potassium Chloride (Potassium Chloride) 10 Meq Tab.er.prt, 10 MEQ PO DAILY, (Rep orted) Entered as Reported by: WINDY ANDRE on 07/21/201008 Rivaroxaban (Xarelto) 20 Mg Tablet, 20 MG PO 1800, (Reported) Entered as Reported by: WINDY ANDRE on 07/21/201008 Sucralfate (Carafate) 1 Gm Tablet, 1 GM PO ACHS, (Reported) Entered as Reported by: WINDY ANDRE on 07/21/201008 Vit A/Vit C/Vit E/Zinc/Copper (Preservision Areds Tablet) 1 Each Tablet, 1 EACH PO BID, (Reported) Entered as Reported by: WINDY ANDRE on 07/21/201008 Review of Systems Review of Systems Constitutional: see HPI; No chills, No fever EENTM: throat pain; No nose congestion Respiratory: cough, hemoptysis, short of breath Cardiovascular: No chest pain, No edema Gastrointestinal: No nausea, No vomiting Genitourinary: no symptoms reported Musculoskeletal: no symptoms reported All Other Systems Reviewed Negative Unless Noted: Yes Past Nntvvzn-Syxboq-Sobgzu Hx Patient Social History Tobacco Use?: No Smoking Status: Former Smoker Smokeless Tobacco Frequency: Never a User Use of E-Cig and/or Vaping dev: No Use of E-Cig and/or Vaping Herrera: Never a User Substance use?: No Alcohol Use?: No Pt feels they are or have been: No Immunizations Up To Date Tetanus Booster (TDap): Less than 5yrs PED Vaccines UTD: Yes First/Initial COVID19 Vaccinat: 07/28 Second COVID19 Vaccination Lance: 07/28 Third COVID19 Vaccination Date: 07/28 COVID19 Vaccine Cargo Router: SUE Seasonal Allergies Seasonal Allergies: No Past Medical History Surgeries: Yes Orthopedic, Tonsillectomy Respiratory: Yes (OXYGEN AT NIGHT 2L) COPD Currently Using CPAP: No Currently Using BIPAP: Yes Cardiac: Yes High Cholesterol, Hypertension Neurological: Yes (BENIGN TREMORS) Dementia, Stroke Reproductive Disorders: No Sexually Transmitted Disease: Yes HIV/AIDS: No Genitourinary: No Gastrointestinal: No Gastroesophageal Reflux, Chronic Constipation, Diverticulosis, Polyps, Hiatal Hernia Musculoskeletal: Yes Arthritis Endocrine: No Cataract Loss of Vision: Denies Hearing Impairment: Hard of Hearing Cancer: Yes (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) Skin Did You Recieve Any Treatments: Yes What Type of Treatment Did You: Surgical Intervention Psychosocial: Yes Anxiety, Depression Integumentary: Yes (SKIN CANCER MOLES REMOVED) Blood Disorders: Yes (ANEMIC) Adverse Reaction/Blood Tranf: No Family Medical History Reviewed Nursing Family Hx Colon cancer No Pertinent Family Hx PSH; -EGD/COLONOSCOPIES--POLYPECTOMIES--LAST SCOPES 02/2018--GERD/HIATAL HERNIA, DIVERTICULAR DISEASE -MULTIPLE SKIN LESIONS REMOVED, SOME CANCEROUS' -FOOT SURGERY -ANKLE SURGERY -TOENAIL SURGERY -LIPOMAS REMOVED -CATARACTS Physical Exam-Suspected Sepsis Physical Exam Vital Signs Vital Signs - First Documented Capillary Refill : Less Than 3 Seconds Blood Pressure Mean: 99 Height, Weight, BMI Height: 5'5.00" Weight: 142lbs. 8.0oz. 67.916248qe; 28.00 BMI Method:Stated General Appearance: WD/WN, Mild Distress HEENT: PERRL/EOMI, Pharynx Normal Neck: Non Tender, Supple Respiratory: Crackles (Bilateral bases), Decreased Breath Sounds; No Wheezing Cardiovascular: Systolic Murmur, Irregularly Irregular Gastrointestinal: Non Tender, Soft Back: Normal Inspection, No CVA Tenderness, No Vertebral Tenderness Extremity: Normal Range of Motion, Non Tender Neurologic/Psychiatric: Alert, Oriented x3 Skin: normal color, warm/dry Focused Exam Lactate Level 01/28/22 09:32: Lactic Acid Level 2.00 Lactic Acid Level Progress/Results/Core Measures Suspected Sepsis SIRS Temperature: Pulse: 92 Respiratory Rate: 20 Laboratory Tests 01/28/22 08:03: White Blood Count 11.0 Blood Pressure 147 /76 Mean: 99 01/28/22 09:32: Lactic Acid Level 2.00 Laboratory Tests 01/28/22 08:03: Creatinine 1.37H, INR Comment 1.9H, Platelet Count 288, Total Bilirubin 0.9 Results/Orders Lab Results Laboratory Tests Test 01/28/22 08:03 01/28/22 09:32 01/28/22 09:57 01/28/22 13:42 Range/Units White Blood Count 11.0 4.3-11.0 10^3/uL Red Blood Count 4.30 3.80-5.11 10^6/uL Hemoglobin 11.6 11.5-16.0 g/dL Hematocrit 35 35-52 % Mean Corpuscular Volume 82 80-99 fL Mean Corpuscular Hemoglobin 27 25-34 pg Mean Corpuscular Hemoglobin Concent 33 32-36 g/dL Red Cell Distribution Width 14.2 10.0-14.5 % Platelet Count 288 130-400 10^3/uL Mean Platelet Volume 10.4 9.0-12.2 fL Immature Granulocyte % (Auto) 0 % Neutrophils (%) (Auto) 80 H 42-75 % Lymphocytes (%) (Auto) 8 L 12-44 % Monocytes (%) (Auto) 10 0-12 % Eosinophils (%) (Auto) 2 0-10 % Basophils (%) (Auto) 1 0-10 % Neutrophils # (Auto) 8.8 H 1.8-7.8 10^3/uL Lymphocytes # (Auto) 0.8 L 1.0-4.0 10^3/uL Monocytes # (Auto) 1.1 H 0.0-1.0 10^3/uL Eosinophils # (Auto) 0.2 0.0-0.3 10^3/uL Basophils # (Auto) 0.1 0.0-0.1 10^3/uL Immature Granulocyte # (Auto) 0.0 0.0-0.1 10^3/uL Neutrophils % (Manual) 86 % Lymphocytes % (Manual) 4 % Monocytes % (Manual) 7 % Eosinophils % (Manual) 2 % Basophils % (Manual) 1 % Polychromasia SLIGHT Anisocytosis SLIGHT Microcytosis SLIGHT Prothrombin Time 22.6 H 12.2-14.7 SEC INR Comment 1.9 H 0.8-1.4 Activated Partial Thromboplast Time 36 H 24-35 SEC Sodium Level 140 135-145 MMOL/L Potassium Level 3.4 L 3.6-5.0 MMOL/L Chloride Level 110 H 98-107 MMOL/L Carbon Dioxide Level 18 L 21-32 MMOL/L Anion Gap 12 5-14 MMOL/L Blood Urea Nitrogen 15 7-18 MG/DL Creatinine 1.37 H 0.60-1.30 MG/DL Estimat Glomerular Filtration Rate 38 BUN/Creatinine Ratio 11 Glucose Level 104 70-105 MG/DL Calcium Level 8.7 8.5-10.1 MG/DL Corrected Calcium 9.2 8.5-10.1 MG/DL Total Bilirubin 0.9 0.1-1.0 MG/DL Aspartate Amino Transf (AST/SGOT) 13 5-34 U/L Alanine Aminotransferase (ALT/SGPT) 13 0-55 U/L Alkaline Phosphatase 102 40-136 U/L Troponin I 0.070 H <0.028 NG/ML B-Type Natriuretic Peptide 282.6 H <100.0 PG/ML Total Protein 6.5 6.4-8.2 GM/DL Albumin 3.4 3.2-4.5 GM/DL Lactic Acid Level 2.00 0.50-2.00 MMOL/L Urine Color YELLOW Urine Clarity SL CLOUDY Urine pH 5.5 5-9 Urine Specific [place] 1.025 H 1.016-1.022 Urine Protein TRACE H NEGATIVE Urine Glucose (UA) NEGATIVE NEGATIVE Urine Ketones NEGATIVE NEGATIVE Urine Nitrite NEGATIVE NEGATIVE Urine Bilirubin NEGATIVE NEGATIVE Urine Urobilinogen 1.0 < = 1.0 MG/DL Urine Leukocyte Esterase TRACE H NEGATIVE Urine RBC (Auto) 1+ H NEGATIVE Urine RBC NONE /HPF Urine WBC 2-5 /HPF Urine Squamous Epithelial Cells 2-5 /HPF Urine Crystals NONE /LPF Urine Bacteria FEW H /HPF Urine Casts NONE /LPF Urine Mucus NEGATIVE /LPF Urine Culture Indicated CULTURE PENDING Influenza Type A (RT-PCR) Not Detected Not Detecte Influenza Type B (RT-PCR) Not Detected Not Detecte SARS-CoV-2 RNA (RT-PCR) Not Detected Not Detecte My Orders Orders - JOHNATHAN OLSON MD Cbc With Automated Diff (01/28/22:) Comprehensive Metabolic Panel (01/28/22:24) Blood Culture (01/28/22:24) Sputum Culture (01/28/22:24) Urinalysis (01/28/22:) Urine Culture (01/28/22:24) Protime With Inr (01/28/22:) Partial Thromboplastin Time (01/28/22:24) Chest 1 View, Ap/Pa Only (01/28/22:24) Ed Iv/Invasive Line Start (01/28/22:24) Ekg Tracing (01/28/22:24) Vital Signs Adult Sepsis Patie Q15M (01/28/22:24) O2 (01/28/22:24) Remove Rings In Anticipation O (01/28/22:24) Lactic Acid Analyzer (01/28/22:24) Ns Iv 1000 Ml (Sodium Chloride 0.9%) (01/28/22 09:24) Manual Differential (01/28/22 08:03) Bnp Gita (01/28/22 10:22) Troponin I [place] (01/28/22 10:22) Cefepime Injection (Maxipime Injection) (01/28/22 11:30) Covid 19 Inhouse Test (01/28/22 13:35) Influenza A And B By Pcr (01/28/22 13:35) Ed Admission (Communication) (01/28/22 13:41) Medications Given in ED Current Medications Medications Dose Ordered Sig/Chapin Route Start Time Stop Time Status Last Admin Dose Admin Cefepime HCl 1000 mg/Sodium Chloride 50 ml @ 100 mls/hr ONCE ONCE IV 01/28/22 11:30 01/28/22 11:59 DC 01/28/22 12:50 100 MLS/HR Vital Signs/I&O 01/28/22 01/28/22 01/28/22 08:52 08:52 08:52 Temp 37.0 Pulse 92 Resp 20 B/P (MAP) 147/76 (99) Pulse Ox 96 96 O2 Delivery Nasal Cannula Nasal Cannula Nasal Cannula O2 Flow Rate 4.00 4.00 4.00 Capillary Refill : Less Than 3 Seconds Blood Pressure Mean: 99 Progress Note : Progress Note Seen and evaluated. IV, labs, EKG and chest x-ray ordered. We will go ahead and get blood cultures and lactic acid due to concerns of pneumonia in the differential and coughing up blood. She is on Xarelto so would be unlikely that this is pulmonary embolism. Patient denies chest pain. We will check for cardiac etiology as well though. Monitor patient. 1000: Portable single view chest x-ray is concerning for significant bilateral infiltrates as evaluated by me. Pending radiology report. Monitor patient. 1345: Patient has received cefepime 1 g IV for bilateral pneumonia. Patient to be admitted. Admission delayed due to significant critical patients in the ED. Cefepime given early on and care. Patient remains normotensive and O2 saturation greater than 92% on 2 L while resting. Patient did have elevated troponin which is likely related to demand ischemia from earlier hypoxia as there is no EKG changes concerning for ST elevation RI and patient has no chest pain. Case discussed with Dr. Quiroz who accepts patient for admission, inpatient status to the ICU. Case discussed with Dr. Snatos who accepts patient in consult. We will continue Xarelto but hold aspirin as this does not look to be cardiac event and seems to be related to hypoxia secondary to pneumonia. We will check COVID swab. Patient is vaccinated for COVID-19. Admit, inpatient status. Patient and family agree with plan. ECG Initial ECG Impression Date: Jan 28, 2022 Initial ECG Impression Time: 09:53 Initial ECG Rate: 82 Comment Sinus rhythm with first-degree AV block and extreme right axis deviation with left bundle branch block and PVCs noted. No evidence of ST elevation RI. Interpreted by me and discussed with cardiology. Diagnostic Imaging Diagonstic Imaging: Xray Plain Films/CT/US/NM/MRI: chest Comments [facility], [place] NAME: KY ORTIZ [facility] REC#: [id number] PT STATUS: REG ER : 1935 PHYSICIAN: JOHNATHAN OLSON MD ADMIT DATE: 01/28/22/ER Draft Date of Exam:01/28/22 CHEST 1 VIEW, AP/PA ONLY Indication: Cough and shortness of breath. Time of Exam: 9:43 AM Correlation is made with prior chest from 03/26/2021. The heart is enlarged. There are extensive bilateral infiltrates, mixed interstitial and airspace throughout both lungs. This is greatest in the right upper lobe. No effusion is identified. No pneumothorax. Impression: Development of extensive bilateral pulmonary infiltrates and central congestive changes since exam from 03/26/2021. Dictated on workstation # [id number] Dict: 01/28/2244 Trans: 01/28/2245 [facility] [id number] Interpreted by: JOSE JHA MD Electronically signed by: Departure Communication (Admissions) Time/Spoke to Admitting Phy: 13:43 Impression Primary Impression: Bilateral pneumonia Qualified Codes: J18.9 - Pneumonia, unspecified organism Additional Impressions: Elevated troponin Hypoxia Disposition: ADMITTED INPATIENT Condition: Stable Admissions Decision to Admit Reason: Admit from ER (General) Decision to Admit/Date: Jan 28, 2022 Time/Decision to Admit Time: 13:43 Departure-Patient Inst. Referrals: [facility] (PCP/Family) Primary Care Physician JOHNATHAN OLSON MD Jan 28, 2022 10:40
[2022-01-28] MEDS ORDERED: CEFEPIME INJECTION 1,000 MG in NS (IVPB) 50 ML IV ONE (11:30)
[2022-01-28] MEDS: CEFEPIME INJECTION 1,000 MG in NS (IVPB) 50 ML IV SCH ×2 (13:00→16:06)
[2022-01-28] MEDS ORDERED: RT-ALBUTEROL/IPRATROPIUM 3 ML (DUONEB) VIAL INH PRN (14:30)
--- NOTE | 2022-01-28 14:36 | Tele-ICU Progress Note ---
Subjective Date Seen by a Provider: Jan 28, 2022 Subjective/Events-last exam This virtual visit was conducted using real time audio/video. Thank you for asking us to see this patient for respiratory insufficiency due to B pna on a background of COPD/home O2 2 LPM/BiPAP Recent events: presented w hemoptysis. PMH: COPD, HTN, HL, GERD, Afib on Xarelto, CVA, anx., dep. SH: smoking history: former FH: Non-contributory ROS: as in HPI PE: VSS. O2 sat 96% on 4 LPM. HEENT: No obvious masses, adenopathy or JVD. Chest: clear to auscultation. CV: S1 S2 No murmur or added sounds. Abd: Non-tender. Bowel sounds Y. : Unremarkable. Johansen N. ADJUNCT INSTRUCTOR/psychiatric: Grossly intact. No obvious focal findings. Extremities: No edema. Capillary refill < 3 seconds. Skin: unremarkable. Results: Elevated Trop 0.07, Creat 1.37. Decreased K 3.4. Lactate 2.0. CXR: Hyperinflated, B extensive infilts.. Available chart/ vitals / labs / images reviewed. Video assessment done using teleICU camera, rest of exam as per RN. A/P: Respiratory insufficiency: Continue present management with O2. Will add PRN Duonebs. Monitor for increasing oxygenation needs and/or need for intubation. Critical Care: critically ill patient. Cont. IVF, abx. Replace K. Discussed with RN Marysol. Asked RN to reach out to eICU if any questions or concerns later. Time spent with patient/coordination of care with other health professionals (mins): 25 Sepsis Event Evaluation Height, Weight, BMI Height: 5'5.00" Weight: 142lbs. 8.0oz. 67.530707cd; 28.00 BMI Method:Stated Focused Exam Lactate Level 01/28/22 09:32: Lactic Acid Level 2.00 Exam Exam Patient acknowledged, consented, and participated in this virtual visit which was conducted using real time audio/video Vital Signs Date Time Temp Pulse Resp B/P (MAP) Pulse Ox O2 Delivery O2 Flow Rate FiO2 01/28/22 08:52 96 Nasal Cannula 4.00 01/28/22 08:52 Nasal Cannula 4.00 01/28/22 08:52 37.0 92 20 147/76 (99) 96 Nasal Cannula 4.00 Height & Weight Height: 5'5.00" Weight: 142lbs. 8.0oz. 67.496145fv; 28.00 BMI Method:Stated General Appearance: WD/WN, Mild Distress HEENT: PERRL/EOMI, Pharynx Normal Neck: Non Tender, Supple Respiratory: Crackles (Bilateral bases), Decreased Breath Sounds; No Wheezing Cardiovascular: Systolic Murmur, Irregularly Irregular Capillary Refill: Less Than 3 Seconds Extremity: Normal Range of Motion, Non Tender Neurologic/Psychiatric: Alert, Oriented x3 Results Lab Laboratory Tests 01/28/22 08:03 Assessment/Plan Assessment/Plan See free text Critical Care: Critically Ill Patient KENJI TAN MD Jan 28, 2022 14:36
--- NOTE | 2022-01-28 14:36 | History & Physical-Hospitalist ---
History of Present Illness HPI/Chief Complaint Chief complaint: Shortness of breath HPI: This is an 86-year-old female who is chronically on oxygen at 3 L who presents to the ER with shortness of breath found to have bilateral pneumonia but COVID was negative. Patient appears to be very frail and with advanced age and very debilitated. She remains a DO NOT RESUSCITATE. Cefepime was started along with atypical pneumonia treatment. Imaging revealed significant involvement of the lung tissue. Source: patient, family Exam Limitations: clinical condition Date Seen 01/28/22 Time Seen by a Provider: 16:00 Attending Physician [facility] PCP Admitting Physician: Keyla Quiroz DO Attending Physician: Keyla Quiroz DO Referring Physician Date of Admission Jan 28, 2022 at 13:42 Home Medications & Allergies Home Medications Reviewed patient Home Medication Reconciliation performed by pharmacy medication reconciliations industrial maintenance technician and/or nursing. Patients Allergies have been reviewed. Allergies Allergies Coded Allergies Penicillins (Unverified Allergy, Unknown, 02/25/18) sulfamethoxazole (Unverified Allergy, Unknown, 02/25/18) trimethoprim (Unverified Allergy, Unknown, 02/25/18) Past Xyyrevf-Refzba-Fgkkiq Hx Patient Social History Marrital Status: single Employed/Student: retired Tobacco Use?: No Smoking Status: Former Smoker Smokeless Tobacco Frequency: Never a User Use of E-Cig and/or Vaping dev: No Use of E-Cig and/or Vaping Herrera: Never a User Substance use?: No Alcohol Use?: No Pt feels they are or have been: No Immunizations Up To Date Date of Influenza Vaccine: Feb 04, 2020 First/Initial COVID19 Vaccinat: 07/28 Second COVID19 Vaccination Lance: 07/28 Tetanus Booster (TDap): Unknown PED Vaccines UTD: Yes Date of Pneumonia Vaccine: Feb 04, 2020 Seasonal Allergies Seasonal Allergies: No Current Status Advance Directives: No Communicates: Verbally Primary Language: Kazakh Preferred Spoken Language: Kazakh Is interpretation needed?: No Sensory deficits: Vision impairment Implanted or Applied Medical D: Orthopedic hardware Past Medical History Surgeries: Orthopedic, Tonsillectomy COPD Currently Using CPAP: No Currently Using BIPAP: Yes High Cholesterol, Hypertension Dementia, Stroke Sexually Transmitted Disease: Yes HIV/AIDS: No Gastroesophageal Reflux, Chronic Constipation, Diverticulosis, Polyps, Hiatal Hernia Arthritis Cataract Loss of Vision: Denies Hearing Impairment: Hard of Hearing Skin Did You Recieve Any Treatments: Yes What Type of Treatment Did You: Surgical Intervention Anxiety, Depression Blood Disorders: Yes (ANEMIC) Adverse Reaction/Blood Tranf: No COPD HTN Tobacco Abuse Family Medical History Reviewed Nursing Family Hx Colon cancer No Pertinent Family Hx PSH; -EGD/COLONOSCOPIES--POLYPECTOMIES--LAST SCOPES 02/2018--GERD/HIATAL HERNIA, DIVERTICULAR DISEASE -MULTIPLE SKIN LESIONS REMOVED, SOME CANCEROUS' -FOOT SURGERY -ANKLE SURGERY -TOENAIL SURGERY -LIPOMAS REMOVED -CATARACTS Review of Systems Constitutional: see HPI, malaise, weakness EENTM: no symptoms reported Respiratory: dyspnea on exertion, short of breath Physical Exam Physical Exam Vital Signs Vital Signs - First Documented Capillary Refill : Less Than 3 Seconds Height, Weight, BMI Height: 5'5.00" Weight: 142lbs. 8.0oz. 67.170163yt; 28.00 BMI Method:Stated General Appearance: Anxious, Chronically ill, Mild Distress, Thin Respiratory: Accessory Muscle Use, Crackles, Decreased Breath Sounds, Wheezing Cardiovascular: Regular Rate, Rhythm Neurologic/Psychiatric: Alert, Oriented x3, No Motor/Sensory Deficits, Normal Mood/Affect Results Results/Procedures Labs Laboratory Tests 01/28/22 08:03 Patient resulted labs reviewed. Assessment/Plan Admission Diagnosis Assessment: Acute on chronic respiratory failure Bilateral pneumonia COVID-negative Advanced age Hypertension Hyperlipidemia Plan: Antibiotics ICU DNR Admission Status: Inpatient Order (span 2 midnights) Reason for Inpatient Admission: KEYLA Pyle DO Jan 28, 2022 14:36
[2022-01-28] MEDS ORDERED: ONDANSETRON 4 MG (ZOFRAN) ORAL DISSOLVE TAB PO PRN (15:30)
[2022-01-28] MEDS ORDERED: ONDANSETRON 4 MG/2 ML (SDV) Z0FRAN IV PRN (15:30)
[2022-01-28] MEDS ORDERED: diphenhydrAMINE 25 MG TAB (BENADRYL) PO PRN (15:30)
[2022-01-28] MEDS ORDERED: ANTACID SUSP 30 ML UDC (MYLANTA) PO PRN (15:30)
[2022-01-28] MEDS ORDERED: LACTULOSE SYRUP 10GM/15ML (ENULOSE) 30ML UDC PO PRN (15:30)
[2022-01-28] MEDS ORDERED: MELATONIN 3 MG TABLET PO PRN (15:30)
[2022-01-28] MEDS ORDERED: diphenhydrAMINE 50 MG/ML INJ (BENADRYL) IVP PRN (15:30)
[2022-01-28] MEDS ORDERED: CALCIUM CARBONATE 500 MG (TUMS) TAB.CHEW PO PRN (15:30)
[2022-01-28] MEDS ORDERED: morphine INJ 4 MG/ML 1 ML (VIAL/SYRINGE) IV PRN (15:30)
[2022-01-28] MEDS ORDERED: ACETAMINOPHEN 325 MG TABLET PO PRN (15:30)
[2022-01-28] MEDS ORDERED: MILK OF MAGNESIA 400 MG/5 ML 30 ML UDC PO PRN (15:30)
[2022-01-28] MEDS ORDERED: NS IV 500 ML 500 ML IV PRN (15:30)
[2022-01-28] MEDS ORDERED: polyethylene glycoL POWDER 17 GM (MIRALAX) PACK PO PRN (15:30)
[2022-01-28] MEDS ORDERED: BISACODYL 10 MG SUPP (DULCOLAX) PR PRN (15:30)
[2022-01-28] MEDS ORDERED: cloNIDine 0.1 MG (CATAPRES) TAB PO PRN (15:30)
[2022-01-28 16:21] VITALS: BP 128/57
[2022-01-28 16:44] LABS: ABG OXYGEN SATURATION 95 % (94-100); ABG PCO2 28 MMHG (35-45); ABG PH 7.46 (7.37-7.43); ABG PO2 60 MMHG (79-93); ABG TCO2 20.1 MMOL/L (21.0-31.0); ALLENS TEST YES-POS; VENTILATOR NO
[2022-01-28] MEDS: RIVAROXABAN 15 MG TABLET (XARELTO) PO SCH (17:12)
[2022-01-28] MEDS: ALPRAZolam 0.5 MG (XANAX) TAB PO SCH ×2 (17:12→23:25)
[2022-01-28] MEDS: RT-ALBUTEROL/IPRATROPIUM 3 ML (DUONEB) VIAL INH SCH ×2 (18:16→21:46)
[2022-01-28] MEDS: DOCUSATE SODIUM 100 MG (COLACE) CAP PO SCH (20:12)
[2022-01-28] MEDS: SENNOSIDES 8.6 MG (SENOKOT) TAB PO SCH (20:12)
[2022-01-29] MEDS: ALPRAZolam 0.5 MG (XANAX) TAB PO SCH ×8 (00:10→21:00)
[2022-01-29] MEDS: CEFEPIME INJECTION 1,000 MG in NS (IVPB) 50 ML IV SCH ×3 (01:25→15:49)
[2022-01-29] MEDS: RT-ALBUTEROL/IPRATROPIUM 3 ML (DUONEB) VIAL INH SCH ×3 (02:25→11:15)
[2022-01-29 04:50] LABS: BASOPHILS # (AUTO) 0.1 10^3/uL (0.0-0.1); BASOPHILS % (AUTO) 1 % (0-10); EOSINOPHILS # (AUTO) 0.3 10^3/uL (0.0-0.3); EOSINOPHILS % (AUTO) 3 % (0-10); HEMATOCRIT 35 % (35-52); HEMOGLOBIN 11.2 g/dL (11.5-16.0); LYMPHOCYTES # (AUTO) 0.6 10^3/uL (1.0-4.0); LYMPHOCYTES % (AUTO) 7 % (12-44); MEAN CORPUSCULAR HEMOGLOBIN 27 pg (25-34); MEAN CORPUSCULAR HGB CONC 32 g/dL (32-36); MEAN CORPUSCULAR VOLUME 85 fL (80-99); MEAN PLATELET VOLUME 10.8 fL (9.0-12.2); MONOCYTES # (AUTO) 0.8 10^3/uL (0.0-1.0); MONOCYTES % (AUTO) 8 % (0-12); NEUTROPHILS # (AUTO) 7.7 10^3/uL (1.8-7.8); NEUTROPHILS % (AUTO) 81 % (42-75); PLATELET COUNT 254 10^3/uL (130-400); WHITE BLOOD COUNT 9.5 10^3/uL (4.3-11.0)
[2022-01-29 05:09] LABS: ALBUMIN 3.2 GM/DL (3.2-4.5); POTASSIUM 3.2 MMOL/L (3.6-5.0)
[2022-01-29 05:10] LABS: CALCIUM 8.7 MG/DL (8.5-10.1)
[2022-01-29 05:11] LABS: TOTAL PROTEIN 5.9 GM/DL (6.4-8.2)
[2022-01-29 05:15] LABS: CREATININE SERUM 1.22 MG/DL (0.60-1.30); PHOSPHORUS 2.9 MG/DL (2.3-4.7)
[2022-01-29 05:18] LABS: MAGNESIUM 2.2 MG/DL (1.6-2.4)
--- NOTE | 2022-01-29 05:36 | Progress Note - Hospitalist ---
Subjective HPI/CC On Admission Date Seen by Provider: Jan 29, 2022 Time Seen by Provider: 11:00 Chief complaint: Shortness of breath HPI: This is an 86-year-old female who is chronically on oxygen at 3 L who presents to the ER with shortness of breath found to have bilateral pneumonia but COVID was negative. Patient appears to be very frail and with advanced age and very debilitated. She remains a DO NOT RESUSCITATE. Cefepime was started along with atypical pneumonia treatment. Imaging revealed significant involv ement of the lung tissue. Subjective/Events-last exam Patient doing better Currently on 4 L Mild hemoptysis Oral anticoagulation is to continue per cardiology Monitoring closely Moving to fourth floor Review of Systems General: Fatigue Pulmonary: Dyspnea, Cough Focused Exam Lactate Level 01/28/22 09:32: Lactic Acid Level 2.00 Objective Exam Vital Signs Vital Signs Date Time Temp Pulse Resp B/P (MAP) Pulse Ox O2 Delivery O2 Flow Rate FiO2 01/29/22 15:45 93 Nasal Cannula 4.00 01/29/22 13:00 101 01/29/22 12:00 138/69 (92) 01/29/22 11:32 37.4 01/29/22 08:00 30 Capillary Refill : Less Than 3 Seconds General Appearance: No Apparent Distress, WD/WN, Chronically ill, Thin Respiratory: No Accessory Muscle Use, No Respiratory Distress, Decreased Breath Sounds Cardiovascular: Regular Rate, Rhythm Neurologic/Psychiatric: Alert, Oriented x3, No Motor/Sensory Deficits, Normal Mood/Affect Results/Procedures Lab Laboratory Tests 01/29/22 04:06 Patient resulted labs reviewed. Assessment/Plan Assessment and Plan Assess & Plan/Chief Complaint Assessment: Acute on chronic respiratory failure Hemoptysis Bilateral pneumonia COVID-negative Advanced age Hypertension Hyperlipidemia Plan: Antibiotics Moved to fourth floor DNR Critical Care Critically Ill Patient BREWSTERVIANEY AKERS Jan 29, 2022 05:36
[2022-01-29] MEDS: POTASSIUM CL 10MEQ/50ML IVPB 50 ML IV SCH ×4 (05:46→13:20)
[2022-01-29] MEDS ORDERED: KCL 20 MEQ TAB (K-DUR) PO SCH (06:00)
[2022-01-29] MEDS ORDERED: MAGNESIUM 1 GM/100 ML IVPB 100 ML IV SCH (06:00)
[2022-01-29] MEDS ORDERED: POTASSIUM CL 10MEQ/50ML IVPB 50 ML IV SCH (06:00)
--- NOTE | 2022-01-29 08:12 | Diagnostic Imaging Report ---
INDICATION: Dyspnea. Comparison is made with prior exam of 01/28/2022. FINDINGS: There is cardiomegaly. There is diffuse bilateral airspace disease. There is no pleural effusion or pneumothorax. Mediastinum is unremarkable. IMPRESSION: Cardiomegaly and diffuse bilateral airspace disease right greater than left. Some underlying central pulmonary venous congestion cannot be excluded. Dictated by: Dictated on workstation # [id number]
[2022-01-29] MEDS: SENNOSIDES 8.6 MG (SENOKOT) TAB PO SCH ×2 (09:02→21:00)
[2022-01-29] MEDS: DOCUSATE SODIUM 100 MG (COLACE) CAP PO SCH ×2 (09:02→21:00)
[2022-01-29] MEDS: AZITHROMYCIN INJECTION 500 MG in NS (IVPB) 250 ML IV SCH (09:06)
[2022-01-29] MEDS ORDERED: RT-ALBUTEROL/IPRATROPIUM 3 ML (DUONEB) VIAL INH PRN (10:00)
[2022-01-29] MEDS ORDERED: polyethylene glycoL POWDER 17 GM (MIRALAX) PACK PO PRN (11:00)
[2022-01-29] MEDS ORDERED: LIDOCAINE 2% VISCOUS 15 ML UDC PO PRN (11:00)
[2022-01-29] MEDS: SUCRALFATE 1 GM (CARAFATE) TAB PO SCH ×3 (11:47→21:00)
[2022-01-29] MEDS ORDERED: hydrOXYzine (VISTARIL/ATARAX) 25 MG capsule/tablet PO PRN (13:00)
[2022-01-29] MEDS ORDERED: RT-ALBUTEROL/IPRATROPIUM 3 ML (DUONEB) VIAL IH SCH (13:00)
--- NOTE | 2022-01-29 14:33 | Consultation-Cardiology ---
HPI-Cardiology Cardiology Consultation: Date of Consultation 01/29/22 Time Seen by a Provider: 11:40 Date of Admission Attending Physician [place] Admitting Physician Admitting Physician: Keyla Quiroz DO Attending Physician: Keyla Quiroz DO Consulting Physician JAIMEE GREEN MD, MA, FACP, FACC, [facility] [place], CCDS Primary financial recruiter: Dr Willis Physician requesting consult: Dr Quiroz HPI: Chief Complaint: Reason for Card consult: Elevated troponin 86 yo woman who was brought to the ER yesterday by her daughter with whom she resides. She has been having increasing shortness of breath and a productive cough, sometimes tinged with blood. She reported gen discomfort, no specific cp. She suffers from moderate dementia, per description her daughter who was at the bedside at the time of this eval. Ms Chavez reports gen malaise and weakness. She hills not report cp or palp or syncope. She notes shortness of breath with activity. She does not report swelling Review of Systems-Cardiology Review of Systems Constitutional: As described under HPI Eyes: No vision change Ears/Nose/Throat: No ear discharge, No nasal drainage, No recent hearing loss Respiratory: As described under HPI Cardiovascular: As described under HPI Gastrointestinal: No diarrhea, No nausea Genitourinary: No dysuria, No hematuria Musculoskeletal: back pain (chroni) Skin: No rash, No ulcerations Psychiatric/Neurological: No seizure, No focal weakness, No syncope Hematologic: No bleeding abnormalities (other than recent hemoptyis noted in HPI) All Other Systems Reviewed Negative Unless Noted: Yes ZED-Yraqrx-Qcjlal Hx Patient Social History Employed/Student: retired Smoking Status: Former Smoker 2nd Hand Smoke Exposure: Yes Have you traveled recently?: No Alcohol Use?: No Pt feels they are or have been: No Immunizations Up To Date Tetanus Booster (TDap): Less than 5yrs Date of Pneumonia Vaccine: Feb 04, 2020 Date of Influenza Vaccine: Feb 04, 2020 Past Medical History PMH As described under Assessment. Family Medical History Family Medical History: She denies any family h/o CAD. Family History: Colon cancer Allergies and Home Medications Allergies Coded Allergies: Penicillins (Unverified Allergy, Unknown, 02/25/18) sulfamethoxazole (Unverified Allergy, Unknown, 02/25/18) trimethoprim (Unverified Allergy, Unknown, 02/25/18) Patient Home Medication List Home Medication List Reviewed: Yes Albuterol Sulfate (Ventolin Hfa) 1 Puff Puff, 2 PUFF INH QID PRN for SHORTNESS OF BREATH, (Reported) Entered as Reported by: MARNI JACK on 05/09/19 1522 Last Action: Held Aspirin (Aspirin EC) 81 Mg Tablet.dr, 81 MG PO DAILY, (Reported) Entered as Reported by: WINDY ANDRE on 07/21/20 1009 Last Action: Continued Atorvastatin Calcium (Atorvastatin Calcium) 10 Mg Tablet, 10 MG PO DAILY, (Reported) Entered as Reported by: ALETA DE LEON on 02/25/18 1355 Last Action: Continued Diltiazem HCl (Cartia Xt) 180 Mg Cap.er.24h, 180 MG PO DAILY, (Reported) Entered as Reported by: WINDY ANDRE on 07/21/20 1011 Last Action: Continued Ferrous Sulfate (Ferrous Sulfate) 325 Mg Tablet, 325 MG PO DAILY, (Reported) Entered as Reported by: CLEVELAND RODRIGUEZ on 07/15/20 1234 Last Action: Continued Furosemide (Furosemide) 20 Mg Tablet, 20 MG PO DAILY, (Reported) Entered as Reported by: WINDY ANDRE on 07/21/20 1009 Last Action: Continued Hydroxyzine HCl (Hydroxyzine HCl) 25 Mg Tablet, 25 MG PO Q6H PRN for ANXIETY, (Reported) Entered as Reported by: CLEVELAND RODRIGUEZ on 07/15/20 1234 Last Action: Converted Ipratropium/Albuterol Sulfate (Iprat-Albut 0.5-3(2.5) mg/3 ml) 3 Ml Ampul.neb, 3 ML NEB QID, (Reported) Entered as Reported by: ALETA DE LEON on 02/25/18 1355 Last Action: Continued Lidocaine HCl (Lidocaine HCl Viscous) 15 Ml Solution, 5 ML PO Q8H PRN for throat pain Prescribed by: RAMIN HOBSON on 03/20/21 1133 Last Action: Continued Metoprolol Succinate (Metoprolol Succinate) 25 Mg Tab.er.24h, 25 MG PO DAILY, (Reported) Entered as Reported by: CLEVELAND RODRIGUEZ on 07/15/20 1234 Last Action: Continued Mirtazapine (Mirtazapine) 30 Mg Tablet, 30 MG PO HS, (Reported) Entered as Reported by: WINDY ANDRE on 07/21/20 100 Last Action: Converted Montelukast Sodium (Montelukast Sodium) 4 Mg Tab.chew, 4 MG PO HS, (Reported) Entered as Reported by: MARNI JACK on 05/09/19 1336 Last Action: Continued [place]-3S/Dha/Epa/Fish Oil (Fish Oil [place]-3 Softgel) 1 Each Capsule.dr, 2,000 EACH PO DAILY, (Reported) Entered as Reported by: CLEVELAND RODRIGUEZ on 07/15/20 1234 Last Action: Converted Omeprazole (Omeprazole) 40 Mg Capsule.dr, 40 MG PO DAILY, (Reported) Entered as Reported by: ALETA DE LEON on 02/25/18 1355 Last Action: Converted Polyethylene Glycol 3350 (Miralax) 17 Gm Powd.pack, 17 GM PO DAILY PRN for CONSTIPATION-2ND LINE, (Reported) Entered as Reported by: CLEVELAND RODRIGUEZ on 07/15/20 1234 Last Action: Continued Potassium Chloride (Potassium Chloride) 10 Meq Tab.er.prt, 10 MEQ PO DAILY, (Reported) Entered as Reported by: WINDY ANDRE on 07/21/20 100 Last Action: Converted Rivaroxaban (Xarelto) 20 Mg Tablet, 20 MG PO 1800, (Reported) Entered as Reported by: WINDY ANDRE on 07/21/201008 Last Action: Continued Sucralfate (Carafate) 1 Gm Tablet, 1 GM PO ACHS, (Reported) Entered as Reported by: WINDY ANDRE on 07/21/201008 Last Action: Continued Vit A/Vit C/Vit E/Zinc/Copper (Preservision Areds Tablet) 1 Each Tablet, 1 EACH PO BID, (Reported) Entered as Reported by: WINDY ANDRE on 07/21/201008 Last Action: Converted Physical Exam-Cardiology Physical Exam Vital Signs/I&O 01/29/22 01/29/22 01/29/22 01/29/22 03:00 04:00 05:00 05:52 Temp 37.3 Pulse 74 84 89 Resp 34 32 30 B/P (MAP) 134/82 (99) 123/68 (86) 144/108 (120) Pulse Ox 96 93 92 O2 Delivery Nasal Cannula Nasal Cannula Nasal Cannula Nasal Cannula O2 Flow Rate 4.00 4.00 4.00 5.00 01/29/22 01/29/22 01/29/22 01/29/22 06:00 07:00 07:00 07:19 Pulse 85 83 94 Resp 36 27 B/P (MAP) 138/64 (88) 156/71 (99) Pulse Ox 93 92 93 O2 Delivery Nasal Cannula Nasal Cannula Nasal Cannula O2 Flow Rate 5.00 5.00 5.00 01/29/22 01/29/22 01/29/22 01/29/22 07:29 07:43 08:00 08:00 Temp 37.7 Pulse 96 Resp 30 B/P (MAP) 144/66 (92) Pulse Ox 94 92 O2 Delivery Nasal Cannula Nasal Cannula Nasal Cannula O2 Flow Rate 4.00 4.00 5.00 01/29/22 01/29/22 01/29/22 01/29/22 09:00 10:00 11:15 11:32 Temp 37.4 Pulse 91 98 B/P (MAP) 106/60 (75) Pulse Ox 93 92 93 O2 Delivery Nasal Cannula Nasal Cannula Nasal Cannula O2 Flow Rate 5.00 5.00 4.00 01/29/22 01/29/22 12:00 13:00 Pulse 97 101 B/P (MAP) 138/69 (92) Pulse Ox 95 O2 Delivery Nasal Cannula O2 Flow Rate 5.00 01/29/22 00:00 Intake Total 1200 ml Output Total 375 ml Balance 825 ml Capillary Refill : Less Than 3 Seconds Constitutional: well-developed, well-nourished, other (Oriented to place and person, but not clearly to time) HEENT: PERRL, EOMI Neck: non-tender, carotid pulses are 2 + bilaterally, with good upstrokes Respiratory: No accessory muscle use; other (Basal coarse crackle, rhonchi over large airways) Cardiovascular: irregularly irregular, S1 and S2, systolic murmur (soft ANDREW at card base) Gastrointestinal: No tender; soft; No guarding, No rebound; audible bowel sounds Extremities: No clubbing, No cyanosis, No significant edema Neurologic/Psychiatric: other (moves all limbs equally) Skin: normal color, warm/dry; No rash on exposed areas, No ulcerations on exposed areas Data Review Labs Laboratory Tests 01/28/22 16:40: Blood Gas Puncture Site UNK, Blood Gas Patient Temperature UNK, Arterial Blood pH 7.46H, Arterial Blood Partial Pressure CO2 28L, Arterial Blood Partial Pressure O2 60L, Arterial Blood HCO3 19L, Arterial Blood Total CO2 20.1L, Arterial Blood Oxygen Saturation 95, Arterial Blood Base Excess -4.0L, Mynor Test YES-POS, Blood Gas Ventilator Setting NO, Blood Gas Inspired Oxygen UNK 01/29/22 04:06: White Blood Count 9.5, Red Blood Count 4.15, Hemoglobin 11.2L, Hematocrit 35, Mean Corpuscular Volume 85, Mean Corpuscular Hemoglobin 27, Mean Corpuscular Hemoglobin Concent 32, Red Cell Distribution Width 14.4, Platelet Count 254, Mean Platelet Volume 10.8, Immature Granulocyte % (Auto) 0, Neutrophils (%) (Au to) 81H, Lymphocytes (%) (Auto) 7L, Monocytes (%) (Auto) 8, Eosinophils (%) (Auto) 3, Basophils (%) (Auto) 1, Neutrophils # (Auto) 7.7, Lymphocytes # (Auto) 0.6L, Monocytes # (Auto) 0.8, Eosinophils # (Auto) 0.3, Basophils # (Auto) 0.1, Immature Granulocyte # (Auto) 0.0, Sodium Level 143, Potassium Level 3.2L, Chloride Level 113H, Carbon Dioxide Level 21, Anion Gap 9, Blood Urea Nitrogen 15, Creatinine 1.22, Estimat Glomerular Filtration Rate 43, BUN/Creatinine Ratio 12, Glucose Level 103, Calcium Level 8.7, Corrected Calcium 9.3, Phosphorus Level 2.9, Magnesium Level 2.2, Total Bilirubin 1.0, Aspartate Amino Transf (AST/SGOT) 16, Alanine Aminotransferase (ALT/SGPT) 12, Alkaline Phosphatase 96, Total Protein 5.9L, Albumin 3.2, Triglycerides Level 98, Cholesterol Level 121, LDL Cholesterol Direct 63, VLDL Cholesterol 20, HDL Cholesterol 41 Microbiology 01/28/22 Urine Culture - Final, Complete 3 or more isolates A/P-Cardiology Assessment/Admission Diagnosis Bilat pneumonia associated with hypoxia and hemoptysis on presentation on 01/28/22 Mild troponin elevation, likely due to hypoxia at presentation - type 2 DE - Card cath July 2020: mild to moderate coronary artery disease nonobstructive disease, normal left ventricular end-diastolic pressure. Continue to monitor - Prior h/o mild troponin elevation (Mar 2021) PAF - first diagnosed on EKG of 07/14/2019 - Maintained on diltiazem and Xarelto Chronic LBBB Chronic diastolic CHF - Echo 2019 showed EF 55-60% with grade 1 diastolic dysfunction No evidence of any significant PAD on Doppler done on May 15, 2017 Hypertension Hyperlipidemia -maintained on Lipitor History of CVA/TIA in 2011. Nonobstructive carotid artery stenosis per carotid duplex done in Apr 2020 - followed by Dr Alba pandya, managed by PCP COPD Tobaccoism - stopped smoking in June 2019, advised to continue with smoking cessation Discussion and Recomendations * Complex management due to multiple comorbidities * Continue OAC due to h/o PAF and thromboembolic stroke * Hold ASA because of hemoptysis * Keep on tele * Monitor labs * I discussed her CV issues with her and her daughter PETERJAIMEE SPENCER FACP FAC CCDS Jan 29, 2022 14:33
[2022-01-29] MEDS: RT-ALBUTEROL/IPRATROPIUM 3 ML (DUONEB) VIAL IH SCH ×2 (15:45→19:01)
[2022-01-29] MEDS: RIVAROXABAN 15 MG TABLET (XARELTO) PO SCH (16:45)
[2022-01-29] MEDS ORDERED: RIVAROXABAN 20 MG TABLET (XARELTO) PO SCH (18:00)
[2022-01-29] MEDS ORDERED: dilTIAZem DRIP PRE-MIX 125 ML IV ONE (18:16)
[2022-01-29] MEDS: dilTIAZem DRIP PRE-MIX 125 ML IV SCH (18:20)
--- NOTE | 2022-01-29 18:36 | Tele-ICU Progress Note ---
Subjective Date Seen by a Provider: Jan 29, 2022 Time Seen by a Provider: 18:36 Subjective/Events-last exam (Tele-ICU Physician , Progress Note ) Available chart/ vitals / labs / Images reviewed Video assessment done using teleICU camera, rest of exam as per RN Discussed with RN Events overnight : FEBRILE hemodynamically stable Respiratory - 5l I/O = + Drips: Pressors- no Consultants: Hospital course: (01/28) 86y F from ER with dyspena, hemoptysis , abd pain takes xarelto for afib. CXR PNA with congestive changes increased O2 to 4L N/C, UTI, CHF 01/29 to tel floor ---> transferred from medical floor back to ICU with RVR A/P A fib - rate controlled this am , - transferred from medical floor back to ICU with RVR - on cardizem gtt as per cardiology -on xarelto Acute on chronic respiratory failure ( hypoxia ) - on NC now ( baseline o2 dependebnt Bilat PNA R>>L , mild hemoptysis = presumed CAP ( NEG covid and flu - cotn ABX Anxiety / moderate dementia - xanax prn - migh need precedex prn Chronic diastolic CHF - Echo 2019 showed EF 55-60% with grade 1 diastolic dysfunction coagulopathy - on xarelto - follow replace lytes DO NOT RESUSCITATE Lines : , (Central Line Necessity Reviewed) Johansen: OG: Nutrition: Analgesia: Anxiety/ delirium VTE Prophylaxis: Stress Ulcer Prophylaxis: Plans in collaboration with bedside consultants and IM MDs. Discussed with RN to reach out if any questions or concerns A total of _ minutes of critical care time was devoted to this patient today, required to treat and/or prevent further deterioration of critical care condi tion ( as above ) . I am remotely monitoring this patient from another state. I am unable to do the bedside exam, and history/physical and pertinent information is taken from other notes in the computer and bedside staff. Sepsis Event Evaluation Height, Weight, BMI Height: 5'5.00" Weight: 142lbs. 8.0oz. 67.603575yd; 28.00 BMI Method:Stated Focused Exam Lactate Level 01/28/22 09:32: Lactic Acid Level 2.00 Exam Exam Patient acknowledged, consented, and participated in this virtual visit which was conducted using real time audio/video Vital Signs Date Time Temp Pulse Resp B/P (MAP) Pulse Ox O2 Delivery O2 Flow Rate FiO2 01/29/22 18:20 141 122/103 01/29/22 18:00 144 122/103 (109) Nasal Cannula 5.00 01/29/22 16:00 36.1 112 22 182/82 (115) 90 Nasal Cannula 5.00 01/29/22 15:45 93 Nasal Cannula 4.00 01/29/22 13:00 101 01/29/22 12:00 97 138/69 (92) 95 Nasal Cannula 5.00 01/29/22 11:32 37.4 01/29/22 11:15 93 Nasal Cannula 4.00 01/29/22 10:00 98 92 Nasal Cannula 5.00 01/29/22 09:00 91 106/60 (75) 93 Nasal Cannula 5.00 01/29/22 08:00 96 30 144/66 (92) 92 Nasal Cannula 5.00 01/29/22 08:00 94 Nasal Cannula 4.00 01/29/22 07:43 37.7 01/29/22 07:29 Nasal Cannula 4.00 01/29/22 07:19 93 Nasal Cannula 5.00 01/29/22 07:00 94 01/29/22 07:00 83 27 156/71 (99) 92 Nasal Cannula 5.00 01/29/22 06:00 85 36 138/64 (88) 93 Nasal Cannula 5.00 01/29/22 05:52 37.3 Nasal Cannula 5.00 01/29/22 05:00 89 30 144/108 (120) 92 Nasal Cannula 4.00 01/29/22 04:00 84 32 123/68 (86) 93 Nasal Cannula 4.00 01/29/22 03:00 74 34 134/82 (99) 96 Nasal Cannula 4.00 01/29/22 02:00 70 29 110/54 (72) 96 Nasal Cannula 4.00 01/29/22 01:00 64 26 110/51 (70) 97 Nasal Cannula 4.00 01/29/22 01:00 70 01/29/22 00:00 71 24 106/59 (75) 97 Nasal Cannula 4.00 01/28/22 23:00 73 27 107/76 (86) 94 Nasal Cannula 4.00 01/28/22 22:22 37.1 01/28/22 22:00 69 26 113/46 (68) 94 Nasal Cannula 4.00 01/28/22 21:46 94 Nasal Cannula 4.00 01/28/22 21:00 90 34 127/97 (107) 93 Nasal Cannula 4.00 01/28/22 20:43 37.1 01/28/22 20:13 37.9 01/28/22 20:00 97 Nasal Cannula 4.00 01/28/22 20:00 82 13 111/79 (90) 91 Nasal Cannula 4.00 01/28/22 19:28 37.9 80 26 124/102 (109) 96 Nasal Cannula 4.00 01/28/22 19:00 80 I & O 01/29/22 07:00 Intake Total 1275 ml Output Total 650 ml Balance 625 ml Height & Weight Height: 5'5.00" Weight: 142lbs. 8.0oz. 67.139824mt; 28.00 BMI Method:Stated General Appearance: No Apparent Distress, WD/WN, Chronically ill, Thin HEENT: PERRL/EOMI, Pharynx Normal Neck: Non Tender, Supple Respiratory: No Accessory Muscle Use, No Respiratory Distress, Decreased Breath Sounds Cardiovascular: Regular Rate, Rhythm Capillary Refill: Less Than 3 Seconds Extremity: Normal Range of Motion, Non Tender Neurologic/Psychiatric: Alert, Oriented x3, No Motor/Sensory Deficits, Normal Mood/Affect Results Lab Laboratory Tests 01/28/22 08:03 01/29/22 04:06 Assessment/Plan Assessment/Plan 1 YOVANNY BAJWA MD Jan 29, 2022 18:36
[2022-01-29] MEDS ORDERED: DexMEDEtomidine 250 ML DRIP 250 ML IV ONE (18:45)
[2022-01-29 19:09] LABS: ABG BASE EXCESS -5.7 MMOL/L (-2.5-2.5); ABG OXYGEN SATURATION 95 % (94-100); ABG PCO2 32 MMHG (35-45); ABG PH 7.38 (7.37-7.43); ABG PO2 65 MMHG (79-93); ABG TCO2 19.3 MMOL/L (21.0-31.0); ALLENS TEST YES-POS; INSPIRED O2 5 NC; PATIENT TEMP 37.3; VENTILATOR NO
[2022-01-29] MEDS: DexMEDEtomidine 250 ML DRIP 250 ML IV SCH (19:16)
--- NOTE | 2022-01-29 19:36 | Diagnostic Imaging Report ---
INDICATION: Hemoptysis. COMPARISON: January 29, 2022. FINDINGS: When compared to the prior examination there has not been significant interval change in the appearance of the lungs. Diffuse interstitial and alveolar opacities throughout the right lung and within the mid and lower left lung are unchanged. There are probable pleural effusions. There is no identified pneumothorax. There is enlargement of the cardiac silhouette. IMPRESSION: Diffuse right greater than left interstitial and alveolar airspace opacities throughout the lungs not appreciably changed from the prior exam. The features may reflect pneumonia or ARDS. Dictated by: Dictated on workstation # [id number]
--- NOTE | 2022-01-29 20:56 | Tele-ICU Progress Note ---
Subjective Date Seen by a Provider: Jan 29, 2022 Time Seen by a Provider: 20:51 Subjective/Events-last exam called for mental status change and shallow breathing, ABG 2h ago was 7.38/32/32/HCO3 18 Pt transferred from floor for A fib with RVR, on IV Cardizem Last morphine was yesterday at 3 pm, getting Xanax .5 every 3 hours, and is getting Is supposed to get PRN oxycodone and morphine but not given today Sepsis Event Evaluation Height, Weight, BMI Height: 5'5.00" Weight: 142lbs. 8.0oz. 67.242658qw; 28.00 BMI Method:Stated Focused Exam Lactate Level 01/28/22 09:32: Lactic Acid Level 2.00 Exam Exam Patient acknowledged, consented, and participated in this virtual visit which was conducted using real time audio/video Vital Signs Date Time Temp Pulse Resp B/P (MAP) Pulse Ox O2 Delivery O2 Flow Rate FiO2 01/29/22 19:16 122 172/138 01/29/22 19:01 94 Nasal Cannula 5.00 01/29/22 18:54 37.1 Nasal Cannula 5.00 01/29/22 18:20 141 122/103 01/29/22 18:00 37.1 01/29/22 18:00 144 122/103 (109) Nasal Cannula 5.00 01/29/22 16:00 36.1 112 22 182/82 (115) 90 Nasal Cannula 5.00 01/29/22 15:45 93 Nasal Cannula 4.00 01/29/22 13:00 101 01/29/22 12:00 97 138/69 (92) 95 Nasal Cannula 5.00 01/29/22 11:32 37.4 01/29/22 11:15 93 Nasal Cannula 4.00 01/29/22 10:00 98 92 Nasal Cannula 5.00 01/29/22 09:00 91 106/60 (75) 93 Nasal Cannula 5.00 01/29/22 08:00 96 30 144/66 (92) 92 Nasal Cannula 5.00 01/29/22 08:00 94 Nasal Cannula 4.00 01/29/22 07:43 37.7 01/29/22 07:29 Nasal Cannula 4.00 01/29/22 07:19 93 Nasal Cannula 5.00 01/29/22 07:00 94 01/29/22 07:00 83 27 156/71 (99) 92 Nasal Cannula 5.00 01/29/22 06:00 85 36 138/64 (88) 93 Nasal Cannula 5.00 01/29/22 05:52 37.3 Nasal Cannula 5.00 01/29/22 05:00 89 30 144/108 (120) 92 Nasal Cannula 4.00 01/29/22 04:00 84 32 123/68 (86) 93 Nasal Cannula 4.00 01/29/22 03:00 74 34 134/82 (99) 96 Nasal Cannula 4.00 01/29/22 02:00 70 29 110/54 (72) 96 Nasal Cannula 4.00 01/29/22 01:00 64 26 110/51 (70) 97 Nasal Cannula 4.00 01/29/22 01:00 70 01/29/22 00:00 71 24 106/59 (75) 97 Nasal Cannula 4.00 01/28/22 23:00 73 27 107/76 (86) 94 Nasal Cannula 4.00 01/28/22 22:22 37.1 01/28/22 22:00 69 26 113/46 (68) 94 Nasal Cannula 4.00 01/28/22 21:46 94 Nasal Cannula 4.00 01/28/22 21:00 90 34 127/97 (107) 93 Nasal Cannula 4.00 I & O 01/29/22 07:00 Intake Total 1275 ml Output Total 650 ml Balance 625 ml Height & Weight Height: 5'5.00" Weight: 142lbs. 8.0oz. 67.251098va; 28.00 BMI Method:Stated General Appearance: No Apparent Distress, WD/WN, Chronically ill, Thin HEENT: PERRL/EOMI, Pharynx Normal Neck: Non Tender, Supple Respiratory: No Accessory Muscle Use, No Respiratory Distress, Decreased Breath Sounds Cardiovascular: Regular Rate, Rhythm Capillary Refill: Less Than 3 Seconds Extremity: Normal Range of Motion, Non Tender Neurologic/Psychiatric: Alert, Oriented x3, No Motor/Sensory Deficits, Normal Mood/Affect Results Lab Laboratory Tests 01/28/22 08:03 01/29/22 04:06 Assessment/Plan Assessment/Plan will repeat ABG hold Xanax for now, no focal signs so I do not think this is a cerebral infarct or bleed Critical Care: Critically Ill Patient Time spent with patient (mins): 20 HILDA TAM MD Jan 29, 2022 20:56
[2022-01-29] MEDS ORDERED: NON-FORMULARY MEDICATION 1 EA EA (Vit A/Vit C/Vit E/Zinc/Copper (Preservision Areds Tablet PO SCH (21:00)
[2022-01-29] MEDS: MIRTAZAPINE 15 MG (REMERON) TAB PO SCH (21:00)
[2022-01-29] MEDS: MONTELUKAST CHEW 4 MG (SINGULAIR) TAB PO SCH (21:00)
[2022-01-29 21:12] LABS: ABG BASE EXCESS -5.5 MMOL/L (-2.5-2.5); ABG OXYGEN SATURATION 95 % (94-100); ABG PCO2 31 MMHG (35-45); ABG PH 7.39 (7.37-7.43); ABG PO2 63 MMHG (79-93); ABG TCO2 19.3 MMOL/L (21.0-31.0)
[2022-01-29 21:13] LABS: ALLENS TEST YES-POS; INSPIRED O2 5L; VENTILATOR NO
[2022-01-29 21:14] LABS: PATIENT TEMP 37.6
--- NOTE | 2022-01-29 21:38 | Progress Note ---
Standard Progress Note Progress Notes/Assess & Plan Date Seen by a Provider: Jan 29, 2022 Time Seen by a Provider: 21:37 Progress/Assessment & Plan New ABG7.39,had mild met acidosis with hypoxia, will place on BiPAP /, FIO2 40% and repeat ABG in 2 hours, RN feels pt has good cough HILDA TAM MD Jan 29, 2022 21:38
[2022-01-29 22:03] VITALS: BP 132/118
[2022-01-29 23:51] LABS: ABG BASE EXCESS -10.4 MMOL/L (-2.5-2.5); ABG OXYGEN SATURATION 96 % (94-100); ABG PCO2 24 MMHG (35-45); ABG PH 7.38 (7.37-7.43); ABG PO2 72 MMHG (79-93); ABG TCO2 14.5 MMOL/L (21.0-31.0)
[2022-01-29 23:54] LABS: ALLENS TEST YES-POS; INSPIRED O2 97; VENTILATOR NO
[2022-01-29 23:55] LABS: PATIENT TEMP 37.1
--- NOTE | 2022-01-30 00:46 | Tele-ICU Progress Note ---
Subjective Date Seen by a Provider: Jan 30, 2022 Time Seen by a Provider: 00:39 Subjective/Events-last exam ABG shows dropping HCO3 going from 18 to 14, already on IV Cefepime and Azithromycin, CXR showing extensive infiltrates in both lungs, Serology for COVID and flu are negative. BP is ok, a fib V rate down to 70's I suspect sepsis, source most likely extensive PNA, Pt is DNR, will get serum lactate, give IVF bolus as UO down to 25 mL/h [place] poor Sepsis Event Evaluation Height, Weight, BMI Height: 5'5.00" Weight: 142lbs. 8.0oz. 67.264017zu; 28.00 BMI Method:Stated Focused Exam Lactate Level 01/28/22 09:32: Lactic Acid Level 2.00 Exam Exam Patient acknowledged, consented, and participated in this virtual visit which was conducted using real time audio/video Vital Signs Date Time Temp Pulse Resp B/P (MAP) Pulse Ox O2 Delivery O2 Flow Rate FiO2 01/29/22 23:16 122 132/118 01/29/22 22:03 122 44 95 40.00 01/29/22 21:28 NIV Bilevel 40.00 01/29/22 20:00 37.1 01/29/22 20:00 95 NIV Bilevel 40 01/29/22 19:16 122 172/138 01/29/22 19:01 94 Nasal Cannula 5.00 01/29/22 19:00 131 01/29/22 18:54 37.1 Nasal Cannula 5.00 01/29/22 18:20 141 122/103 01/29/22 18:00 144 122/103 (109) Nasal Cannula 5.00 01/29/22 16:00 36.1 112 22 182/82 (115) 90 Nasal Cannula 5.00 01/29/22 15:45 93 Nasal Cannula 4.00 01/29/22 13:00 101 01/29/22 12:00 97 138/69 (92) 95 Nasal Cannula 5.00 01/29/22 11:32 37.4 01/29/22 11:15 93 Nasal Cannula 4.00 01/29/22 10:00 98 92 Nasal Cannula 5.00 01/29/22 09:00 91 106/60 (75) 93 Nasal Cannula 5.00 01/29/22 08:00 96 30 144/66 (92) 92 Nasal Cannula 5.00 01/29/22 08:00 94 Nasal Cannula 4.00 01/29/22 07:43 37.7 01/29/22 07:29 Nasal Cannula 4.00 01/29/22 07:19 93 Nasal Cannula 5.00 01/29/22 07:00 94 01/29/22 07:00 83 27 156/71 (99) 92 Nasal Cannula 5.00 01/29/22 06:00 85 36 138/64 (88) 93 Nasal Cannula 5.00 01/29/22 05:52 37.3 Nasal Cannula 5.00 01/29/22 05:00 89 30 144/108 (120) 92 Nasal Cannula 4.00 01/29/22 04:00 84 32 123/68 (86) 93 Nasal Cannula 4.00 01/29/22 03:00 74 34 134/82 (99) 96 Nasal Cannula 4.00 01/29/22 02:00 70 29 110/54 (72) 96 Nasal Cannula 4.00 01/29/22 01:00 64 26 110/51 (70) 97 Nasal Cannula 4.00 01/29/22 01:00 70 I & O 01/30/22 07:00 Intake Total 400 ml Output Total 320 ml Balance 80 ml Height & Weight Height: 5'5.00" Weight: 142lbs. 8.0oz. 67.928143lk; 28.00 BMI Method:Stated General Appearance: No Apparent Distress, WD/WN, Chronically ill, Thin HEENT: PERRL/EOMI, Pharynx Normal Neck: Non Tender, Supple Respiratory: No Accessory Muscle Use, No Respiratory Distress, Decreased Breath Sounds, Other (according to RN, no crackles, diminished BS) Cardiovascular: Regular Rate, Rhythm, Irregularly Irregular Capillary Refill: Less Than 3 Seconds Gastrointestinal: non tender, soft Extremity: Normal Range of Motion, Non Tender Neurologic/Psychiatric: Alert, Oriented x3, No Motor/Sensory Deficits, Normal Mood/Affect Results Lab Laboratory Tests 01/28/22 08:03 01/29/22 04:06 Assessment/Plan Assessment/Plan Sepsis, probably from PNA, will continue Cefpime, azithromycin, hold Xanax-has been getting q 3 hours sameera menezes, pt DNR Critical Care: Critically Ill Patient Time spent with patient (mins): 30 HILDA TAM MD Jan 30, 2022 00:46
[2022-01-30] MEDS ORDERED: NS IV 500 ML 500 ML ONE (01:03)
[2022-01-30] MEDS: NS (IVPB) 500 ML IV ONE ×2 (01:09→01:19)
[2022-01-30] MEDS: CEFEPIME INJECTION 1,000 MG in NS (IVPB) 50 ML IV SCH ×3 (01:37→17:57)
[2022-01-30 02:16] VITALS: BP 114/59
[2022-01-30] MEDS ORDERED: NS IV 500 ML 500 ML IV PRN (02:45)
[2022-01-30] MEDS: ALPRAZolam 0.5 MG (XANAX) TAB PO SCH ×4 (03:00→08:16)
[2022-01-30 05:04] LABS: BASOPHILS % (AUTO) 0 % (0-10); EOSINOPHILS # (AUTO) 0.4 10^3/uL (0.0-0.3); EOSINOPHILS % (AUTO) 4 % (0-10); HEMATOCRIT 32 % (35-52); HEMOGLOBIN 10.3 g/dL (11.5-16.0); LYMPHOCYTES # (AUTO) 0.5 10^3/uL (1.0-4.0); LYMPHOCYTES % (AUTO) 6 % (12-44); MEAN CORPUSCULAR HEMOGLOBIN 27 pg (25-34); MEAN CORPUSCULAR HGB CONC 32 g/dL (32-36); MEAN CORPUSCULAR VOLUME 84 fL (80-99); MEAN PLATELET VOLUME 10.3 fL (9.0-12.2); MONOCYTES # (AUTO) 0.8 10^3/uL (0.0-1.0); MONOCYTES % (AUTO) 9 % (0-12); NEUTROPHILS # (AUTO) 7.4 10^3/uL (1.8-7.8); NEUTROPHILS % (AUTO) 80 % (42-75); PLATELET COUNT 252 10^3/uL (130-400); WHITE BLOOD COUNT 9.2 10^3/uL (4.3-11.0)
[2022-01-30 05:17] LABS: ALBUMIN 2.8 GM/DL (3.2-4.5); POTASSIUM 3.8 MMOL/L (3.6-5.0)
[2022-01-30 05:18] LABS: CALCIUM 8.4 MG/DL (8.5-10.1)
[2022-01-30 05:19] LABS: TOTAL PROTEIN 5.3 GM/DL (6.4-8.2)
[2022-01-30 05:21] LABS: BILIRUBIN,TOTAL 1.1 MG/DL (0.1-1.0)
[2022-01-30 05:22] LABS: PHOSPHORUS 2.7 MG/DL (2.3-4.7)
[2022-01-30 05:23] LABS: CREATININE SERUM 0.99 MG/DL (0.60-1.30)
[2022-01-30 05:25] LABS: MAGNESIUM 2.1 MG/DL (1.6-2.4)
[2022-01-30 06:00] LABS: ABG BASE EXCESS -4.6 MMOL/L (-2.5-2.5); ABG OXYGEN SATURATION 96 % (94-100); ABG PCO2 36 MMHG (35-45); ABG PH 7.36 (7.37-7.43); ABG PO2 74 MMHG (79-93); ABG TCO2 20.9 MMOL/L (21.0-31.0); ALLENS TEST YES-POS; VENTILATOR NO
[2022-01-30] MEDS: POTASSIUM CL 10MEQ/50ML IVPB 50 ML IV SCH (06:00)
[2022-01-30] MEDS: KCL 20 MEQ TAB (K-DUR) PO SCH (06:00)
[2022-01-30] MEDS: SUCRALFATE 1 GM (CARAFATE) TAB PO SCH ×6 (06:00→20:09)
[2022-01-30] MEDS: MAGNESIUM 1 GM/100 ML IVPB 100 ML IV SCH (06:00)
[2022-01-30 06:01] LABS: PATIENT TEMP 37.4
[2022-01-30] MEDS ORDERED: NS IV 500 ML 500 ML IV SCH (06:45)
[2022-01-30 07:05] VITALS: BP 135/65
[2022-01-30] MEDS: RT-ALBUTEROL/IPRATROPIUM 3 ML (DUONEB) VIAL IH SCH ×4 (07:09→18:51)
[2022-01-30] MEDS: AtorvaSTATin TABLET 10 MG TABLET PO SCH (08:13)
[2022-01-30] MEDS: AZITHROMYCIN INJECTION 500 MG in NS (IVPB) 250 ML IV SCH (08:14)
[2022-01-30] MEDS: FUROSEMIDE 20 MG (LASIX) TAB PO SCH (08:14)
[2022-01-30] MEDS: PANTOPRAZOLE 40 MG (PROTONIX) TAB PO SCH (08:14)
[2022-01-30] MEDS: KCL 10 MEQ TAB (MICRO K) PO SCH (08:14)
[2022-01-30] MEDS: DOCUSATE SODIUM 100 MG (COLACE) CAP PO SCH ×2 (08:15→20:10)
[2022-01-30] MEDS: SENNOSIDES 8.6 MG (SENOKOT) TAB PO SCH ×2 (08:16→20:10)
[2022-01-30] MEDS: OMEGA 3 (FISH OIL) 1000 MG CAP PO SCH (08:16)
[2022-01-30] MEDS: FERROUS SULF 325 MG (IRON) TAB PO SCH (08:16)
--- NOTE | 2022-01-30 08:54 | Diagnostic Imaging Report ---
Indication: Respiratory distress. 01/29/2022. FINDINGS: Dense consolidated infiltrate right lung is again noted. This has increased since previous exam. Left lung shows continued infiltrate more prominent in the lung bases. There is some bibasilar atelectasis consistent with [place] in appearance. The heart is not enlarged. IMPRESSION: Bilateral consolidated alveolar infiltrates with increasing density throughout the majority of the right lung since previous exam. Atelectasis as well. Dictated by: Dictated on workstation # [id number]
[2022-01-30] MEDS ORDERED: NON-FORMULARY MEDICATION 1 EA EA (Omeprazole 40 MG) PO SCH (09:00)
[2022-01-30] MEDS ORDERED: ASPIRIN E.C. 81 MG (ECOTRIN) TAB PO SCH (09:00)
--- NOTE | 2022-01-30 09:33 | Tele-ICU Progress Note ---
Subjective Date Seen by a Provider: Jan 30, 2022 Time Seen by a Provider: 09:32 Subjective/Events-last exam (Tele-ICU Physician , Progress Note ) Available chart/ vitals / labs / Images reviewed Video assessment done using teleICU camera, rest of exam as per RN Discussed with RN Events overnight : boluses x2 for low UO FEBRILE hemodynamically stable Respiratory - 40 % I/O = + Drips: cardizem , precedex Pressors- no Consultants: Hospital course: (01/28) 86y F from ER with dyspena, hemoptysis , abd pain takes xarelto for afib. CXR PNA with congestive changes increased O2 to 4L N/C, UTI, CHF 01/29 to tel floor ---> transferred from medical floor back to ICU with RVR --> cardizem gtt , BIPAP A/P A fib RVR on cardizem gtt as per cardiology -on xarelto Acute on chronic respiratory failure ( hypoxia ) PNA / ? ARDS - on BIPAP 01/11 40 % rr 34 tv 600 MV 24 L - will cont NIPPV with short br reaks given hiigh met demand ( baseline o2 dependent - SOLUMEDROL 01/30 for possible ARDS and wheezing Bilat PNA R>>L , mild hemoptysis = presumed CAP vs ARDS - WORSENING ( NEG covid and flu - cotn ABX Anxiety / moderate dementia - xanax prn - precedex prn Chronic diastolic CHF - Echo 2019 showed EF 55-60% with grade 1 diastolic dysfunction - lasix po as per cards coagulopathy - on xarelto - follow replace lytes WILL NEED TO ADRESS NUTRITION IF CAN NOT TOLERATE OFF BIPAP DO NOT RESUSCITATE Lines : periph , (Central Line Necessity Reviewed) Johansen: + OG: Nutrition: need to adress Analgesia: Anxiety/ delirium precedex VTE Prophylaxis: xarelto Stress Ulcer Prophylaxis: PPi Plans in collaboration with bedside consultants and IM MDs. Discussed with RN to reach out if any questions or concerns A total of 32 minutes of critical care time was devoted to this patient today, required to treat and/or prevent further deterioration of critical care cond ition ( as above ) . I am remotely monitoring this patient from another state. I am unable to do the bedside exam, and history/physical and pertinent information is taken from other notes in the computer and bedside staff. Sepsis Event Evaluation Height, Weight, BMI Height: 5'5.00" Weight: 142lbs. 8.0oz. 67.258773xb; 30.23 BMI Method:Stated Focused Exam Lactate Level 01/28/22 09:32: Lactic Acid Level 2.00 01/30/22 00:55: Lactic Acid Level 0.76 Exam Exam Patient acknowledged, consented, and participated in this virtual visit which was conducted using real time audio/video Vital Signs Date Time Temp Pulse Resp B/P (MAP) Pulse Ox O2 Delivery O2 Flow Rate FiO2 01/30/22 08:02 36.5 01/30/22 08:00 137 40 132/76 (94) 89 NIV Bilevel 40.00 01/30/22 08:00 94 NIV Bilevel 40 01/30/22 07:19 97 01/30/22 07:05 97 35 92 40.00 01/30/22 07:00 98 39 135/65 (88) 95 NIV Bilevel 40.00 01/30/22 06:07 102 34 125/83 (97) 95 NIV Bilevel 40.00 01/30/22 05:31 37.4 01/30/22 05:00 88 135/75 (95) 94 NIV Bilevel 40.00 01/30/22 04:00 86 36 128/58 (81) 94 NIV Bilevel 40.00 01/30/22 04:00 94 NIV Bilevel 40 01/30/22 03:02 94 37 113/75 (88) 94 NIV Bilevel 40.00 01/30/22 02:16 76 30 95 40.00 01/30/22 02:01 37.1 01/30/22 02:00 80 33 117/63 (81) 94 NIV Bilevel 40.00 01/30/22 01:00 75 30 99/67 (78) 94 NIV Bilevel 40.00 01/30/22 01:00 75 01/30/22 00:00 93 34 103/53 (70) 90 NIV Bilevel 40.00 01/30/22 00:00 94 NIV Bilevel 40 01/29/22 23:16 122 132/118 01/29/22 23:00 93 35 113/60 (77) 96 NIV Bilevel 40.00 01/29/22 22:30 93 108/73 (85) 94 NIV Bilevel 40.00 01/29/22 22:03 122 44 95 40.00 01/29/22 21:28 NIV Bilevel 40.00 01/29/22 21:00 110 32 123/75 (91) 88 Nasal Cannula 5.00 01/29/22 20:00 37.1 01/29/22 20:00 117 91/76 (81) 94 Nasal Cannula 5.00 01/29/22 20:00 95 NIV Bilevel 40 01/29/22 19:16 122 172/138 01/29/22 19:02 154 144/69 (94) 94 Nasal Cannula 5.00 01/29/22 19:01 94 Nasal Cannula 5.00 01/29/22 19:00 131 01/29/22 18:54 37.1 Nasal Cannula 5.00 01/29/22 18:20 141 122/103 01/29/22 18:00 144 122/103 (109) Nasal Cannula 5.00 01/29/22 16:00 36.1 112 22 182/82 (115) 90 Nasal Cannula 5.00 01/29/22 15:45 93 Nasal Cannula 4.00 01/29/22 13:00 101 01/29/22 12:00 97 138/69 (92) 95 Nasal Cannula 5.00 01/29/22 11:32 37.4 01/29/22 11:15 93 Nasal Cannula 4.00 01/29/22 10:00 98 92 Nasal Cannula 5.00 I & O 01/30/22 07:00 Intake Total 950 ml Output Total 495 ml Balance 455 ml Height & Weight Height: 5'5.00" Weight: 142lbs. 8.0oz. 67.986932qg; 30.23 BMI Method:Stated General Appearance: No Apparent Distress, WD/WN, Chronically ill, Thin HEENT: PERRL/EOMI, Pharynx Normal Neck: Non Tender, Supple Respiratory: No Accessory Muscle Use, No Respiratory Distress, Decreased Breath Sounds, Other (according to RN, no crackles, diminished BS) Cardiovascular: Regular Rate, Rhythm, Irregularly Irregular Capillary Refill: Less Than 3 Seconds Gastrointestinal: non tender, soft Extremity: Normal Range of Motion, Non Tender Neurologic/Psychiatric: Alert, Oriented x3, No Motor/Sensory Deficits, Normal Mood/Affect Results Lab Laboratory Tests 01/29/22 04:06 01/30/22 04:35 Assessment/Plan Assessment/Plan 1 YOVANNY BAJWA MD Jan 30, 2022 09:33
[2022-01-30] MEDS ORDERED: FLUT12AE4 IH (09:50)
[2022-01-30] MEDS ORDERED: GABA250S2 PO (09:54)
--- NOTE | 2022-01-30 09:54 | Physical Therapy Progress Note ---
Therapy Progress Note Patient on hold today per nursing due to medical issues. Will check back tomorrow. KAREEM KEITH PT Jan 30, 2022 09:54
--- NOTE | 2022-01-30 10:03 | Cardiology Progress Note ---
Subjective Date Seen by Provider: Jan 30, 2022 Time Seen by Provider: 09:58 Subjective/Events-last exam Patient was seen at bedside, maintained on BiPAP, agitated. Review of Systems General: No Chills, No Night Sweats; Fatigue; No Malaise, No Appetite, No Other HEENT: No Head Aches, No Visual Changes, No Eye Pain, No Ear Pain, No Dysphasia, No Sinus Congestion, No Post Nasal Drip, No Sore Throat, No Other Pulmonary: Dyspnea; No Cough, No Pleuritic Chest Pain, No Other Cardiovascular: No: Chest Pain, Palpitations, Orthopnea, Paroxysmal Noc. Dyspnea, Edema, Lt Headedness, Other Focused Exam Lactate Level 01/28/22 09:32: Lactic Acid Level 2.00 01/30/22 00:55: Lactic Acid Level 0.76 Objective-Cardiology Exam Last Set of Vital Signs Vital Signs 01/30/22 01/30/22 08:00 08:02 Temp 36.5 Pulse 137 Resp 40 B/P (MAP) 132/76 (94) Pulse Ox 89 O2 Delivery NIV Bilevel O2 Flow Rate 40.00 FiO2 40 I&O Intake and Output 01/30/22 00:00 Intake Total 475 ml Output Total 595 ml Balance -120 ml Intake Oral 375 ml IV Total 100 ml Output Urine Total 595 ml # Bowel Movements 2 General: Alert, Mild Distress HEENT: Atraumatic, PERRLA Neck: Supple, No JVD, No Thyromegaly Lungs: Normal Air Movement, Other (Bilateral rhonchi) Heart: Normal S1, Normal S2, No Murmurs, Other (Atrial fibrillation) Abdomen: Normal Bowel Sounds, Soft, No Tenderness, No Hepatosplenomegaly, No Masses Extremities: No Clubbing, No Cyanosis, No Edema, Normal Pulses, No Tendern ess/Swelling Skin: No Rashes, No Breakdown, No Significant Lesion Neuro: Normal Speech, Normal Tone, Sensation Intact Psych/Mental Status: Mental Status NL, Other (Agitated) Results Lab Laboratory Tests 01/30/22 04:35 A/P-Cardiology Admission Diagnosis Acute respiratory failure Acute exacerbation of COPD Bilateral pneumonia Type II myocardial infarction Assessment/Plan Acute respiratory failure, maintained on BiPAP, agitated. Probably secondary to hypoxemia. Still having shortness of breath and cough. Managed by medical team Bilateral pneumonia, chest x-ray reviewed. Still having hypoxia and cough Managed by medical team Type II myocardial infarction, mild elevation in troponin. Most probably secondary to respiratory failure Cardiac catheterization carried out in July 2020 with mild disease nonobstructive disease. Conservative management is recommended Paroxysmal atrial fibrillation, diagnosed in 2019 Maintained on Cardizem and Xarelto Back to atrial fibrillation with borderline tachycardia probably secondary to hypoxemia and respiratory failure Continue on Xarelto and monitor History of recurrent chest pain and tightness, still having occasional chest pain. Congestive heart failure, chronic compensated left ventricular diastolic dysfunction, echocardiogram in May 2019 with a EF 55 to 60%. History of pain in lower extremities with cold feet, had history of polio. Doppler study done in 2017 with no significant stenosis. Hypertension, monitor blood pressure Hyperlipidemia, monitor lipids History of CVA/TIA. In 2011. Maintained on Xarelto Mild bilateral carotid stenosis last ultrasound was done in December 2021. Continue to monitor COPD, chronic dyspnea. Essential tremor. Tobaccoism ARASH CAI MD Jan 30, 2022 10:03
[2022-01-30] MEDS ORDERED: LORazepam INJ 2 MG/ML (ATIVAN) VIAL ONE (10:07)
--- NOTE | 2022-01-30 10:11 | Occ Therapy Progress Note ---
Therapy Progress Note OT orders received and chart reviewed. Pt on hold today per RN due to medical issues. OT will check back tomorrow. QUINTIN LOPES OT Jan 30, 2022 10:11
[2022-01-30] MEDS ORDERED: FUROSEMIDE 40 MG/4 ML INJ (LASIX) IVP ONE (10:15)
[2022-01-30] MEDS ORDERED: ALPRAZolam 0.5 MG (XANAX) TAB PO PRN (10:15)
[2022-01-30] MEDS: LORazepam INJ 2 MG/ML (ATIVAN) VIAL IVP PRN (10:17)
[2022-01-30] MEDS: dilTIAZem DRIP PRE-MIX 125 ML IV SCH (10:17)
[2022-01-30] MEDS ORDERED: FUROSEMIDE 40 MG/4 ML INJ (LASIX) ONE (10:20)
[2022-01-30] MEDS: methylPREDNISolone 40 MG/ML (Solu-MEDROL) VIAL IV SCH ×3 (11:41→23:40)
[2022-01-30 14:20] VITALS: BP 91/52
[2022-01-30] MEDS ORDERED: ENOXAPARIN 100 MG/1 ML (LOVENOX) SYR SC SCH (16:15)
--- NOTE | 2022-01-30 16:38 | Progress Note ---
Subjective Subjective/Events-last exam Patient is agitated and moaning this AM. She is tachypneic. Declining bipap at this time. Bed bound Review of Systems Unable to answer Focused Exam Lactate Level 01/28/22 09:32: Lactic Acid Level 2.00 01/30/22 00:55: Lactic Acid Level 0.76 Objective Exam Last Set of Vital Signs Vital Signs Date Time Temp Pulse Resp B/P (MAP) Pulse Ox O2 Delivery O2 Flow Rate FiO2 01/30/22 16:15 76 34 79/52 (61) 99 NIV Bilevel 40.00 01/30/22 16:00 36.1 01/30/22 16:00 40 Capillary Refill : Less Than 3 Seconds I&O Intake and Output 01/30/22 00:00 Intake Total 475 ml Output Total 595 ml Balance -120 ml Intake Oral 375 ml IV Total 100 ml Output Urine Total 595 ml # Bowel Movements 2 General: Other (Awake, Alert x0) Lungs: Other (Diminished breath sounds, wheezing and crackles heard throughout) Heart: Regular Rate Abdomen: Normal Bowel Sounds, Soft, No Tenderness, No Masses Extremities: Other (1+ pitting edema) Results/Procedures Lab Laboratory Tests 01/29/22 19:00: Blood Gas Puncture Site RT RADIAL, Blood Gas Patient Temperature 37.3, Arterial Blood pH 7.38, Arterial Blood Partial Pressure CO2 32L, Arterial Blood Partial Pressure O2 65L, Arterial Blood HCO3 18L, Arterial Blood Total CO2 19.3L, Arterial Blood Oxygen Saturation 95, Arterial Blood Base Excess -5.7L, Mynor Test YES-POS, Blood Gas Ventilator Setting NO, Blood Gas Inspired Oxygen 5 NC 01/29/22 21:03: Blood Gas Puncture Site RIGHT RADIAL, Blood Gas Patient Temperature 37.6, Arterial Blood pH 7.39, Arterial Blood Partial Pressure CO2 31L, Arterial Blood Partial Pressure O2 63L, Arterial Blood HCO3 18L, Arterial Blood Total CO2 19.3L , Arterial Blood Oxygen Saturation 95, Arterial Blood Base Excess -5.5L, Mynor Test YES-POS, Blood Gas Ventilator Setting NO, Blood Gas Inspired Oxygen 5L 01/29/22 23:45: Blood Gas Puncture Site RIGHT RADIAL, Blood Gas Patient Temperature 37.1, Arterial Blood pH 7.38, Arterial Blood Partial Pressure CO2 24L, Arterial Blood Partial Pressure O2 72L, Arterial Blood HCO3 14*L, Arterial Blood Total CO2 14.5L, Arterial Blood Oxygen Saturation 96, Arterial Blood Base Excess -10.4L, Mynor Test YES-POS, Blood Gas Ventilator Setting NO, Blood Gas Inspired Oxygen 97 01/30/22 00:55: Lactic Acid Level 0.76 01/30/22 04:35: White Blood Count 9.2, Red Blood Count 3.82, Hemoglobin 10.3L, Hematocrit 32L, Mean Corpuscular Volume 84, Mean Corpuscular Hemoglobin 27, Mean Corpuscular Hemoglobin Concent 32, Red Cell Distribution Width 14.2, Platelet Count 252, Mean Platelet Volume 10.3, Immature Granulocyte % (Auto) 0, Neutrophils (%) (Auto) 80H, Lymphocytes (%) (Auto) 6L, Monocytes (%) (Auto) 9, Eosinophils (%) (Auto) 4, Basophils (%) (Auto) 0, Neutrophils # (Auto) 7.4, Lymphocytes # (Auto) 0.5L, Monocytes # (Auto) 0.8, Eosinophils # (Auto) 0.4H, Basophils # (Auto) 0.0, Immature Granulocyte # (Auto) 0.0, Sodium Level 140, Potassium Level 3.8, Chloride Level 116H, Carbon Dioxide Level 18L, Anion Gap 6, Blood Urea Nitrogen 13, Creatinine 0.99, Estimat Glomerular Filtration Rate 56, BUN/Creatinine Ratio 13, Glucose Level 105, Calcium Level 8.4L, Corrected Calcium 9.4, Phosphorus Level 2.7, Magnesium Level 2.1, Total Bilirubin 1.1H, Aspartate Amino Transf (AST/SGOT) 15, Alanine Aminotransferase (ALT/SGPT) 9, Alkaline Phosphatase 85, Total Protein 5.3L, Albumin 2.8L 01/30/22 05:44: Blood Gas Puncture Site RIGHT RADIAL, Blood Gas Patient Temperature 37.4, Arterial Blood pH 7.36L, Arterial Blood Partial Pressure CO2 36, Arterial Blood Partial Pressure O2 74L, Arterial Blood HCO3 20L, Arterial Blood Total CO2 20.9L , Arterial Blood Oxygen Saturation 96, Arterial Blood Base Excess -4.6L, Mynor Test YES-POS, Blood Gas Ventilator Setting NO, Blood Gas Inspired Oxygen NA 01/30/22 12:55: Glucometer 102 Microbiology 01/28/22 MRSA Screen - Final, Complete MRSA not isolated 01/28/22 Urine Culture - Final, Complete 3 or more isolates 01/28/22 Blood Culture - Preliminary, Resulted No growth Assessment/Plan Assessment/Plan (1) Acute and chronic respiratory failure with hypoxia Status: Acute Assessment & Plan: 01/30: MAT protocol, declining bipap, DNR/DNI, Steroids and antibiotics (2) Atrial fibrillation with rapid ventricular response Status: Acute Assessment & Plan: 01/30: Cardiology consulted and managing, appreciate recommendations, On OAC (3) Bilateral pneumonia Status: Acute Qualifiers: Qualified Codes: J18.9 - Pneumonia, unspecified organism (4) Hemoptysis Status: Acute Assessment & Plan: 01/30: Hgb stable, ASA stopped, will continue to monitor (5) Chronic diastolic (congestive) heart failure Status: Chronic (6) Elevated troponin Status: Acute Assessment & Plan: 01/30: Type II [place], Will continue to monitor (7) Dysphagia Status: Acute Assessment & Plan: 01/30: Speech consulted Qualifiers: Qualified Codes: R13.10 - Dysphagia, unspecified (8) HTN (hypertension) Status: Chronic Qualifiers: Qualified Codes: I10 - Essential (primary) hypertension (9) Dementia Status: Chronic Qualifiers: Qualified Codes: F03.A0 - Unspecified dementia, mild, without behavioral disturbance, psychotic disturbance, mood disturbance, and anxiety (10) Advanced age Status: Chronic GISELE FOUNTAIN MD Jan 30, 2022 16:38
[2022-01-30] MEDS: ENOXAPARIN 80 MG/0.8 ML (LOVENOX) SYR SC SCH (17:57)
[2022-01-30 18:51] VITALS: BP 91/52
[2022-01-30] MEDS: MONTELUKAST CHEW 4 MG (SINGULAIR) TAB PO SCH (20:10)
[2022-01-30] MEDS: MIRTAZAPINE 15 MG (REMERON) TAB PO SCH (20:10)
[2022-01-30] MEDS ORDERED: FUROSEMIDE 40 MG/4 ML INJ (LASIX) IV ONE (22:15)
[2022-01-30 22:39] VITALS: BP 99/63
[2022-01-30] MEDS: inSUlin ASPART (NovoLOG) 1 UNIT/0.01 ML (CHARGE PER UNIT) SC SCH (23:40)
[2022-01-31] MEDS: CEFEPIME INJECTION 1,000 MG in NS (IVPB) 50 ML IV SCH ×2 (00:11→12:51)
[2022-01-31 02:26] VITALS: BP 106/64
[2022-01-31 04:25] LABS: BASOPHILS % (AUTO) 0 % (0-10); EOSINOPHILS % (AUTO) 0 % (0-10); HEMATOCRIT 34 % (35-52); HEMOGLOBIN 10.9 g/dL (11.5-16.0); LYMPHOCYTES # (AUTO) 0.3 10^3/uL (1.0-4.0); LYMPHOCYTES % (AUTO) 4 % (12-44); MEAN CORPUSCULAR HEMOGLOBIN 27 pg (25-34); MEAN CORPUSCULAR HGB CONC 32 g/dL (32-36); MEAN CORPUSCULAR VOLUME 83 fL (80-99); MEAN PLATELET VOLUME 10.7 fL (9.0-12.2); MONOCYTES # (AUTO) 0.2 10^3/uL (0.0-1.0); MONOCYTES % (AUTO) 3 % (0-12); NEUTROPHILS # (AUTO) 6.1 10^3/uL (1.8-7.8); NEUTROPHILS % (AUTO) 92 % (42-75); PLATELET COUNT 264 10^3/uL (130-400); WHITE BLOOD COUNT 6.7 10^3/uL (4.3-11.0)
[2022-01-31 05:07] LABS: ALBUMIN 3.1 GM/DL (3.2-4.5); BILIRUBIN,TOTAL 0.5 MG/DL (0.1-1.0); CALCIUM 9.1 MG/DL (8.5-10.1); CREATININE SERUM 1.5 MG/DL (0.60-1.30); MAGNESIUM 2.3 MG/DL (1.6-2.4); PHOSPHORUS 3.6 MG/DL (2.3-4.7); POTASSIUM 3.7 MMOL/L (3.6-5.0); TOTAL PROTEIN 6.2 GM/DL (6.4-8.2)
[2022-01-31] MEDS: ENOXAPARIN 80 MG/0.8 ML (LOVENOX) SYR SC SCH (05:21)
[2022-01-31] MEDS: MAGNESIUM 1 GM/100 ML IVPB 100 ML IV SCH (05:26)
[2022-01-31] MEDS: POTASSIUM CL 10MEQ/50ML IVPB 50 ML IV SCH (05:26)
[2022-01-31] MEDS: SUCRALFATE 1 GM (CARAFATE) TAB PO SCH ×4 (05:27→20:52)
[2022-01-31] MEDS: KCL 20 MEQ TAB (K-DUR) PO SCH (05:27)
[2022-01-31] MEDS: inSUlin ASPART (NovoLOG) 1 UNIT/0.01 ML (CHARGE PER UNIT) SC SCH ×4 (05:27→23:17)
[2022-01-31] MEDS: methylPREDNISolone 40 MG/ML (Solu-MEDROL) VIAL IV SCH ×4 (05:39→23:14)
[2022-01-31] MEDS: DexMEDEtomidine 250 ML DRIP 250 ML IV SCH (05:40)
[2022-01-31 07:13] VITALS: BP 100/65
[2022-01-31] MEDS: RT-ALBUTEROL/IPRATROPIUM 3 ML (DUONEB) VIAL IH SCH ×4 (07:13→18:29)
--- NOTE | 2022-01-31 08:29 | Diagnostic Imaging Report ---
INDICATION: Shortness of breath Portable chest 4:41 AM There is cardiomegaly with vascular congestion and diffuse interstitial thickening that could be edema. This is not significantly changed from previous day. IMPRESSION: Severe diffuse pulmonary infiltrates. This is predominantly interstitial. Superimposed congestive heart failure cannot be excluded. Dictated by: Dictated on workstation # [id number]
[2022-01-31] MEDS: AZITHROMYCIN INJECTION 500 MG in NS (IVPB) 250 ML IV SCH (08:34)
--- NOTE | 2022-01-31 08:34 | Occ Therapy Progress Note ---
Therapy Progress Note Pt on hold per RN due to breathing difficulties and agitation when awake requiring sedation. OT will attempt again tomorrow if pt is more medically stable and able to actively participate in skilled therapy. QUINTIN LOPES OT Jan 31, 2022 08:33
--- NOTE | 2022-01-31 08:38 | Physical Therapy Progress Note ---
Therapy Progress Note Pt on hold per RN due to breathing difficulties and agitation when awake requiring sedation. PT will attempt again tomorrow if pt is more medically stable and able to actively participate in skilled therapy. KAREEM KEITH PT Jan 31, 2022 08:38
--- NOTE | 2022-01-31 08:48 | Cardiology Progress Note ---
Subjective Date Seen by Provider: Jan 31, 2022 Time Seen by Provider: 08:46 Subjective/Events-last exam Patient was seen at bedside Maintained on Precedex, currently on BiPAP. Review of Systems General: Other (Unable to provide review of system) Focused Exam Lactate Level 01/28/22 09:32: Lactic Acid Level 2.00 01/30/22 00:55: Lactic Acid Level 0.76 Objective-Cardiology Exam Last Set of Vital Signs Vital Signs 01/31/22 01/31/22 01/31/22 01/31/22 01/31/22 04:00 07:00 07:13 07:33 07:58 Temp 36.8 Pulse 92 Resp 25 B/P (MAP) 100/65 (77) Pulse Ox 100 O2 Delivery NIV Bilevel O2 Flow Rate 40.00 FiO2 40 I&O Intake and Output 01/31/22 00:00 Intake Total 1730 ml Output Total 1075 ml Balance 655 ml Intake Oral 0 ml IV Total 1730 ml Output Urine Total 1075 ml General: Other (Sedated) HEENT: Atraumatic, PERRLA Neck: Supple, No JVD, No Thyromegaly Lungs: Other (Bilateral rhonchi) Heart: Normal S1, Normal S2, Other (Atrial fibrillation) Abdomen: Normal Bowel Sounds, Soft, No Tenderness, No Masses Extremities: Other (1+ pitting edema) Skin: No Rashes, No Breakdown, No Significant Lesion Neuro: Normal Speech, Normal Tone, Sensation Intact Psych/Mental Status: Mental Status NL, Other (Sedated) Results Lab Laboratory Tests 01/31/22 04:00 A/P-Cardiology Admission Diagnosis Acute respiratory failure Acute exacerbation of COPD Bilateral pneumonia Type II myocardial infarction Assessment/Plan Acute respiratory failure, maintained on BiPAP, Currently sedated on Precedex. Bilateral pneumonia, receiving cefepime and Zithromax Managed by medical team. Type II myocardial infarction, mild elevation in troponin. Most probably se condary to respiratory failure Cardiac catheterization carried out in July 2020 with mild disease n onobstructive disease. Conservative management is recommended Paroxysmal atrial fibrillation, diagnosed in 2019 Maintained on Cardizem and Xarelto Back to atrial fibrillation with borderline tachycardia probably secondary to hypoxemia and respiratory failure Tolerating Cardizem, switching to oral Cardizem today. Continue on Xarelto and monitor History of recurrent chest pain and tightness, still having occasional chest pain. Congestive heart failure, chronic compensated left ventricular diastolic dysfunction, echocardiogram in May 2019 with a EF 55 to 60%. History of pain in lower extremities with cold feet, had history of polio. Doppler study done in 2017 with no significant stenosis. Hypertension, monitor blood pressure Hyperlipidemia, monitor lipids History of CVA/TIA. In 2011. Maintained on Xarelto Mild bilateral carotid stenosis last ultrasound was done in December 2021. Continue to monitor COPD, chronic dyspnea. Essential tremor. Tobaccoism ARASH CAI MD Jan 31, 2022 08:48
[2022-01-31] MEDS: PANTOPRAZOLE 40 MG (PROTONIX) TAB PO SCH (09:00)
[2022-01-31] MEDS: FERROUS SULF 325 MG (IRON) TAB PO SCH (09:00)
[2022-01-31] MEDS: FUROSEMIDE 20 MG (LASIX) TAB PO SCH (09:00)
[2022-01-31] MEDS: KCL 10 MEQ TAB (MICRO K) PO SCH (09:00)
[2022-01-31] MEDS: OMEGA 3 (FISH OIL) 1000 MG CAP PO SCH (09:00)
[2022-01-31] MEDS: SENNOSIDES 8.6 MG (SENOKOT) TAB PO SCH ×2 (09:00→20:52)
[2022-01-31] MEDS: AtorvaSTATin TABLET 10 MG TABLET PO SCH (09:00)
[2022-01-31] MEDS: DOCUSATE SODIUM 100 MG (COLACE) CAP PO SCH ×2 (09:00→20:52)
[2022-01-31] MEDS ORDERED: FUROSEMIDE 40 MG/4 ML INJ (LASIX) IVP NR (10:00)
[2022-01-31] MEDS: meTOprolol 5 MG/5 ML (LOPRESSOR) VIAL IV SCH ×3 (10:01→17:58)
[2022-01-31 11:07] VITALS: BP 130/76
--- NOTE | 2022-01-31 11:22 | Tele-ICU Progress Note ---
Subjective Date Seen by a Provider: Jan 31, 2022 Time Seen by a Provider: 11:22 Subjective/Events-last exam (Tele-ICU Physician , consultation) Available chart/ vitals / labs / Images reviewed H&P is from ER notes Patient's information available about PMH, allergy reviewed in EMR. ROS as per chart and RN report Video assessment done using teleICU camera, rest of exam as per RN Discussed with RN Sepsis Event Evaluation Height, Weight, BMI Height: 5'5.00" Weight: 142lbs. 8.0oz. 67.101137zb; 30.23 BMI Method:Stated Focused Exam Lactate Level 01/30/22 00:55: Lactic Acid Level 0.76 Exam Exam Patient acknowledged, consented, and participated in this virtual visit which was conducted using real time audio/video Vital Signs Date Time Temp Pulse Resp B/P (MAP) Pulse Ox O2 Delivery O2 Flow Rate FiO2 01/31/22 11:07 84 25 100 35.00 01/31/22 10:00 84 18 104/67 (79) 99 NIV Bilevel 35.00 01/31/22 09:00 93 31 100/53 (69) 100 NIV Bilevel 35.00 01/31/22 08:00 107 29 94/63 (73) 100 NIV Bilevel 35.00 01/31/22 08:00 98 NIV Bilevel 35 01/31/22 07:58 36.8 01/31/22 07:33 92 01/31/22 07:13 76 25 100 40.00 01/31/22 07:00 75 25 100/65 (77) 100 NIV Bilevel 40.00 01/31/22 06:04 36.8 01/31/22 06:00 79 28 106/68 (81) 100 NIV Bilevel 40.00 01/31/22 05:40 77 106/65 01/31/22 05:00 77 26 106/65 (79) 100 NIV Bilevel 40.00 01/31/22 04:00 100 NIV Bilevel 40 01/31/22 04:00 84 29 108/80 (89) 100 NIV Bilevel 40.00 01/31/22 03:57 36.6 01/31/22 03:00 76 28 103/62 (76) 100 NIV Bilevel 40.00 01/31/22 02:26 75 29 100 40.00 01/31/22 02:00 89 37 105/68 (80) 87 NIV Bilevel 40.00 01/31/22 01:00 85 29 110/53 (72) 97 NIV Bilevel 40.00 01/31/22 01:00 85 01/31/22 00:00 79 31 98/69 (79) 98 NIV Bilevel 40.00 01/30/22 23:55 98 NIV Bilevel 40 01/30/22 23:49 36.4 01/30/22 23:00 89 31 97/64 (75) 98 NIV Bilevel 40.00 01/30/22 22:39 81 30 98 40.00 01/30/22 22:15 76 29 105/58 (74) 97 NIV Bilevel 40.00 01/30/22 22:00 89 32 89/57 (68) 98 NIV Bilevel 40.00 01/30/22 21:15 87 32 100/57 (71) 100 NIV Bilevel 40.00 01/30/22 21:00 87 33 86/62 (70) 99 NIV Bilevel 40.00 01/30/22 20:15 86 32 95/58 (70) 98 NIV Bilevel 40.00 01/30/22 20:08 87 33 89/52 (64) 99 NIV Bilevel 40.00 01/30/22 20:00 36.5 01/30/22 19:48 99 NIV Bilevel 40 01/30/22 19:38 78 92/58 (69) 99 NIV Bilevel 40.00 01/30/22 19:00 86 31 99/46 (63) 100 NIV Bilevel 40.00 01/30/22 19:00 36.4 01/30/22 19:00 86 01/30/22 18:51 80 32 99 40.00 01/30/22 18:00 87 36 101/68 (79) 99 NIV Bilevel 40.00 01/30/22 17:00 75 29 92/55 (67) 99 NIV Bilevel 40.00 01/30/22 16:15 76 34 79/52 (61) 99 NIV Bilevel 40.00 01/30/22 16:00 36.1 01/30/22 16:00 76 37 96/29 (51) 98 NIV Bilevel 40.00 01/30/22 16:00 94 NIV Bilevel 40 01/30/22 15:00 84 35 97/51 (66) 99 NIV Bilevel 40.00 01/30/22 14:20 69 32 99 40.00 01/30/22 14:00 70 37 98/53 (68) 99 NIV Bilevel 40.00 01/30/22 13:00 71 36 96/66 (76) 98 NIV Bilevel 40.00 01/30/22 12:50 75 01/30/22 12:00 71 36 84/51 (62) 100 NIV Bilevel 40.00 01/30/22 12:00 94 NIV Bilevel 40 I & O 01/31/22 07:00 Intake Total 1480 ml Output Total 1450 ml Balance 30 ml Height & Weight Height: 5'5.00" Weight: 142lbs. 8.0oz. 67.713548zr; 30.23 BMI Method:Stated General Appearance: No Apparent Distress, WD/WN, Chronically ill, Thin HEENT: PERRL/EOMI, Pharynx Normal Neck: Non Tender, Supple Respiratory: No Accessory Muscle Use, No Respiratory Distress, Decreased Breath Sounds, Other (according to RN, no crackles, diminished BS) Cardiovascular: Regular Rate, Rhythm, Irregularly Irregular Capillary Refill: Less Than 3 Seconds Gastrointestinal: non tender, soft Extremity: Normal Range of Motion, Non Tender Neurologic/Psychiatric: Alert, Oriented x3, No Motor/Sensory Deficits, Normal Mood/Affect Results Lab Laboratory Tests 01/30/22 04:35 01/31/22 04:00 Assessment/Plan Assessment/Plan 1. Acute and chronic hypoxic respiratory failure improving currently on a BiPAP 10/5 with 30% FiO2. 2. Bilateral pneumonia on cefepime and azithromycin 3. A. fib with RVR. Cardiology on the case. 4. Chronic diastolic congestive heart failure receiving diuresis. 5. Borderline blood pressure receiving intermittent Lasix due to low urine output. 6. History of dementia 7. Hypertension currently on the low side. Recommendations 1. continue to wean as tolerated 2. Broad-spectrum antibiotics per primary diuretic therapy per cardiology 3. DVT prophylaxis and ulcer improved. As patient failed swallow evaluation change p.o. meds to IV. 4. DNR status Critical Care: Critically Ill Patient Time spent with patient (mins): 20 POOJA STARR MD Jan 31, 2022 11:22
[2022-01-31 14:53] VITALS: BP 103/73
--- NOTE | 2022-01-31 15:34 | Physician Query Clarification ---
Physician Query-General Query to Physician: The medical record reflects the following clinical scenario: The patient, in the setting of History/Risk factors, Advance age, Bilateral PNA Clinical Findings VS/Labs: HR 92, RR 20, BP 147/76, SpO2 96% on 4 L, 76% sat on room air T 37.0 Increased to 37.9 on date of admission, WBC 11.0, lactic acid 2.0, BP frequent 80-90 Systolic since admission, GCS decreasing from 15 on admission to 12, Treatment ER: Normal saline 1 L, cefepime IV, Question: Do you agree with the impression of Sepsis per oCrnelio Figueroa? 1. Yes; will document Sepsis, present on admission in the Progress Notes 2. No; will continue current documentation in the Progress Notes 3. Other; will document explanation of clinical findings 4. Clinically undetermined; no explanation for clinical findings Please clarify and document your clinical opinion in the Progress Notes and Discharge Summary including the definitive and/or presumptive diagnosis, (suspected or probable), related to the above clinical findings. Please include clinical findings supporting your diagnosis. In responding to this query, please exercise your independent professional judgment. The purpose of this communication is to more accurately reflect the complexity of your patients condition. The fact that a question is asked does not imply that any particular answer is desired or expected. Thank you for timely response to this clarification. Pema Hollis RN, MSN Clinical Chip Bin Conveyor Tender [phone] [email or web address] PHYSICIAN RESPONSE: Based on the clinical findings in the record, please respond to the query above on this document as an addendum. Physician Response: Physician Response 1 If you have questions please contact: Manager Educational: Ext: Thank you for your time and cooperation. Clinical Chip Bin Conveyor Tender/Manager Educational This is a permanent part of the medical record PEMA HOLLIS Jan 31, 2022 15:34 VIANEY BREWSTER DO Jan 31, 2022 21:01
[2022-01-31] MEDS: dilTIAZem DRIP PRE-MIX 125 ML IV SCH (17:35)
[2022-01-31 18:29] VITALS: BP 129/79
--- NOTE | 2022-01-31 19:41 | Progress Note ---
Subjective Subjective/Events-last exam Patient on bipap and sedation. tolerated well. NPO Review of Systems Unable to answer Focused Exam Lactate Level 01/30/22 00:55: Lactic Acid Level 0.76 Objective Exam Last Set of Vital Signs Vital Signs Date Time Temp Pulse Resp B/P (MAP) Pulse Ox O2 Delivery O2 Flow Rate FiO2 01/31/22 19:14 36.4 01/31/22 18:29 86 23 99 30.00 01/31/22 18:00 124/81 (95) NIV Bilevel 01/31/22 16:00 30 Capillary Refill : Less Than 3 Seconds I&O Intake and Output 01/30/22 23:59 Intake Total 1730 ml Output Total 1075 ml Balance 655 ml Intake Oral 0 ml IV Total 1730 ml Output Urine Total 1075 ml General: Other (Not alert or oriented) Lungs: Other (Diminished breath sounds with wheezing throughout and basilar crackles) Heart: Regular Rate Abdomen: Soft Results/Procedures Lab Laboratory Tests 01/30/22 23:27: Glucometer 188H 01/31/22 04:00: White Blood Count 6.7, Red Blood Count 4.09, Hemoglobin 10.9L, Hematocrit 34L, Mean Corpuscular Volume 83, Mean Corpuscular Hemoglobin 27, Mean Corpuscular Hemoglobin Concent 32, Red Cell Distribution Width 14.0, Platelet Count 264, Mean Platelet Volume 10.7, Immature Granulocyte % (Auto) 1, Neutrophils (%) (Auto) 92H, Lymphocytes (%) (Auto) 4L, Monocytes (%) (Auto) 3, Eosinophils (%) (Auto) 0, Basophils (%) (Auto) 0, Neutrophils # (Auto) 6.1, Lymphocytes # (Auto) 0.3L, Monocytes # (Auto) 0.2, Eosinophils # (Auto) 0.0, Basophils # (Auto) 0.0, Immature Granulocyte # (Auto) 0.1, Sodium Level 142, Potassium Level 3.7, Chloride Level 113H, Carbon Dioxide Level 16L, Anion Gap 13, Blood Urea Nitrogen 32H, Creatinine 1.50H, Estimat Glomerular Filtration Rate 34, BUN/Creatinine Ratio 21, Glucose Level 172H, Calcium Level 9.1, Corrected Calcium 9.8, Phosphorus Level 3.6, Magnesium Level 2.3, Total Bilirubin 0.5, Aspartate Amino Transf (AST/SGOT) 12, Alanine Aminotransferase (ALT/SGPT) 14, Alkaline Phosphatase 97, Total Protein 6.2L, Albumin 3.1L 01/31/22 11:23: Glucometer 155H 01/31/22 17:40: Glucometer 156H Microbiology 01/28/22 MRSA Screen - Final, Complete MRSA not isolated 01/28/22 Urine Culture - Final, Complete 3 or more isolates 01/28/22 Blood Culture - Preliminary, Resulted No growth Assessment/Plan Assessment/Plan (1) Acute and chronic respiratory failure with hypoxia Status: Acute Assessment & Plan: 01/30: MAT protocol, declining bipap, DNR/DNI, Steroids and antibiotics 01/31: Discussed poor prognosis with family, continue bipap as tolerated, ABG in AM (2) Atrial fibrillation with rapid ventricular response Status: Acute Assessment & Plan: 01/30: Cardiology consulted and managing, appreciate recommendations, On OAC (3) Bilateral pneumonia Status: Acute Qualifiers: Qualified Codes: J18.9 - Pneumonia, unspecified organism (4) Hemoptysis Status: Acute Assessment & Plan: 01/30: Hgb stable, ASA stopped, will continue to monitor (5) Chronic diastolic (congestive) heart failure Status: Chronic (6) Elevated troponin Status: Acute Assessment & Plan: 01/30: Type II AL, Will continue to monitor (7) Dysphagia Status: Acute Assessment & Plan: 01/30: Speech consulted Qualifiers: Qualified Codes: R13.10 - Dysphagia, unspecified (8) HTN (hypertension) Status: Chronic Qualifiers: Qualified Codes: I10 - Essential (primary) hypertension (9) Dementia Status: Chronic Qualifiers: Qualified Codes: F03.A0 - Unspecified dementia, mild, without behavioral disturbance, psychotic disturbance, mood disturbance, and anxiety (10) Advanced age Status: Chronic GISELE FOUNTAIN MD Jan 31, 2022 19:41
[2022-01-31] MEDS: MONTELUKAST CHEW 4 MG (SINGULAIR) TAB PO SCH (20:52)
[2022-01-31] MEDS: MIRTAZAPINE 15 MG (REMERON) TAB PO SCH (20:52)
[2022-01-31 21:49] VITALS: BP 122/79
[2022-02-01] MEDS: meTOprolol 5 MG/5 ML (LOPRESSOR) VIAL IV SCH ×2 (00:08→05:33)
[2022-02-01] MEDS: CEFEPIME INJECTION 1,000 MG in NS (IVPB) 50 ML IV SCH (00:08)
[2022-02-01 02:15] VITALS: BP 118/79
[2022-02-01] MEDS: DexMEDEtomidine 250 ML DRIP 250 ML IV SCH (03:05)
[2022-02-01 04:38] LABS: BASOPHILS % (AUTO) 0 % (0-10); EOSINOPHILS % (AUTO) 0 % (0-10); HEMATOCRIT 35 % (35-52); HEMOGLOBIN 11.2 g/dL (11.5-16.0); LYMPHOCYTES # (AUTO) 0.2 10^3/uL (1.0-4.0); LYMPHOCYTES % (AUTO) 2 % (12-44); MEAN CORPUSCULAR HEMOGLOBIN 27 pg (25-34); MEAN CORPUSCULAR HGB CONC 32 g/dL (32-36); MEAN CORPUSCULAR VOLUME 83 fL (80-99); MEAN PLATELET VOLUME 10.8 fL (9.0-12.2); MONOCYTES # (AUTO) 0.3 10^3/uL (0.0-1.0); MONOCYTES % (AUTO) 3 % (0-12); NEUTROPHILS # (AUTO) 12.1 10^3/uL (1.8-7.8); NEUTROPHILS % (AUTO) 95 % (42-75); PLATELET COUNT 310 10^3/uL (130-400); WHITE BLOOD COUNT 12.7 10^3/uL (4.3-11.0)
[2022-02-01] MEDS ORDERED: ENOXAPARIN 80 MG/0.8 ML (LOVENOX) SYR SC SCH (05:00)
[2022-02-01 05:04] LABS: ALBUMIN 3.1 GM/DL (3.2-4.5); BILIRUBIN,TOTAL 0.5 MG/DL (0.1-1.0); CALCIUM 9.2 MG/DL (8.5-10.1); CREATININE SERUM 1.6 MG/DL (0.60-1.30); MAGNESIUM 2.7 MG/DL (1.6-2.4); POTASSIUM 3.9 MMOL/L (3.6-5.0); TOTAL PROTEIN 6.2 GM/DL (6.4-8.2)
[2022-02-01] MEDS: methylPREDNISolone 40 MG/ML (Solu-MEDROL) VIAL IV SCH (05:33)
[2022-02-01] MEDS: MAGNESIUM 1 GM/100 ML IVPB 100 ML IV SCH (05:50)
[2022-02-01] MEDS: POTASSIUM CL 10MEQ/50ML IVPB 50 ML IV SCH (05:50)
[2022-02-01] MEDS: SUCRALFATE 1 GM (CARAFATE) TAB PO SCH (05:50)
[2022-02-01] MEDS: inSUlin ASPART (NovoLOG) 1 UNIT/0.01 ML (CHARGE PER UNIT) SC SCH (05:51)
[2022-02-01] MEDS: KCL 20 MEQ TAB (K-DUR) PO SCH (05:51)
[2022-02-01 07:02] VITALS: BP 128/98
[2022-02-01] MEDS: RT-ALBUTEROL/IPRATROPIUM 3 ML (DUONEB) VIAL IH SCH (07:02)
[2022-02-01] MEDS: LORazepam INJ 2 MG/ML (ATIVAN) VIAL IVP PRN ×6 (07:29→22:17)
[2022-02-01] MEDS: DOCUSATE SODIUM 100 MG (COLACE) CAP PO SCH (07:29)
[2022-02-01] MEDS: FERROUS SULF 325 MG (IRON) TAB PO SCH (07:30)
[2022-02-01] MEDS: SENNOSIDES 8.6 MG (SENOKOT) TAB PO SCH (07:30)
[2022-02-01] MEDS: PANTOPRAZOLE 40 MG (PROTONIX) TAB PO SCH (07:30)
[2022-02-01] MEDS: AtorvaSTATin TABLET 10 MG TABLET PO SCH (07:30)
[2022-02-01] MEDS: OMEGA 3 (FISH OIL) 1000 MG CAP PO SCH (07:30)
[2022-02-01] MEDS: KCL 10 MEQ TAB (MICRO K) PO SCH (07:30)
[2022-02-01] MEDS: AZITHROMYCIN INJECTION 500 MG in NS (IVPB) 250 ML IV SCH (08:11)
--- NOTE | 2022-02-01 08:39 | Occ Therapy Progress Note ---
Therapy Progress Note Pt on hold this date per RN. OT will attempt evaluation tomorrow if pt is more medically stable and able to actively participate in skilled therapy. QUINTIN LOPES OT Feb 01, 2022 08:39
--- NOTE | 2022-02-01 08:39 | Physical Therapy Progress Note ---
Therapy Progress Note Patient still on hold per nursing, will check back tomorrow. KAREEM KEITH PT Feb 01, 2022 08:39
[2022-02-01] MEDS ORDERED: FUROSEMIDE 40 MG/4 ML INJ (LASIX) IVP SCH (09:00)
--- NOTE | 2022-02-01 09:33 | Cardiology Progress Note ---
Subjective Date Seen by Provider: Feb 01, 2022 Time Seen by Provider: 08:50 Subjective/Events-last exam Patient currently on BiPAP Focused Exam Lactate Level 01/30/22 00:55: Lactic Acid Level 0.76 Objective-Cardiology Exam Last Set of Vital Signs Vital Signs 02/01/22 02/01/22 08:00 10:15 Temp 36.5 Pulse 105 Resp 38 B/P (MAP) 120/74 (89) Pulse Ox 93 O2 Delivery NIV Bilevel O2 Flow Rate 30.00 I&O Intake and Output 02/01/22 00:00 Intake Total 300 ml Output Total 950 ml Balance -650 ml Intake Oral 0 ml IV Total 300 ml Output Urine Total 950 ml General: Other (Not alert or oriented) HEENT: Atraumatic, PERRLA Neck: Supple, No JVD, No Thyromegaly Lungs: Other (Diminished breath sounds with wheezing throughout and basilar crackles) Heart: Regular Rate Abdomen: Soft Extremities: Other (1+ pitting edema) Skin: No Rashes, No Breakdown, No Significant Lesion Neuro: Normal Speech, Normal Tone, Sensation Intact Psych/Mental Status: Mental Status NL, Other (Sedated) Results Lab Laboratory Tests 02/01/22 04:00 A/P-Cardiology Admission Diagnosis Acute respiratory failure Acute exacerbation of COPD Bilateral pneumonia Type II myocardial infarction Assessment/Plan Acute respiratory failure, maintained on BiPAP, Currently sedated on Precedex. Bilateral pneumonia, receiving cefepime and Zithromax Managed by medical team. Type II myocardial infarction, mild elevation in troponin. Most probably secondary to respiratory failure Cardiac catheterization carried out in July 2020 with mild disease nonobstru ctive disease. Conservative management is recommended Paroxysmal atrial fibrillation, diagnosed in 2019 Maintained on Cardizem and Xarelto Back to atrial fibrillation with borderline tachycardia probably secondary to hypoxemia and respiratory failure Tolerating Cardizem, switching to oral Cardizem today. Continue on Xarelto and monitor History of recurrent chest pain and tightness, still having occasional chest pain. Congestive heart failure, chronic compensated left ventricular diastolic dys function, echocardiogram in May 2019 with a EF 55 to 60%. History of pain in lower extremities with cold feet, had history of polio. Doppler study done in 2017 with no significant stenosis. Hypertension, monitor blood pressure Hyperlipidemia, monitor lipids History of CVA/TIA. In 2011. Maintained on Xarelto Mild bilateral carotid stenosis last ultrasound was done in December 2021. Co ntinue to monitor COPD, chronic dyspnea. Essential tremor. Tobaccoism Supervisory-Addendum Brief Supervisory Addendum Participated in pt care: history, MDM, physical Personally performed: exam, history, MDM Care discussed with: NICHO Results interpretation: Verified all documentation Notes: Patient was seen and evaluated with Chery, examination performed, management plan was discussed, agree with the current scribed note, I made few changes to the note using Italic font Patient was seen at bedside, sedated Family at bedside Discussed with him the management plan and the family has decided to proceed with comfort care Continue to monitor CHERY PITT Feb 01, 2022 09:33 ARASH CAI MD Feb 01, 2022 11:36
[2022-02-01] MEDS ORDERED: BISACODYL 10 MG SUPP (DULCOLAX) PR PRN (10:00)
[2022-02-01] MEDS ORDERED: ACETAMINOPHEN 650 MG SUPP (TYLENOL) PR PRN (10:00)
[2022-02-01] MEDS ORDERED: SCOPOLAMINE 1.5 MG (TRANSDERM-SCOP) PATCH TOP SCH (10:00)
[2022-02-01] MEDS ORDERED: SALIVA STIMULANT MOUTH SPRAY (BIOTENE) 1.5 OZ MM PRN (10:00)
[2022-02-01] MEDS ORDERED: ONDANSETRON 4 MG/2 ML (SDV) Z0FRAN IVP PRN (10:00)
[2022-02-01] MEDS ORDERED: PROMETHAZINE INJ 25 MG/ML (PHENERGAN) AMP IVP PRN (10:00)
[2022-02-01] MEDS ORDERED: RT-ALBUTEROL/IPRATROPIUM 3 ML (DUONEB) VIAL INH PRN (10:00)
[2022-02-01] MEDS ORDERED: ARTIFICAL TEARS 0.4 ML UNIT DOSE (REFRESH PLUS) OU PRN (10:00)
[2022-02-01] MEDS: morphine INJ 4 MG/ML 1 ML (VIAL/SYRINGE) IV PRN ×6 (10:18→23:09)
--- NOTE | 2022-02-01 11:51 | Progress Note ---
Subjective Subjective/Events-last exam Discussed worsening status with daughter and she would like to move to comfort care. Review of Systems Unable to answer Focused Exam Lactate Level 01/30/22 00:55: Lactic Acid Level 0.76 Objective Exam Last Set of Vital Signs Vital Signs Date Time Temp Pulse Resp B/P (MAP) Pulse Ox O2 Delivery O2 Flow Rate FiO2 02/01/22 10:15 105 38 120/74 (89) 93 NIV Bilevel 30.00 02/01/22 08:00 30 02/01/22 08:00 36.5 Capillary Refill : Less Than 3 Seconds I&O Intake and Output 02/01/22 00:00 Intake Total 300 ml Output Total 950 ml Balance -650 ml Intake Oral 0 ml IV Total 300 ml Output Urine Total 950 ml General: Other (Awake and moaning, unable to make needs known) Lungs: Other (minimal air movement) Extremities: Other (2+ pitting edema) Results/Procedures Lab Laboratory Tests 01/31/22 17:40: Glucometer 156H 01/31/22 23:17: Glucometer 151H 02/01/22 04:00: White Blood Count 12.7H, Red Blood Count 4.19, Hemoglobin 11.2L, Hematocrit 35, Mean Corpuscular Volume 83, Mean Corpuscular Hemoglobin 27, Mean Corpuscular Hemoglobin Concent 32, Red Cell Distribution Width 14.3, Platelet Count 310, Mean Platelet Volume 10.8, Immature Granulocyte % (Auto) 1, Neutrophils (%) (Auto) 95H, Lymphocytes (%) (Auto) 2L, Monocytes (%) (Auto) 3, Eosinophils (%) (Auto) 0, Basophils (%) (Auto) 0, Neutrophils # (Auto) 12.1H, Lymphocytes # (Auto) 0.2L, Monocytes # (Auto) 0.3, Eosinophils # (Auto) 0.0, Basophils # (Auto) 0.0, Immature Granulocyte # (Auto) 0.1, Sodium Level 147H, Potassium Level 3.9, Chloride Level 117H, Carbon Dioxide Level 16L, Anion Gap 14, Blood Urea Nitrogen 52H, Creatinine 1.60H, Estimat Glomerular Filtration Rate 31, BUN/Creatinine Ratio 33, Glucose Level 179H, Calcium Level 9.2, Corrected Calcium 9.9, Magnesium Level 2.7H, Total Bilirubin 0.5, Aspartate Amino Transf (AST/SGOT) 12, Alanine Aminotransferase (ALT/SGPT) 17, Alkaline Phosphatase 88, Total Protein 6.2L, Albumin 3.1L Microbiology 01/28/22 MRSA Screen - Final, Complete MRSA not isolated 01/28/22 Urine Culture - Final, Complete 3 or more isolates 01/28/22 Blood Culture - Preliminary, Resulted No growth Assessment/Plan Assessment/Plan (1) Acute and chronic respiratory failure with hypoxia Status: Acute Assessment & Plan: 01/30: MAT protocol, declining bipap, DNR/DNI, Steroids and antibiotics 01/31: Discussed poor prognosis with family, continue bipap as tolerated, ABG in AM 02/01: Discussed worsening status with daughter and she would like to transition to comfort care, status changed to 4th floor status and comfort care protocol ordered (2) Atrial fibrillation with rapid ventricular response Status: Acute Assessment & Plan: 01/30: Cardiology consulted and managing, appreciate recommendations, On OAC (3) Bilateral pneumonia Status: Acute Qualifiers: Qualified Codes: J18.9 - Pneumonia, unspecified organism (4) Hemoptysis Status: Acute Assessment & Plan: 01/30: Hgb stable, ASA stopped, will continue to monitor (5) Chronic diastolic (congestive) heart failure Status: Chronic (6) Elevated troponin Status: Acute Assessment & Plan: 01/30: Type II PR, Will continue to monitor (7) Dysphagia Status: Acute Assessment & Plan: 01/30: Speech consulted Qualifiers: Qualified Codes: R13.10 - Dysphagia, unspecified (8) HTN (hypertension) Status: Chronic Qualifiers: Qualified Codes: I10 - Essential (primary) hypertension (9) Dementia Status: Chronic Qualifiers: Qualified Codes: F03.A0 - Unspecified dementia, mild, without behavioral d isturbance, psychotic disturbance, mood disturbance, and anxiety (10) Advanced age Status: Chronic GISELE FOUNTAIN MD Feb 01, 2022 11:51
--- NOTE | 2022-02-01 12:02 | Tele-ICU Progress Note ---
Subjective Date Seen by a Provider: Feb 01, 2022 Time Seen by a Provider: 08:31 Subjective/Events-last exam . (Tele-ICU Physician , Progress Note ) Available chart/ vitals / labs / Images reviewed Video assessment done using teleICU camera, rest of exam as per RN Discussed with RN Events overnight : boluses x2 for low UO FEBRILE hemodynamically stable Respiratory - 35 % I/O neg 600 Drips: cardizem , precedex Pressors- no Consultants: Hospital course: (01/28) 86y F from ER with dyspena, hemoptysis , abd pain takes xarelto for afib. CXR PNA with congestive changes increased O2 to 4L N/C, UTI, CHF 01/29 to tel floor ---> transferred from medical floor back to ICU with RVR --> cardizem gtt , BIPAP 02/01 - on BIPAP 01/11 35 % rr 27 tv 700 MV 22 L A/P Acute on chronic respiratory failure ( hypoxia ) PNA / ? ARDS - on BIPAP 01/11 35 % rr 27 tv 700 MV 22 L - will cont NIPPV with short br reaks given hiigh met demand ( baseline o2 dependent - SOLUMEDROL 01/30 for possible ARDS and wheezing - gentle diuresis MYRON - worsening slow Bilat PNA R>>L , mild hemoptysis = presumed CAP vs ARDS - WORSENING ( NEG covid and flu - cotn ABX Anxiety / moderate dementia - xanax prn - precedex prn A fib RVR on cardizem gtt as per cardiology -on xarelto [facility] --> lovenox 70 bid Chronic diastolic CHF - Echo 2019 showed EF 55-60% with grade 1 diastolic dysfunction - lasix po as per cards coagulopathy - on xarelto - follow -lovenox 70 bid replace lytes leukocytosis - ? steroid induced vs infection DO NOT RESUSCITATE, FAMILY CONSIDERING COMFORT MEASURES Lines : periph , (Central Line Necessity Reviewed) Johansen: + OG: Nutrition: need to adress Analgesia: Anxiety/ delirium precedex VTE Prophylaxis: xarelto Stress Ulcer Prophylaxis: PPi Plans in collaboration with bedside consultants and IM MDs. Discussed with RN to reach out if any questions or concerns A total of 10 minutes of critical care time was devoted to this patient today, required to treat and/or prevent further deterioration of critical care condition ( as above ) . I am remotely monitoring this patient from another state. I am unable to do the bedside exam, and history/physical and pertinent information is taken from other notes in the computer and bedside staff. Sepsis Event Evaluation Height, Weight, BMI Height: 5'5.00" Weight: 142lbs. 8.0oz. 67.793455mq; 30.23 BMI Method:Stated Focused Exam Lactate Level 01/30/22 00:55: Lactic Acid Level 0.76 Exam Exam Patient acknowledged, consented, and participated in this virtual visit which was conducted using real time audio/video Vital Signs Date Time Temp Pulse Resp B/P (MAP) Pulse Ox O2 Delivery O2 Flow Rate FiO2 02/01/22 10:15 105 38 120/74 (89) 93 NIV Bilevel 30.00 02/01/22 10:00 117 26 121/82 (95) 94 NIV Bilevel 30.00 02/01/22 09:00 105 26 110/71 (84) 92 NIV Bilevel 30.00 02/01/22 08:00 93 NIV Bilevel 30 02/01/22 08:00 121 29 98/70 (79) 97 NIV Bilevel 30.00 02/01/22 08:00 36.5 02/01/22 07:09 124 02/01/22 07:02 107 24 92 30.00 02/01/22 07:00 107 128/98 (108) 91 NIV Bilevel 30.00 02/01/22 06:00 101 125/99 (108) 87 NIV Bilevel 30.00 02/01/22 05:15 109 24 101/74 (83) 93 NIV Bilevel 30.00 02/01/22 04:00 97 NIV Bilevel 30 02/01/22 04:00 113 23 102/63 (76) 92 NIV Bilevel 30.00 02/01/22 03:05 115 118/79 02/01/22 03:00 116 105/79 (88) 99 NIV Bilevel 30.00 02/01/22 02:15 115 28 99 30.00 02/01/22 02:00 118 22 118/79 (92) 94 NIV Bilevel 30.00 02/01/22 01:00 107 02/01/22 01:00 92 21 113/84 (94) 96 NIV Bilevel 30.00 02/01/22 00:00 97 NIV Bilevel 30 02/01/22 00:00 106 28 116/70 (85) 92 NIV Bilevel 30.00 01/31/22 23:00 102 30 105/84 (91) 86 NIV Bilevel 30.00 01/31/22 22:48 35.7 01/31/22 22:00 104 30 131/75 (93) 97 NIV Bilevel 30.00 01/31/22 21:49 103 32 90 30.00 01/31/22 21:00 111 98/70 (79) 90 NIV Bilevel 30.00 01/31/22 20:00 110 23 100/62 (75) 97 NIV Bilevel 30.00 01/31/22 20:00 97 NIV Bilevel 30 01/31/22 19:41 36.4 01/31/22 19:14 36.4 01/31/22 19:00 101 01/31/22 19:00 101 27 104/75 (85) 96 NIV Bilevel 30.00 01/31/22 18:29 86 23 99 30.00 01/31/22 18:00 99 32 124/81 (95) 98 NIV Bilevel 30.00 01/31/22 17:35 101 99/79 01/31/22 17:00 100 21 128/69 (88) 96 NIV Bilevel 30.00 01/31/22 16:00 101 21 99/79 (86) 95 NIV Bilevel 30.00 01/31/22 16:00 35.0 01/31/22 16:00 97 NIV Bilevel 30 01/31/22 15:38 35.0 01/31/22 15:00 88 27 106/71 (83) 98 NIV Bilevel 30.00 01/31/22 14:53 89 28 93 30.00 01/31/22 14:00 90 17 103/73 (83) 100 NIV Bilevel 30.00 01/31/22 13:00 80 24 125/87 (100) 100 NIV Bilevel 30.00 01/31/22 12:22 101 I & O 02/01/22 07:00 Intake Total 0 ml Output Total 675 ml Balance -675 ml Height & Weight Height: 5'5.00" Weight: 142lbs. 8.0oz. 67.975619rv; 30.23 BMI Method:Stated General Appearance: No Apparent Distress, WD/WN, Chronically ill, Thin HEENT: PERRL/EOMI, Pharynx Normal Neck: Non Tender, Supple Respiratory: No Accessory Muscle Use, No Respiratory Distress, Decreased Breath Sounds, Other (according to RN, no crackles, diminished BS) Cardiovascular: Regular Rate, Rhythm, Irregularly Irregular Capillary Refill: Less Than 3 Seconds Gastrointestinal: non tender, soft Extremity: Normal Range of Motion, Non Tender Neurologic/Psychiatric: Alert, Oriented x3, No Motor/Sensory Deficits, Normal Mood/Affect Results Lab Laboratory Tests 01/31/22 04:00 02/01/22 04:00 Assessment/Plan Assessment/Plan 1 YOVANNY BAJWA MD Feb 01, 2022 12:02
[2022-02-02] MEDS: LORazepam INJ 2 MG/ML (ATIVAN) VIAL IVP PRN (00:20)
[2022-02-02] MEDS: morphine INJ 4 MG/ML 1 ML (VIAL/SYRINGE) IV PRN (01:19)
[2022-02-04] MEDS ORDERED: SCOPOLAMINE PATCH REMOVAL TP SCH (09:59)
== END 2022-02-02 03:40 | disposition expired | DRG 871 ==
LOC: EDUNIT# 08:47 → ER 08:49 → ICU 13:42 → 4TH 01-29 14:06 → ICU 01-29 18:15 → 4TH 01-30 12:18 → ICU 01-30 12:18 → 4TH 02-01 16:15
PROVIDERS: ADMIT Internal Medicine; ATTEND Family Medicine
DX: A41.9 Sepsis, unspecified organism (principal); I21.A1 Myocardial infarction type 2; J18.9 Pneumonia, unspecified organism; J96.21 Acute and chronic respiratory failure with hypoxia; R04.2 Hemoptysis; J44.0 Chronic obstructive pulmonary disease with (acute) lower respiratory infection; J44.1 Chronic obstructive pulmonary disease with (acute) exacerbation; I50.32 Chronic diastolic (congestive) heart failure; N17.9 Acute kidney failure, unspecified; Z66 Do not resuscitate; Z51.5 Encounter for palliative care; Z20.822 Contact with and (suspected) exposure to COVID-19; I11.0 Hypertensive heart disease with heart failure; I48.0 Paroxysmal atrial fibrillation; F03.90 Unspecified dementia, unspecified severity, without behavioral disturbance, psychotic disturbance, mood disturbance, and anxiety; I44.7 Left bundle-branch block, unspecified; K21.9 Gastro-esophageal reflux disease without esophagitis; F41.9 Anxiety disorder, unspecified; F32.A Depression, unspecified; R13.10 Dysphagia, unspecified; G25.0 Essential tremor; I65.23 Occlusion and stenosis of bilateral carotid arteries; H91.90 Unspecified hearing loss, unspecified ear; Z87.891 Personal history of nicotine dependence; Z79.01 Long term (current) use of anticoagulants
CPT/HCPCS: 36415; 71045; 80053; 80061; 81000; 82805; 82947; 83605; 83735; 83880; 84100; 84484; 85007; 85025; 85027; 85610; 85730; 87040; 87081; 87088; 87636; 93005; 94640; 94660; 94760